=== PATIENT | male | born 1995 | race Caucasian/White ===

== ENCOUNTER 2018-07-11 16:16 | Outpatient (REF) | payer MEDICAID, SELFPAY | END 2018-07-11 16:36 | LOC: NCHCN 16:16 | PROVIDERS: PCP Internal Medicine; Visit Provider Physician Assistant Medical | DX: L03.113 Cellulitis of right upper limb (principal) | CPT/HCPCS: 87070; 87205 ==

== ENCOUNTER 2019-10-01 20:31 | Emergency (ER) | payer MEDICAID, SELFPAY ==
--- NOTE | 2019-10-01 20:39 | ED.GENADUL_ITS ---
Discharge Plan Disposition Patient Disposition: HOME Condition: Stable Discharge Details Chief Complaint: Orthopedic Clinical Impression: Hand fracture, right Primary Care Provider: Ernesto Eisenberg ED Provider: Shefali Wong Home Meds and New Rx's Prescriptions: New clindamycin HCl 150 mg capsule 450 mg PO TID 7 Days Qty: 63 RF: 0 oxycodone 5 mg tablet 5 mg PO Q6H PRN (Reason: pain) Qty: 7 RF: 0 Discharge Instructions Instructions: Hand Fracture (ED) Additional Instructions: Rest, ice, and elevate the affected area as much as possible. Alternate tylenol and motrin as needed and directed for pain. Take the oxycodone for pain not relieved with Tylenol or Motrin. Keep wound clean and dry. Take the antibiotics until finished. Call your primary care doctor tomorrow for referral to orthopedics within the next week for further evaluation. Return to the emergency department if you develop any worsening or new concernin g symptoms. Referrals: Erasmo Whitten MD [ [facility] STAFF PHYSICIAN] - Discharge Data Discharge Physician: Shefali Wogn Medical Decision Making 24-year-old male presents with right hand injury after caught his hand in between a car and trailer just prior to arrival. He admitted to numbness of fingers. He has a large hematoma noted to the right dorsal hand with small superficial 3 mm laceration in center. There is no obvious deformity. Neurovascular intact. He is able to wiggle fingers but limited due to pain. Tetanus up-to-date. X-rays note a right second metacarpal fracture. Swelling significantly improved with ice on arrival. He denies any significant relief with ibuprofen and oxycodone. Superficial wound cleaned with Hibiclens and dressed with bacitracin and Kerlix with pressure dressing. Volar splint applied. Neurovascular intact pre-and post procedure. Patient states he is from [place] and would rather follow-up with orthopedics in [place]. His primary care doctor is at [place]. Patient was placed on the orthopedic follow-up list if he decides to follow-up here. Advised on the importance of rice. He is allergic to Keflex. Will cover with prophylactic antibiotics. A dose of clindamycin given here as well as prescription. Advised to call his primary care doctor tomorrow for referral to orthopedics. Advised to return here with any concerns. Medical Records Medical records reviewed: Yes I reviewed the patient's medical records. Imaging Data Radiologic Study: Radiologist's impression: XR Right Hand Exam date and time: 10/01/2019 8:50 PM Age: 24 years old Clinical indication: Injury or trauma; Injury history: Caught hand between car and trailer; Initial encounter; Crushing; Hand and wrist; Right; Injury date: 10/01/19; Injury details: Pain swelling posterior hand/wrist after getting crushed between car and trailer TECHNIQUE: Imaging protocol: XR Right hand. Views: 3 or more views. COMPARISON: No relevant prior studies available. FINDINGS: Bones/joints: Acute fracture in the midshaft of the second metacarpal bone. Soft tissues: Soft tissue edema. IMPRESSION: Acute fracture in the midshaft of the second metacarpal bone. Soft tissue edema. XR Right Wrist Exam date and time: 10/01/2019 8:53 PM Age: 24 years old Clinical indication: Injury or trauma; Injury history: Pain in wrist and hand after getting crushed between car and trailer; Initial encounter; Crushing; Hand and wrist; Right; Injury date: 10/01/19; Injury details: Pain in wrist hand TECHNIQUE: Imaging protocol: XR Right wrist. Views: 3 or more views. COMPARISON: No relevant prior studies available. FINDINGS: Bones/joints: Acute fracture in the midshaft of the second metacarpal bone. Soft tissues: Soft tissue edema. IMPRESSION: Acute fracture in the midshaft of the second metacarpal bone. Soft tissue edema. HPI General Mode of arrival: ambulatory . Date/Time Provider Initiated Documentation: 10/01/19 20:34 . Limitations to Documentation: no limitations . Information obtained by: patient . History of Present Illness 24 year old M presents to the emergency department with the chief complaint of Right hand injury, Quality is described as stabbing and sharp, and is localized to the right and upper extremity (Hand). Patient started experiencing this minute(s) (30) and it has been constant. No relieving factors improve symptom(s), M ovement worsens symptoms . Patient notes no other symptoms.. Patient did receive the following treatments prior to arrival, none Related Data Home Medications Medication Instructions Recorded Confirmed clindamycin HCl 450 mg PO TID 7 Days #63 cap 10/01/19 oxycodone 5 mg PO Q6H PRN #7 tab 10/01/19 Previous Rx's Medication Instructions Recorded clindamycin HCl 450 mg PO TID 7 Days #63 cap 10/01/19 oxycodone 5 mg PO Q6H PRN #7 tab 10/01/19 Allergies Allergy/AdvReac Type Severity Reaction Status Date / Time fluticasone [From Flonase] Allergy Unverified 10/01/19 20:49 Review of Systems All systems reviewed & are unremarkable except as noted in HPI and below PFSH Medical History 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 Social History Smoking/Tobacco Use Status: Never Alcohol Intake: current Alcohol Intake frequency: a few times a month Drug use: Occasionally Substance use type: marijuana Do you feel safe at home: Yes Do you feel safe in your relationship?: Yes Exam Const General: cooperative, healthy appearing and no acute distress HENMT Head: normal to inspection Mouth: oral mucosae normal Eyes General: appearance normal, both eyes and all related structures Neck Neck: normal visual inspection Resp Effort & Inspection: normal respiratory effort and able to speak in complete sentences Cardio Rate: regular rate Skin General skin exam: no rashes or lesions noted Neuro General: alert, awake and oriented x3 Motor: muscle tone normal throughout and strength 5/5 throughout Sensory Exam: no sensory deficits noted Other: Motor/sensory grossly intact right hand. Limitation of range of motion of fingers due to pain. Extrem Hand/finger images: 1. 5 x 5 cm large hematoma noted on right dorsal hand. There is a 3 mm superficial laceration noted in center of hematoma. There is no deformity. Other: Tenderness to palpation along right dorsal hand and wrist. Right radial and ulnar pulses intact. Normal capillary refill. Psych Appearance: grossly normal Affect: normal affect
[2019-10-01 20:44] VITALS: BP 120/96; PULSE 78; RESP 20; TEMP 36.8; O2SAT 100
[2019-10-01] MEDS: Ibuprofen 600 MG TAB PO (20:49)
[2019-10-01] MEDS: oxyCODONE 5 MG TAB PO (20:49)
--- NOTE | 2019-10-01 20:50 | DI.RAD_ITS ---
EXAM: XR HAND RT COMPLETE INDICATION: crushed hand in b/w car/trailer; r/o fx. COMPARISON: No previous for comparison TECHNIQUE: 2D digital imaging was performed. FINDINGS: There is a transverse fracture through the midshaft of the right 2nd metacarpal. There is mild ulnar angulation of the distal fracture. No other fracture or dislocation is seen. There is soft tissue swelling of the hand. IMPRESSION: Right 2nd metacarpal fracture.
--- NOTE | 2019-10-01 21:04 | DI.VRAD_ITS ---
PROCEDURE INFORMATION: Exam: XR Right Hand Exam date and time: 10/01/2019 8:50 PM Age: 24 years old Clinical indication: Injury or trauma; Injury history: Caught hand between car and trailer; Initial encounter; Crushing; Hand and wrist; Right; Injury date: 10/01/19; Injury details: Pain swelling posterior hand/wrist after getting crushed between car and trailer TECHNIQUE: Imaging protocol: XR Right hand. Views: 3 or more views. COMPARISON: No relevant prior studies available. FINDINGS: Bones/joints: Acute fracture in the midshaft of the second metacarpal bone. Soft tissues: Soft tissue edema. IMPRESSION: Acute fracture in the midshaft of the second metacarpal bone. Soft tissue edema. Dictated and Authenticated by: Rojas Leonardo MD. Ordering:MARIA ALEJANDRA Meehan MD
--- NOTE | 2019-10-01 21:05 | DI.VRAD_ITS ---
PROCEDURE INFORMATION: Exam: XR Right Wrist Exam date and time: 10/01/2019 8:53 PM Age: 24 years old Clinical indication: Injury or trauma; Injury history: Pain in wrist and hand after getting crushed between car and trailer; Initial encounter; Crushing; Hand and wrist; Right; Injury date: 10/01/19; Injury details: Pain in wrist hand TECHNIQUE: Imaging protocol: XR Right wrist. Views: 3 or more views. COMPARISON: No relevant prior studies available. FINDINGS: Bones/joints: Acute fracture in the midshaft of the second metacarpal bone. Soft tissues: Soft tissue edema. IMPRESSION: Acute fracture in the midshaft of the second metacarpal bone. Soft tissue edema. Dictated and Authenticated by: Rojas Leonardo MD. Ordering:MARIA ALEJANDRA Meehan MD
[2019-10-01] MEDS: Clindamycin 150 MG CAP 450 MG PO (21:41)
[2019-10-01 23:00] VITALS: BP 120/96; PULSE 78; RESP 20; TEMP 36.8; O2SAT 100
== END 2019-10-01 22:30 | disposition home or self-care (01) ==
PROVIDERS: Emergency Provider Physician Assistant; PCP Internal Medicine
DX: S62.320A Displaced fracture of shaft of second metacarpal bone, right hand, initial encounter for closed fracture (principal); S61.411A Laceration without foreign body of right hand, initial encounter; W23.0XXA Caught, crushed, jammed, or pinched between moving objects, initial encounter
CPT/HCPCS: 26600; 73110; 73130; L3650

== ENCOUNTER 2019-10-09 11:38 | Outpatient (CLI) | payer MEDICAID, SELFPAY ==
--- NOTE | 2019-10-09 11:55 | DI.RAD_ITS ---
EXAM: XR HAND RT LIMITED INDICATION: fx right hand. COMPARISON: XR HAND RT COMPLETE from 10/01/2019 TECHNIQUE: 2D digital imaging was performed. FINDINGS: There has been no change in the alignment of the fracture of the mid 2nd metacarpal.
== END 2019-10-09 11:58 ==
PROVIDERS: PCP Internal Medicine; Visit Provider Physician Assistant
DX: S62.320D Displaced fracture of shaft of second metacarpal bone, right hand, subsequent encounter for fracture with routine healing (principal)
CPT/HCPCS: 73120

== ENCOUNTER 2019-10-23 09:19 | Outpatient (CLI) | payer MEDICAID, SELFPAY ==
--- NOTE | 2019-10-23 09:00 | DI.RAD_ITS ---
EXAM: XR HAND RT LIMITED CLINICAL HISTORY: f/u TECHNIQUE: COMPARISON: XR HAND RT LIMITED from 10/09/2019 FINDINGS: Two views were obtained and show previously noted fracture of the mid shaft of the 2nd metacarpal wit h no gross interval change in alignment of the fracture fragments comparison with films of September 29. IMPRESSION:
== END 2019-10-23 09:39 ==
PROVIDERS: PCP Internal Medicine; Visit Provider Orthopaedic Surgery
DX: S62.320D Displaced fracture of shaft of second metacarpal bone, right hand, subsequent encounter for fracture with routine healing (principal)
CPT/HCPCS: 73120

== ENCOUNTER 2019-11-13 11:24 | Outpatient (CLI) | payer MEDICAID, SELFPAY ==
--- NOTE | 2019-11-13 10:15 | DI.RAD_ITS ---
EXAM: XR HAND RT LIMITED CLINICAL HISTORY: F/U FRACTURE. TECHNIQUE: 2D digital imaging was performed. COMPARISON: XR HAND RT LIMITED from 10/23/2019 FINDINGS: BONES: The 2nd metacarpal fracture is stable in alignment and shows evidence of healing. No bony shane tructive lesion is seen. JOINTS: No dislocation present. SOFT TISSUE: Normal. IMPRESSION: Healing right 2nd metacarpal fracture. DATA REPOSITORY: RADIATION DOSE DELIVERED:
== END 2019-11-13 11:44 ==
PROVIDERS: PCP Internal Medicine; Visit Provider Orthopaedic Surgery
DX: S62.320D Displaced fracture of shaft of second metacarpal bone, right hand, subsequent encounter for fracture with routine healing (principal)
CPT/HCPCS: 73120

== ENCOUNTER 2020-03-13 14:55 | Outpatient (REF) | payer MEDICAID, SELFPAY | END 2020-03-13 15:15 | LOC: NCHCN 14:55 | PROVIDERS: PCP Internal Medicine; Visit Provider Internal Medicine | DX: F42.9 Obsessive-compulsive disorder, unspecified (principal); J38.5 Laryngeal spasm; F90.0 Attention-deficit hyperactivity disorder, predominantly inattentive type; G44.209 Tension-type headache, unspecified, not intractable; C91.01 Acute lymphoblastic leukemia, in remission ==

== ENCOUNTER 2021-03-13 15:58 | Outpatient (REF) | payer MEDICAID, SELFPAY ==
[2021-03-15 11:01] LABS: COVID-19 RT-PCR UVMMC Result Negative (Negative)
== END 2021-03-13 15:59 | disposition home or self-care (01) ==
LOC: NCHCN 15:58
PROVIDERS: PCP Internal Medicine; Visit Provider Physician Assistant
DX: J06.9 Acute upper respiratory infection, unspecified (principal); Z20.822 Contact with and (suspected) exposure to COVID-19
CPT/HCPCS: U0003

== ENCOUNTER 2021-06-19 19:51 | Outpatient (REF) | payer MEDICAID, SELFPAY ==
[2021-06-21 16:34] LABS: COVID-19 RT-PCR UVMMC Result Negative (Negative)
== END 2021-06-19 19:52 | disposition home or self-care (01) ==
LOC: NCHCN 19:51
PROVIDERS: PCP Internal Medicine; Visit Provider Internal Medicine
DX: Z20.822 Contact with and (suspected) exposure to COVID-19 (principal)
CPT/HCPCS: U0003

== ENCOUNTER 2021-10-05 16:26 | Outpatient (REF) | payer MEDICAID, SELFPAY ==
[2021-10-05 18:53] LABS: Abs Immature Grans 0.03 10^3/uL (0.0-0.06); Absolute Basophil Count 0.04 10^3/uL (0.0-0.2); Absolute Eosinophil Count 0.05 10^3/uL (0.0-0.7); Absolute Lymphocyte Count 1.72 10^3/uL (1.2-3.4); Absolute Neutrophil Count 5.86 10^3/uL (1.2-6.7); Basophils % 0.5; Eosinophils % 0.6; HCT 43.8 % (40.0-50.0); HGB 14.9 g/dL (13.5-17.5); Immature Grans % 0.3; MCV 85.2 fL (80-95); MPV 10.1 fL (8.0-11.0); Monocytes % 10.5; Neutrophils % 68.1; Nucleated RBC 0 %; Platelet Count 289 10^3/uL (130-400); RBC 5.14 10^6/uL (4.36-5.78); RDW 12.2 % (11.8-14.1); RDW-SD 38.3 fL
== END 2021-10-05 16:27 | disposition home or self-care (01) ==
LOC: NCHCN 16:26
PROVIDERS: PCP Internal Medicine; Visit Provider Internal Medicine
DX: C91.01 Acute lymphoblastic leukemia, in remission (principal)
CPT/HCPCS: 85025

== ENCOUNTER 2022-10-08 17:07 | Outpatient (REF) | payer MEDICAID, SELFPAY ==
[2022-10-08 18:48] LABS: MCH 28.4 pg (27.0-33.0); MCHC 34.1 % (32.0-36.0); MCV 83 fL (80-95); MPV 9.7 fL (8.0-11.0); Platelet Count 309 10^3/uL (130-400); RBC 5.28 10^6/uL (4.36-5.78); RDW 12.4 % (11.8-14.1); RDW-SD 37.6 fL; WBC 7.96 10^3/uL (4.4-10.8)
[2022-10-08 18:57] LABS: Anion Gap 7.5 mmol/L (3-11); BUN 12 mg/dL (7-18); CO2 30.5 mmol/L (21.0-32.0); CREATININE 0.8 mg/dL (0.70-1.30); Calcium 9.2 mg/dL (8.5-10.1); Calculated LDL 81 mg/dL (<100); Chloride 101 mmol/L (98-107); Cholesterol 162 mg/dL (<200); Estimated GFR 125.95 (mL/min/1.73m2); Glucose 100 mg/dL (74-106); HDL Cholesterol 74 mg/dL (40-60); Potassium 4.1 mmol/L (3.5-5.1); Sodium 139 mmol/L (136-145); Triglyceride 36 mg/dL (<150)
[2022-10-11 14:39] LABS: Chlamydia Result Negative (Negative); GC Result Negative (Negative)
== END 2022-10-08 17:08 | disposition home or self-care (01) ==
LOC: NCHCN 17:07
PROVIDERS: PCP Internal Medicine; Visit Provider Internal Medicine
DX: C91.01 Acute lymphoblastic leukemia, in remission (principal); Z13.220 Encounter for screening for lipoid disorders; Z11.3 Encounter for screening for infections with a predominantly sexual mode of transmission
CPT/HCPCS: 80048; 80061; 85027; 87491; 87591

== ENCOUNTER 2023-10-05 07:36 | Outpatient (REF) | payer BC, SELFPAY ==
[2023-10-07 15:02] LABS: Chlamydia Result Negative (Negative); GC Result Negative (Negative)
== END 2023-10-05 07:37 | disposition home or self-care (01) ==
LOC: NCHCN 07:36
PROVIDERS: PCP Internal Medicine; Visit Provider Internal Medicine
DX: Z20.2 Contact with and (suspected) exposure to infections with a predominantly sexual mode of transmission (principal)
CPT/HCPCS: 87491; 87591

== ENCOUNTER 2024-06-18 16:38 | Outpatient (REF) | payer BC, SELFPAY ==
--- OUTSIDE RECORDS SUMMARY | 2024-06-18 16:39 | XMS_ITS | Encounter Summary ---
Author Organization [facility] Address [address] [place] [id number] Care Team Providers Care Medical Laboratory Technologist Name Role Phone Ernesto Eisenberg MD Primary Care Provider [phone] Reason for Visit * Reason Onset Date Comments COVID-19 05/15/2020 Encounter Details Date Type Department Care Team (Late st Contact Info) Description 05/15/2020 Telephone [facility] [address] [place] [address] Yvonne Kelly MD [address] [facility], [address] [place] [address] COVID-19 Social History Tobacco Use Types Packs/Day Years Used Date Smoking Tobacco: Former Cigarettes 0 11/2012 - 2013 Smokeless Tobacco: Never Comments:Ecig used for less than a year Alcohol Use Standard Drinks/Week Comments Not Currently 0 (1 standard drink = 0.6 oz pur e alcohol) Interpersonal Safety Answer Date Record ed Physically Hurt Never 03/30/2020 Verbally Threaten Not on file 03/30/2020 Sex and Gender Information Value Date Recorded Sex Assigned at Not on file Gender Identity Male 10/19/2019 11:33 EST Sexual Orientation Not on file documented as of this encounter Miscellaneous Notes * Telephone Encounter - Sharmin Cagle - 05/15/2020 1201 EDT Called patient to schedule COVID-19 testing. Requested a call back @[phone]. This is our 1st attempt at contacting patient documented in this encounter Plan of Treatment Not on file documented as of this encounter Visit Diagnoses Not on filedocumented in this encounter Care Teams Medical Laboratory Technologist Relationship Specialty Start Date End Date Ernesto Eisenberg MD [address] [place] [address] PCP - General 12/09/11 documented as of this encounter
--- OUTSIDE RECORDS SUMMARY | 2024-06-18 16:39 | XMS_ITS | Encounter Summary ---
Author Organization [facility] Address [address] [place] [address] Care Team Providers Care Data Reporting Analyst Name Role Phone Ernesto Eisenberg MD Primary Care Provider [phone] Reason for Referral * Referral (Routine) - New Request Specialty Diagnoses / Procedures Referred By Maxine vernon Referred To Contact Diagnoses Vocal cord dysfunction Mild persistent asthma without complication Luci Chamorro MD [address] [place] [id number] Referral ID Status Reason Start Date Expiration Date Visits Requested Visits Authorized [id number] New Request Specialty Services Required 12/19/2020 1 1 Question Answer Reason for Request: Patient preference Scheduling Comments (optional ? describe specific scheduling needs if applicable): 6 months SITE Encounter Details Date Type Department Care Team (Late st Contact Info) Description 12/19/2020 Orders Only [facility] Pulmonology & Critical Care - [address] [id number] Ashley Pizarro MD [address] [facility], [address] [place] [address] Vocal cord dysfunction (Primary Dx); Mild persistent asthma without complication Social History Tobacco Use Types Packs/Day Years [...] on file documented as of this encounter Plan of Treatment Scheduled Referrals Name Type Priority Associated Diagnoses Orde r Schedule AMB CONS/FOLLOW UP PULMONARY Outpatient Referral Routine Vocal cord dysfunction Mild persistent asthma without complication Ordered: 12/19/2020 documented as of this encounter Visit Diagnoses Diagnosis Vocal cord dysfunction- Primary Other diseases of vocal cords Mild persistent asthma without complication Unspecified asthma documented in this encounter Care Teams Data Reporting Analyst Relationship Specialty Start Date End Date Ernesto Eisenberg MD [address] [place] [address] PCP - General 12/09/11 documented as of this encounter
--- OUTSIDE RECORDS SUMMARY | 2024-06-18 16:39 | XMS_ITS | Encounter Summary ---
Author Organization [facility] Address [address] [place] [address] Care Team Providers Care Corrosion Control Fitter Name Role Phone Ernesto Eisenberg MD Primary Care Provider [phone] Reason for Visit * Reason Comments Sinus Problems * Referral (Routine/Next Available) - Order Cancelled Specialty Diagnoses / Procedures Referred By Maxine vernon Referred To Contact Otolaryngology Diagnoses Vocal cord dysfunction Chronic maxillary sinusitis Heron Dean MD [address] [place] [phone] [place] [address] [place] [id number] Referral ID Status Reason Start Date Expiration Date Visits Requested Visits Authorized [id number] Order Cancelled Specialty Services Required 01/23/2020 1 1 Encounter Details Date Type Department Care Team (Late st Contact Info) Description 09/25/2020 15:30 EST Office Visit [facility] ENT- [address] [address] Yvonne Kelly MD [address] [place] [address] [address] [place] [address] Vocal fold dysfunction (Primary Dx); Laryngopharyngeal reflux (LPR); Non-seasonal allergic rhinitis due to pollen Social History Tobacco Use Types Packs/Day Years [...] on file documented as of this encounter Ordered Prescriptions Prescription Sig Dispensed Refills Start Date End Da te omeprazole (PRILOSEC) 20 mg capsule Take 1 Cap by mouth every morning. 30 Cap 11 09/25/2020 12/18/2020 triamcinolone (NASACORT AQ) 55 mcg nasal inhaler Instill 1-2 Sprays into both nostrils 2 times daily. 2 Inhaler 11 09/25/2020 12/18/2020 documented in this encounter Progress Notes * Yvonne Kelly MD - 09/25/2020 1530 EST Consultation Note Division of Otolaryngology, Head and Neck Surgery Date of Service: 09/25/20 Provider: MD Heron Choi has requested that I see Erich Carreon in consultation regarding sinus issues Chief Complaint: Chief Complaint Patient presents with ??? Sinus Problems History of Present Illness: Erich Carreon is a 25 y.o. year old male who comes in today for sinus issues. Has asthma, was negative for CF on genetic testing Was referred for many years of PND and nasal congestion Has shortness of breath and chest pain - these are his most bothersome symptoms No history of choking Does have periods where he struggles to get breaths in - mostly when wind is blowing in his face; hot and dry air is worse No trouble swallowing He reports sinus infections every month starting in the fall to spring - these episodes are characterized by runny nose that is discolored, coughing up green/yellow, nasal congestion that alternates,sense of smell is poor, gets migraines during these times. He reports that he does respond to antibiotics at these times. 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 He has a history of allergies - pollens in the spring; he was tested 1-2 years ago at [facility] Allergy Does not use any medication for his nose Used to take Claritin - this helped a little He is allergic to flonase - gets chest tightness and SOB Nasacort - does not remember if this helped but he did not have any allergies to this Will not use the neti pot because it reagan 3-4 years ago was evaluated at [facility] Has had septoplasty in the past approx 4 years ago which helped somewhat Has been seen to have paradoxical vocal fold motion on exam at [facility] Has not yet seen speech therapy Does not remember if he has had a CT scan - may have been done at [facility] aroundwh his nasal surgery was done mild Nasal obstruction mild Nasal drainage no Loss of smell no PND no Itchy Nose/eyes mild Sneezing mild Cough no Ear fullness no Facial pain/pressure Current nasal treatment includes none Allergy: yes Asthma: yes Dermatitis: no Past Medical History: Patient Active Problem List Diagnosis ??? Leukemia in remission ([facility]) ??? Meningitis ??? Chronic sinusitis ??? Asthma due to environmental allergies Past Medical History: Diagnosis Date ??? Blurry vision ??? Cancer ([facility]) ALL Past Surgical History: Procedure Laterality Date ??? APPENDECTOMY ??? NASAL SEPTUM SURGERY Current Outpatient Medications Medication ??? acetaminophen (TYLENOL) 500 mg tablet ??? albuterol (ACCUNEB) 2.5 mg /3 mL (0.083 %) nebulizer solution ??? albuterol sulfate (PROAIR HFA INHALATION) ??? cyclobenzaprine (FLEXERIL) 10 mg tablet ??? DOXYCYCLINE HYCLATE ORAL ??? ibuprofen (MOTRIN) 800 mg tablet ??? lisdexamfetamine (VYVANSE) 30 mg capsule ??? montelukast (SINGULAIR) 10 mg tablet No current facility-administered medications for this visit. Allergies: Allergies Allergen Reactions ??? Flonase [Fluticasone Propionate] Pt reports tightening of chest, SOB ??? Keflex [Cephalexin] Wheezing Rash, swelling Past Family and Social History: Family History Problem Relation Age of Onset ??? Sinusitis Mother Social History Socioeconomic History ??? Marital status: Single Spouse name: Not on file ??? Number of children: Not on file ??? Years of education: Not on file ??? Highest education level: Not on file Occupational History ??? Not on file Social Needs ??? Financial resource strain: Not on file ??? Food insecurity Worry: Not on file Inability: Not on file ??? Transportation needs Medical: Not on file Non-medical: Not on file Tobacco Use ??? Smoking status: Former Smoker Years: 0.75 Quit date: 2014 Years since quittin.0 ??? Smokeless tobacco: Never Used ??? Tobacco comment: Ecig used for less than a year Substance and Sexual Activity ??? Alcohol use: Not Currently ??? Drug use: Not Currently ??? Sexual activity: Not on file Lifestyle ??? Physical activity Days per week: Not on file Minutes per session: Not on file ??? Stress: Not on file Relationships ??? Social connections Talks on phone: Not on file Gets together: Not on file Attends buddhist service: Not on file Active member of club or organization: Not on file Attends meetings of clubs or organizations: Not on file Relationship status: Not on file ??? Intimate partner violence Fear of current or ex partner: Not on file Emotionally abused: Not on file Physically abused: Not on file Forced sexual activity: Not on file Other Topics Concern ??? Not on file Social History Narrative ??? Not on file Review of Systems: A 12 point review of systems was performed, and was negative except for muscle pain, chest pain, sensitivity to light, SOB, headaches. Physical Exam: Vital Signs: Reviewed (3) There were no vitals taken for this visit. Appearance: The patient appears alert, cooperative, and comfortable. Communication/Voice: Normal Head and Face: Inspection: Normal without apparent scars, lesions, or masses. Palpation: Not performed. Salivary Glands: Submandibular and Parotid glands are normal bilaterally Facial Strength: Intact and symmetrical bilaterally External Ear & Nose: No external ear or nose deformity noted Ears, Nose, Mouth and Throat: Otoscopy: Right external auditory canal: patent and non-inflamed Left external auditory canal: patent and non-inflamed Right tympanic membrane: intact without retraction, perforation or effusion Left tympanic membrane: intact without retraction, perforation or effusion Tuning Fork: Not assessed Nose: normal turbinates and mucosa: septum in midline Lips, Teeth & Gums: normal for age Oral Cavity & Oropharynx: normal Neck: General: Not examined Thyroid: Not examined Cervical Lymph Nodes: Not Examined Procedure: Endoscopy Pre-procedure Dx: PND, nasal congestion Post-procedure Dx: same Indication: evaluation of symptoms of rhinitis/sinusitis unable to visualize on anterior rhinoscopy Anesthesia: Cophenylcaine Endoscopy type: Flexible and rigid Procedure: Informed consent was obtained. The patient was seated upright, and topical anesthetic was applied. After waiting for the anesthetic/vasoconstrictor effect, the scope was passed into both nostrils and the nasal cavities, nasopharynx, oropharynx, hypopharynx and larynx were examined. The patient tolerated the procedure well, and left the office in stable condition. Complications: None Findings: Nose: septum midline, inferior turbinates normal in appearance, middle turbinates normal in appearance, middle meatus clear bilaterally and SE recess visualized and clear bilatearlly Nasopharynx: Normal examination of the choanae, eustachian tube orifices, and posterior nasopharyngeal wall Hypopharynx & Pharyngeal Carroll: cobblestoning of lymphoid tissue in the pharynx Larynx: Normal epiglottis, false vocal cords and true vocal cords. Mild limitation in abduction with forced inspiration. Postcricoid edema visualized Investigations: 09/25/20 SNOT-22: 38 Assessment: 1. Chronic rhinitis, cannot rule out sinusitis though no evidence on endoscopy - likely mixed from allergic rhinitis and mild LPR. Discussed that suboptimally controlled allergic rhinitis may predispose him to recurrent worsened flares with viral events. 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 We discussed the spectrum of treatments for allergic rhintis including steroid sprays, oral/nasal antihistamines, and steroid rinses. He wishes torestart steroid sprays. He is not willing to do saline rinses. We discussed revisiting the retail sales director for further options. LPR handout was provided and omeprazole rx provided (liekly to help with VCD as well) 2. VCD/paradoxical vocal cord motion - discussed this diagnosis. LPR can be an exacerbating factor.Speech therapy discussed and recommended. He will talk to his PCP regarding speech therapy options close to home Plan: - He will let us know where the CT was done so we can request a copy - Will attempt to obtain a CT Sinus during his next exacerbation for further evaluation - Nasacort BID rx - Oral antihistamine - Omeprazole rx - Recommend speech therapy for VCD - Follow up telemedicine in 6 months Yvonne Kelly MD 09/25/20 documented in this encounter Plan of Treatment Not on file documented as of this encounter Visit Diagnoses Diagnosis Vocal fold dysfunction- Primary Other diseases of vocal cords Laryngopharyngeal reflux (LPR) Other diseases of larynx Non-seasonal allergic rhinitis due to pollen documented in this encounter Historical Medications * This list may reflect changes made after this encounter. Medication Sig Dispensed Refills Start Date End Date DOXYCYCLINE HYCLATE ORAL Take by mouth. added in this encounter Care Teams Corrosion Control Fitter Relationship Specialty Start Date End Date Ernesto Eisenberg MD [address] [place] [address] PCP - General 12/09/11 documented as of this encounter
--- OUTSIDE RECORDS SUMMARY | 2024-06-18 16:39 | XMS_ITS | Clinical Summary ---
Author Organization [facility] Address [address] [place] [address] Care Team Providers Care Commission Auditor Name Role Phone Ernesto Eisenberg MD Primary Care Provider [phone] Allergies Active Allergy Reactions Criticality Noted Date Comments Fluticasone Propionate 04/25/2019 Pt reports tightening of chest, SOB Cephalexin Wheezing 12/17/2011 Rash, swelling Medications Medication Sig Dispensed Refills Start Date End Date Status acetaminophen (TYLENOL) 500 mg tablet Take 1,000 mg by mouth every 6 hours as needed. Per mom Active ibuprofen (MOTRIN) 800 mg tablet Take 800 mg by mouth every 6 hours as needed. Per mom Active albuterol sulfate (PROAIR HFA INHALATION) Inhale 2 Puffs as directed every 4 to 6 hours as needed. Active lisdexamfetamine (VYVANSE) 30 mg capsule Take 40 mg by mouth every morning. Active albuterol (ACCUNEB) 2.5 mg /3 mL (0.083 %) nebulizer solution Take 2.5 mg by nebulization every 4 hours as needed for Wheezing. Active cyclobenzaprine (FLEXERIL) 10 mg tablet Take 10 mg by mouth 3 times daily as needed for Muscle Spasms. Active DOXYCYCLINE HYCLATE ORAL Take by mouth. 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 Meningitis 04/25/2019 Chronic sinusitis 04/25/2019 Asthma due to environmental allergies 04/25/2019 Immunizations Name Administration Dates Next Due Covid-19 mRNA Vaccine (MODER NA COVID-19) PF 0.5 ml IM (12 yrs+) 12/09/2020,11/11/2020 DTaP Vaccine (INFANRIX) <7YO IM 12/13/19 02,1997,1997,05/15 Hib PRP-T Conjugate Vaccine 4 Dose IM ,1997,1997,05/12 Historical Hepatitis B Vacci ne, Unspecified 1997,1997,1997 MMR Vaccine SQ 02/01/2002,03/25/1998 Measles Vaccine SQ 03/25/1998 Pneumococcal Polysaccharide (PPSV23) Vaccine (PNEUMOVAX-23) =>2YO SQ/IM 04/25/2019,08/15/2001 Poliovirus Vaccine IPV IM OR SQ 12/12/2001,07/12,1997 Surgical History Surgery Date Site/Laterality Comments APPENDECTOMY NASAL SEPTUM SURGERY Medical History Medical History Date Comments Blurry vision Cancer ([facility]) ALL Family History Medical History Relation Comments Sinusitis Mother Relation Status Comments Mother Social History Tobacco Use Types Packs/Day Years [...] 11:33 EST Sexual Orientation Not on file Obstetrics History Last Filed Vital Signs Vital Sign Reading Time Taken Comments Blood Pressure 112/78 12/18/2020 1527 EDT Pulse 107 12/18/2020 1527 EDT Temperature 36 ??C (96.8 ??F) 12/18/2020 1527 EDT Respiratory Rate 18 12/18/2020 1527 EDT Oxygen Saturation 100% 12/18/2020 1527 EDT Inhaled Oxygen Concentration - - Weight 63.5 kg (140 lb) 12/18/2020 1527 EDT Height 182.3 cm (5' 11.77) 10/19/2019 1037 EST Body Mass Index 19.11 10/19/2019 1037 EST Plan of Treatment Health Maintenance Due Date Last Done Comments Hepatitis C Screen 1997 COVID-19 Vaccine (3 - 2023-2 4 season) 2023 12/09/2020, 11/11/2020 Hepatitis B Vaccine Completed 1997, 1997, 1997 Care Teams Commission Auditor Relationship Specialty Start Date End Date Ernesto Eisenberg MD [address] [place] [address] PCP - General 12/09/11
--- OUTSIDE RECORDS SUMMARY | 2024-06-18 16:39 | XMS_ITS | Encounter Summary ---
Author Organization [facility] Address [address] [place] [address] Care Team Providers Care Front Office Administrator Name Role Phone Ernesto Eisenberg MD Primary Care Provider [phone] Encounter Details Date Type Department Care Team (Late st Contact Info) Description 10/09/2022 Lab Requisition [facility] Pathology & [place] [address] Outr Resulting Lab, Provider Social History Tobacco Use Types Packs/Day Years [...] as of this encounter Plan of Treatment Not on file documented as of this encounter Procedures Procedure Name Priority Date/Time Associated Diagnosis Comments CHLAMYDIA/N. GONORRHOEAE AMPLIFIED NUCLEIC ACID Routine 10/08/2022 16:45 EST documented in this encounter Results * CHLAMYDIA/N. GONORRHOEAE AMPLIFIED RNA (10/08/2022 16:45 EST) Neisseria gonorrhoeae Result Negative Negative 10/11/2022 14:34 EST [facility] Chlamydia trachomatis Result Negative Negative 10/11/2022 14:34 EST [facility] Urine URINE / Unknown 10/08/2022 1 6:45 EST 10/10/2022 18:05 EST Provider Outr Resulting Lab MICROBIOLOGY - GENERAL ORDERABLES Performing Organization Address City/State/[facility] Co de Phone Number [facility] [address] [place] [address] documented in this encounter Visit Diagnoses Not on filedocumented in this encounter Care Teams Front Office Administrator Relationship Specialty Start Date End Date Ernesto Eisenberg MD [address] [place] [address] PCP - General 12/09/11 documented as of this encounter
--- OUTSIDE RECORDS SUMMARY | 2024-06-18 16:39 | XMS_ITS | Referral Summary ---
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 Meningitis 04/25/2019 Chronic sinusitis 04/25/2019 Asthma due to environmental allergies 04/25/2019 Immunizations Name Administration Dates Next Due Covid-19 mRNA Vaccine (MODER NA COVID-19) PF 0.5 ml IM (12 yrs+) 12/09/2020,11/11/2020 DTaP Vaccine (INFANRIX) <7YO IM 12/13/19,1997,1997,05/15 Hib PRP-T Conjugate Vaccine 4 Dose IM ,1997,1997,05/12 Historical Hepatitis B Vacci ne, Unspecified 1997,1997,1997 MMR Vaccine SQ 02/01/2002,03/25/1998 Measles Vaccine SQ 03/25/1998 Pneumococcal Polysaccharide (PPSV23) Vaccine (PNEUMOVAX-23) =>2YO SQ/IM 04/25/2019,08/15/2001 Poliovirus Vaccine IPV IM OR SQ 12/12/2001,07/12,1997 Social History Tobacco Use Types Packs/Day Years [...] 11:33 EST Sexual Orientation Not on file Last Filed Vital Signs Vital Sign Reading [...] 19.11 10/19/2019 1037 EST Plan of Treatment Not on file Care Teams Developmental Electronics Assembler Relationship Specialty Start Date End Date Ernesto Eisenberg MD [address] [place] [address] PCP - General 12/09/11
--- OUTSIDE RECORDS SUMMARY | 2024-06-18 16:39 | XMS_ITS | Encounter Summary ---
Author Organization [facility] Address [address] [place] [address] Care Team Providers Care Department Operations Manager Name Role Phone Ernesto Eisenberg MD Primary Care Provider [phone] Encounter Details Date Type Department Care Team (Late st Contact Info) Description 03/14/2021 Lab Requisition [facility] Pathology & [place] [address] Outr Resulting Lab, Provider Social History Tobacco [...] Procedure Name Priority Date/Time Associated Diagnosis Comments ZZCOVID-19 TEST [facility] PCR Today 03/13/2021 15:15 EDT COVID-19 TESTING Routine 03/13/2021 15:1 5 EDT documented in this encounter Results * COVID-19 TEST [facility] PCR (03/13/2021 15:15 EDT) Swab ENTIRE NASOPHARYNX / Unknown 03/13/2021 15:15 EDT 03/14/2021 21:21 EDT Provider Outr Resulting Lab MICROBIOLOGY - GENERAL ORDERABLES [facility] [address] [place] [address] * COVID-19 TESTING (03/13/2021 15:15 EDT) COVID-19 rt-PCR Result Negative Negative 03/15/2021 10:55 EDT [facility] Comment: This test has not been FDA cleared or approved. This test has been authorized by FDA under an EUA for use by authorized laboratories. This test has been authorized only for detection of nucleic acid from 2019-nCoV, not for any other viruses or pathogens. This test is only authorized for the duration of the declaration that circumstances exist justifying the authorization of emergency use of in vitro diagnostic tests for detection and/or diagnosis of 2019-nCoV under section 564(b)(1) of Act, 21 U.S.C ?? 360bbb-3(b) (1), unless the authorization is terminated or revoked sooner. Negative results do not preclude 2019-nCoV infection and should not be used as the sole basis for treatment or other patient management decisions. Negative results must be combined with clinical observations, patient history, and epidemiological information. Testing was performed using the esthela SARS-CoV-2 assay ([employer] on the Esthela 6800 System Performing Lab [employer]hela [address] [facility] Lab 03/15/2021 10:55 EDT [facility] Swab 03/13/2021 15:1 5 EDT 03/14/2021 21:21 EDT Provider Outr Resulting Lab MICROBIOLOGY - GENERAL ORDERABLES [facility] [address] [place] [address] documented in this encounter Visit Diagnoses Not on filedocumented in this encounter Care Teams Department Operations Manager Relationship Specialty Start Date End Date Ernesto Eisenberg MD [address] [place] [address] PCP - General 12/09/11 documented as of this encounter
--- OUTSIDE RECORDS SUMMARY | 2024-06-18 16:39 | XMS_ITS | Encounter Summary ---
Author Organization [facility] Address [address] [place] [address] Care Team Providers Care Scientific Aide Name Role Phone Ernesto Eisenberg MD Primary Care Provider [phone] Encounter Details Date Type Department Care Team (Late st Contact Info) Description 06/20/2021 Lab Requisition [facility] Pathology & [place] [address] Outr Resulting Lab, Provider Social History Tobacco [...] Comments ZZCOVID-19 TEST [facility] PCR Today 06/19/2021 11:30 EDT COVID-19 TESTING Routine 06/19/2021 11:3 0 EDT documented in this encounter Results * COVID-19 TEST [facility] PCR (06/19/2021 11:30 EDT) Swab ENTIRE NASOPHARYNX / Unknown 06/19/2021 11:30 EDT 06/20/2021 21:48 EDT Provider Outr Resulting Lab MICROBIOLOGY - GENERAL ORDERABLES [facility] [address] [place] [address] * COVID-19 TESTING (06/19/2021 11:30 EDT) COVID-19 rt-PCR Result Negative Negative 06/21/2021 16:28 EDT [facility] Comment: This test has not [...] clinical observations, patient history, and epidemiological information. This test was developed and its performance characteristics determined by [facility]. It has not been cleared or approved by the US Food and Drug Administration. FDA does not require this test to go through premarket FDA review. This test is used for clinical purposes. It should not be regarded as investigational or for research. This laboratory is certified under the Clinical Laboratory Improvement Amendments (CLIA) as qualified to perform high complexity clinical laboratory testing. This test is based on the [facility] COVID-19 Emergency Use Authorization (EUA) assay, with minor modification as defined by the FDA Performed on the Hard [employer] 7 Flex RT-PCR System. Performing Lab [facility] Lab 06/21/2021 16:28 EDT [facility] Swab 06/19/2021 11:3 0 EDT 06/20/2021 21:48 EDT Provider Outr Resulting Lab MICROBIOLOGY - GENERAL ORDERABLES [facility] [address] [place] [address] documented in this encounter Visit Diagnoses Not on filedocumented in this encounter Care Teams Scientific Aide Relationship Specialty Start Date End Date Ernesto Eisenberg MD [address] [place] [address] PCP - General 12/09/11 documented as of this encounter
--- OUTSIDE RECORDS SUMMARY | 2024-06-18 16:39 | XMS_ITS | Encounter Summary ---
Author Organization [facility] Address [address] [place] [address] Care Team Providers Care Superintendent Generating Plant Name Role Phone Ernesto Eisenberg MD Primary Care Provider [phone] Encounter Details Date Type Department Care Team (Late st Contact Info) Description 10/06/[address] [facility] Pathology & [place] [address] Outr Resulting Lab, Provider Social History Tobacco [...] Comments CHLAMYDIA/N. GONORRHOEAE AMPLIFIED NUCLEIC ACID Routine 10/05/2023 15:30 EST documented in this encounter Results * CHLAMYDIA/N. GONORRHOEAE AMPLIFIED RNA (10/05/2023 15:30 EST) Neisseria gonorrhoeae Result Negative Negative 10/07/2023 14:57 EST [facility] Chlamydia trachomatis Result Negative Negative 10/07/2023 14:57 EST [facility] Urine URINE / Unknown 10/05/2023 1 5:30 EST 10/06/2023 18:06 EST Provider Outr Resulting Lab MICROBIOLOGY - GENERAL ORDERABLES Performing Organization Address City/State/[facility] Co de Phone Number [facility] [address] [place] [address] documented in this encounter Visit Diagnoses Not on filedocumented in this encounter Care Teams Superintendent Generating Plant Relationship Specialty Start Date End Date Ernesto Eisenberg MD [address] [place] [address] PCP - General 12/09/11 documented as of this encounter
--- OUTSIDE RECORDS SUMMARY | 2024-06-18 16:39 | XMS_ITS | Encounter Summary ---
Author Organization [facility] Address [address] [place] [id number] Care Team Providers Care Backup Administrator Name Role Phone Ernesto Eisenberg MD Primary Care Provider [phone] Reason for Referral * PT/OT/ST (Routine/Next Available) - New Request Specialty Diagnoses / Procedures [facility] Referred To Contact Diagnoses Vocal cord dysfunction Heron Dean MD [address] [place] [phone] Referral ID Status Reason Start Date Expiration Date Visits Requested Visits Authorized [id number] New Request Specialty Services Required 12/18/2020 1 1 Question Answer Type of BABCOCK TESTER Eval: Speech-Language Eval & Treat, Plan of Care-Continue Treatment as Indicated, Voice Eval & Treat Reason for Request: Vocal cord dysfunction Reason for Visit * Reason Comments Follow-up Asthma Encounter Details Date Type Department Care Team (Late st Contact Info) Description 12/18/2020 15:15 EDT Office Visit [facility] Pulmonology & Critical Care - [address] [address] Ashley Pizarro MD [address] [place] [phone] Vocal cord dysfunction (Primary Dx) Social History Tobacco Use Types Packs/Day Years [...] on file documented as of this encounter Last Filed Vital Signs Vital Sign Reading Time Taken Comments Blood Pressure 112/78 12/18/2020 1527 EDT Pulse 107 12/18/2020 1527 EDT Temperature 36 ??C (96.8 ??F) 12/18/2020 1527 EDT Respiratory Rate 18 12/18/2020 1527 EDT Oxygen Saturation 100% 12/18/2020 1527 EDT Inhaled Oxygen Concentration - - Weight 63.5 kg (140 lb) 12/18/2020 1527 EDT Height - - Body Mass Index 19.11 10/19/2019 1037 EST documented in this encounter Patient Instructions * Patient Instructions* Ashley Pizarro MD - 12/18/2020 15:15 EDT Images from the original note were not included. Reach out to your PCP if you do not hear about a speech language appointment In the next 2 weeks. Take the peak flow monitor to work and use it there in addition to at home and keep a log. Dear Patients: Dr. Dean, together with the [employer] in [place], is the faculty mentor for first year [facility] medical students during their Public Health Projects class. This year we are surveying people with and without lung disease about mask wearing during the pandemic. No one has specifically focused on mask wearing among people with lung disease. Would you be willing to fill out the survey? Here is a direct link: [email or web address]. You can also find it on the [employer] website (https://[email or web address]-[email or web address]-[email or web address]-wkcu up/covid-19/action-initiative - See right section of webpage). Below is another link and QR code if that is more convenient. Thank you! documented in this encounter Progress Notes * Ashley Pizarro MD - 12/18/2020 1515 EDT PULMONARY CLINIC FOLLOW-UP VISIT ?? Date: 12/18/2020 Reason for Visit: Asthma PCP: Ernesto Eisenberg ? Pulmonary History Asthma Chronic Sinusitis Allergies Normal Immunoglobulins, IgE 35 Normal eosinophils (0.8%; 0.06) VCD - underwent BABCOCK TESTER therapy at [facility] Leukemia as infant s/p chemotherapy Elevated sweat test () - CFTR gene sequencing negative ? Subjective: Mr. Carreon is a 25 y.o. male with a past medical history of asthma and chronic sinusitis who presents today for follow-up. At our last visit he had complaints of breathing difficulties in hot weatherand he had been working a lot which worsened his breathing.He did not see an improvement on Dulera so he stopped it. He mentioned that a lot of his wheezing was coming from his throat. I opted to wait until he saw ENT to decide of BABCOCK TESTER evaluation. He saw Dr. Kelly in August 2020 where vocal cord dysfunction was appreciated and he was recommended for speech therapy, which he said he would discusswith his PCP for an option closer to home ([facility]). He was also recommended for nasocortand omaprazole (to treat LPR). ?? Mr. Carreon reports that the only thing he has noticed that has helped his breathing has been his nebulizer, which lasts 2-3 hours. He notes he recently was diagnosed with pneumonia and is recovering from that but has not had to use his nebulizer recently. 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 He does smoke marijuana every couple days but states this does not seem to worsen his breathing. ?? Past medical, surgical, and family history updated in the medical record. Medications: ?? Current Outpatient Medications: ??? acetaminophen (TYLENOL) 500 mg tablet, Take 1,000 mg by mouth every 6 hours as needed. Per mom , Disp: , Rfl: ??? albuterol (ACCUNEB) 2.5 mg /3 mL (0.083 %) nebulizer solution, Take 2.5 mg by nebulization every 4 hours as needed for Wheezing., Disp: , Rfl: ??? albuterol sulfate (PROAIR HFA INHALATION), Inhale 2 Puffs as directed every 4 to 6 hours as needed. , Disp: , Rfl: ??? cyclobenzaprine (FLEXERIL) 10 mg tablet, Take 10 mg by mouth 3 times daily as needed for MuscleSpasms., Disp: , Rfl: ??? ibuprofen (MOTRIN) 800 mg tablet, Take 800 mg by mouth every 6 hours as needed. Per mom , Disp:, Rfl: ??? lisdexamfetamine (VYVANSE) 30 mg capsule, Take 30 mg by mouth every morning., Disp: , Rfl: ??? montelukast (SINGULAIR) 10 mg tablet, Take 1 Tab by mouth every evening. (Patient taking differently: Take 10 mg by mouth as needed. ), Disp: 30 Tab, Rfl: 5 ?? ROS: A 10-point review of systems was obtained and otherwise negative. ?? Exam: Patient Vitals for the past 24 hrs: BP Temp Temp src Pulse Resp SpO2 Weight 12/18/20 1527 112/78 36 ??C (96.8 ??F) Tympanic (!) 107 18 100 % 63.5 kg (140 lb) Gen: NAD, sitting in chair, lean HENT: PERRL, NCAT Lungs: CTAB, no wheezing Cardiac: RRR, no murmus, rubs or gallops Abd: non distended Ext: no edema or rashes Neuro: non focal Psych: pleasant, cooperative ?? Imaging: Personally reviewed ?? Spirometry: Date FEV1/FVC LLN FEV1 (L) % LLN (L) FVC (L) % LLN (L) Comments 04/27/19 92 72 4.19 85 3.99 4.52 77 4.67 No BD change 10/29/19 93 73 4.21 85 4.00 4.49 76 4.77 ? Lung Volumes/DLCO/Airway Resistance Date TLC (L) % DLCO cor LLN sGaw % ? Assessment: Mr. Carreon is a 25 y.o. male with a past medical history of chronic sinusitis and asthma who presents today for followup. He has significant sinus symptoms that are impacting his asthma. He continuesto require frequent antibiotics for sinusitis. It seems as though the majority of his breathing issues are related to his VCD and sinus issues (although sinus issues are not currently bad). He does not notice a difference when on a maintenance inhaler versus not on one, despite trial of various types of inhalers (Symbicort, Trelegy, Dulera). He likely benefit the most from BABCOCK TESTER consultation. I will also assess whether his occupation may be worsening his asthma through work and home peak flow marilyn toring. ?? Plan: ?? Asthma - prn Duonebs and albuterol - peak flow monitoring at work and home - consider methacholine if BABCOCK TESTER does not resolve symptoms followed by potential CPET ?? Vocal Cord Dysfunction - BABCOCK TESTER referral sent to - omeprazole for LPR ?? Chronic Sinusitis - nasocort, continue to follow with ENT ?? Follow-up: 6 months ?? Ashley Pizarro M.D. Pulmonary and Critical Care Fellow PGY-6 Attestation statement: I performed or was present during the espinal or critical portions of the visit and participated in the management of the patient. I agree with the findings and plan of care documented in the resident's/fellow's note. Heron Dean MD ?? * Joie Balbuena MA - 12/18/2020 2745 EDT Pulmonary Review of Symptoms Constitutional: NONE Hematology: Easy Bruising Eyes: NONE Ear, Nose and Throat: Congestion Allergies: Seasonal Skin: NONE Neurological: NONE Genitourinary: NONE Endocrine / Heme / Allergies: NONE Psychiatric: Difficulty Sleeping Gastrointestinal: Constipation Cardiovascular: Chest Pain and Wake Up Short of Breath at Night - After exercise. Musculoskeletal: NONE Respiratory: Cough, Sputum Production and Shortness of Breath - Recent pneumonia. Other Comments / Notes: documented in this encounter Plan of Treatment Scheduled Referrals Name Type Priority Associated Diagnoses Orde r Schedule AMB CONS/FOLLOW UP SPEECH & LANGUAGE PATHOLOGY Outpatient Referral Routine Vocal cord dysfunction Ordered: 12/18/2020 documented as of this encounter Visit Diagnoses Diagnosis Vocal cord dysfunction- Primary Other diseases of vocal cords documented in this encounter Discontinued Medications Medication Sig Discontinue Reason Start Date End Da te montelukast (SINGULAIR) 10 mg tabletIndications:Modera te persistent asthma, unspecified whether complicated Take 1 Tab by mouth every evening. 07/18/2019 12/18/2020 omeprazole (PRILOSEC) 20 mg capsule Take 1 Cap by mouth every morning. 09/25/2020 12/18/2020 triamcinolone (NASACORT AQ) 55 mcg nasal inhaler Instill 1-2 Sprays into both nostrils 2 times daily. 09/25/2020 12/18/2020 documented as of this encounter Care Teams Backup Administrator Relationship Specialty Start Date End Date Ernesto Eisenberg MD [address] [place] [address] PCP - General 12/09/11 documented as of this encounter
--- OUTSIDE RECORDS SUMMARY | 2024-06-18 16:40 | XMS_ITS | Encounter Summary ---
Author Organization [facility] Address [address] [place] [address] Care Team Providers Care Fruit Cutter Name Role Phone Ernesto Eisenberg MD Primary Care Provider [phone] Encounter Details Date Type Department Care Team (Late st Contact Info) Description 10/19/2019 10:15 EST Procedure visit [facility] Pulmonology & Critical Care - [facility] [address] [place], [place] [id number] Advanced Manager In-House, [facility] Social History Tobacco Use Types Packs/Day Years Used Date Smoking Tobacco: Former Cigarettes 0 11/2012 - 2013 Smokeless Tobacco: Never Comments:Ecig used for less than a year Alcohol Use Standard Drinks/Week Comments Not Currently 0 (1 standard drink = 0.6 oz pur e alcohol) Sex and Gender Information Value Date Recorded Sex Assigned at Not on file Gender Identity Male 10/19/2019 11:33 EST Sexual Orientation Not on file documented as of this encounter Plan of Treatment Not on file documented as of this encounter Visit Diagnoses Not on filedocumented in this encounter Care Teams Fruit Cutter Relationship Specialty Start Date End Date Ernesto Eisenberg MD [address] [place] [address] PCP - General 12/09/11 documented as of this encounter
--- OUTSIDE RECORDS SUMMARY | 2024-06-18 16:40 | XMS_ITS | Encounter Summary ---
Author Organization [facility] Address [facility] [place] [address] Care Team Providers Care Repair Servicer Name Role Phone Ernesto Eisenberg MD Primary Care Provider [phone] Encounter Details Date Type Department Care Team (Latest Contact Info) Description 03/16/2018 - 03/16/2018 11:59 PM EDT Hospital Encounter Radiology Library [facility] [place] [phone] Uriel Cullen MD [facility] [place] [address] Discharge Disposition: Home Social History Tobacco Use Types Packs/Day Years Used Date Smoking Tobacco: Former e-Cigarettes Quit: 07/06/2017 Smokeless Tobacco: Never Alcohol Use Standard Drinks/Week Comments Yes 0 (1 standard drink = 0.6 oz pur e alcohol) minimal Sex and Gender Information Value Date Recorded Sex Assigned at Not on file Gender Identity Not on file Sexual Orientation Not on file documented as of this encounter Medications at Time of Discharge Medication Sig Dispensed Refills Start Date End Date PROAIR HFA 90 mcg/actuation HFA Aerosol Inhaler 5 12/12/2017 cholecalciferol, Vitamin D3, 1,000 unit Tablet Take 4,000 Units by mouth daily. acetaminophen (TYLENOL) 325 mg tablet Take 650 mg by mouth every 4 hours as needed. IBUPROFEN ORAL Take by mouth as needed. LORATADINE (CLARITIN ORAL) Take by mouth as needed. ASCORBIC ACID (VITAMIN C ORAL) 03/11/2010 sertraline (ZOLOFT) 50 mg Tablet 0 02/08/2017 06/14/2018 clonazePAM (KLONOPIN) 0.5 mg Tablet Take 0.5 mg by mouth as needed for Anxiety. 12/14/2018 LEVALBUTEROL TARTRATE (XOPENEX HFA INHL) Inhale into the lungs as needed. 06/14/2018 documented as of this encounter Plan of Treatment Not on file documented as of this encounter Procedures Procedure Name Priority Date/Time Associated Diagnosis Comments FILM LIBRARY STORAGE ONLY DX KNEE Routine 03/16/2018 12:00 AM EDT documented in this encounter Results * Film Library- Storage Only DX Knee (03/16/2018 12:00 AM EDT) Narrative [facility] - 06/06/2018 9:47 AM EDT This exam is for storage only and is auto-finalizing. Uriel Cullen MD IM FILM LIBRARY ORD ERABLES [place], [place] documented in this encounter Visit Diagnoses Not on filedocumented in this encounter Care Teams Repair Servicer Relationship Specialty Start Date End Date Ernesto Eisenberg MD [address] [place] [id number] PCP - General 07/21/10 documented as of this encounter
--- OUTSIDE RECORDS SUMMARY | 2024-06-18 16:40 | XMS_ITS | Encounter Summary ---
Author Organization [facility] Address [address] [place] [address] Care Team Providers Care Bank Operations Officer Name Role Phone Ernesto Eisenberg MD Primary Care Provider [phone] Reason for Visit * Reason Onset Date Comments Results 08/15/2019 Encounter Details Date Type Department Care Team (Late st Contact Info) Description 08/15/2019 Telephone [facility] Pulmonology & Critical Care - [address] [id number] Ashley Pizarro MD [address] [facility], [address] [place] [address] Results Social History Tobacco Use Types Packs/Day Years [...] encounter Miscellaneous Notes * Telephone Encounter - Ashley Pizarro MD - 08/15/2019 6664 EST Called patient to discuss intermediate sweat test results. I spoke to Dr. Farmer for guidance moving forward. Best move is for him to see the CF team for further evaluation given his history of longstanding respiratory and sinus symptoms. Discussed this with the patient and he understands and is willing to see the team. Ashley Pizarro MD Pulmonary and Critical Care Fellow Pager: [phone] * Telephone Encounter - Cherry Farmer MD - 08/15/2019 0918 EST Internal referral to CF clinic from Dr. Pizarro. Patient is 24 yo male with longstanding respiratory and sinus problem since childhood. Recent sweat test high indeterminate with 55, 57. Patient needsfull CF evaluation and genetic testing. Will schedule into CF clinic on August 31, 2019 at 2 pm. Cherry Farmer MD documented in this encounter Plan of Treatment Not on file documented as of this encounter Visit Diagnoses Not on filedocumented in this encounter Care Teams Bank Operations Officer Relationship Specialty Start Date End Date Ernesto Eisenberg MD [address] [place] [address] PCP - General 12/09/11 documented as of this encounter
--- OUTSIDE RECORDS SUMMARY | 2024-06-18 16:40 | XMS_ITS | Encounter Summary ---
Author Organization [facility] Address [address] [place] [address] Care Team Providers Care Manager Medical Writing Name Role Phone Ernesto Eisenberg MD Primary Care Provider [phone] Encounter Details Date Type Department Care Team (Late st Contact Info) Description 04/25/2019 17:22 EDT - 04/25/2019 23:59 EDT Hospital Encounter [address] [address] Ashley Pizarro MD [address] [facility], [address] [place] [phone] Discharge Disposition: Auto Discharge Social History Tobacco Use Types Packs/Day Years [...] on file documented as of this encounter Discharge Diagnoses Diagnosis J45.40 Moderate persistent asthma, uncomplicated-J45.40[ICD-10-CM] documented in this encounter Medications at Time of Discharge Medication Sig Dispensed Refills Start Date End Date acetaminophen (TYLENOL) 500 mg tablet Take 1,000 mg by mouth every 6 hours as needed. Per mom albuterol sulfate (PROAIR HFA INHALATION) Inhale 2 Puffs as directed every 4 to 6 hours as needed. ibuprofen (MOTRIN) 800 mg tablet Take 800 mg by mouth every 6 hours as needed. Per mom lisdexamfetamine (VYVANSE) 30 mg capsule Take 40 mg by mouth every morning. azithromycin (ZITHROMAX Z-MELANIE) 250 mg tablet Take 250 mg by mouth daily. Per mom 01/23/2020 budesonide-formoterol HFA (SYMBICORT) 160-4.5 mcg/actuation HFA aerosol inhaler inhalerIndications:Moder ate persistent asthma without complication Inhale 2 Puffs as directed 2 times daily. 1 Inhaler 11 04/25/2019 07/18/2019 gabapentin (NEURONTIN) 100 mg capsule Take 100 mg by mouth 3 times daily. 07/18/2019 documented as of this encounter Discharge Disposition Disposition Code Departure Means Destination Auto Discharge Home documented in this encounter Plan of Treatment Not on file documented as of this encounter Visit Diagnoses Not on filedocumented in this encounter Care Teams Manager Medical Writing Relationship Specialty Start Date End Date Ernesto Eisenberg MD [address] [place] [address] PCP - General 12/09/11 documented as of this encounter
--- OUTSIDE RECORDS SUMMARY | 2024-06-18 16:40 | XMS_ITS | Clinical Summary ---
Author Organization [facility] Address [facility] [place] [address] Care Team Providers Care Nursing Admin Name Role Phone Ernesto Eisenberg MD Primary Care Provider [phone] Allergies Active Allergy Reactions Criticality Noted Date Comments Asparaginase Cis Free Text Allergy POSS E-COLI RXN W/L-ASPARIGINASE. Fluticasone Propionate Anaphylaxis High 04/05/2019 Sumatriptan Succinate Other (See Comments) 03/2019 Made headaches MUCH worse Cephalexin 10/06/2011 Medications Medication Sig Dispensed Refills Start Date End Date Status ASCORBIC ACID (VITAMIN C ORAL) 03/11/2010 Active IBUPROFEN ORAL Take by mouth as needed. Active LORATADINE (CLARITIN ORAL) Take by mouth as needed. Active acetaminophen (TYLENOL) 325 mg tablet Take 650 mg by mouth every 4 hours as needed. Active PROAIR HFA 90 mcg/actuation HFA Aerosol Inhaler 5 12/12/2017 Active cholecalciferol, Vitamin D3, 1,000 unit Tablet Take 4,000 Units by mouth daily. Active albuterol (PROVENTIL) 2.5 mg/0.5 mL Solution for Nebulization Take 2.5 mg by nebulization every 4 hours as needed for Wheezing. Active lidocaine (XYLOCAINE) 5 % Ointment One application to affected area four times a day as needed for pain 120 g 2 08/30/2018 Active Additional Information Patient not taking.Reported on 12/14/2018 VYVANSE 30 mg Capsule TAKE 1 CAPSULE BY MOUTH DAILY 0 11/23/2018 Active methylPREDNISolone (MEDROL DOSPACK) 4 mg Tablets, Dose Pack 12/12/2018 Active azithromycin (ZITHROMAX) 250 mg Tablet 12/12/2018 Active ibuprofen (ADVIL;MOTRIN) 800 mg Tablet Take 800 mg by mouth daily. 01/15/2019 Active cyclobenzaprine (FLEXERIL) 10 mg Tablet Take 10 mg by mouth nightly. 2 02/23/2019 Active gabapentin (NEURONTIN) 100 mg CapsuleIndications: Headache, chronic daily Take 1 capsule by mouth 3 times daily. 90 capsule 12 04/05/2019 Active Active Problems Problem Noted Date Diagnosed Date Patellofemoral syndrome of right knee 06/21/2018 Acute pain of right knee 06/14/2018 Dorsalgia 10/18/2013 Laryngeal spasm 05/31/2013 Dyspnea on exertion 05/15/2013 Chest pain 04/27/2013 ALL (acute lymphoblastic leukemia of infant) Sinusitis Resolved Problems Problem Noted Date Diagnosed Date Resolved Date Fatigue 04/27/2013 08/30/2018 Immunizations Name Administration Dates Next Due DTaP 12/12/2001, 8,1997,05/15 HIB PRP-T Conjugate (ActHIB, Hiberix, OmniHib) 06/24/1998,1997,1997,05/12 Hepatitis B, Unspecified Formulation 1997, 1997,1997 Influenza PF, Split 05/22/2013 MMR Vaccine LIVE 02/01/2002,03/25/1998 Measles Vaccine (Attenuvax)LIVE 03/25/1998 Pneumococcal 23-Valent Polys accharide (Pneumovax 23) 08/15/2001 Polio Inactivated (IPOL) 12/12/2001,1997,0 1997 Family History Medical History Relation Comments Migraines Maternal Grandmother Cancer Other Relation Status Comments Maternal Grandmother Other Social History Tobacco Use Types Packs/Day Years Used Date Smoking Tobacco: Former e-Cigarettes Quit: 07/06/2017 Smokeless Tobacco: Never Alcohol Use Standard Drinks/Week Comments Yes 5 (1 standard drink = 0.6 oz pur e alcohol) 5 drinks per week Sex and Gender Information Value Date Recorded Sex Assigned at Not on file Gender Identity Not on file Sexual Orientation Not on file Last Filed Vital Signs Vital Sign Reading Time Taken Comments Blood Pressure 118/80 04/05/2019 8:23 AM EDT Pulse 100 04/05/2019 8:23 AM EDT Temperature 36.3 ??C (97.3 ??F) 04/01/2017 12:55 PM E DT Respiratory Rate 18 04/01/2017 10:59 AM EDT Oxygen Saturation 99% 08/30/2018 12:57 PM EST Inhaled Oxygen Concentration - - Weight 64 kg (141 lb) 04/05/2019 8:23 AM EDT Height 182.9 cm (6') 04/05/2019 8:23 AM EDT repo rted Body Mass Index 19.12 04/05/2019 8:23 AM EDT Plan of Treatment Health Maintenance Due Date Last Done Comments Pneumococcal Vaccine: At-Ris k 5-64yrs (2 of 3 - PCV) 08/15/2002 08/15/2001 Tetanus/Diphtheria/Pertussis Vaccines (5 - Tdap) 2008 12/12/2001, 1997, 1997, Additional history exists HIV screen 2015 Hepatitis C Screening 2015 Covid-19 Vaccine ( - 2022-2 4 season) 2024 Influenza (Flu) vaccine (1 o f 1 - Influenza standard series) 04/29/2024 05/22/2013 Hepatitis B vaccine (0-59 yrs) Completed 0 1997, 1997, 1997 Advance Directives * Full Code (Latest Code Status on File) Date Activated Date Inactivated Comments 04/01/2017 11:34 AM 04/01/2017 5:02 PM Question Answer Comments Does patient have capacity to make decision: Yes Care Teams Nursing Admin Relationship Specialty Start Date End Date Ernesto Eisenberg MD [address] [place] [address] [facility] - General 07/21/10
--- OUTSIDE RECORDS SUMMARY | 2024-06-18 16:40 | XMS_ITS | Encounter Summary ---
Author Organization [facility] [place] [address] Care Team Providers Care Plant Maintenance Mechanic Name Role Phone Ernesto Eisenberg MD Primary Care Provider + [phone] Reason for Referral * Consultation (Routine) - Specialty Diagnoses / Procedures Referred By Maxine vernon Referred To Contact Diagnoses Patellofemoral syndrome of right knee Nissa Borrero PA [facility] [place] [address] Referral ID Status Reason Start Date Expiration Date V isits Requested Visits Authorized [id number] Consult, Test & Treat 12/14/2018 06/12/2019 1 1 Reason for Visit * Reason Comments Follow-up right knee pain Encounter Details Date Type Department Care Team (Latest Contact Info) Description 12/14/2018 9:00 AM EDT Office Visit [facility] at [facility] [place] [address] Nissa Borrero PA [facility] [place] [address] Patellofemoral syndrome of right knee Social History Tobacco Use Types Packs/Day Years [...] Sign Reading Time Taken Comments Blood Pressure 125/73 12/14/2018 9:04 AM EDT Pulse 92 12/14/2018 9:04 AM EDT Temperature - - Respiratory Rate - - Oxygen Saturation - - Inhaled Oxygen Concentration - - Weight 67.6 kg (149 lb) 12/14/2018 9:04 AM EDT Height 182.9 cm (6') 12/14/2018 9:04 AM EDT Body Mass Index 20.21 12/14/2018 9:04 AM EDT documented in this encounter Progress Notes * Nissa Borrero PA - 12/14/2018 9:00 AM EDT PATIENT NAME: Erich Carreon AGE: 23 y.o. MR#: [id number] DATE OF VISIT: 12/14/2018 HISTORY OF PRESENT ILLNESS Mr. Carreon is a 23 y.o. year old male who comes into clinic today for follow up of right knee pain. See previous note for full history and details. He has a completely normal MRI. I have diagnosed him with some patellofemoral syndrome pain. However, he presents for followup with severe pain. His pain is still anterior with some crepitus and popping of the knee cap withflexion and extension. He denies any new injuries, swelling, mechanical symptoms, or instability. He has been working with physical therapy on strengthening. They have also added in taping which he found very helpfl. I referred him to our pain clinic for evaluation due to his severe pain out of proportion to exam, and they added topical lidocaine to his regimen, which he did not find helpful. Hisphysical therapist felt that he had reached a plateau with strengthening and so they discharged him. He did also do pool therapy which was not that helpful. He does note that he has been on a couple of steroid Dosepaks for sinus infections and his knee does feel better during these periods of time. ROS: Negative for fever, chills, SOB, chest pain, nausea, vomiting, and diarrhea. Patient's medications, allergies, past medical, surgical, social and family histories were reviewedand updated as appropriate. Physical Exam There were no vitals taken for this visit. Constitutional: oriented to person, place, and time and well-developed, well- nourished, and in no distress. Skin: Skin is warm and dry. Right Knee Exam: No effusion. No erythema or ecchymosis. ROM 100 deg flexion, 0 deg extension. Severe TTP to light touch globally throughout the knee. Pain is out of proportion to exam. TTP worst along the patellar tendon. Severe pain at end ranges of motion. Stable to varus/valgus stress. Normal sensation and motor function distally. Exam is limited by pain. DP/PT pulses 2+. RADIOLOGICAL STUDIES: No new studies today. ASSESSMENT/PLAN: Erich Carreon is a 23 y.o. male who presents to the clinic with right knee pain. He has patellofemoral syndrome, but I also have concern for complex regional pain syndrome. His pain has been consistently out of proportion to exam. He has had normal x-rays, MRI, and labs drawn. He did actually havesome improvement in range of motion and strength through physical therapy, but he does not feel it has made a drastic improvement in his quality of life. I do not think there is any further orthopedic intervention that will help him. I recommended he continue with strengthening to try and break through his current plateau. He should continue utilizing taping which has been helpful for him. I haveplaced an external referral to a pain clinic in hopes that he can be seen at [facility] through their pain clinic for evaluation of complex regional pain syndrome. I did also mention that he could reach out to the orthopedics department for second opinion there as well, but I would recommend he start with their pain clinic. documented in this encounter Plan of Treatment Scheduled Referrals Name Type Priority Associated Diagnoses Orde r Schedule Referral to Pain Clinic Outpatient Referral Routine Patellofemoral syndrome of right knee Ordered: 12/14/2018 documented as of this encounter Visit Diagnoses Diagnosis Patellofemoral syndrome of right knee documented in this encounter Care Teams Plant Maintenance Mechanic Relationship Specialty Start Date End Date Ernesto Eisenberg MD [address] [place] [address] PCP - General 07/21/10 documented as of this encounter
--- OUTSIDE RECORDS SUMMARY | 2024-06-18 16:40 | XMS_ITS | Encounter Summary ---
[place] [address] Care Team Providers Care Organ Assembler Name Role Phone Ernesto Eisenberg MD Primary Care Provider + [phone] Reason for Referral * Diagnostic Test (Routine) - Closed Specialty Diagnoses / Procedures Referred By Maxine vernon Referred To Contact Radiology Diagnoses Acute pain of right knee Procedures MRI Knee wo Contrast Right (Generic) Nissa Borrero, [place] [address] [place] [address] Referral ID Status Reason Start Date Expiration Date V isits Requested Visits Authorized [id number] Closed Specialty Service Requested 06/14/2018 09/12/2018 1 1 Reason for Visit * Reason Comments Right Knee Pain started years ago. 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 has tried PT. * Consultation (Routine) - Closed Specialty Diagnoses / Procedures Referred By Maxine vernon Referred To Contact Orthopaedics Diagnoses Persisten Right Knee Pain Carla Blankenship, SHEET CUTTER [address] [facility] [place] [address] [facility] [address] [place] [address] Referral ID Status Reason Start Date Expiration Date V isits Requested Visits Authorized [id number] Closed Consult, Test & Treat 05/29/2018 05/29/2019 1 1 Encounter Details Date Type Department Care Team (Late st Contact Info) Description 06/14/2018 9:20 AM EDT Office [place] [address] Clinic, Dr Cullen Team None Acute pain of right knee Social History Tobacco Use [...] Sign Reading Time Taken Comments Blood Pressure 129/83 06/14/2018 9:23 AM EDT Pulse 86 06/14/2018 9:23 AM EDT Temperature - - Respiratory Rate - - Oxygen Saturation - - Inhaled Oxygen Concentration - - Weight 66.8 kg (147 lb 4.8 oz) 06/14/2018 9:23 A M EDT measured Height 182.9 cm (6') 06/14/2018 9:23 AM EDT nixon ured Body Mass Index 19.98 06/14/2018 9:23 AM EDT documented in this encounter Progress Notes * Nissa Borrero PA - 06/14/2018 9:20 AM EDT PATIENT NAME: Erich Carreon AGE: 23 y.o. MR#: [id number] DATE OF VISIT: 06/14/2018 HISTORY OF PRESENT ILLNESS Mr. Carreon is a 23 y.o. year old male who comes into clinic today for right knee pain. He has been having pain for about 2 years now. He tells me it has worsened significantly over the past year and has become severe over the past few months. He denies any injuries or inciting events. His pain is primarily anterior and often underneath the kneecap. He tells me his knee is very sensitive to the touch globally. He does admit to some popping and crepitance. He denies anymechanical symptoms, instability, or swelling. 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 He has tried NSAIDs and Tylenol, as well as a prescription from his PCP,with no relief at all. He has done about 4 weeks of physical therapy. He tells me they were only doing great he and using a laser on him, as well as trying a few stretches. He was not working on any strengthening. He has also tried an yrix-rvf-fnzwqyi brace with no relief. He is not ambulating withany assistive devices. 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 He was treated here for this. ROS: Negative for fever, chills, SOB, chest pain, nausea, vomiting, and diarrhea. Patient's medications, allergies, past medical, surgical, social and family histories were reviewedand updated as appropriate. PAST MEDICAL HISTORY: Past Medical History: Diagnosis Date ??? Leukemia ??? Sinusitis PAST SURGICAL HISTORY: Past Surgical History: Procedure Laterality Date ??? APPENDECTOMY ??? TONSILLECTOMY AND ADENOIDECTOMY FAMILY HISTORY: Family History Problem Relation Age of Onset ??? Cancer Other SOCIAL HISTORY: Social History Socioeconomic History ??? Marital status: Single Spouse name: Not on file ??? Number of children: Not on file ??? Years of education: Not on file ??? Highest education level: Not on file Social Needs ??? Financial resource strain: Not on file ??? Food insecurity - worry: Not on file ??? Food insecurity - inability: Not on file ??? Transportation needs - medical: Not on file ??? Transportation needs - non-medical: Not on file Occupational History ??? Not on file Tobacco Use ??? Smoking status: Former Smoker Types: e-Cigarettes Last attempt to quit: 07/06/2017 Years since quittin.9 ??? Smokeless tobacco: Never Used Substance and Sexual Activity ??? Alcohol use: Yes Alcohol/week: 3.0 oz Types: 5 Cans of beer per week Comment: 5 drinks per week ??? Drug use: Yes Types: Marijuana Comment: weekly ??? Sexual activity: No Other Topics Concern ??? Poor oral hygiene Not Asked ??? Bike safety Not Asked ??? Vehicle safety Not Asked Social History Narrative ??? Not on file Current Outpatient Medications on File Prior to Visit Medication Sig Dispense Refill ??? DULERA 100-5 mcg/actuation HFA Aerosol Inhaler INHALE 2 PUFFS TWO TIMES A DAY 3 ??? albuterol (PROVENTIL) 2.5 mg/0.5 mL Solution for Nebulization Take 2.5 mg by nebulization every4 hours as needed for Wheezing. ??? PROAIR HFA 90 mcg/actuation HFA Aerosol Inhaler 5 ??? cholecalciferol, Vitamin D3, 1,000 unit Tablet Take 4,000 Units by mouth daily. ??? clonazePAM (KLONOPIN) 0.5 mg Tablet Take 0.5 mg by mouth as needed for Anxiety. ??? acetaminophen (TYLENOL) 325 mg tablet Take 650 mg by mouth every 4 hours as needed. ??? IBUPROFEN ORAL Take by mouth as needed. ??? LORATADINE (CLARITIN ORAL) Take by mouth as needed. ??? ASCORBIC ACID (VITAMIN C ORAL) ??? [DISCONTINUED] sertraline (ZOLOFT) 50 mg Tablet 0 ??? [DISCONTINUED] LEVALBUTEROL TARTRATE (XOPENEX HFA INHL) Inhale into the lungs as needed. No current facility-administered medications on file prior to visit. Physical Exam Blood pressure 129/83, pulse 86, height 182.9 cm (6'), weight 66.8 kg (147 lb 4.8 oz). Constitutional: oriented to person, place, and time and well-developed, well- nourished, and in no distress. Skin: Skin is warm and dry. Right Knee Exam: No effusion. No erythema or ecchymosis. ROM 90 deg flexion, - 15 deg extension. Severe TTP to light touch globally throughout the knee. Pain is out of proportion to exam. TTP worst along the patellar tendon. Severe pain at end ranges of motion. Stable to varus/valgus stress. Negative Lachmans with a firm endpoint. Able to do a straight leg raise without lag. Normal sensation and motor function distally. Exam is limited by pain. DP/PT pulses 2+. RADIOLOGICAL STUDIES: I reviewed X-rays taken of the right knee which show no DJD, no fractures, noother acute osseous abnormalities. ASSESSMENT/PLAN: Erich Carreon is a 23 y.o. male who presents to the clinic with right knee pain. 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 However, his exam is limited by his hypersensitivity and pain throughout the knee. He has done PT, but did not work on any strengthening while there, and did not make any ROM progress. Given his history of ALL, I would like to rule out any lab abnormalities with a CBC, and any lesions or evidence of AVN with an MRI of the right knee. Since he travels far, he will follow up on the same day as his MRI and we will review the imagingand labs at that time. documented in this encounter Plan of Treatment Not on file documented as of this encounter Procedures Procedure Name Priority Date/Time Associated Diagnosis Comments HEMOGRAM STAT 06/14/2018 10:24 AM EDT Acute pain of right knee DIFFERENTIAL, AUTOMATED STAT 06/14/2018 10:24 AM EDT Acute pain of right knee CBC (WITH DIFF) STAT 06/14/2018 10:24 AM EDT Acute pain of right knee documented in this encounter Results * MRI Knee wo Contrast Right (Generic) (06/21/2018 12:28 PM EDT) Anatomical Region Laterality Modality Knee Right Magnetic Resonan ce Impressions 06/21/2018 12:39 PM EDT Unremarkable MR appearance of the knee. Faintly seen amorphous intermediate signal in the posterior horn of the medial meniscus is questioned to extend to the inferior meniscal surface on only one slice (series 2 image 8), not meeting criteria for a meniscal tear. The lateral meniscus is normal. No bone marrow signal abnormality or soft tissue mass. 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 TECHNIQUE: MRI of the right knee was performed without intravenous contrast COMPARISON: Right knee MRI dated 11/23/2011. Attention is also directed to 03/16/2018 right knee radiographs. FINDINGS: Joint space and synovium: There is no knee joint effusion. There is no signal abnormality in Hoffa's fat. There is no bursal distention or cyst formation. Bones and articular cartilage: There is no fracture or bone marrow edema. Overall, there is no bone marrow signal abnormality. The articular cartilage is preserved. There is no osteochondral lesion. The bmuiww-rmygtdzx-hr-trochlear-groove (TT-TG) distance is measured at 0.7 cm, which is normal. There is no evidence of trochlear dysplasia. Menisci: There is faintly seen amorphous intermediate signal in the posterior horn of the medial meniscus, which is questioned to extend to the inferior meniscal surface on only one slice (series 2 image 8), not meeting criteria for a meniscal tear. The lateral meniscus is normal. There is no discoid meniscus. Tendons and ligaments: The medial patellofemoral ligament is normal. The anterior and posterior cruciate ligaments are normal. The medial collateral ligament and lateral collateral ligament complex are intact. The patellar tendon is unremarkable. There is no soft tissue mass. Procedure Note Jenni Martinez MD - 06/21/2018 EXAMINATION: MRI KNEE WO CONTRAST RIGHT (GENERIC) CLINICAL HISTORY: Right knee pain, with history of acute lymphoblasticleukemia as baby. TECHNIQUE: MRI of the right knee was performed without intravenous contrast COMPARISON: Right knee MRI dated 11/23/2011. Attention is also directed to 03/16/2018right knee radiographs. FINDINGS: Joint space and synovium: There is no knee joint effusion. There is nosignal abnormality in Hoffa's fat. There is no bursal distention or cystformation. Bones and articular cartilage: There is no fracture or bone marrowedema. Overall, there is no bone marrow signal abnormality. The articularcartilage is preserved. There is no osteochondral lesion. The elmvxd-vtvrgooo-vf-trochlear-groove (TT-TG) distance is measured at 0.7cm, which is normal. There is no evidence of trochlear dysplasia. Menisci: There is faintly seen amorphous intermediate signal in theposterior horn of the medial meniscus, which is questioned to extend to theinferior meniscal surface on only one slice (series 2 image 8), not meetingcriteria for a meniscal tear. The lateral meniscus is normal. There is no discoidmeniscus. Tendons and ligaments: The medial patellofemoral ligament is normal. The anterior and posterior cruciate ligaments are normal. The medialcollateral ligament and lateral collateral ligament complex are intact. The patellartendon is unremarkable. There is no soft tissue mass. IMPRESSION Unremarkable MR appearance of the knee. Faintly seen amorphousintermediate signal in the posterior horn of the medial meniscus is questioned toextend to the inferior meniscal surface on only one slice (series 2 image 8), notmeeting criteria for a meniscal tear. The lateral meniscus is normal. No bone marrow signal abnormality or soft tissue mass. Uriel Cullen MD IM MRI ORDERABLES * Differential, Automated (06/14/2018 10:24 AM EDT) Neutrophil % 64.2 % [facility] Neutrophil Absolute 4.68 1.70 - 6.10 x10(3)/[facility] Lymph % 21.7 % [facility] Lymphocytes Abs 1.6 0.9 - 3.2 x10(3)/[facility] Monocyte % 12.4 % [facility] Monocyte Abs 0.9 0.3 - 0.9 x10(3)/[facility] Eos % 1.0 % [facility] Eosinophils Abs 0.1 0.0 - 0.4 x10(3)/[facility] Basophil % 0.4 % [facility] Baso Absolute 0.0 0.0 - 0.1 x10(3)/[facility] Immature Gran % 0.30 % [facility] Comment: Immature granulocytes(IG's)percentage and absolute count will include metamyelocytes, myelocytes, and promyelocytes. Blood smears from CBCs yielding IG's will be scanned manually for concordance. If this scan disagrees with the automated IG or if promyelocytes are noted, a manual differential will be performed. Immature Gran Absolute 0.02 0.00 - 0.04 x10(3)/[facility] Blood specimen (specimen) 06/14/2018 10:24 AM EDT 06/14/2018 10:41 AM EDT Narrative Resulting Agency Comment Spec In Lab Nissa RIZVI HEMATOLOGY ORDERABLE S [facility] [place] [address] * Hemogram (06/14/2018 10:24 AM EDT) White Blood Cell 7.3 4.0 - 9.5 x10(3)/[facility] Red Blood Cell 5.30 4.58 - 5.54 x10(6)/[facility] Hemoglobin 15.2 13.7 - 16.5 gm/dL [facility] Hematocrit 44.7 40.5 - 48.5 % [facility] Mean Cell Volume 84.3 82.9 - 93.1 [facility] Mean Cell Hemoglobin 28.7 27.5 - 32.1 pg [facility] Mean Cell Hemoglobin Concentration 34.0 32.0 - 35.7 gm/dL [facility] Platelet 251 145 - 357 x10(3)/[facility] RDW Standard Deviation 37.2 36.0 - 45.0 [facility] RDW coefficient of variation 12.1 11.4 - 13.8 % [facility] Mean Platelet Volume 10.1 7.6 - 12.9 [facility] NRBC% auto 0.0 % [facility] NRBC Absolute 0.000 0.000 - 0.000 x10(3)/[facility] Blood specimen (specimen) 06/14/2018 10:24 AM EDT 06/14/2018 10:41 AM EDT Narrative Resulting Agency Comment Spec In Lab Nissa RIZVI HEMATOLOGY ORDERABLE S [facility] [place] [address] documented in this encounter Visit Diagnoses Diagnosis Acute pain of right knee Acute pain of right knee documented in this encounter Care Teams Organ Assembler Relationship Specialty Start Date End Date Ernesto Eisenberg MD [address] [place] [id number] PCP - General 07/21/10 documented as of this encounter
--- OUTSIDE RECORDS SUMMARY | 2024-06-18 16:40 | XMS_ITS | Encounter Summary ---
Author Organization [facility] Address [address] [place] [address] Care Team Providers Care Joinery Setter Out Name Role Phone Ernesto Eisenberg MD Primary Care Provider [phone] Encounter Details Date Type Department Care Team (Late st Contact Info) Description 09/07/2019 9:30 EST Procedure visit [facility] Pulmonology & Critical Care - [address] [address] Grocery Checker In-House, [facility] Pul Social History Tobacco Use Types Packs/Day Years [...] Procedure Name Priority Date/Time Associated Diagnosis Comments PULMONARY FUNCTION REPORT - SCANNED 10/02/2019 15:43 EST documented in this encounter Results * PULMONARY FUNCTION REPORT - SCANNED (10/02/2019 15:43 EST) 10/02/2019 15:4 3 EST Scan 2 Thermodynamicist PROCEDURE/MINOR [place] GICAL ORDERABLES documented in this encounter Visit Diagnoses Not on filedocumented in this encounter Care Teams Joinery Setter Out Relationship Specialty Start Date End Date Ernesto Eisenberg MD [address] [place] [address] PCP - General 12/09/11 documented as of this encounter
--- OUTSIDE RECORDS SUMMARY | 2024-06-18 16:40 | XMS_ITS | Encounter Summary ---
[place] [address] Care Team Providers Care Floorworker Distributor Name Role Phone Ernesto Eisenberg MD Primary Care Provider + [phone] Reason for Referral * Consultation (Routine) - Closed Specialty Diagnoses / Procedures Referred By Contac t Referred To Contact Pain Management Diagnoses Chronic pain of right knee Nissa Borrero PA [facility] [place] [address] [facility] [address] [place] [phone] Referral ID Status Reason Start Date Expiration Date V isits Requested Visits Authorized [id number] Closed Consult, Test & Treat 08/18/2018 08/18/2019 1 1 Encounter Details Date Type Department Care Team (Late st Contact Info) Description 08/18/2018 Orders [place] [phone] Nissa Borrero PA [facility] [place] [address] Chronic pain of right knee Social History Tobacco [...] Referral to Pain Clinic Outpatient Referral Routine Chronic pain of right knee Ordered: 08/18/2018 documented as of this encounter Visit Diagnoses Diagnosis Chronic pain of right knee documented in this encounter Care Teams Floorworker Distributor Relationship Specialty Start Date End Date Ernesto Eisenberg MD [address] [place] [address] PCP - General 07/21/10 documented as of this encounter
--- OUTSIDE RECORDS SUMMARY | 2024-06-18 16:40 | XMS_ITS | Encounter Summary ---
Author Organization [facility] Address [address] [place] [address] Care Team Providers Care Senior Net C Developer Name Role Phone Ernesto Eisenberg MD Primary Care Provider [phone] Reason for Visit * Reason Onset Date Comments Fever 10/05/2019 Encounter Details Date Type Department Care Team (Late st Contact Info) Description 10/05/2019 Telephone [facility] Pulmonology & Critical Care - [address] [id number] Sender, Tim Zavala PA-C [address] [facility], [address] [place] [address] Fever Social History Tobacco Use Types Packs/Day Years [...] encounter Miscellaneous Notes * Telephone Encounter - Lee Ann Agustin, RT - 10/05/2019 1011 EST Erich calling in today to cancel his appt today. He has a broken hand, which he is waiting to get into Ortho on Tuesday. He has had fevers for the last 2 days (102 degrees) and was in the ED last night due to convulsing. He has a hx of anxiety, and can have twitchy legs, but yesterday, his fiance had to lay on him to try to calm the convulsions. The ED gave him lorazepam for the convulsions. Erich will go to his PCP to manage his fevers and will call, with an update as to the management byhis PCP or if not improving. RT AMANDA documented in this encounter Plan of Treatment Not on file documented as of this encounter Visit Diagnoses Not on filedocumented in this encounter Care Teams Senior Net C Developer Relationship Specialty Start Date End Date Ernesto Eisenberg MD [address] [place] [address] PCP - General 12/09/11 documented as of this encounter
--- OUTSIDE RECORDS SUMMARY | 2024-06-18 16:40 | XMS_ITS | Encounter Summary ---
Author Organization [facility] Address [address] [place] [address] Care Team Providers Care Senior Sharepoint Developer Name Role Phone Ernesto Eisenberg MD Primary Care Provider [phone] Reason for Visit * Reason Onset Date Comments Results 12/05/2019 Encounter Details Date Type Department Care Team (Late st Contact Info) Description 12/05/2019 Telephone [facility] Pulmonology & Critical Care - [address] [phone] Carlos Valdivia MD [address] [place] [address], [address] [place] [address] Results Social History Tobacco Use [...] encounter Miscellaneous Notes * Telephone Encounter - Carlos Valdivia MD - 12/21/2019 1011 EDT Spoke to Erich to let him know that CF genetic testing was negative for any mutations. He is looking forward to his visit with Dr. Pizarro on 01/23/2020. * Telephone Encounter - Lee Ann Agustin RT - 12/07/2019 1401 EDT Spoke to Erich and let him know the results are not back yet. Sometimes it can take a while. He understood and will wait for our call, when the results are back. RT AMANDA * Telephone Encounter - Valeri Le - 12/05/2019 1245 EDT Patient is calling for results of genetic testing for CF. Please call back. documented in this encounter Plan of Treatment Not on file documented as of this encounter Visit Diagnoses Not on filedocumented in this encounter Care Teams Senior Sharepoint Developer Relationship Specialty Start Date End Date Ernesto Eisenberg MD [address] [place] [address] PCP - General 12/09/11 documented as of this encounter
--- OUTSIDE RECORDS SUMMARY | 2024-06-18 16:40 | XMS_ITS | Encounter Summary ---
Author Organization [facility] Address [address] [place] [address] Care Team Providers Care Exercise Specialist Name Role Phone Ernesto Eisenberg MD Primary Care Provider [phone] Encounter Details Date Type Department Care Team (Late st Contact Info) Description 04/25/2019 15:10 EDT - 04/25/2019 17:21 EDT Hospital Encounter [facility] Pulmonary Function Lab - [address] [id number] Cherry Farmer MD [address] [facility], [address] [place] [address] SOB (shortness of breath) Discharge Disposition: Auto Discharge Social History Tobacco [...] as of this encounter Discharge Diagnoses Diagnosis R06.02 Shortness of breath-R06.02[ICD-10-CM] documented in this encounter Medications at Time [...] Auto Discharge Home documented in this encounter Progress Notes * Beverley Jara RT - 04/25/2019 1529 EDT Testing was performed and recorded in [employer]. See complete report in scanned documents. documented in this encounter Plan of Treatment Not on file documented as of this encounter Procedures Procedure Name Priority Date/Time Associated Diagnosis Comments PULMONARY FUNCTION REPORT - SCANNED 04/27/2019 11:11 EDT documented in this encounter Results * PULMONARY FUNCTION REPORT - SCANNED (04/27/2019 11:11 EDT) 04/27/2019 11:1 1 EDT Scan 2 Mailing Machine Helper PROCEDURE/MINOR [place] GICAL ORDERABLES documented in this encounter Visit Diagnoses Diagnosis SOB (shortness of breath) Shortness of breath documented in this encounter Administered Medications Inactive Administered Medications - up to 3 most recent administrations Medication Order MAR Action Action Date Dose Rate Site albuterol inhaler 4 Puff 4 Puff, inhalation, Once (Without Time Specified), 1 dose, Starting on Tue04/25/19 at 1545, Until Tue04/25/19 at 1515, Routine Given 04/25/2019 15:15 EDT 4 Puffs documented in this encounter Orders Medications Ordered That Reji ht Not Have Been Administered Count Last Ordered Date First Ordered Date albuterol inhaler 4 Puff 1 04/25/2019 documented in this encounter Care Teams Exercise Specialist Relationship Specialty Start Date End Date Ernesto Eisenberg MD [address] [place] [address] PCP - General 12/09/11 documented as of this encounter
--- OUTSIDE RECORDS SUMMARY | 2024-06-18 16:40 | XMS_ITS | Encounter Summary ---
Author Organization [facility] Address [address] [place] [address] Care Team Providers Care Modeler Name Role Phone Ernesto Eisenberg MD Primary Care Provider [phone] Encounter Details Date Type Department Care Team (Late st Contact Info) Description 09/19/2019 Orders Only [facility] Pulmonology & Critical Care - [address] [address] Carlos Valdivia MD [address] [facility], [address] [place] [address] Abnormal sweat test (Primary Dx) Social History Tobacco Use Types [...] on file documented as of this encounter Progress Notes * Lee Ann Agustin, RT - 09/19/2019 0755 EST Gathered the [facility] acceptance form, for the CF Mutation Analysis, instructions from [facility], and Lab Send out form and faxed to our Lab today. The [facility] Lab order, was also created andsigned. Erich will be coming into clinic on 10/05/19 and we will send him to the lab then. He will need to take his paperwork with him, please see Leela. RT AMANDA documented in this encounter Plan of Treatment Not on file documented as of this encounter Results * MISCELLANEOUS TEST, NON CASTILLO (10/19/2019 11:52 EST) Test Name Mutation Analysis for Cystic Fibrosis 12/19/2019 16:11 EDT Comment:See scanned/suppleme ntary report. Blood VENOUS BLOOD / Unknown Venipuncture / Unknown 10/19/2019 11:52 EST 10/19/2019 13:02 EST Carlos Valdivia MD CHEMISTRY & BLOOD GAS ORDERABLES documented in this encounter Visit Diagnoses Diagnosis Abnormal sweat test- Primary documented in this encounter Care Teams Modeler Relationship Specialty Start Date End Date Ernesto Eisenberg MD [address] [place] [address] PCP - General 12/09/11 documented as of this encounter
--- OUTSIDE RECORDS SUMMARY | 2024-06-18 16:40 | XMS_ITS | Encounter Summary ---
Author Organization [facility] [place] [address] Care Team Providers Care Director Energy Name Role Phone Ernesto Eisenberg MD Primary Care Provider [phone] Encounter Details Date Type Department Care Team (Late st Contact Info) Description 08/03/2018 Telephone Orthopaedics at [facility] [place] [phone] Nissa Borrero PA [facility] [place] [address] Social History Tobacco Use Types Packs/Day Years [...] encounter Miscellaneous Notes * Telephone Encounter - Jelena Chaudhry - 08/03/2018 3:59 PM EST nAdrés called today requesting his PT referral, MRI note, last office note be faxed to his PT facility. Fax number is [phone]. This referral was generated and faxed over via [employer]. No further questions or concerns. documented in this encounter Plan of Treatment Not on file documented as of this encounter Visit Diagnoses Not on filedocumented in this encounter Care Teams Director Energy Relationship Specialty Start Date End Date Ernesto Eisenberg MD [address] [place] [address] PCP - General 07/21/10 documented as of this encounter
--- OUTSIDE RECORDS SUMMARY | 2024-06-18 16:40 | XMS_ITS | Encounter Summary ---
Author Organization [facility] Address [address] [place] [address] Care Team Providers Care Carpenters Name Role Phone Ernesto Eisenberg MD Primary Care Provider [phone] Encounter Details Date Type Department Care Team (Late st Contact Info) Description 03/08/2012 Abstract [facility] Pediatric Orthopedics - [address] [address] Shelli Peterson MD [address] [place] [phone] Social History Tobacco Use Types Packs/Day Years Used Date Smoking Tobacco: Never Assessed Sex and Gender Information Value Date Recorded Sex Assigned at Not on file Gender Identity Male 10/19/2019 11:33 EST Sexual Orientation Not on file documented as of this encounter Plan of Treatment Not on file documented as of this encounter Visit Diagnoses Not on filedocumented in this encounter Care Teams Carpenters Relationship Specialty Start Date End Date Ernesto Eisenberg MD [address] [place] [address] PCP - General 12/09/11 documented as of this encounter
--- OUTSIDE RECORDS SUMMARY | 2024-06-18 16:40 | XMS_ITS | Encounter Summary ---
Author Organization [facility] Address [address] [place] [address] Care Team Providers Care Fork Lift Mechanic Name Role Phone Ernesto Eisenberg MD Primary Care Provider [phone] Encounter Details Date Type Department Care Team (Late st Contact Info) Description 04/16/2019 Orders Only [facility] Pulmonology & Critical Care - [address] [address] Wilbert Glasgow MD [address] [facility], [address] [place] [phone] SOB (shortness of breath) (Primary Dx) Social History Tobacco Use Types Packs/Day Years Used Date Smoking Tobacco: Never Assessed Sex and Gender Information Value Date Recorded Sex Assigned at Not on file Gender Identity Male 10/19/2019 11:33 EST Sexual Orientation Not on file documented as of this encounter Plan of Treatment Not on file documented as of this encounter Visit Diagnoses Diagnosis SOB (shortness of breath)- Primary Shortness of breath documented in this encounter Orders PFT Count Last Ordered Date First Orde red Date SPIROMETRY WITH BRONCHODILATOR 1 04/16/2019 documented in this encounter Care Teams Fork Lift Mechanic Relationship Specialty Start Date End Date Ernesto Eisenberg MD [address] [place] [address] PCP - General 12/09/11 documented as of this encounter
--- OUTSIDE RECORDS SUMMARY | 2024-06-18 16:40 | XMS_ITS | Encounter Summary ---
Author Organization [facility] Address [address] [place] [address] Care Team Providers Care Brain Surgeon Name Role Phone Ernesto Eisenberg MD Primary Care Provider [phone] Reason for Referral * Medication Prior Authorization (3 - 10 Business Days) - Denied Specialty Diagnoses / Procedures Referred By Contac t Referred To Contact Diagnoses H/O leukemia Moderate persistent asthma with acute exacerbation S/P chemotherapy, time since greater than 12 weeks JOHNSON (dyspnea on exertion) Gabi Lacy MD PhD [address] [facility], [address] [place] [address] Referral ID Status Reason Start Date Expiration Date Visits Requested Visits Authorized [id number] Denied Medication Prior Authorization 9 1 0 Question Answer Medication to be Prior Authorized: Trelegy Ellipta 100-62.5-25mcg inhaler, take 1 puff daily, [facility] [place], [place] Comments The purpose of this consult request is to inform the scheduling staff that a medication needs to be prior-authorized before it is prescribed and/or administered. Per yesterday's clinic note (07/18/19), he has failed to be controlled on 3 months of just Symbicort, which is a 2 medication combo, so she is trying Trelegy, which is a triple combo medication. Please see Assessment part of note. Thank you! Reason for Visit * Reason Onset Date Comments Prior Auth, Medication 07/19/2019 Encounter Details Date Type Department Care Team (Late st Contact Info) Description 07/19/2019 Orders Only [facility] Pulmonology & Critical Care - [address] [address] Ashley Pizarro MD [address] [facility], [address] [place] [phone] H/O leukemia (Primary Dx); Moderate persistent asthma with acute exacerbation; S/P chemotherapy, time since greater than 12 weeks; JOHNSON (dyspnea on exertion) Social History Tobacco Use Types Packs/Day Years [...] this encounter Progress Notes * Lee Ann Agustin RT - 07/19/2019 1345 EST 3-10 day PA created for [employer]. RT AMANDA documented in this encounter Plan of Treatment Scheduled Referrals Name Type Priority Associated Diagnoses Order Schedule AMB MEDICATION PRIOR AUTHORIZATION Outpatient Referral Routine H/O leukemia Moderate persistent asthma with acute exacerbation S/P chemotherapy, time since greater than 12 weeks JOHNSON (dyspnea on exertion) Ordered: 07/19/2019 documented as of this encounter Visit Diagnoses Diagnosis H/O leukemia- Primary Personal history of unspecified leukemia Moderate persistent asthma with acute exacerbation S/P chemotherapy, time since greater than 12 weeks Convalescence following chemotherapy JOHNSON (dyspnea on exertion) Other dyspnea and respiratory abnormality documented in this encounter Care Teams Brain Surgeon Relationship Specialty Start Date End Date Ernesto Eisenberg MD [address] [place] [address] PCP - General 12/09/11 documented as of this encounter
--- OUTSIDE RECORDS SUMMARY | 2024-06-18 16:40 | XMS_ITS | Encounter Summary ---
Author Organization [facility] [place] [address] Care Team Providers Care Social Services Aide Name Role Phone Ernesto Eisenberg MD Primary Care Provider + [phone] Reason for Visit * Consultation (Routine) - Closed Specialty Diagnoses / Procedures Referred By Contac t Referred To Contact Neurology Diagnoses Tension headache headache Procedures Referring believes a good candidate for Botox Ernesto Eisenberg MD [address] [place] [address] [facility] [address] [place] [address] Referral ID Status Reason Start Date Expiration Date Visits Re quested Visits Authorized [id number] Closed 2019 03/11/2020 1 1 Encounter Details Date Type Department Care Team (Late st Contact Info) Description 04/05/2019 8:30 AM EDT [place] [address] Miguel Angel Xiao MD [facility] [place] [id number] Natalie Xiao MD [facility] [place] [id number] Headache, chronic daily Social History Tobacco Use Types Packs/Day Years [...] Pulse 100 04/05/2019 8:23 AM EDT Temperature - - Respiratory Rate - - Oxygen Saturation - - Inhaled Oxygen Concentration - - Weight 64 kg (141 lb) 04/05/2019 8:23 AM EDT Height 182.9 cm (6') 04/05/2019 8:23 AM EDT repo rted Body Mass Index 19.12 04/05/2019 8:23 AM EDT documented in this encounter Patient Instructions * Patient Instructions* Uriel Mejia MD - 04/05/2019 8:30 AM EDT It was a pleasure meeting you today. 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 This is very rare. We will try gabapentin which has worked for some patients with this type of headache. In the meantime, please cut back on the amount of tylenol and ibuprofen. I would recommend taking this no more than 2 days out of the week. Please come see us in 3 months. If needed, you can come in sooner for nerve blocks. documented in this encounter Progress Notes * Uriel Mejia MD - 04/05/2019 8:30 AM EDT Neurology Headache Clinic Initial Consultation Patient name: Erich Carreon Date of : 1995 PCP: Ernesto Eisenberg MD CC: Headache I have been asked to see Erich Carreon in consultation by Ernesto Eisenberg for his c/o Headaches in my capacity as Headache Medicine Specialist. HPI: Erich Carreon is a 24 y.o. RH man w/ hx of ALL at 18 months old, 2010 bacterial meningitis(headaches got worse after this, treated with antibiotics), finished treatment at 6yo with chemo, asthma, ADHD, depression presenting to headache clinic for evaluation of his headaches. He first developed headaches at 10 yo. For the past 2 years, headaches are on R side from back to front. He is not able to trigger this bytouch. He thinks this is more prominent when he is concentrating or if he is stressed. Pain is sharp. Pain is described as tight string sensation going to back of his head. He is getting these headaches 1-2x a day. On a relaxed day, he sometimes will be headache free but this is rare. Headaches will start after he is concentrating or thinking about work or if he gets stressed. Headaches will last until he goes to bed. Before headaches would come on, he feels that his functioning slows down. Pain will ramp up quicklyover minutes. Pain can get to 5/10. No headaches at night when he is sleeping. No nausea. No photophobia. No sound sensitivity. Patient tries to take tylenol, ibuprofen for the headaches. He thinks he takes 40 pills total per week total. He has been doing this for years. He does not think laying down in a dark quiet room makes things better. He has also taken aleve which does not help. He is no longer taking imitrex. He tried one dose of 50mg and it made his headache worse. He is taking cyclobenzaprine when his back is bothering him. It does not help his headaches but does help hissleep. 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 Triggers: Stress, concentration Prodrome: Unsure Caffeine: No coffee, soda(24 oz) Trauma: No Abuse:No Psych: Depression, anxiety Previous work-up: Report of CT sinus without contrast 08/2018 normal No prior MRI of brain Contraception:N/A No renal stones, he does have asthma, no constipation :N/A Current Headache Medications: Cyclobenzaprine 10mg QHS Imitrex 50mg PRN MIDAS Responses 04/05/2019 Days missed school/work 0 Days productivity at work/school reduced 90 Days did not do household work 30 Days productivity related to housework reduced 90 Days missed family, social or leisure activities 30 Days had headache 90 Pain scale 6 MIDAS Score 240 (MIDAS grade IV, severe disability) Medications Tried ([x] checked have been tried in the past) Anti-seizure: [] Acetazolamide (Diamox) [] Carbamazepine (Tegretol) [] Clobazam (Onfi) [] Gabapentin (Neurontin) [] Lamotragine (Lamictal) [] Levetiracetam (Keppra) [] Oxcarbazepine (Trileptal) [] Phenobarbital [] Phenytoin (Dilantin) [] Pregabalin (Lyrica) [] Primidone [] Sodium Valproate (Depakote) [] Topiramate (Topamax) [] Zonisamide (Zonegran) Anti-Depressants: SSRI: [] Citalopram (Celexa) [] Escitalopram (Lexapro) [] Fluvoxamine (Luvox) [] Fluoxetine (Prozac) [x] Sertraline (Zoloft) [] Paroxetine (Paxil) SNRI: [] Desvenlafaxine (Pristiq/Khedezla) [] Duloxetine (Cymbalta) [] Venlafaxine (Effexor) [] Milnacipran (Savella) [] Levomilnacipran (Fetzima) TCA: [] Amitriptyline (Elavil) [] Amoxapine [] Clomipramine (Anafranil) [] Desipramine (Norpramin) [] Doxepin (Sinequan) [] Imipramine (Tofranil) [] Maprotiline (Ludiomil) [] Nortriptiline (Pamelor) [] Protriptyline (Vivactil) [] Trimipramine (Surmontil) MAOI: [] Phenelzine (Nardil) [] Selegiline (Emsam) [] Tranylcypromine (Parnate) Atypicals: [] Bupropion (Wellbutrin) [] Mirtazapine (Remeron) [] Nefazodone (Serzone) [] Trazodone [] Vilazodone (Viibryd) [] Vortioxetine (Trintellix) Anti-Hypertensives: JOSSIE Inhibitors: [] Benazepril (Lotensin) [] Captopril [] Enalapril (Vasotec) [] Fosinopril [] Lisinopril (Prinivil) [] Moexipril [] Perindopril (Aceon) [] Quinapril (Accupril) [] Ramipril (Altace) [] Trandolapril (Mavik) Angiotensin II Receptor Blockers: [] Azilsartan (Edarbi) [] Candesartan (Atacand) [] Eprosartan [] Irbesartan (Avapro) [] Losartan (Cozaar) [] Olmesartan (Benicar) [] Telmisartan (Misardis) [] Valsartan (Diovan) Beta Blockers [] Acebutolol (Sectral) [] Atenolol (Tenormin) [] Bisoprolol (Zebeta) [] Metoprolol (Lopressor) [] Nadolol (Cogard) [] Nebivolol (Bystolic) [] Propranolol (Inderal) [] Timolol Calcium Channel Blockers: [] Amlodipine (Norvasc) [] Bepridil (Vascor) [] Diltiazem (Cardiazem) [] Felodipine (Plendil) [] Nicardipine (Cardene) [] Nifedipine (Procardia) [] Nisoldipine (Sular) [] Verapamil Alpha-1 Blockers [] Doxazosin [] Prazosin [] Tetrazosin Diuretics: [] Furosemide (Lasix) [] Hydrochlorothiazide (Microzide) [] Spironolactone (Aldactone) Ergotamines: [] Dihydroergotamine nasal spray (Migranal) [] Dihydroergotamine solution for injection (DHE-45) [] Ergotamine/caffeine tab (Cafergot) [] Ergotamine/caffeine suppository (Migergot) [] Methergine [] Methylsergide (Sansert) Triptans: [x] Sumatriptan (Imitrex) PO [] Sumatriptan (Imitrex) NS [] Sumatriptan (Imitrex) SQ injection [] Sumatriptan (Onzetra) Nasal powder [] Sumatriptan/Naproxen (treximet) [] Eletriptan (Relpax) [] Zomig nasal spray [] Zolmitriptan (Zomig) [] Rizatriptan (Maxalt) [] Almotriptan (Axert) [] Naratriptan (Amerge) [] Frovatriptan (Frova) Supplements: [] Butterbur [] Coenzyme Q10 [] Feverfew [] Magnesium [] Melatonin [] Vit. B2 (riboflavin) NSAIDS: [x] Aspirin [] Celecoxib (Celebrex) [] Diclofenac potassium [x] Ibuprofen (Advil) [] Indomethacin [] Ketoprofen [] Ketorolac (Toradol) [] Meloxicam (Mobic) [] Nabumetone [x] Naproxen sodium (Aleve) [x] Acetaminophen (tylenol) Combination Analgesics: [] Acetaminophen/aspirin/caffeine (Excedrin/Pamprin) [] Acetaminophen/caffeine/pyrilamine maleate (Midol) [] Acetaminophen/dichloralphenazone/isometheptene (Midrin) [] Butalbital/aspirin/caffeine/codeine (Fiorinal with codeine) [] Butalbital/Aspirin/Caffeine (Fiorinal) [] Butalbital/acetaminophen/caffeine (Fioricet) Anti-Histamines: [] Cyproheptadine (Periactin) [] Diphenhydramine (Benadryl) [] Hydroxyzine (vistaril/atarax) Anti-emetics: [] Aprepitant (Emend) [] Granisetron [] Metoclopramide (Reglan) [] Ondansetron (Zofran) [] Meclizine (Bonine) [] Prochlorperazine (compazine) [] Promethazine (Phenergan) [] Chlorpromazine (thorazine) Muscle relaxers: [] Baclofen (lioresal) [x] Cyclobenzaprine (flexeril) [] Metaxalone (skelaxin) [] Methocarbamol (robaxin) [] Tizanidine (zanaflex) Steroids: [] Dexamethasone (decadron) [] Prednisone Monoclonal Antibodies: [] Erenumab (Aimovig) [] Fgremanezumab (Ajovy) [] Galcanezumab (Emgality) Other Headache Management: [] Doxycycline [] Memantine (Namenda) [] Montelukast (Singulair) [] OnabotulinumtoxinA (Botox) Benzodiazepines: [] Alprazolam (Xanax) [] Chlordiazepoxide (Librium) [x] Clonazepam (Klonopin) [] Diazepam (Valium) [] Lorazepam (Ativan) [] Temazepam (Restoril) Opioids/Narcotics/Controlled Substances: [] Acetaminophen/Hydrocodone ([place]/Vicodin) [] Butorphanol (Ketamine/Stadol) [] Fentanyl [] Hydrocodone [] Hydromorphone (Dilaudid) [] Marijuana [] Morphine (MS Contin) [] Oxycodone [] Oxycodone/Acetaminophen (Percocet) [] Tramadol (Ultram) [] Zolpidem (Ambien) Procedures: [] Auriculotemporal blocks [] Lumbar puncture [] Occipital nerve blocks [] Sphenopalatine ganglion blocks [] Supraorbital blocks [] Trigger point injections Neuromodulation: [] Cefaly [] nVNS/Gammacore [] Nerivio Migra [] Spring TMS Non-pharmacologic Tx [] Acupuncture [] Acupressure [] Biofeedback [] Banking Attorney [] Cognitive Behavioral Therapy [] Massage therapy [] Physical therapy [] Craniosacral therapy [] Daith piercing Past Medical History: Past Medical History: Diagnosis Date ??? Fatigue 04/27/2013 ??? Leukemia ??? Sinusitis Past Surgical History: Procedure Laterality Date ??? APPENDECTOMY ??? PRO CAUTER TURBINATE MUCOSA, SUPERFICIAL 04/01/2017 ABLATION INFERIOR TURBINATE, SUPERFICIAL (WRVU 1.14) performed by Erasmo Yao III, MD at [facility] MAIN OR ??? PRO REPAIR OF NASAL SEPTUM N/A 04/01/2017 SEPTOPLASTY OR SMR, W/ OR W/O CARTILAGE SCORING, CONTOURING OR REPLACEMENT W/ GRAFT (WRVU 7.01) performed by Erasmo Yao III, MD at [facility] MAIN OR ??? TONSILLECTOMY AND ADENOIDECTOMY Medications: Current Outpatient Medications Medication Sig Dispense Refill ??? VYVANSE 30 mg Capsule TAKE 1 CAPSULE BY MOUTH DAILY 0 ??? methylPREDNISolone (MEDROL DOSPACK) 4 mg Tablets, Dose Pack ??? azithromycin (ZITHROMAX) 250 mg Tablet ??? lidocaine (XYLOCAINE) 5 % Ointment One application to affected area four times a day as needed for pain (Patient not taking: Reported on 12/14/2018) 120 g 2 ??? albuterol (PROVENTIL) 2.5 mg/0.5 mL Solution for Nebulization Take 2.5 mg by nebulization every4 hours as needed for Wheezing. ??? PROAIR HFA 90 mcg/actuation HFA Aerosol Inhaler 5 ??? cholecalciferol, Vitamin D3, 1,000 unit Tablet Take 4,000 Units by mouth daily. ??? acetaminophen (TYLENOL) 325 mg tablet Take 650 mg by mouth every 4 hours as needed. ??? IBUPROFEN ORAL Take by mouth as needed. ??? LORATADINE (CLARITIN ORAL) Take by mouth as needed. ??? ASCORBIC ACID (VITAMIN C ORAL) No current facility-administered medications for this visit. Allergy: Allergies Allergen Reactions ??? Asparaginase ??? Cis Free Text Allergy POSS E-COLI RXN W/L-ASPARIGINASE. ??? Keflex [Cephalexin] Family History Problem Relation Age of Onset ??? Cancer Other Social History: Social History Socioeconomic History ??? Marital status: Single Spouse name: Not on file ??? Number of children: Not on file ??? Years of education: Not on file ??? Highest education level: Not on file Occupational History ??? Not on file Social Needs ??? Financial resource strain: Not on file ??? Food insecurity: Worry: Not on file Inability: Not on file ??? Transportation needs: Medical: Not on file Non-medical: Not on file Tobacco Use ??? Smoking status: Former Smoker Types: e-Cigarettes Last attempt to quit: 07/06/2017 Years since quittin.7 ??? Smokeless tobacco: Never Used Substance and Sexual Activity ??? Alcohol use: Yes Alcohol/week: 3.0 oz Types: 5 Cans of beer per week Comment: 5 drinks per week ??? Drug use: Not Currently ??? Sexual activity: Never Lifestyle ??? Physical activity: Days per week: Not on file Minutes per session: Not on file ??? Stress: Not on file Relationships ??? Social connections: Talks on phone: Not on file Gets together: Not on file Attends shinto service: Not on file Active member of club or organization: Not on file Attends meetings of clubs or organizations: Not on file Relationship status: Not on file ??? Intimate partner violence: Fear of current or ex partner: Not on file Emotionally abused: Not on file Physically abused: Not on file Forced sexual activity: Not on file Other Topics Concern ??? Poor oral hygiene Not Asked ??? Bike safety Not Asked ??? Vehicle safety Not Asked Social History Narrative ??? Not on file Review of systems: Constitutional: No fevers or chills Eyes: No vision changes, no diplopia, no blurry vision ENT: No rhinorrhea or pharyngitis, no meningismus CV: No chest pain or palpitations Resp: No cough, no shortness of breath GI: No nausea, vomiting, diarrhea or constipation : No dysuria, no incontinence Heme: No bleeding or bruising Endo: No diabetes or thyroid disease Neuro: See HPI Psych: No depression, normal sleep [x] Review of systems otherwise negative Physical Exam: BP 118/80 (BP Location (NBP): Left arm, Patient Position: Sitting, BP Cuff Sizes: Adult (25-34 cm)) Pulse 100 Ht 182.9 cm (6') Comment: reported Wt 64 kg (141 lb) BMI 19.12 kg/m?? HEENT: oral mucosa moist, no thrush, no carotid bruits, no thyromegaly, no lymphadenopathy Heart: RRR S1S2 no murmur Lungs: CTAB symmetric expansion Abd: soft, nontender, nondistended Ext: no edema, adequate pulses Neuro exam: MSE: alert, oriented to person, place, time, situation, follows simple and complex commands, speechfluent with no dysarthria, able to repeat a sentence, names objects. CN: PERRL, no nystagmus, EOMI, visual jim intact to confrontation, facial sensation intact, no facial droop or asymmetry, tongue protrudes midline, uvula and palate elevate symmetrically, trap symmetric strength bilaterally Fundoscopic examination: Normal cup/disc ratio, sharp disc margins, no AV nicking Motor: RUE 5/5 throughout LUE 5/5 throughout RLE 5/5 throughout LLE 5/5 throughout Normal bulk and tone No pronator drift Reflexes 2+ bilat biceps, brachioradialis, triceps 2+ bilat patella, achilles downgoing toes bilaterally Sensation: intact light touch, vibration, proprioception, and temperature diffusely Coordination: intact finger nose finger and SKYLAR, no dysmetria, no tremor Gait: normal stride and arm swing, able to perform heel, toe walk and tandem gait. Negative romberg. Labs: No results found for this or any previous visit (from the past 24 hour(s)). Diagnostic Tests and Imaging: Assessment and plan: Erich Carreon is a 24 y.o. RH man hx of ALL s/p chemo presenting for evaluation of his headaches. He developed headaches around 2004 and in the past few years headaches are worse, triggered by stress or need for concentration. This headache is highly unusual. Cases have been described of string like pain sensation arising from back of head to front or vice versa, however these cases all last no more than 10 seconds. The patient is adamant that his symptoms are hours long at a time, which is highly unusual. 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 In studies, patients seemed to benefit from lamotrigine or gabapentin. 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 Uriel Mejia MD Headache Fellow [facility] [place] P:[phone] F:[id number] * Miguel Angel Xiao MD - 04/05/2019 8:30 AM EDT Attending Note 04-05-19 I saw and evaluated the patient with Dr. Mejia. I have reviewed the fellow's history during the visit and I agree with the details as written. The assessment and plan were formulated in discussion with me at the time of the visit and I agree with them as documented. Discussed at length with patient about diagnostic considerations. Explained diagnosis and treatment. Patient understands and accepts our plan. Briefly, pt with asthma & depression who had ALL at 18 mos treated with chemo in remission since age 6. SILVA onset age 10. The HAs are R sided and side locked and the location is a string-like band from eye to occiput less than the width of a finger. He also has some pain going from R to L, also string-like or band-like, but less prominent. He has 5/10 pain for usually 2h 1-2 times per day, in be tween pain free. These can be triggered by stress or concentration. They rarely occur during relaxation. The longest duration is one day, they never persist beyond sleep, no N, photophonophobia. He takes APAP & ibuprofen, 40 pills per week, and has been doing this for years. He has tried naproxen sodium. Sumatriptan 50 mg made him worse. He has also tried cyclobenzaprine which did not help. No aura. No cranial autonomic sx, not agitated during the attacks. No MRI has been done; CT wo X2 nl. 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 Everything else fits: string like description, back to front, unilateral, absence of other sx, moderate intensity. (Bertha et al. I (2016) 20: 21). We will check an MRI and start GBP. LTG would be the second choice. Miguel Angel Xiao MD documented in this encounter Plan of Treatment Not on file documented as of this encounter Visit Diagnoses Diagnosis Headache, chronic daily Headache documented in this encounter Care Teams Social Services Aide Relationship Specialty Start Date End Date Ernesto Eisenberg MD [address] [place] [id number] PCP - General 07/21/10 documented as of this encounter
--- OUTSIDE RECORDS SUMMARY | 2024-06-18 16:40 | XMS_ITS | Encounter Summary ---
[place] [address] Care Team Providers Care Title I Math Tutor Name Role Phone Ernesto Eisenberg MD Primary Care Provider + [phone] Reason for Referral * Consultation (Routine) - Closed Specialty Diagnoses / Procedures Referred By Contscot t Referred To Contact Neurology Diagnoses Myoclonus Ernesto Eisenberg MD [address] [place] [phone] [facility] [address] [place] [phone] Referral ID Status Reason Start Date Expiration Date V isits Requested Visits Authorized [id number] Closed Consult, Test & Treat 02/03/2022 02/03/2023 1 1 Encounter Details Date Type Department Care Team (Latest Contact Info) Description 02/03/2022 Transcribe Orders eDH Incoming Referrals [phone] Ernesto Eisenberg MD [address] [place] [address] [phone] Myoclonus (Primary Dx) Social History Tobacco Use Types [...] Associated Diagnoses Orde r Schedule Referral to Neurology Outpatient Referral Routine Myoclonus Ordered: 02/03/2022 documented as of this encounter Visit Diagnoses Diagnosis Myoclonus- Primary documented in this encounter Care Teams Title I Math Tutor Relationship Specialty Start Date End Date Ernesto Eisenberg MD [address] [place] [phone] PCP - General 07/21/10 documented as of this encounter
--- OUTSIDE RECORDS SUMMARY | 2024-06-18 16:40 | XMS_ITS | Encounter Summary ---
Author Organization [facility] Address [address] [place] [address] Care Team Providers Care Auger Operator Name Role Phone Ernesto Eisenberg MD Primary Care Provider [phone] Reason for Visit * Reason Comments Asthma Encounter Details Date Type Department Care Team (Late st Contact Info) Description 10/19/2019 10:45 EST Office Visit [facility] Pulmonology & Critical Care - [address] [id number] Carlos Valdivia MD [address] [place] [address], [address] [place] [address] Vocal cord dysfunction (Primary Dx); CF (cystic fibrosis) ([facility]); Asthma due to environmental allergies Social History Tobacco Use Types Packs/Day Years [...] Sign Reading Time Taken Comments Blood Pressure 104/72 10/19/2019 1037 EST Pulse 85 10/19/2019 1037 EST Temperature 36.6 ??C (97.9 ??F) 10/19/2019 1037 EST Respiratory Rate - - Oxygen Saturation 100% 10/19/2019 1037 EST Inhaled Oxygen Concentration - - Weight 62.1 kg (137 lb) 10/19/2019 1037 EST Height 182.3 cm (5' 11.77) 10/19/2019 1037 EST Body Mass Index 18.7 10/19/2019 1037 EST documented in this encounter Progress Notes * Carlos Valdivia MD - 10/19/2019 1045 EST Images from the original note were not included. [facility] MD Carlos Woodruff MD Abraham Sender, PA-C [address] [id number] Encounter Date: 10/19/2019 Ernesto Mcleod Faina [facility] [id number] Chief complaint: Erich is a 24 y.o. old here for follow up of shortness of breath. 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 He reports that since his last visit 09/07/2019 he broke his R hand. He also had the flu and reportshe had convulsions at that time. Convulsions were not consistent with seizures. Today he reports feeling better but still feels weak and has poor appetite but respiratory symptoms are resolved. Denies chest pain, hemoptysis, diarrhea, abdominal pain, pain with urination. Patient just got engaged 1 month ago. Denies sputum production. Environmental Exposure: No interval change since the last visit. reports that he quit smoking about 6 years ago. He quit after 0.75 years of use. He has never used smokeless tobacco. REVIEW OF SYSTEMS: A complete review of 14 systems was obtained and was negative except listed above. Past medical and surgical history reviewed and updated in the electronic medical record. Family and social history reviewed and updated in the electronic medical record. Outpatient Medications Marked as Taking for the 10/19/19 encounter (Office Visit) with Carlos Valdivia MD Medication Sig Dispense Refill ??? acetaminophen (TYLENOL) 500 mg tablet Take 500 mg by mouth every 6 hours as needed. Per mom ??? albuterol (ACCUNEB) 2.5 mg /3 mL (0.083 %) nebulizer solution Take 2.5 mg by nebulization every4 hours as needed for Wheezing. ??? albuterol sulfate (PROAIR HFA INHALATION) Inhale as directed every 4 to 6 hours as needed. ??? cyclobenzaprine (FLEXERIL) 10 mg tablet Take 10 mg by mouth 3 times daily as needed for Muscle Spasms. ??? ibuprofen (MOTRIN) 200 mg tablet Take 200 mg by mouth every 6 hours as needed. Per mom ??? lisdexamfetamine (VYVANSE) 30 mg capsule Take 30 mg by mouth every morning. ??? mometasone-formoterol (DULERA) 200-5 mcg/actuation inhaler Inhale 2 Puffs as directed 2 times daily. 3 Inhaler 3 Allergies Allergen Reactions ??? Flonase [Fluticasone Propionate] Pt reports tightening of chest, SOB ??? Keflex [Cephalexin] Wheezing Rash, swelling Objective Data: PHYSICAL EXAM:BP 104/72 Pulse 85 Temp 36.6 ??C (97.9 ??F) (Tympanic) Ht 182.3 cm (71.77) Wt 62.1 kg (137 lb) SpO2 100% BMI 18.70 kg/m?? Wt Readings from Last 5 Encounters: 10/19/19 62.1 kg (137 lb) 09/07/19 63 kg (139 lb) 07/18/19 64.4 kg (141 lb 15.6 oz) 04/25/19 63.8 kg (140 lb 10.5 oz) General: Alert, cooperative, no distress, appears stated age. Head: Normocephalic, without obvious abnormality, atraumatic. Eyes: Conjunctivae/corneas clear. PERRL Ears: Normal TMs and external ear canals both ears. Nose: Nares normal. Septum midline. Mucosa normal. No drainage or sinus tenderness. Throat: Lips, mucosa, and tongue normal. Teeth and gums normal. Posterior pharynx reveals no lesions Neck: Supple, symmetrical, trachea midline, no adenopathy, thyroid: no enlargment/tenderness/nodules. Cardiac: Regular rate and rhythm without murmurs gallops or rubs. Lungs: Inspiratory wheezing. No crackles. Abdomen: Soft, non-tender. Bowel sounds normal. No masses, No organomegaly. Extremities: Extremities normal, atraumatic, no cyanosis or edema. Digital clubbing present. Skin: Skin color, texture, turgor normal. No rashes or lesions. Lymph nodes: Cervical, supraclavicular nodes normal. Neurologic: Mood and affect appropriate otherwise non focal. Diagnostic Data: PFTs: FVC of 4.49 liters , 76% of predicted FEV1 of 4.21 liters, 85% of predicted Ratio of 110. Flow volume loop is restricted. IgE: Lab Results Component Value Date IGE 35 04/25/2019 Imaging: none new Assessment: Erich is 24 y.o. old with an abnormal sweat test and pulmonary symptoms coming to CF clinic for CF genetic testing. Although he had a presumed viral illness his breathing is back to baseline at today's visit. He was sent from CF clinic to the lab for a blood draw to complete genetic testing. Results will be followed up by CF team and patient will be notified. He is to follow up with his primary pulmonolgist as scheduled. 1) mild persistent asthma 2) vocal cord dysfunction 3) diaphragmatic weakness 4) chronic sinusitis 5) History of leukemia in remission Plan: Plan as above Studies at Next Visit: Pending results of gene testing Seasonal Influenza Vaccine: Already received. Follow up with primary byproducts supervisor. Please contact me with questions or concerns regarding Erich's care. Sincerely, Carlos Valdivia MD Please note: This documentation was created with the use of voice recognition software, and may contain rare head boys golf coach errors. documented in this encounter Plan of Treatment Not on file documented as of this encounter Procedures Procedure Name Priority Date/Time Associated Diagnosis Comments PULMONARY FUNCTION REPORT - SCANNED 10/29/2019 12:26 EST BACTERIAL CULTURE/SMEAR, RESPIRATORY Routine 10/19/2019 12:47 EST CF (cystic fibrosis) ([facility]) PULMONARY FUNCTION REPORT - SCANNED 10/19/2019 10:50 EST documented in this encounter Results * PULMONARY FUNCTION REPORT - SCANNED (10/29/2019 12:26 EST) 10/29/2019 12:2 6 EST Scan 2 Cnc Supervisor PROCEDURE/MINOR [place] GICAL ORDERABLES * BACTERIAL CULTURE/SMEAR, RESPIRATORY (10/19/2019 12:47 EST) Organism ID Heavy Usual lesa-pharyngeal sayra 10/25/2019 13:37 EST [facility] Smear Moderate Neutrophils Present 10/25/2019 13:37 EST [facility] Smear Few Squamous Epithelial Cells 10/25/2019 13:37 EST [facility] Smear Moderate Mixed gram positive and gram negative organisms 10/25/2019 13:37 EST [facility] SPUTUM SPECIMEN / Unknown 10/19/2019 12:47 EST 10/19/2019 14:01 EST Cherry Farmer MD MICROBIO LOGY - GENERAL ORDERABLES [facility] [address] [place] [address] * PULMONARY FUNCTION REPORT - SCANNED (10/19/2019 10:50 EST) 10/19/2019 10:5 0 EST Scan 2 Cnc Supervisor PROCEDURE/MINOR [place] GICAL ORDERABLES documented in this encounter Visit Diagnoses Diagnosis Vocal cord dysfunction- Primary Other diseases of vocal cords CF (cystic fibrosis) ([facility]) Cystic fibrosis without mention of meconium ileus Asthma due to environmental allergies documented in this encounter Care Teams Auger Operator Relationship Specialty Start Date End Date Ernesto Eisenberg MD [address] [place] [address] PCP - General 12/09/11 documented as of this encounter
--- OUTSIDE RECORDS SUMMARY | 2024-06-18 16:40 | XMS_ITS | Encounter Summary ---
Author Organization [facility] Address [address] [place] [address] Care Team Providers Care Size Roller Operator Name Role Phone Ernesto Eisenberg MD Primary Care Provider [phone] Encounter Details Date Type Department Care Team (Late st Contact Info) Description 04/16/2019 Results Only Imaging [facility] [phone] Unknown, Provider, Social History Tobacco Use Types Packs/Day Years Used Date Smoking Tobacco: Never Assessed Sex and Gender Information Value Date Recorded Sex Assigned at Not on file Gender Identity Male 10/19/2019 11:33 EST Sexual Orientation Not on file documented as of this encounter Plan of Treatment Pending Results Name Type Priority Associated Diagnoses Date /Time OUTSIDE IMAGES - CT CHEST Imaging 04/16/2019 14:28 EDT documented as of this encounter Visit Diagnoses Not on filedocumented in this encounter Care Teams Size Roller Operator Relationship Specialty Start Date End Date Ernesto Eisenberg MD [address] [place] [address] PCP - General 12/09/11 documented as of this encounter
--- OUTSIDE RECORDS SUMMARY | 2024-06-18 16:40 | XMS_ITS | Encounter Summary ---
[place] [address] Care Team Providers Care Pipe Threading Machine Operator Name Role Phone Ernesto Eisenberg MD Primary Care Provider [phone] Reason for Referral * Diagnostic Test (Routine) - Closed Specialty Diagnoses / Procedures Referred By Maxine vernon Referred To Contact Neurology Diagnoses Transient alteration of awareness Myoclonus Headache, unspecified headache type Kwaku Alvarado MD [address] [address] [facility] [address] [place] [phone] Referral ID Status Reason Start Date Expiration Date V isits Requested Visits Authorized [id number] Closed Test Only 08/26/2022 08/26/2023 1 1 Encounter Details Date Type Department Care Team (Late st Contact Info) Description 08/26/2022 Transcribe Orders eDH Incoming Referrals [phone] Kwaku Alvarado MD [address] [place] [phone] Transient alteration of awareness (Primary Dx); Myoclonus; Headache, unspecified headache type Social History Tobacco Use Types Packs/Day Years [...] Schedule Referral to Neurology Outpatient Referral Routine Transient alteration of awareness Myoclonus Headache, unspecified headache type Ordered: 08/26/2022 documented as of this encounter Visit Diagnoses Diagnosis Transient alteration of awareness- Primary Myoclonus Headache, unspecified headache type documented in this encounter Care Teams Pipe Threading Machine Operator Relationship Specialty Start Date End Date Ernesto Eisenberg MD [address] [place] [address] PCP - General 07/21/10 documented as of this encounter
--- OUTSIDE RECORDS SUMMARY | 2024-06-18 16:40 | XMS_ITS | Encounter Summary ---
Author Organization [facility] [address] [place] [id number] Care Team Providers Care Synthetic Filament Extruder Name Role Phone Ernesto Eisenberg MD Primary Care Provider [phone] Reason for Referral * Diagnostic Test (Routine) - Closed Specialty Diagnoses / Procedures Referred By Contac t Referred To Contact Radiology Diagnoses Acute pain of right knee Procedures MRI Knee wo Contrast Right (Generic) Nissa Borrero PA [facility] [place] [address] [place] [address] Referral ID Status Reason Start Date Expiration Date V isits Requested Visits Authorized [id number] Closed Specialty Service Requested 06/14/2018 09/12/2018 1 1 Reason for Visit * Diagnostic Test (Routine) - Closed Specialty Diagnoses / Procedures Referred By Contac t Referred To Contact Radiology Diagnoses Acute pain of right knee Procedures MRI Knee wo Contrast Right (Generic) Nissa Borrero PA [facility] [place] [address] [place] [address] Referral ID Status Reason Start Date Expiration Date V isits Requested Visits Authorized [id number] Closed Specialty Service Requested 06/14/2018 09/12/2018 1 1 Encounter Details Date Type Department Care Team (Latest Contact Info) Description 06/21/2018 11:14 AM EDT - 06/21/2018 11:59 PM EDT Hospital [place] [address] Uriel Cullen MD [facility] DR [place] [address] Acute pain of right knee Discharge Disposition: Home Social History Tobacco Use [...] Sig Dispensed Refills Start Date End Date albuterol (PROVENTIL) 2.5 mg/0.5 mL Solution for Nebulization Take 2.5 mg by nebulization every 4 hours as needed for Wheezing. PROAIR HFA 90 mcg/actuation HFA Aerosol Inhaler 5 12/12/2017 cholecalciferol, Vitamin D3, 1,000 unit Tablet Take 4,000 Units by mouth daily. acetaminophen (TYLENOL) 325 mg tablet Take 650 mg by mouth every 4 hours as needed. IBUPROFEN ORAL Take by mouth as needed. LORATADINE (CLARITIN ORAL) Take by mouth as needed. ASCORBIC ACID (VITAMIN C ORAL) 03/11/2010 DULERA 100-5 mcg/actuation HFA Aerosol Inhaler INHALE 2 PUFFS TWO TIMES A DAY 3 05/27/2018 12/14/2018 clonazePAM (KLONOPIN) 0.5 mg Tablet Take 0.5 mg by mouth as needed for Anxiety. 9 documented as of this encounter Plan of Treatment Not on file documented as of this encounter Procedures Procedure Name Priority Date/Time Associated Diagnosis Comments MRI KNEE RIGHT WO CONTRAST Routine 06/21/2018 12:28 PM EDT Acute pain of right knee documented [...] preserved. There is no osteochondral lesion. The evorjr-flroctys-nb-trochlear-groove (TT-TG) distance is measured at 0.7 cm, [...] preserved. There is no osteochondral lesion. The tqtesl-khhbnyod-ui-trochlear-groove (TT-TG) distance is measured at 0.7cm, which [...] mass. Uriel Cullen MD IM MRI ORDERABLES documented in this encounter Visit Diagnoses Diagnosis Acute pain of right knee documented in this encounter Care Teams Synthetic Filament Extruder Relationship Specialty Start Date End Date Ernesto Eisenberg MD [address] [place] [id number] PCP - General 07/21/10 documented as of this encounter
--- OUTSIDE RECORDS SUMMARY | 2024-06-18 16:40 | XMS_ITS | Encounter Summary ---
Author Organization [facility] [place] [address] Care Team Providers Care Cupola Operator Insulation Name Role Phone Ernesto Eisenberg MD Primary Care Provider + [phone] Reason for Referral * Physical Therapy (Routine) - Specialty Diagnoses / Procedures Referred By Maxine vernon Referred To Contact Physical Therapy Diagnoses Patellofemoral syndrome of right knee Nissa Borrero PA [facility] [place] [address] Referral ID Status Reason Start Date Expiration Date V isits Requested Visits Authorized [id number] Evaluate and Treat 08/03/2018 01/30/2019 20 20 Encounter Details Date Type Department Care Team (Late st Contact Info) Description 08/03/2018 Orders Only Orthopaedics at [facility] [place] [address] Nissa Borrero PA [facility] [place] [address] Patellofemoral syndrome of right knee Social History [...] Associated Diagnoses Orde r Schedule Referral to Physical Therapy Outpatient Referral Routine Patellofemoral syndrome of right knee Ordered: 08/03/2018 documented as of this encounter Visit Diagnoses Diagnosis Patellofemoral syndrome of right knee documented in this encounter Care Teams Cupola Operator Insulation Relationship Specialty Start Date End Date Ernesto Eisenberg MD [address] [place] [address] PCP - General 07/21/10 documented as of this encounter
--- OUTSIDE RECORDS SUMMARY | 2024-06-18 16:40 | XMS_ITS | Encounter Summary ---
Author Organization [facility] Address [address] [place] [address] Care Team Providers Care Hop Trainer Name Role Phone Unavailable Primary Care Provider Unavailabl e Encounter Details Date Type Department Care Team (Late st Contact Info) Description 01/13/2004 Results Only [facility] [address] [place] [address] Denys Peguero MD [address] [place] [address] Social History Tobacco Use Types Packs/Day Years Used Date Smoking Tobacco: Never Assessed Sex and Gender Information Value Date Recorded Sex Assigned at Not on file Gender Identity Male 10/19/2019 11:33 EST Sexual Orientation Not on file documented as of this encounter Plan of Treatment Not on file documented as of this encounter Procedures Procedure Name Priority Date/Time Associated Diagnosis Comments SURGICAL PATHOLOGY Routine 01/13/2004 0:00 EDT documented in this encounter Results * SURGICAL PATHOLOGY (01/13/2004 0:00 EDT) Pathology Report: SURGICAL PATHOLOGY REPORT Reports generated via electronic interface contain original data; however they are lacking the format of the original report. Caution should be taken when reading/interpreti ng unformatted reports. Name: ? ERICH GANNON ? Accession #: ? [id number] ? : ? 1995 (Age: 8) ??M ? Collect Date: ? 01/13/2004 ? Location: ? [facility] ? Receive Date: ? 01/13/2004 ? Provider: DENYS PEGUERO MD Copy to: DENYS NASH MD ? Final Pathologic Diagnosis: A. ?Right tonsil, excision: 1. ?Reactive lymphoid hyperplasia. ??No tumor. ??See Comment. B. ?Left tonsil, excision: ? 1. Reactive lymphoid hyperplasia. ??No tumor. ??See Comment. C. ?Adenoids, excision: ? 1. Reactive lymphoid hyperplasia. ??No tumor. ??See comment. Comment: ? Dr. Andrés Jolly has reviewed this case and he concurs with the diagnoses. (Dr. Zay Dey) Document reviewed and electronically signed by: Mimi Dey MD Report ??Date: 01/24/2004 11:42 By the signature above, the attending physician certifies that he/she has personally conducted a gross and/or microscopic examination of the described specimens and rendered or confirmed the above diagnosis. Specimen(s) Received: A. ?Right tonsil B. ?Left tonsil C. ?Adenoids Clinical History: ? T&A, significant PMH leukemia Gross Description: ? Received in formalin labelled Lauri and right tonsil is a meza-pink ovoid unoriented 3.0 x 2.2 x 1.7 cm soft tissue surfaced by a meza glistening mucosa. ??Upon sectioning, the cut surfaces are meza-pink with a crypt-like architecture. ??No definitive nodule is identified. ??A medical collections representative section is submitted as (A). Received in formalin labelled Lauri and left tonsil is a meza-pink ovoid unoriented 3.2 x 2.2 x 1.4 cm soft tissue surfaced by a meza and smooth to wrinkled mucosa. ??Upon sectioning, the cut surfaces are meza-pink with a crypt-like architecture. ??No discrete nodule is identified. ??A medical collections representative section is submitted as (B). ?? Received in formalin labelled Lauri and adenoids are multiple meza-pink irregular portions of soft tissue which measure 2.5 x 2.0 x 1.0 cm in aggregate. The cut surfaces are meza-pink and homogeneous. ??Approximately 60% of the specimen is submitted as (C). ??(Leandro Liang[facility] End of Report [facility] BREAUX 01/13/2004 01/13/2004 15: 20 EDT Denys Peguero MD PATHOLOGY ORDERABLES [facility]REST[facility] BREAUX [address] [place] [address] documented in this encounter Visit Diagnoses Not on filedocumented in this encounter
--- OUTSIDE RECORDS SUMMARY | 2024-06-18 16:40 | XMS_ITS | Encounter Summary ---
Author Organization [facility] Address [address] [place] [address] Care Team Providers Care Avionics Safety Inspector Name Role Phone Ernesto Eisenberg MD Primary Care Provider [phone] Encounter Details Date Type Department Care Team (Late st Contact Info) Description 08/15/2019 Orders Only [facility] Pulmonology & Critical Care - [address] [phone] Cherry Farmer MD [address] [facility], [address] [place] [address] CF (cystic fibrosis) ([facility]) (Primary Dx) Social History Tobacco Use Types [...] as of this encounter Visit Diagnoses Diagnosis CF (cystic fibrosis) ([facility])- Primary Cystic fibrosis without mention of meconium ileus documented in this encounter Care Teams Avionics Safety Inspector Relationship Specialty Start Date End Date Ernesto Eisenberg MD [address] [place], [place] [phone] PCP - General 12/09/11 documented as of this encounter
--- OUTSIDE RECORDS SUMMARY | 2024-06-18 16:40 | XMS_ITS | Encounter Summary ---
Author Organization [facility] Address [address] [place] [address] Care Team Providers Care Lab Pack Chemist Name Role Phone Ernesto Eisenberg MD Primary Care Provider [phone] Reason for Visit * Reason Comments Procedure Encounter Details Date Type Department Care Team (Latest Contact Info) Description 08/14/2019 11:00 EST Procedure visit [facility] Pediatric Pulmonary - Main [place] [address] [place] [address] Sweat Test, [facility] Pedi Pulm Moderate persistent asthma without complication (Primary Dx) Social History Tobacco Use Types [...] as of this encounter Progress Notes * Elena Baez - 08/14/2019 1100 EST Sweat Test Results 08/14/2019,13:12 Erich Mcfarlane [address] 1995 [id number] Sweat Test Results Specimen Bottle #1 Right arm Time started: 11:10 Time finished: 11:30 [Cl] (mEq/L): 57 Specimen Bottle #2 Left arm Time started: 11:15 Time finished: 11:35 [Cl] (mEq/L): 55 Action/Plan: Will route results to adult pulm. Referring MD will relay results to patient and come up with follow up plan. ELENA BAEZ MA documented in this encounter Plan of Treatment Scheduled Orders Name Type Priority Associated Diagnoses Orde r Schedule AMBULATORY SWEAT TEST Procedures Routine Moderate persistent asthma without complication Ordered: 08/14/2019 documented as of this encounter Procedures Procedure Name Priority Date/Time Associated Diagnosis Comments SWEAT TEST Routine 08/14/2019 11:41 EST Moderate persistent asthma without complication documented in this encounter Results * (ABNORMAL) SWEAT TEST (08/14/2019 11:41 EST) Sweat Chloride 57(H) <30 mEq/L 08/14/2019 13:36 EST [facility] Sweat Chloride 2 55(H) <30 mEq/L 08/14/2019 13:36 EST [facility] Sweat Collection Site 1 Arm, Right 08/14/2019 13:36 EST [facility] Sweat Collection Site 2 Arm, Left 08/14/2019 13:36 [facility] Fluid ENTIRE UPPER LIMB / Unknown 08/14/2019 11:41 EST 08/14/2019 13:27 EST Narrative [facility] - 08/14/2019 13:36 EST REFERENCE RANGES (All Ages): <30 mmol/L = Unlikely for Cystic Fibrosis (CF) 30 - 59 mmol/L = Intermediate for CF > 59 mmol/L = Indicative of CF NOTES: ----- Sweat chloride values less than 30 mmol/L have been documented in genetically proven CF patients. ??Clinical correlation is necessary. Result must be interpreted with regard to the patient's age and clinical presentation. Gabi Lacy MD PhD CHEMISTRY & BLOOD GAS ORDERABLES [facility] [address] [place] [address] documented in this encounter Visit Diagnoses Diagnosis Moderate persistent asthma without complication- Primary Unspecified asthma documented in this encounter Care Teams Lab Pack Chemist Relationship Specialty Start Date End Date Ernesto Eisenberg MD [address] [place] [address] PCP - General 12/09/11 documented as of this encounter
--- OUTSIDE RECORDS SUMMARY | 2024-06-18 16:40 | XMS_ITS | Encounter Summary ---
Author Organization [facility] Address [address] [place] [address] Care Team Providers Care Public Services Librarian Name Role Phone Ernesto Eisenberg MD Primary Care Provider [phone] Reason for Referral * Consult (Routine) - Authorization Not Required Specialty Diagnoses / Procedures Referred By Maxine vernon Referred To Contact Otolaryngology Diagnoses Chronic maxillary sinusitis Gabi Lacy MD PhD [address] [place] [phone] [place] [id number] [place] [address] Referral ID Status Reason Start Date Expiration Date Visits Requested Visits Authorized [id number] Authorization Not Required Specialty Services Required 07/18/20 19 1 1 Question Answer Reason for Request: Second opinion regarding chronic sinusitis. Recurrently on antibiotics for 'sinusitis'. Previous care at [facility] - notes in care everywhere. Sinusitis contributing to difficult to control asthma symptoms Reason for Visit * Reason Comments Asthma Encounter Details Date Type Department Care Team ([facility] st Contact Info) Description 07/18/2019 16:30 EST Office Visit [facility] Pulmonology & Critical Care - [address] [address] Ashley Pizarro MD [address] [place], [place] [phone] Moderate persistent asthma, unspecified whether complicated (Primary Dx); Chronic maxillary sinusitis Social History Tobacco Use Types Packs/Day Years [...] Sign Reading Time Taken Comments Blood Pressure 116/78 07/18/2019 1634 EST Pulse 86 07/18/2019 1634 EST Temperature 36.5 ??C (97.7 ??F) 07/18/2019 1634 EST Respiratory Rate 12 07/18/2019 1634 EST Oxygen Saturation 99% 07/18/2019 1634 EST Inhaled Oxygen Concentration - - Weight 64.4 kg (141 lb 15.6 oz) 07/18/2019 1634 EST Height 181 cm (5' 11.26) 07/18/2019 1634 EST Body Mass Index 19.66 07/18/2019 1634 EST documented in this encounter Ordered Prescriptions Prescription Sig Dispensed Refills Start Date End Da te vtiiucpeppq-gnhafyseh-ipc anter (TRELEGY ELLIPTA) 100-62.5-25 mcgIndications:Moderate persistent asthma, unspecified whether complicated Inhale 1 Puff as directed daily. 1 Each 5 07/18/2019 08/13/2019 montelukast (SINGULAIR) 10 mg tabletIndications:Moderat e persistent asthma, unspecified whether complicated Take 1 Tab by mouth every evening. 30 Tab 5 07/18/2019 12/18/2020 documented in this encounter Progress Notes * Ashley Pizarro MD - 07/18/2019 1630 EST PULMONARY CLINIC FOLLOW-UP VISIT Date: 07/18/2019 Reason for Visit: Asthma PCP: Ernesto Eisenberg Pulmonary History Asthma Chronic Sinusitis Allergies Normal Immunoglobulins Normal eosinophils (0.8%; 0.06) VCD - underwent ACETYLENE CYLINDER PACKING MIXER therapy at [facility] as s/p chemotherapy Subjective: Mr. Carreon is a 24 y.o. male with a past medical history of asthma and chronic sinusitis who presents today for follow-up. Patient was last seen on 04/25/19 and at that time he was having shortness of breath symptoms. He has recurrent infection, for which I obtained immunoglobulins, which were normal. I started him on Symbicort and albuterol prn. I also gave him the Pneumovax at our last visit. Mr. Carreon reports that despite using the Symbicort 2 puffs bid for 1 month he did not notice a difference in his symptoms. He still states that he is having difficulty breathing, particularly with exertion. He is currently on azithromycin for his chronic sinusitis. He reports using his spacer withhis inhalers. He also endorses green sputum production relatively frequently. Past medical, surgical, and family history updated in the medical record. Medications: Current Outpatient Medications: ??? acetaminophen (TYLENOL) 500 mg tablet, Take 500 mg by mouth every 6 hours as needed. Per mom , Disp: , Rfl: ??? albuterol sulfate (PROAIR HFA INHALATION), Inhale as directed every 4 to 6 hours as needed., Disp: , Rfl: ??? azithromycin (ZITHROMAX Z-MELANIE) 250 mg tablet, Take 250 mg by mouth daily. Per mom , Disp: , Rfl: ??? budesonide-formoterol HFA (SYMBICORT) 160-4.5 mcg/actuation HFA aerosol inhaler inhaler, Inhale2 Puffs as directed 2 times daily., Disp: 1 Inhaler, Rfl: 11 ??? gabapentin (NEURONTIN) 100 mg capsule, Take 100 mg by mouth 3 times daily., Disp: , Rfl: ??? ibuprofen (MOTRIN) 200 mg tablet, Take 200 mg by mouth every 6 hours as needed. Per mom , Disp:, Rfl: ??? lisdexamfetamine (VYVANSE) 30 mg capsule, Take 30 mg by mouth every morning., Disp: , Rfl: ROS: A 10-point review of systems was obtained and otherwise negative. Exam: Pulse 86 Temp 36.5 ??C (97.7 ??F) Resp 12 Ht 181 cm (71.26) Wt 64.4 kg (141 lb 15.6 oz) SpO2 99% BMI 19.66 kg/m?? Gen: Appearing stated age, NAD, sitting in chair. HENT: Pupils round, equal and reactive. Nasal turbinates pink and non-inflamed. No post-nasal drip. Lymph: No submandibular or supraclavicular lymphadenopathy CV: Regular, S1, S2, no murmurs Lungs: Symmetric chest expansion. Clear to auscultation bilaterally. Forced tracheal wheezing. No wheezing in lungs. Abd: Soft, non-distended, normoactive bowel sounds, non-tender. Ext: No edema, clubbing or cyanosis. Skin: Warm and dry; no rashes or lesions. MSK: No joint deformity or warmth. Neuro: AAOx3, non-focal Psych: appropriate, cooperative and pleasant Imaging: Personally reviewed Spirometry: Date FEV1/FVC LLN FEV1 (L) % LLN (L) FVC (L) % LLN (L) Comments 04/27/19 92 72 4.19 85 3.99 4.52 77 4.67 No BD change Lung Volumes/DLCO/Airway Resistance Date TLC (L) % DLCO cor LLN sGaw % Assessment: Mr. Carreon is a 24 y.o. male with a past medical history of chronic sinusitis and asthma who presents today for followup. He has significant sinus symptoms that are impacting his asthma. He continuesto require frequent antibiotics for sinusitis. He has not been to see his ENT at [facility] for 1.5 years but states he was not told to follow up. His significant sinus disease with asthma symptoms and sputum production does raise the concern for possible CF. There is no family history and my clinical suspicion is low, but I will rule this out. As he is uncontrolled on ICS/LABA therapy, I will tryhim on ICS/LABA/LAMA therapy and start Singulair.I also think a second opinion regarding his sinus disease may be helpful to see if there are any other options for him moving forward. Plan: Moderate persistent asthma - will try Trelegy - prn albuterol, continue albuterol neb - trial Singulair - sweat test - negro at next appt - ENT referral for second opinion Follow-up: 6 months Ashley Pizarro M.D. Pulmonary and Critical Care Fellow PGY-5 MICU/PULMONARY ATTENDING ADDENDUM: Attestation statement: I saw and examined Mr. Carreon. I agree with the findings and plan of care documented in the resident's/fellow's note. Gabi Lacy MD PhD MICU/PULMONARY Attending Date of Service: 07/18/19 * Hal Fox RT - 07/18/2019 1630 EST S: already had flu shot this year. documented in this encounter Plan of Treatment Scheduled Referrals Name Type Priority Associated Diagnoses Orde r Schedule AMB CONS/FOLLOW UP ENT Outpatient Referral Routine Chronic maxillary sinusitis Ordered: 07/18/2019 documented as of this encounter Visit Diagnoses Diagnosis Moderate persistent asthma, unspecified whether complicated- Primary Chronic maxillary sinusitis documented in this encounter Discontinued Medications Medication Sig Discontinue Reason Start Date End Da te budesonide-formoterol HFA (SYMBICORT) 160-4.5 mcg/actuation HFA aerosol inhaler inhalerIndications:Moder ate persistent asthma without complication Inhale 2 Puffs as directed 2 times daily. Therapy completed 04/25/2019 07/18/2019 gabapentin (NEURONTIN) 100 mg capsule Take 100 mg by mouth 3 times daily. Therapy completed 07/18/2019 documented as of this encounter Historical Medications * This list may reflect changes made after this encounter. Medication Sig Dispensed Refills Start Date End Date albuterol (ACCUNEB) 2.5 mg /3 mL (0.083 %) nebulizer solution Take 2.5 mg by nebulization every 4 hours as needed for Wheezing. added in this encounter Care Teams Public Services Librarian Relationship Specialty Start Date End Date Ernesto Eisenberg MD [address] [place] [address] PCP - General 12/09/11 documented as of this encounter
--- OUTSIDE RECORDS SUMMARY | 2024-06-18 16:40 | XMS_ITS | Encounter Summary ---
Author Organization [facility] Address [address] [place] [address] Care Team Providers Care Preschool Assistant Principal Name Role Phone Ernesto Eisenberg MD Primary Care Provider [phone] Encounter Details Date Type Department Care Team (Late st Contact Info) Description 12/19/2011 Results Only Imaging [facility] [phone] Ernesto Eisenberg MD [address] [place] [id number] Social History Tobacco Use Types Packs/Day Years Used Date Smoking Tobacco: Never Assessed Sex and Gender Information Value Date Recorded Sex Assigned at Not on file Gender Identity Male 10/19/2019 11:33 EST Sexual Orientation Not on file documented as of this encounter Plan of Treatment Pending Results Name Type Priority Associated Diagnoses Date /Time OUTSIDE CD - PLAIN FILM MSK Imaging 12/19/2011 5:46 EDT OUTSIDE CD - MRI MSK Imaging 11/28 5:49 EDT documented as of this encounter Visit Diagnoses Not on filedocumented in this encounter Care Teams Preschool Assistant Principal Relationship Specialty Start Date End Date Ernesto Eisenberg MD [address], [place] [address] PCP - General 12/09/11 documented as of this encounter
--- OUTSIDE RECORDS SUMMARY | 2024-06-18 16:40 | XMS_ITS | Encounter Summary ---
Author Organization [facility] Address [address] [place] [address] Care Team Providers Care Cafe Helper Name Role Phone Unavailable Primary Care Provider Unavailabl e Encounter Details Date Type Department Care Team (Late st Contact Info) Description 01/24/2004 Results Only [facility] [address] [place] [address] Denys Peguero MD [address] [place] [id number] Social History Tobacco Use Types Packs/Day Years Used Date Smoking Tobacco: Never Assessed Sex and Gender Information Value Date Recorded Sex Assigned at Not on file Gender Identity Male 10/19/2019 11:33 EST Sexual Orientation Not on file documented as of this encounter Plan of Treatment Not on file documented as of this encounter Procedures Procedure Name Priority Date/Time Associated Diagnosis Comments BONE MARROW/HEMPATH CONSULT Routine 01/24/2004 0:00 EDT documented in this encounter Results * BONE MARROW (01/24/2004 0:00 EDT) Pathology Report: HEMATOPATHOLOGY CONSULTATIVE REPORT Reports generated via electronic interface contain original data; however they are lacking the format of the original report. Caution should be taken when reading/interpreti ng unformatted reports. Name: ? ERICH GANNON ? Accession #: ? [id number] : ? 1995 (Age: 8) ??M ?Collect Date: ? 01/24/2004 Location: ? [facility] ? Receive Date: ? 01/24/2004 Provider: ? DENYS PEGUERO MD Copy to: ?DENYS NASH MD ? Document reviewed and electronically signed by: ? Pelon Nichole for Andrés Jolly MD ? Report Date: ??02/28/2004 09:41 By the signature above, the attending physician certifies that he/she has personally conducted a gross and or microscopic examination of the described specimens and rendered or confirmed the above diagnosis. TISSUE SUBMITTED: ? Accession created for laboratory administrative purposes only. ? End of Report ORESTES BREAUX 01/24/2004 01/24/2004 15: 13 EDT Denys Peguero MD PATHOLOGY ORDERABLES ORESTES BREAUX [address] [place] [address] documented in this encounter Visit Diagnoses Not on filedocumented in this encounter
--- OUTSIDE RECORDS SUMMARY | 2024-06-18 16:40 | XMS_ITS | Encounter Summary ---
Author Organization [facility] Address [address] [place] [address] Care Team Providers Care Precision Agriculture Technician Name Role Phone Ernesto Eisenberg MD Primary Care Provider [phone] Reason for Visit * Reason Onset Date Comments Prior Auth, Medication 08/06/2019 Encounter Details Date Type Department Care Team (Late st Contact Info) Description 08/06/2019 Telephone [facility] Pulmonology & Critical Care - [address] [address] Ashley Pizarro MD [address] [place] [address], [address] [place] [address] Prior Auth, Medication Social History Tobacco Use Types Packs/Day Years [...] Dispensed Refills Start Date End Da te mometasone-formoterol (DULERA) 200-5 mcg/actuation inhaler Inhale 2 Puffs as directed 2 times daily. 3 Inhaler 3 08/13/2019 01/23/2020 documented in this encounter Miscellaneous Notes * Addendum Note - Karen White RT - 08/13/2019 1138 ESTAddended by: KAREN WHITE on: 08/13/2019 11:38 Modules accepted: Orders * Telephone Encounter - Karen White RT - 08/13/2019 1138 EST Requested Prescriptions Signed Prescriptions Disp Refills ??? mometasone-formoterol (DULERA) 200-5 mcg/actuation inhaler 3 Inhaler 3 Sig: Inhale 2 Puffs as directed 2 times daily. Authorizing Provider: ASHLEY PIZARRO Ordering User: KAREN WHITE [id number] - [place], [place] - [address] [facility] [address] [facility] [address] * Telephone Encounter - Karen White RT - 08/07/2019 1355 EST ?? ----- Message ----- From: Jennifer Real Sent: 07/24/2019 15:25 EST To: Pulmonary Nurse-Rt Pool Subject: Trelegy Ellipta ?? This is denied: patient must have tried and failed 2 different combinations of a preferred inhaled corticosteroid LABA and LAMA used in combination * Telephone Encounter - Elvis Muñoz - 08/06/2019 1033 EST Per pt, requesting a prior auth for inhaler as it was denied by insurance. documented in this encounter Plan of Treatment Not on file documented as of this encounter Visit Diagnoses Not on filedocumented in this encounter Discontinued Medications Medication Sig Discontinue Reason Start Date End Da te fluticasone-umeclidin- vilanter (TRELEGY ELLIPTA) 100-62.5-25 mcgIndications:Moderat e persistent asthma, unspecified whether complicated Inhale 1 Puff as directed daily. Insurance does not cover 07/18/2019 08/13/2019 documented as of this encounter Care Teams Precision Agriculture Technician Relationship Specialty Start Date End Date Ernesto Eisenberg MD [address] [place] [address] PCP - General 12/09/11 documented as of this encounter
--- OUTSIDE RECORDS SUMMARY | 2024-06-18 16:40 | XMS_ITS | Encounter Summary ---
Author Organization [facility] Address [address] [place] [address] Care Team Providers Care Field Mechanic/Site Lead Name Role Phone Ernesto Eisenberg MD Primary Care Provider [phone] Reason for Visit * Reason Onset Date Comments Follow-up 04/17/2019 Encounter Details Date Type Department Care Team (Late st Contact Info) Description 04/17/2019 Telephone [facility] Pulmonology & Critical Care - [address] [address] Hal Fox RT Follow-up Social History Tobacco Use Types Packs/Day Years Used Date Smoking Tobacco: Never Assessed Sex and Gender Information Value Date Recorded Sex Assigned at Not on file Gender Identity Male 10/19/2019 11:33 EST Sexual Orientation Not on file documented as of this encounter Miscellaneous Notes * Telephone Encounter - Hal Fox RT - 04/27/2019 1533 EDT error documented in this encounter Plan of Treatment Not on file documented as of this encounter Visit Diagnoses Not on filedocumented in this encounter Care Teams Field Mechanic/Site Lead Relationship Specialty Start Date End Date Ernesto Eisenberg MD [address] [place] [address] PCP - General 12/09/11 documented as of this encounter
--- OUTSIDE RECORDS SUMMARY | 2024-06-18 16:40 | XMS_ITS | Encounter Summary ---
Author Organization [facility] Address [address] [place] [address] Care Team Providers Care Director Of Strategic Sourcing Name Role Phone Ernesto Eisenberg MD Primary Care Provider [phone] Encounter Details Date Type Department Care Team (Late st Contact Info) Description 10/19/2019 11:45 EST Phlebotomy Only [facility] 2 Phlebotomy [address] [place] [address] Commissary Production Supervisor, Acc Phlebotomy Abnormal sweat test (Primary Dx) Social History [...] Procedure Name Priority Date/Time Associated Diagnosis Comments MISCELLANEOUS TEST, NON CASTILLO Routine 10/19/2019 11:52 EST Abnormal sweat test documented in this encounter Results * MISCELLANEOUS TEST, NON [...] Primary documented in this encounter Care Teams Director Of Strategic Sourcing Relationship Specialty Start Date End Date Ernesto Eisenberg MD [address] [place] [address] PCP - General 12/09/11 documented as of this encounter
--- OUTSIDE RECORDS SUMMARY | 2024-06-18 16:40 | XMS_ITS | Encounter Summary ---
Author Organization [facility] Address [address] [place] [address] Care Team Providers Care Affirmative Action Specialist Name Role Phone Ernesto Eisenberg MD Primary Care Provider [phone] Reason for Visit * Reason Onset Date Comments Results 08/14/2019 Encounter Details Date Type Department Care Team (Late st Contact Info) Description 08/14/2019 Telephone [facility] Pediatric Pulmonary - [address] [id number] Sweat [facility], [facility] Results Social History Tobacco Use Types Packs/Day [...] encounter Miscellaneous Notes * Telephone Encounter - Manda Baez - 08/14/2019 1337 EST Lab calling to inform of intermediate sweat test results 55/57. Will route to adult pulm and ask they let patient know of results as well as their plan. documented in this encounter Plan of Treatment Not on file documented as of this encounter Visit Diagnoses Not on filedocumented in this encounter Care Teams Affirmative Action Specialist Relationship Specialty Start Date End Date Ernesto Eisenberg MD [address] [place] [address] PCP - General 12/09/11 documented as of this encounter
--- OUTSIDE RECORDS SUMMARY | 2024-06-18 16:40 | XMS_ITS | Encounter Summary ---
Author Organization [facility] [address] Care Team Providers Care Cytogenetics Laboratory Manager Name Role Phone Ernesto Eisenberg MD Primary Care Provider + [phone] Reason for Visit * Reason Comments Pain, Chronic Pain In Limb * Consultation (Routine) - Closed Specialty Diagnoses / Procedures Referred By Contac t Referred To Contact Pain Management Diagnoses Chronic pain of right knee Nissa Borrero PA [facility] [place] [address] [facility] [address] [place] [phone] Referral ID Status Reason Start Date Expiration Date V isits Requested Visits Authorized [id number] Closed Consult, Test & Treat 08/18/2018 08/18/2019 1 1 Encounter Details Date Type Department Care Team (Latest Contact Info) Description 08/30/2018 1:00 PM EST Office [place] [phone] Terrie Larios APRN [facility] [place] [address] Patellofemoral syndrome of right knee Social History [...] Sign Reading Time Taken Comments Blood Pressure 106/88 08/30/2018 12:57 PM EST Pulse 85 08/30/2018 12:57 PM EST Temperature - - Respiratory Rate - - Oxygen Saturation 99% 08/30/2018 12:57 PM EST Inhaled Oxygen Concentration - - Weight 67.7 kg (149 lb 3.2 oz) 08/30/2018 12:57 PM EST Height 182.9 cm (6') 08/30/2018 12:57 PM EST Body Mass Index 20.24 08/30/2018 12:57 PM EST documented in this encounter Patient Instructions * Patient Instructions* Terrie Larios APRN - 08/30/2018 1:00 PM EST 1) Lidocaine 5% topical cream - apply to right knee up to 4 times a day as needed. 2) Encouraged daily taping, remove at night 3) Continue physical therapy treatments as ordered by orthopedic dentist documented in this encounter Progress Notes * Terrie Larios APRN - 08/30/2018 1:00 PM EST PAIN CLINIC CONSULTATION Date of Consultation: August 30, 2018 I am seeing Mr. Carreon at the request of Nissa Borrero for my opinion and recommendations regarding chronic pain of right knee. Chief Complaint: Chief Complaint Patient presents with ??? Pain, Chronic ??? Pain In Limb HPI: Subjective Erich P Lauri is a 23 y.o. male who presents today for consult for pain management evaluation for chronic right knee pain. 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 Onset: gradual onset Since onset pain is worsened in spring after he started a job where he was going up and down steep stairs a lot. Location: right knee Duration:1 years Characteristics: sharp shooting pain of the right knee States in the past he feels like pain shoot to his back, this has not happened in the past 6 months Timing: all day discomfort Severity: 7/10 now Average pain in past week: 7/10 Best pain in the past week: 5/10 Worst pain in the past week: 9/10 Aggravating factors: prolonged standing, walking, prolonged sitting Relieving factors: nothing at all. Associated symptoms: feels like knee gets stuck in place. EATMENTS/INTERVENTIONS CURRENT BENEFIT TRIALED DATE BENEFIT NOT TRIALED Physical Therapy Yes, February-Mar 2018 and now restarted for the past 4 weeks No Had tapping a few times for a few hours and feels like this caused burning pain Home Exercises quadracept muscle tightening No, he states that he did this 3 times a day for 3 weeks Chiropractic No Massage No TENs No Unsure Acupuncture No No CBT / Meditation No No Yoga/Roberth Chi/ Movement Therapy No No MEDICATIONS: CURRENT HELPFUL? TRIALED HELPFUL? NOT TRIALED OTC None acetaminophen No NSAID None naproxen (Naprosyn) Ibuprofen No No Diclofenac Celebrex OPIOIDS None MUSCLE RELAXANT None ANTIDEPRESSANT None TOPICAL None [place]- did not help HERBAL/HOLISTIC OTHER Tried medical cannabis PROCEDURES/SURGERY TYPE DATE BENEFIT NOT TRIALED None EVALUATIONS: TYPE DATE Orthopaedics May, 2018 BELK[facility]ton DIAGNOSTIC STUDIES: MRI R Knee ACTIVITY LEVEL: Independent in ADLs Exercise: walking 5 minutes at a time due to pain in his right knee Activities that are limited by Pain: Playing basketball Has not been able to do biking due to pain Treatment Goals: - return to playing basketball - be able to walk for more than 5 minutes without severe pain Mental Health: Anxiety clonazepam SOCIAL HISTORY: Lives with: other 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 Social History Socioeconomic History ??? Marital status: [...] Last attempt to quit: 07/06/2017 Years since quittin.1 ??? Smokeless tobacco: Never Used Substance and [...] Social History Narrative ??? Not on file Aberrant behaviors/Risk Assessment: Quit smoking in 2017 Quit using cannabis Has 1 beer approximately 5 days a week. Other drugs: Denies use of any recreational or illegal drugs. Denies taking medications that were not prescribed to him. OPIOID RISK ASSESSMENT OPIOID RISK TOOL Female Male 1. Family history of Substance Abuse Alcohol [] 1 [] 3 Illegal Drugs [] 2 [] 3 Prescription Drugs [] 4 [x] 4 2. Personal History of Substance Abuse Alcohol [] 3 [] 3 Illegal Drugs [] 4 [] 4 Prescription Drugs [] 5 [] 5 3. Age (steven box if 16-45) [] 1 [x] 1 4. History of Preadolescent Sexual Abuse [] 3 [] 0 5. Psychological Disease Attention Deficit Disorder, Obsessive Compulsive D/o, Bipolar, Schizophrenia [] 2 [] 2 Depression [] 1 [x] 1 TOTAL: 6 Comments about ORT in relation to this patient: Opioid Risk Category: moderate risk 4-7 Total Score Risk Category: 0-3 = Low Risk 4-7 = Moderate Risk > 8 = High Risk FAMILY HISTORY: Family History Problem Relation Age of Onset ??? Cancer Other PAST MEDICAL HISTORY: Past Medical History: Diagnosis Date ??? Leukemia ??? Sinusitis PAST SURGICAL HISTORY: Past Surgical History: Procedure Laterality Date ??? APPENDECTOMY ??? PRO CAUTER TURBINATE MUCOSA, SUPERFICIAL 04/01/2017 ABLATION INFERIOR TURBINATE, SUPERFICIAL (WRVU 1.14) performed by Erasmo Yao III, MD at [facility] OR ??? PRO REPAIR OF NASAL SEPTUM N/A 04/01/2017 SEPTOPLASTY OR SMR, W/ OR W/O CARTILAGE SCORING, CONTOURING OR REPLACEMENT W/ GRAFT (WRVU 7.01) performed by Erasmo Yao III, MD at [facility] OR ??? TONSILLECTOMY AND ADENOIDECTOMY ALLERGIES: Asparaginase; Cis free text allergy; and Keflex [cephalexin] MEDICATIONS: Medications 08/30/18 1305 Medication Sig Taking? DULERA 100-5 mcg/actuation HFA Aerosol Inhaler INHALE 2 PUFFS TWO TIMES A DAY Yes albuterol (PROVENTIL) 2.5 mg/0.5 mL Solution for Nebulization Take 2.5 mg by nebulization every 4 hours as needed for Wheezing. Yes PROAIR HFA 90 mcg/actuation HFA Aerosol Inhaler Yes cholecalciferol, Vitamin D3, 1,000 unit Tablet Take 4,000 Units by mouth daily. Yes clonazePAM (KLONOPIN) 0.5 mg Tablet Take 0.5 mg by mouth as needed for Anxiety. Yes acetaminophen (TYLENOL) 325 mg tablet Take 650 mg by mouth every 4 hours as needed. Yes IBUPROFEN ORAL Take by mouth as needed. Yes LORATADINE (CLARITIN ORAL) Take by mouth as needed. Yes ASCORBIC ACID (VITAMIN C ORAL) Yes ROS: Review of Systems Constitutional: Negative for chills and fever. HENT: Negative. Eyes: Negative for pain. Respiratory: Negative for chest tightness. Cardiovascular: Negative for chest pain. Gastrointestinal: Negative. Endocrine: Negative. Musculoskeletal: As per HPI Allergic/Immunologic: Negative. Neurological: Negative. Hematological: Negative. Psychiatric/Behavioral: The patient is nervous/anxious. PHYSICAL EXAM: BP 106/88 Pulse 85 Ht 182.9 cm (6') Wt 67.7 kg (149 lb 3.2 oz) SpO2 99% BMI 20.24 kg/m?? Physical Exam Constitutional: He is oriented to person, place, and time. He appears well- developed and well-nourished. HENT: Head: Normocephalic. Eyes: Conjunctivae are normal. Right eye exhibits no discharge. Left eye exhibits no discharge. Pulmonary/Chest: Effort normal. No respiratory distress. Neurological: He is alert and oriented to person, place, and time. He has normal reflexes. Right Knee Exam Tenderness Right knee tenderness location: Tenderness to light palpation anterior right knee diffuse. Range of Motion Extension: -10 Flexion: 90 Other Erythema: absent Scars: absent Right knee sensation: allodynia anterior knee diffuse. Swelling: none RADIOLOGIC DATA: 06/21/18 Right knee MRI EXAMINATION: MRI KNEE WO CONTRAST RIGHT (GENERIC) ?? 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 ?? TECHNIQUE: MRI of the right knee was performed without intravenous contrast ?? COMPARISON: Right knee MRI dated 11/23/2011. Attention is also directed to 03/16/2018 right knee radiographs. ?? FINDINGS: Joint space and synovium: There is no knee joint effusion. There is no signal abnormality in Hoffa's fat. There is no bursal distention or cyst formation. ?? Bones and articular cartilage: There is no fracture or bone marrow edema. Overall, there is no bone marrow signal abnormality. The articular cartilage is preserved. There is no osteochondral lesion. The tcnnak-lwogbnyh-hv-trochlear-groove (TT-TG) distance is measured at 0.7 cm, which is normal. There is no evidence of trochlear dysplasia. ?? Menisci: There is faintly seen amorphous intermediate signal in the posterior horn of the medial meniscus, which is questioned to extend to the inferior meniscal surface on only one slice (series 2 image 8), not meeting criteria for a meniscal tear. The lateral meniscus is normal. There is no discoid meniscus. ?? Tendons and ligaments: The medial patellofemoral ligament is normal. The anterior and posterior cruciate ligaments are normal. The medial collateral ligament and lateral collateral ligament complex are intact. The patellar tendon is unremarkable. ?? There is no soft tissue mass. ?? IMPRESSION Unremarkable MR appearance of the knee. Faintly seen amorphous intermediate signal in the posterior horn of the medial meniscus is questioned to extend to the inferior meniscal surface on only one slice (series 2 image 8), not meeting criteria for a meniscal tear. The lateral meniscus is normal. No bone marrow signal abnormality or soft tissue mass. ASSESSMENT: Assessment Encounter Diagnosis Name Primary? Patellofemoral syndrome of right knee 23 yo male with chronic pain in right knee due to patellofemoral syndrome. He has not made much progress with taping or physical therapy due to high levels of pain. Taping, strengthening and stretching are the paramount treatments for this condition. Will start lidocaine 5% topical for patient to apply before taping for improved tolerance, can use up to 4 times a day as needed. PLAN: 1) Lidocaine 5% topical cream - apply to right knee up to 4 times a day as needed. Patient instructed to apply this at least 30 minutes prior to taping in an attempt to improve tolerance of taping. 2) Encouraged daily taping, remove at night. There is moderate evidence that tailored (customized to the patient to control lateral tilt, glide and spin) provides reduction in pain more so than untailored patellar taping which provides immediate pain reduction of small effect. Patrick Chapman, Domonique Boyer, Dago S, Fran Giles, Patellar taping for patellofemoral pain: a systematicreview and meta-analysis to evaluate clinical outcomes and biomechanical mechanisms. Br J Sports Med. 2014;48(6):417. Ep2012Aug 02. 3) Continue physical therapy treatments as ordered by orthopedic dentist - May also benefit from addition of hip and core strengthening. Leilani Browning, Jyothi Hogan, PhD, PT,M.Acc, A.T.C., Yvonne Morrison,PhD., B.ScP.T., Lea Chavez, Josephine Holman, PhD., & Edwin Lyon, PhD,A.T.C., C.A.T.(C.). (2018). Treatment success of hip and core or knee strengthening for patellofemoral pain: Development of clinical prediction rules. Journal of Athletic Training, 53(6), 545-552. Future Considerations Can consider topical compounded pain cream if not having benefit with Lidocaine 5% cream. Erich Carreon had the opportunity to ask questions and indicated that all questions were answered to his satisfaction. Thank you for the opportunity to participate in Erich Carreon's care. Thank you for this referral, BELKYS Law[facility] [place] [address]. Terrie Larios, MSN, COLLECTIVE BARGAINING SPECIALIST- C, TIRE BUILDER OPERATOR Nurse Practitioner [facility] [address] [phone] / [facility] documented in this encounter Plan of Treatment Not on file documented as of this encounter Visit Diagnoses Diagnosis Patellofemoral syndrome of right knee documented in this encounter Care Teams Cytogenetics Laboratory Manager Relationship Specialty Start Date End Date Ernesto Eisenberg MD [address] [address] PCP - General 07/21/10 documented as of this encounter
--- OUTSIDE RECORDS SUMMARY | 2024-06-18 16:40 | XMS_ITS | Encounter Summary ---
Author Organization [facility] Address [address] [place] [address] Care Team Providers Care Process Control Supervisor Name Role Phone Ernesto Eisenberg MD Primary Care Provider [phone] Encounter Details Date Type Department Care Team (Late st Contact Info) Description 02/21/2019 Results Only Imaging [facility] [phone] Unknown, Provider, Social History Tobacco Use Types Packs/Day Years Used Date Smoking Tobacco: Never Assessed Sex and Gender Information Value Date Recorded Sex Assigned at Not on file Gender Identity Male 10/19/2019 11:33 EST Sexual Orientation Not on file documented as of this encounter Plan of Treatment Pending Results Name Type Priority Associated Diagnoses Date /Time OUTSIDE IMAGES - OTHER CHEST Imaging 02/21/2019 13:40 EDT documented as of this encounter Visit Diagnoses Not on filedocumented in this encounter Care Teams Process Control Supervisor Relationship Specialty Start Date End Date Ernesto Eisenberg MD [address] [place] [address] PCP - General 12/09/11 documented as of this encounter
--- OUTSIDE RECORDS SUMMARY | 2024-06-18 16:40 | XMS_ITS | Encounter Summary ---
Author Organization [facility] Address [address] [place] [address] Care Team Providers Care House Calls Nurse Name Role Phone Ernesto Eisenberg MD Primary Care Provider [phone] Reason for Visit * Reason Comments Telemedicine Video Visit Asthma Encounter Details Date Type Department Care Team (Late st Contact Info) Description 01/23/2020 16:30 EDT Telemedicine [facility] Pulmonology & Critical Care - [address] [id number] Ashley Pizarro MD [address] [place] [address], [address] [place] [address] Vocal cord dysfunction (Primary Dx); Chronic maxillary sinusitis Social History [...] as of this encounter Progress Notes * Ashley Pizarro MD - 01/23/2020 1630 EDT PULMONARY CLINIC FOLLOW-UP VISIT Date: 01/23/20 Reason for Visit: Asthma PCP: Ernesto Eisenberg TELEHEALTH VISIT Due to precautions related to the COVID-19 pandemic, in-person visits have been deferred. This visit was conducted with the use of interactive audio and video telecommunications that permit real timecommunication between patient and provider. The concept of ???Telemedicine?? has been described to the patient. Patient has been informed of the anticipated benefits and possible risks. Patient understands the information provided regarding telemedicine, has had the opportunity to ask questions about this information, and all questions havebeen answered to patient???s satisfaction. Patient consents for the use of telemedicine in his/her medical care and authorizes the transmission of any relevant medical information to providers and their staff involved in patient???s medical or mental health care. Consent was obtained verbally on Originating site: [facility] Distant site: Patient's home Participating at distant site: Erich Carreon PCP: Ernesto Eisenberg Participating staff: Heron Dean MD Pulmonary History Asthma Chronic Sinusitis Allergies Normal Immunoglobulins Normal eosinophils (0.8%; 0.06) VCD - underwent SEMICONDUCTOR DEVELOPMENT TECHNICIAN therapy at [facility] as s/p chemotherapy Elevated sweat test (57/55) - CFTR gene sequencing negative Subjective: Mr. Carroen is a 24 y.o. male with a past medical history of asthma and chronic sinusitis who presents today for follow-up. Patient was last seen on 10/19/19 in the CF clinic after being referred there for indeterminate sweat chloride testing. He underwent CFTR gene sequencing which ultimately was negative for any mutations. At his last visit with me I referred him for a second opinion with ENT regarding his ongoing sinus issues that does not seem to have occured. Mr. Carreon reports he has been having difficulties with breathing in the hot weather and he has been working a lot which has worsened things as well. He was on Dulera and saw no benefit so stopped it. He has been wheezing but states it is coming from his throat and is mostly occurring during inspiration. His sinus issues and allergies have not been bothering him as of late. He is not producing mucus. Past medical, surgical, and family history updated [...] Per mom , Disp: , Rfl: ??? cyclobenzaprine (FLEXERIL) 10 mg tablet, Take 10 mg by mouth 3 times daily as needed for MuscleSpasms., Disp: , Rfl: ??? ibuprofen (MOTRIN) 200 mg tablet, Take 200 mg by mouth every 6 hours as needed. Per mom , Disp:, Rfl: ??? lisdexamfetamine (VYVANSE) 30 mg capsule, Take 30 mg by mouth every morning., Disp: , Rfl: ??? mometasone-formoterol (DULERA) 200-5 mcg/actuation inhaler, Inhale 2 Puffs as directed 2 times daily., Disp: 3 Inhaler, Rfl: 3 ??? montelukast (SINGULAIR) 10 mg tablet, Take 1 Tab by mouth every evening. (Patient not taking: Reported on 09/07/2019), Disp: 30 Tab, Rfl: 5 ROS: A 10-point review of systems was obtained and otherwise negative. Imaging: Personally reviewed Spirometry: Date FEV1/FVC LLN FEV1 (L) % LLN (L) FVC (L) % LLN (L) Comments 04/27/19 92 72 4.19 85 3.99 4.52 77 4.67 No BD change 10/29/19 93 73 4.21 85 4.00 4.49 76 4.77 Lung Volumes/DLCO/Airway Resistance Date TLC (L) % DLCO cor LLN sGaw % Assessment: Mr. Carreon is a 24 y.o. male with a past medical history of chronic sinusitis and asthma who presents today for followup. He has significant sinus symptoms that are impacting his asthma. He continuesto require frequent antibiotics for sinusitis. He has not been to see his ENT at [facility] for 1.5 years but states he was not told to follow up. It seems as though the majority of his breathing issues are related to his VCD and sinus issues (although sinus issues are not currently bad). We discussed again how SEMICONDUCTOR DEVELOPMENT TECHNICIAN and a ENT referral could be beneficial and he has agreed to seek their input. He does not notice a difference when on a maintenance inhaler versus not on one, despite trial of varioustypes of inhalers (Symbicort, Trelegy, Dulera). Plan: Mild intermittent asthma - prn albuterol, continue albuterol neb prn - cont Singulair - will obtain methacholine and lung volumes when able to re-evaluate asthma diagnosis pending COVIDand ENT Vocal Cord Dysfunction - SEMICONDUCTOR DEVELOPMENT TECHNICIAN referral in future pending ent results Chronic Sinusitis - ENT referral Follow-up: 6 months Ashley Pizarro M.D. Pulmonary and Critical Care Fellow PGY-5 I spent a total of 30 minutes with Erich Mcfarlane Lauri today and 20 minutes of that time was spent in counseling and coordination of care as described in the progress note. Attestation statement: I discussed the patient with the resident/fellow at the time of the visit. Iagree with the findings and the plan of care documented in the resident's/fellow's note. Heron Dean MD * Jaden Silva MA - 01/23/2020 1630 EDT Pulmonary Review of Symptoms Constitutional: Malaise/Fatigue and Weakness (overall weakness after work) Hematology: NONE Eyes: Blurred Vision Ear, Nose and Throat: Ringing in Ears, Ear Pain and Headaches Allergies: Environmental and Seasonal Skin: NONE Neurological: Seizures (can communicate minimally with mumbled speech during seizure, last one was 2 days ago) Genitourinary: NONE Endocrine / Heme / Allergies: NONE Psychiatric: Depression, Difficulty Sleeping and Memory Loss Gastrointestinal: Constipation Cardiovascular: Chest Pain, Shortness of Breath when Lying Down and Wake Up Short of Breath at Night Musculoskeletal: Back Pain and Joint Pain Respiratory: Cough, Shortness of Breath, Wheezing and Medication Allergy Other Comments / Notes: Any exercise/movement sets off asthma documented in this encounter Plan of Treatment Not on file documented as of this encounter Visit Diagnoses Diagnosis Vocal cord dysfunction- Primary Other diseases of vocal cords Chronic maxillary sinusitis documented in this encounter Discontinued Medications Medication Sig Discontinue Reason Start Date End Da te mometasone-formoterol (DULERA) 200-5 mcg/actuation inhaler Inhale 2 Puffs as directed 2 times daily. 08/13/2019 01/23/2020 azithromycin (ZITHROMAX Z-MELANIE) 250 mg tablet Take 250 mg by mouth daily. Per mom 01/23/2020 documented as of this encounter Care Teams House Calls Nurse Relationship Specialty Start Date End Date Ernesto Eisenberg MD [address] [place] [address] PCP - General 12/09/11 documented as of this encounter
--- OUTSIDE RECORDS SUMMARY | 2024-06-18 16:40 | XMS_ITS | Encounter Summary ---
Author Organization [facility] [place] [address] Care Team Providers Care Direct Care Supervisor Name Role Phone Ernesto Eisenberg MD Primary Care Provider [phone] Reason for Referral * Physical Therapy (Routine) - Specialty Diagnoses / Procedures Referred By Maxine vernon Referred To Contact Diagnoses Patellofemoral syndrome of right knee Nissa Borrero PA [facility] [place] [address] Referral ID Status Reason Start Date Expiration Date V isits Requested Visits Authorized [id number] Evaluate and Treat 06/21/2018 12/18/2018 12 12 Reason for Visit * Reason Comments Follow-up Right knee pain Encounter Details Date Type Department Care Team (Latest Contact Info) Description 06/21/2018 2:00 PM EDT Office [place] [address] Clinic, Dr Cullen Team None Patellofemoral syndrome of right knee Social History [...] Sign Reading Time Taken Comments Blood Pressure 105/61 06/21/2018 1:37 PM EDT Pulse 82 06/21/2018 1:37 PM EDT Temperature - - Respiratory Rate - - Oxygen Saturation - - Inhaled Oxygen Concentration - - Weight 66.7 kg (147 lb) 06/21/2018 1:37 PM EDT Height 182.9 cm (6') 06/21/2018 1:37 PM EDT Body Mass Index 19.94 06/21/2018 1:37 PM EDT documented in this encounter Progress Notes * Nissa Borrero PA - 06/21/2018 2:00 PM EDT PATIENT NAME: Erich Carreon AGE: 23 y.o. MR#: [id number] DATE OF VISIT: 06/21/2018 HISTORY OF PRESENT ILLNESS Mr. Carreon is a 23 y.o. year old male who comes into clinic today for follow up of right knee pain. See previous note for full history and details. He presents today to review his MRI. Since her previous visit 1 week ago, his symptoms are unchanged. He primarily has anterior knee pain with some popping and crepitance under the kneecap. He denies any new injuries, swelling, mechanical symptoms, or instability. He did not previously have good response to physical therapy, but was only working on laser treatments and reiki. ROS: Negative for fever, chills, SOB, chest pain, nausea, vomiting, and diarrhea. Patient's medications, allergies, past medical, surgical, social and family histories were reviewedand updated as appropriate. Physical Exam Blood pressure 105/61, pulse 82, height 182.9 cm (6'), weight 66.7 kg (147 lb). Constitutional: oriented to person, place, and time and well-developed, well- nourished, and in no distress. Skin: Skin is warm and dry. Right Knee Exam: No effusion. No erythema or ecchymosis. ROM 90 deg flexion, - 10 deg extension. Severe TTP to light touch globally throughout the knee. Pain is out of proportion to exam. TTP worst along the patellar tendon. Severe pain at end ranges of motion. Stable to varus/valgus stress. Normal sensation and motor function distally. Exam is limited by pain. DP/PT pulses 2+. RADIOLOGICAL STUDIES: I reviewed the MRI taken of the right knee today, which shows no meniscal pathology, ACL and PCL are intact, no chondral defects or damage, no loose bodies, no lesions, no evidence of AVN. ASSESSMENT/PLAN: Erich Carreon is a 23 y.o. male who presents to the clinic with right knee pain. We reviewed his MRI together today. This was normal and very reassuring; his labs were also normal and we reviewed those as well. His symptoms are most consistent with patellofemoral syndrome. We discussed the nature,etiology, and progression of this today. He does also have some component of hypersensitivity to the knee and we discussed this as well. The best treatment option for him at this time would be further physical therapy, focusing on strengthening, primarily of the abductors and glutes. We discussed that this can take time and improvement can be slow. I also discussed possible taping and use of a Cho-Pat strap. I did discuss desensitization of the knee and recommended he work on this, as well as with his physical therapist. The best next step for him if this is not helpful over the next 3 months, would be visit to a pain clinic. He can follow-up as needed. documented in this encounter Plan of Treatment Scheduled Referrals Name Type Priority Associated Diagnoses Orde r Schedule Referral to Physical Therapy Outpatient Referral Routine Patellofemoral syndrome of right knee Ordered: 06/21/2018 documented as of this encounter Visit Diagnoses Diagnosis Patellofemoral syndrome of right knee documented in this encounter Care Teams Direct Care Supervisor Relationship Specialty Start Date End Date Ernesto Eisenberg MD [address] [address] PCP - General 07/21/10 documented as of this encounter
--- OUTSIDE RECORDS SUMMARY | 2024-06-18 16:40 | XMS_ITS | Encounter Summary ---
Author Organization [facility] Address [address] [place] [address] Care Team Providers Care Cotton Breeder Name Role Phone Ernesto Eisenberg MD Primary Care Provider [phone] Reason for Visit * Reason Comments New Patient Visit * Consult (Routine) - Closed Specialty Diagnoses / Procedures Referred By Contac t Referred To Contact Pulmonary Disease Diagnoses SOB (shortness of breath) Abnormal PFTs Phillip Albright MD [address] [place] [phone] [place] [address] [place] [id number] Referral ID Status Reason Start Date Expiration Date Visits Re quested Visits Authorized [id number] Closed 1 1 Encounter Details Date Type Department Care Team (Late st Contact Info) Description 04/25/2019 16:00 EDT Office Visit [facility] Pulmonology & Critical Care - [address] [id number] Cherry Farmer MD [address] [place] [phone] Ashley Pizarro MD [address] [place] [phone] Moderate persistent asthma without complication (Primary Dx) [...] Sign Reading Time Taken Comments Blood Pressure 108/78 04/25/2019 1604 EDT Pulse 85 04/25/2019 1604 EDT Temperature 37.2 ??C (98.9 ??F) 04/25/2019 1604 EDT Respiratory Rate 16 04/25/2019 1604 EDT Oxygen Saturation 99% 04/25/2019 1604 EDT Inhaled Oxygen Concentration - - Weight 63.8 kg (140 lb 10.5 oz) 04/25/2019 1604 EDT Height 181.5 cm (5' 11.46) 04/25/2019 1604 EDT Body Mass Index 19.37 04/25/2019 1604 EDT documented in this encounter Ordered Prescriptions Prescription Sig Dispensed Refills Start Date End Da te budesonide-formoterol HFA (SYMBICORT) 160-4.5 mcg/actuation HFA aerosol inhaler inhalerIndications:Moder ate persistent asthma without complication Inhale 2 Puffs as directed 2 times daily. 1 Inhaler 11 04/25/2019 07/18/2019 documented in this encounter Progress Notes * Ashley Pizarro MD - 04/25/2019 1600 EDT PULMONARY CLINIC NEW PATIENT VISIT Date: 04/25/2019 Reason for Consult: SOB/Abnormal PFT's Requesting Provider: Phillip Albright MD PCP: Ernesto Eisenberg Subjective: Thank you for allowing me to participate in the care of Mr. Carreon. As you know, Mr. Carreon is a 24y.o. male who is otherwise healthy who presents today for evaluation of shortness of breath. He wasdiagnosed with asthma approximately 5 years ago at [facility] by means of an exercise challenge. At that time he was prescribed Flovent as well as albuterol. He did not feel as though the Flovent helped his symptoms at all and so stopped taking it. Currently he has a pro-air inhaler as well as albuterol nebs. He uses his albuterol nebulizer 1-2 times per week and feels as though it does help with his symptoms. He also has a significant sinus history and follows with a ENT at [facility]. He has had one sinus surgery however states he consistently has sinusitis symptoms. He states he was put on antibiotics 7 times in the last year for sinus infections. He has also had pneumonia 2-3 times in his life and bronchitis 2-3 times. He states that one visit the ENT physician did a laryngoscopy and told him that he had vocal cord dysfunction and he was sent to [facility]. He states [facility] did not help his symptoms. Asthma Symptoms Rescue inhaler use (#times/week) 1-2 (albuterol neb) Daytime symptoms Daily, cough, chest tightness, wheezing Night time symptoms No Exacerbations in last year 3-5 Hospitalizations for asthma 1 Intubations for asthma No Allergens Pollen - skin test at [facility] Stress, anxiety, exercise, hot temperatures and humidity Medications Albuterol neb, proair He has a CT chest from 11/2017 that showed nodular infiltrates bilaterally that looks like they could represent mucus plugging of an atypical mycobacterial infection with some airways thickening. He also has a CXR from 12/26/18 that again shows some nodular infiltrates. He is a non-smoker and does not currently smoke marijuana however has in the past (last use in May 2018). He has one cat one dog and one rabbit in his home. He does endorse some mold exposure andconstant secondhand smoke exposure. There is carpet throughout his house however he states that hisallergy test for dust was negative and that his animals do not bother him from a symptomatic standpoint. 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 PSHx: has a past surgical history that includes Appendectomy and Nasal septum surgery. Meds: Current Outpatient Medications: ??? acetaminophen (TYLENOL) 500 mg tablet, Take 500 mg by mouth every 6 hours as needed. Per mom , Disp: , Rfl: ??? azithromycin (ZITHROMAX Z-MELANIE) 250 mg tablet, Take 250 mg by mouth daily. Per mom , Disp: , Rfl: ??? ibuprofen (MOTRIN) 200 mg tablet, Take 200 mg by mouth every 6 hours as needed. Per mom , Disp:, Rfl: Allergies: Allergies Allergen Reactions ??? Keflex [Cephalexin] Wheezing Rash, swelling Family Hx: family history includes Sinusitis in his mother. Social Hx: reports that he quit smoking about 5 years ago. He quit after 0.75 years of use. He has never used smokeless tobacco. He reports that he drank alcohol. He reports that he has current or past drug history. ROS: Positive for: seasonal allergies, chest pain, depression, difficulty sleeping, muscle aches, wheezing A 14-point review of systems was obtained and otherwise negative. Exam: BP 108/78 Pulse 85 Temp 37.2 ??C (98.9 ??F) (Tympanic) Resp 16 Ht 181.5 cm (71.46) Wt 63.8 kg (140 lb 10.5 oz) SpO2 99% BMI 19.37 kg/m?? Gen: Appearing stated age, NAD, sitting in chair. HENT: Pupils round, equal and reactive. Nasal turbinates pink and non-inflamed. Deviated to the right. No post-nasal drip. Mallampati score 1. Lymph: No submandibular or supraclavicular lymphadenopathy CV: Regular, S1, S2, no murmurs Lungs: Symmetric chest expansion. Inspiratory wheeze heard, louder in neck than chest. Abd: Soft, non-distended, normoactive bowel sounds, non-tender. Ext: No edema, clubbing or cyanosis. Skin: Warm and dry; no rashes or lesions. MSK: No joint deformity or warmth. Neuro: AAOx3, non-focal Psych: appropriate, cooperative and pleasant Imaging: Personally reviewed Spirometry: Date FEV1/FVC LLN FEV1 (L) % LLN (L) FVC (L) % LLN (L) Comments 02/20/19 91 3.72 77 4.07 70 No BD change 04/25/19 92 72 4.19 85 3.99 4.52 77 4.67 No BD change Lung Volumes/DLCO/Airway Resistance Date TLC (L) % DLCO cor % sGaw % 04/25/2019 Assessment: Mr. Carreon is a 24 y.o. male with a past medical history of chronic sinusitis and asthma who presents today with for evaluation of shortness of breath. He has a history of diagnosed asthma and is currently not on any maintenance inhalers. He has clear symptoms that are related to triggers of his asthma and would likely benefit from some form of maintenance therapy. He has had far too many sinus and chest infections given his age thus far that is somewhat concerning for an immunocompromise state. This could be related to his previous leukemia as well as chemotherapy treatment however will ruleout an immunoglobulinopathy. 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 Plan: Moderate persistent asthma - start Symbicort 2 puffs bid - continue albuterol as needed - give Pneumovax today - will get immunoglobulin levels - CBC with diff Follow up: 3 months Ashley Pizarro M.D. Pulmonary and Critical Care Fellow PGY-5 Attestation: I saw and examined the patient with the resident/fellow. I agree with the findings andplan of care documented in the resident's/fellow's note. Cherry Farmer MD 04/26/2019 11:52 documented in this encounter Plan of Treatment Not on file documented as of this encounter Results * COMPLETE BLOOD COUNT AND DIFFERENTIAL (04/25/2019 17:35 EDT) WBC 7.78 4.0 - 10.4 K/cmm 04/25/2019 18:02 EDT [facility] RBC 5.29 4.36 - 5.78 M/cmm 04/25/2019 18:02 [facility] Hemoglobin 15.3 13.8 - 17.3 gm/dl 04/25/2019 18:02 [facility] HCT 44.0 39.5 - 50.2 % 04/25/2019 18:02 [facility] MCV 83 81 - 95 fl 04/25/2019 18:02 [facility] MCH 28.9 27.6 - 33.0 pg 04/25/2019 18:02 [facility] MCHC 34.8 32.8 - 36.4 gm/dl 04/25/2019 18:02 [facility] RDW-CV 12.1 <14.2 % 04/25/2019 18:02 [facility] RDW-SD 36.8 <46.0 fl 04/25/2019 18:02 [facility] PLT 237 141 - 377 K/cmm 04/25/2019 18:02 [facility] MPV 10.7 9.5 - 12.7 fl 04/25/2019 18:02 [facility] % Neutrophils 65.3 % 04/25/2019 18:02 [facility] % Lymphocytes 23.3 % 04/25/2019 18:02 [facility] % Monocytes 9.9 % 04/25/2019 18:02 [facility] % Eosinophils 0.8 % 04/25/2019 18:02 [facility] % Basophils 0.4 % 04/25/2019 18:02 [facility] % Immature Grans 0.3 % 04/25/2019 18:02 [facility] ABS Neutrophils 5.09 2.20 - 8.85 K/cmm 04/25/2019 18:02 [facility] ABS Lymphs 1.81 1.09 - 3.30 K/cmm 04/25/2019 18:02 [facility] ABS Monocytes 0.77 0.1 - 0.8 K/cmm 04/25/2019 18:02 [facility] ABS Eosinophils 0.06 0.03 - 0.61 K/cmm 04/25/2019 18:02 [facility] ABS Basophils 0.03 0.01 - 0.11 K/cmm 04/25/2019 18:02 [facility] ABS Immature Grans 0.02 0 - 0.06 K/cmm 04/25/2019 18:02 EDT [facility] Type of Diff: Automated 04/25/2019 18:02 EDT [facility] Blood specimen (specimen) BLOOD SPECIMEN / Unknown 04/25/2019 17:35 EDT 04/25/2019 17:52 EDT Cherry Farmer MD PACKAGES & DNA PROBE ORDERABLES Performing Organization Address [facility] Co de Phone Number [facility] [address] [place] [address] * IGG SUBCLASSES (04/25/2019 17:35 EDT) Total IgG 812 767 - 1,590 mg/dL 04/27/2019 7:58 EDT [facility] IgG 1 393 341 - 894 mg/dL 04/27/2019 7:58 EDT [facility] IgG 2 197 171 - 632 mg/dL 04/27/2019 7:58 EDT [facility] IgG 3 62.1 18.4 - 106.0 mg/dL 04/27/2019 7:58 EDT [facility] IgG 4 26.0 2.4 - 121.0 mg/dL 04/27/2019 7:58 EDT [facility] Comment:Performed by: [facility]: [facility] [address], [place] [address] Blood specimen (specimen) BLOOD SPECIMEN / Unknown 04/25/2019 17:35 EDT 04/25/2019 17:52 EDT Cherry Farmer MD CHEMISTR Y & BLOOD GAS ORDERABLES Performing Organization Address [facility]/ZIP Co de Phone Number [facility] [address] [place] [address] * IGG (04/25/2019 17:35 EDT) IgG 751 610 - 1,616 mg/dL 04/26/2019 10:20 EDT [facility] Blood specimen (specimen) BLOOD SPECIMEN / Unknown 04/25/2019 17:35 EDT 04/25/2019 17:52 EDT Cherry Farmer MD CHEMISTR Y & BLOOD GAS ORDERABLES Performing Organization Address [facility] Co de Phone Number [facility] [address] [place] [address] * IGA (04/25/2019 17:35 EDT) IgA 157 85 - 499 mg/dL 04/26/2019 10:20 EDT [facility] Blood specimen (specimen) BLOOD SPECIMEN / Unknown 04/25/2019 17:35 EDT 04/25/2019 17:52 EDT Cherry Farmer MD CHEMISTR Y & BLOOD GAS ORDERABLES Performing Organization Address [facility] de Phone Number [facility] [address] [place] [address] * IGE (04/25/2019 17:35 EDT) IgE 35 <158 IU/ml 04/27/2019 8:08 EDT [facility] Blood specimen (specimen) BLOOD SPECIMEN / Unknown 04/25/2019 17:35 EDT 04/25/2019 17:52 EDT Cherry Farmer MD CHEMISTR Y & BLOOD GAS ORDERABLES Performing Organization Address [facility] de Phone Number [facility] [address] [place] [address] documented in this encounter Visit Diagnoses Diagnosis Moderate persistent asthma without complication- Primary Unspecified asthma documented in this encounter Historical Medications * This list may reflect changes made after this encounter. Medication Sig Dispensed Refills Start Date End Date lisdexamfetamine (VYVANSE) 30 mg capsule Take 40 mg by mouth every morning. albuterol sulfate (PROAIR HFA INHALATION) Inhale 2 Puffs as directed every 4 to 6 hours as needed. gabapentin (NEURONTIN) 100 mg capsule Take 100 mg by mouth 3 times daily. 07/18/2019 added in this encounter Orders Medications Ordered That Reji ht Not Have Been Administered Count Last Ordered Date First Ordered Date pneumococcal vaccine (PPV23) (PNEUMOVAX) injection 0.5 mL 1 04/25/2019 Immunization/Injection Count Last Ordered Date First Ordered Date PNEUMOCOCCAL POLYSACCHARIDE (PPSV23) VACCINE (PNEUMOVAX-23) 23-VALENT =>2YO SQ/IM 1 04/25/2019 documented in this encounter Care Teams Cotton Breeder Relationship Specialty Start Date End Date Ernesto Eisenberg MD [address] [place] [address] PCP - General 12/09/11 documented as of this encounter
--- OUTSIDE RECORDS SUMMARY | 2024-06-18 16:40 | XMS_ITS | Encounter Summary ---
Author Organization 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) (Primary Dx) Social History Tobacco Use Types Packs/Day Years Used Date Smoking Tobacco: Never Assessed Sex and Gender Information Value Date Recorded Sex Assigned at Not on file Gender Identity Male 10/19/2019 11:33 EST Sexual Orientation Not on file documented as of this encounter Progress Notes * Shelli Peterson MD - 02/26/2012 1837 EDT This office note has been dictated. documented in this encounter Procedure Notes * PERCHER, ISABELL 2 - 12/24/2011 1500 EDTAssociated Order(s): ORDERS - SCANNED documented in this encounter Plan of Treatment Not on file documented as of this encounter Procedures Procedure Name Priority Date/Time Associated Diagnosis Comments ORDERS - SCANNED 12/24/2011 15:0 0 EDT PELVIS 1 OR 2 VIEWS Routine 12/17/2011 10:12 EDT ALL (acute lymphoblastic leukemia of ) (CMS-HCC) ([facility]) documented in this encounter Results * ORDERS - SCANNED (12/24/2011 15:00 EDT) 12/24/2011 15:0 0 EDT Narrative Transcriptions PERCHER, SCAN 2 - 12/24/2011 15:00 EDT Scan 2 Roll Changer ADMISSION ORDERABLE S * PELVIS 1 OR 2 VIEWS (12/17/2011 10:12 EDT) Anatomical Region Laterality Modality Other 12/17/2011 10:1 2 EDT 12/17/2011 10:53 EDT Narrative 12/17/2011 10:53 EDT PELVIS 1 OR 2 VIEWS ??Dec 17, 2011 10:12:00 AM Signs and Symptoms/Comments: ??204.00-ACUTE LYMPHOID LEUKEMIA, WITHOUT MENTION OF HAVING ACHIEVED [id number] right knee pain with history ALL Findings: Two views of the pelvis are obtained without comparison in this skeletally immature individual. No fractures are seen. The femoral heads maintain their normal round shape and articulate normally within their respective acetabula. No osteolytic or blastic lesions are seen. The soft tissues are unremarkable. I have personally reviewed the images and the above interpretation and agree with the findings. Procedure Note Bonifacio Zabala MD - 12/17/2011 PELVIS 1 OR 2 VIEWS Dec 17, 2011 10:12:00 AM Signs and Symptoms/Comments: 204.00-ACUTE LYMPHOID LEUKEMIA, WITHOUT MENTION OF HAVING ACHIEVED [id number] right knee pain with history ALL Findings: Two views of the pelvis are obtained without comparison in this skeletally immature individual. No fractures are seen. The femoral heads maintain their normal round shape and articulate normally within their respective acetabula. No osteolytic or blastic lesions are seen. The soft tissues are unremarkable. I have personally reviewed the images and the above interpretation and agree with the findings. Shelli Peterson MD IMG DIAGNOSTIC IMAGING ORDERABLES documented in this encounter Visit Diagnoses Diagnosis ALL (acute lymphoblastic leukemia of ) ([facility])- Primary Acute lymphoid leukemia, without mention of having achieved remission documented in this encounter Historical Medications * This list may reflect changes made after this encounter. Medication Sig Dispensed Refills Start Date End Date ibuprofen (MOTRIN) 800 mg tablet Take 800 mg by mouth every 6 hours as needed. Per mom acetaminophen (TYLENOL) 500 mg tablet Take 1,000 mg by mouth every 6 hours as needed. Per mom azithromycin (ZITHROMAX Z-MELANIE) 250 mg tablet Take 250 mg by mouth daily. Per mom 01/23/2020 added in this encounter Care Teams Plastics Factory Worker Relationship Specialty Start Date End Date Ernesto Eisenberg MD [address] [place] [address] PCP - General 12/09/11 documented as of this encounter
--- OUTSIDE RECORDS SUMMARY | 2024-06-18 16:40 | XMS_ITS | Encounter Summary ---
Author [place] [address] Care Team Providers Care Otorhinolaryngologist Name Role Phone Ernesto Eisenberg MD Primary Care Provider [phone] Encounter Details Date Type Department Care Team (Latest Contact Info) Description 09/01/2022 Travel Social History Tobacco Use Types Packs/Day Years [...] on filedocumented in this encounter Care Teams Otorhinolaryngologist Relationship Specialty Start Date End Date Ernesto Eisenberg MD [address] [place] [address] PCP - General 07/21/10 documented as of this encounter
--- OUTSIDE RECORDS SUMMARY | 2024-06-18 16:40 | XMS_ITS | Encounter Summary ---
Author Organization [facility] Address [address] [place] [address] Care Team Providers Care Kelp Or Seagrass Gatherer Name Role Phone Ernesto Eisenberg MD Primary Care Provider [phone] Encounter Details Date Type Department Care Team (Late st Contact Info) Description 04/25/2019 Phlebotomy Only [address] [address] Printing Agent, Outpatient Moderate persistent asthma without complication (Primary Dx) [...] Procedure Name Priority Date/Time Associated Diagnosis Comments IGA Routine 04/25/2019 17:35 EDT Moderate persistent asthma without complication IGG SUBCLASSES Routine 04/25/2019 17:35 EDT Moderate persistent asthma without complication COMPLETE BLOOD COUNT AND DIFFERENTIAL Routine 04/25/2019 17:35 EDT Moderate persistent asthma without complication IGE Routine 04/25/2019 17:35 EDT Moderate persistent asthma without complication IGG Routine 04/25/2019 17:35 EDT Moderate persistent asthma without complication documented in this encounter Results * IGE (04/25/2019 17:35 EDT) IgE 35 <158 IU/ml 04/27/2019 8:08 EDT [facility] Blood specimen (specimen) BLOOD SPECIMEN / Unknown 04/25/2019 17:35 EDT 04/25/2019 17:52 EDT Cherry Farmer MD CHEMISTR Y & BLOOD GAS ORDERABLES Performing Organization Address City/[facility] Co de Phone Number [facility] [address] [place] [address] * IGA (04/25/2019 17:35 EDT) IgA 157 85 - 499 mg/dL 04/26/2019 10:20 EDT [facility] Blood specimen (specimen) BLOOD SPECIMEN / Unknown 04/25/2019 17:35 EDT 04/25/2019 17:52 EDT Cherry Farmer MD CHEMISTR Y & BLOOD GAS ORDERABLES Performing Organization Address City/[facility] Co de Phone Number [facility] [address] [place] [address] * IGG (04/25/2019 17:35 EDT) IgG 751 610 - 1,616 mg/dL 04/26/2019 10:20 EDT [facility] Blood specimen (specimen) BLOOD SPECIMEN / Unknown 04/25/2019 17:35 EDT 04/25/2019 17:52 EDT Cherry Farmer MD CHEMISTR Y & BLOOD GAS ORDERABLES Performing Organization Address City/[facility] Co de Phone Number [facility] [address] [place] [address] * IGG SUBCLASSES (04/25/2019 17:35 EDT) Total IgG 812 767 - 1,590 mg/dL 04/27/2019 7:58 T [facility] IgG 1 393 341 - 894 mg/dL 04/27/2019 7:58 [facility] IgG 2 197 171 - 632 mg/dL 04/27/2019 7:58 [facility] IgG 3 62.1 18.4 - 106.0 mg/dL 04/27/2019 7:58 [facility] IgG 4 26.0 2.4 - 121.0 mg/dL 04/27/2019 7:58 T [facility] Comment:Performed by: [facility]: [facility] [address], [place] [address] Blood specimen (specimen) BLOOD SPECIMEN / Unknown 04/25/2019 17:35 EDT 04/25/2019 17:52 EDT Cherry Farmer MD CHEMISTR Y & BLOOD GAS ORDERABLES Performing Organization Address City/State/[facility] Co de Phone Number [facility] [address] [place] [phone] * COMPLETE BLOOD COUNT AND DIFFERENTIAL (04/25/2019 17:35 EDT) WBC 7.78 4.0 - 10.4 K/cmm 04/25/2019 18:02 [facility] RBC 5.29 4.36 - 5.78 M/cmm 04/25/2019 18:02 [facility] Hemoglobin 15.3 13.8 - 17.3 gm/dl 04/25/2019 18:02 [facility] HCT 44.0 39.5 - 50.2 % 04/25/2019 18:02 [facility] MCV 83 81 - 95 fl 04/25/2019 18:02 [facility] MCH 28.9 27.6 - 33.0 pg 04/25/2019 18:02 [facility] MCHC 34.8 32.8 - 36.4 gm/dl 04/25/2019 18:02 [facility] RDW-CV 12.1 <14.2 % 04/25/2019 18:02 [facility] RDW-SD 36.8 <46.0 fl 04/25/2019 18:02 [facility] PLT 237 141 - 377 K/cmm 04/25/2019 18:02 [facility] MPV 10.7 9.5 - 12.7 fl 04/25/2019 18:02 [facility] % Neutrophils 65.3 % 04/25/2019 18:02 [facility] % Lymphocytes 23.3 % 04/25/2019 18:02 [facility] % Monocytes 9.9 % 04/25/2019 18:02 [facility] % Eosinophils 0.8 % 04/25/2019 18:02 [facility] % Basophils 0.4 % 04/25/2019 18:02 [facility] % Immature Grans 0.3 % 04/25/2019 18:02 [facility] ABS Neutrophils 5.09 2.20 - 8.85 K/cmm 04/25/2019 18:02 [facility] ABS Lymphs 1.81 1.09 - 3.30 K/cmm 04/25/2019 18:02 [facility] ABS Monocytes 0.77 0.1 - 0.8 K/cmm 04/25/2019 18:02 [facility] ABS Eosinophils 0.06 0.03 - 0.61 K/cmm 04/25/2019 18:02 [facility] ABS Basophils 0.03 0.01 - 0.11 K/cmm 04/25/2019 18:02 [facility] ABS Immature Grans 0.02 0 - 0.06 K/cmm 04/25/2019 18:02 [facility] Type of Diff: Automated 04/25/2019 18:02 [facility] Blood specimen (specimen) BLOOD SPECIMEN / Unknown 04/25/2019 17:35 EDT 04/25/2019 17:52 EDT Cherry Farmer MD PACKAGES & DNA PROBE ORDERABLES [facility] [address] [place] [address] documented in this encounter Visit Diagnoses Diagnosis Moderate persistent asthma without complication- Primary Unspecified asthma documented in this encounter Care Teams Kelp Or Seagrass Gatherer Relationship Specialty Start Date End Date Ernesto Eisenberg MD [address] [place] [address] PCP - General 12/09/11 documented as of this encounter
--- OUTSIDE RECORDS SUMMARY | 2024-06-18 16:40 | XMS_ITS | Encounter Summary ---
Author Organization [facility] Address [address] [place] [address] Care Team Providers Care Federal Agent Name Role Phone Ernesto Eisenberg MD Primary Care Provider [phone] Encounter Details Date Type Department Care Team (Late st Contact Info) Description 05/14/2020 Orders Only [facility] [address] [place] [address] Jessica Hough, RN [address] [place] [address] Pre-op testing (Primary Dx) Social History Tobacco Use Types [...] as of this encounter Miscellaneous Notes * Addendum Note - Jessica Hough RN - 05/14/2020 1503 EDTAddended by: JESSICA HOUGH on: 05/16/2020 08:53 Modules accepted: Orders documented in this encounter Plan of Treatment Not on file documented as of this encounter Visit Diagnoses Diagnosis Pre-op testing- Primary Preoperative examination, unspecified documented in this encounter Care Teams Federal Agent Relationship Specialty Start Date End Date Ernesto Eisenberg MD [address] [place] [address] PCP - General 12/09/11 documented as of this encounter
--- OUTSIDE RECORDS SUMMARY | 2024-06-18 16:40 | XMS_ITS | Encounter Summary ---
[place] [address] Care Team Providers Care Loader Technician Name Role Phone Ernesto Eisenberg MD Primary Care Provider [phone] Reason for Visit * Reason Comments Procedure * Diagnostic Test (Routine) - Closed Specialty Diagnoses / Procedures Referred By Maxine vernon Referred To Contact Neurology Diagnoses Transient alteration of awareness Myoclonus Headache, unspecified headache type Kwaku Alvarado MD [address] [place] [id number] [facility] [address] [place] [id number] Referral ID Status Reason Start Date Expiration Date V isits Requested Visits Authorized [id number] Closed Test Only 08/26/2022 08/26/2023 1 1 Encounter Details Date Type Department Care Team (Latest Contact Info) Description 09/01/2022 12:50 PM EST - 09/01/2022 11:59 PM EST Hospital En[place] [address] Seizure Discharge Disposition: Home Social History Tobacco Use [...] Dispensed Refills Start Date End Date ibuprofen (ADVIL;MOTRIN) 800 mg Tablet Take 800 mg by mouth daily. 01/15/2019 cyclobenzaprine (FLEXERIL) 10 mg Tablet Take 10 mg by mouth nightly. 2 02/23/2019 gabapentin (NEURONTIN) 100 mg CapsuleIndications:Hea dache, chronic daily Take 1 capsule by mouth 3 times daily. 90 capsule 12 04/05/2019 VYVANSE 30 mg Capsule TAKE 1 CAPSULE BY MOUTH DAILY 0 11/23/2018 methylPREDNISolone (MEDROL DOSPACK) 4 mg Tablets, Dose Pack 12/12/2018 azithromycin (ZITHROMAX) 250 mg Tablet 12/12/2018 lidocaine (XYLOCAINE) 5 % Ointment One application to affected area four times a day as needed for pain 120 g 2 08/30/2018 albuterol (PROVENTIL) 2.5 mg/0.5 mL Solution for [...] needed. ASCORBIC ACID (VITAMIN C ORAL) 03/11/2010 documented as of this encounter Procedure Notes * Erasmo Crain MD - 09/01/2022 2:30 PM ESTAssociated Order(s): EEG ROUTINE Pre-Procedure Diagnose(s): Seizure [facility] Department of Neurology Outpatient Routine EEG Report Name of the Patient: Erich Carreon Date of : 1995 Date of Service: 09/01/2022 Referring physician: Uriel Mejia MD Resident/Fellow: Douglas Locke MD Attending: Dr Crain Routine EEG start time: 13:33:36 Routine EEG end time: 14:07:05 Total time recorded: 32:20 Indication for EEG: Other (SILVA) BRIEF HISTORY: Erich P Lauri is a 27 y.o. male RH w/ hx of ALL at 18 months old, 2010 bacterial meningitis(headaches got worse after this, treated with antibiotics), finished treatment at 6yo with chemo, asthma, ADHD, depression presenting to headache clinic for evaluation of his headaches MEDICATIONS: ??? ibuprofen (ADVIL;MOTRIN) 800 mg Tablet ??? cyclobenzaprine (FLEXERIL) 10 mg Tablet ??? gabapentin (NEURONTIN) 100 mg Capsule ??? VYVANSE 30 mg Capsule ??? methylPREDNISolone (MEDROL DOSPACK) 4 mg Tablets, Dose Pack ??? azithromycin (ZITHROMAX) 250 mg Tablet ??? lidocaine (XYLOCAINE) 5 % Ointment ??? albuterol (PROVENTIL) 2.5 mg/0.5 mL Solution for Nebulization ??? PROAIR HFA 90 mcg/actuation HFA Aerosol Inhaler ??? cholecalciferol, Vitamin D3, 1,000 unit Tablet ??? acetaminophen (TYLENOL) 325 mg tablet ??? IBUPROFEN ORAL ??? LORATADINE (CLARITIN ORAL) ??? ASCORBIC ACID (VITAMIN C ORAL) PRIOR EEG(s): None on file METHODS: A 21 channel digitized electroencephalogram was performed in the [facility] Clinical Neurophysiology Laboratory. The 10/20 international system of electrode placement was used and bipolar and referential electrode montages were recorded. In addition to EEG the patient was monitored for EKGand lateral/vertical eye movements. Video was recorded during the session. HRBP'S REPORT: Performed by: Marlyn Leach EEGT Patient was sleep deprived. Sleep was attained. Photic stimulation was performed. Hyperventilation was not performed. Effort was not adequate. Movement and other artifact was not significant. Comments: ELECTROENCEPHALOGRAPHER'S REPORT Background: The background was continuous and spontaneously reactive composed of normal voltage, 10 to 60 ??V, nicely organized anterior to posterior gradient with frontally predominant beta and posterior alpha frequencies. There was a 10-11 Hz posterior dominant rhythm that attenuated with eye opening. Focal Asymmetries: There were no focal asymmetries. Sleep: Sleep was characterized by decreased myogenic artifact and increased slowing. Symmetric vertex waves and POSTS marked the presence of drowsy/stage N1 sleep state. There were symmetric N2 sleep transients present including sleep spindles and K complexes. Interictal Activity: During the EEG, there was presence of arrhythmic jerking, almost myoclonic intermittennt movement of head towards the right, this was at times without any changes on the EEG and sometimes with muscleartifact. This was not associated with epileptiform activity on EEG. The head movements went away with sleep. Patient Events or Seizures: No patient events or electrographic seizures were recorded. Provocative Maneuvers: Photic stimulation was performed however no driving response was observed. EKG: Single-lead EKG was regular. Technical Limitations: None INTERPRETATION: This 32-minute routine EEG was normal during the awake and asleep state(s). CLINICAL CORRELATION: This EEG is within normal limits for state and age. Head jerking/myoclonic movements as described above did not have a ictal EEG correlate. Douglas Locke MD 09/02/2022 I personally reviewed and interpreted the EEG in its entirety along with Dr. Douglas Locke, Epilepsy Fellow, and I agree with the above interpretation as documented. Erasmo Crain MD Attending Epileptologist documented in this encounter Plan of Treatment Not on file documented as of this encounter Procedures Procedure Name Priority Date/Time Associated Diagnosis Comments EEG Routine 09/01/2022 2:30 PM EST Seizure documented in this encounter Results * EEG ROUTINE (09/01/2022 2:30 PM EST) Narrative Erasmo Crain MD - 09/01/2022 2:30 PM EST Erasmo Crain MD ? 09/03/2022 10:[address] [facility] Department of Neurology Outpatient Routine EEG Report Name of the Patient: ??Erich P Lauri Date of : ?1995 Date of Service: ?09/01/2022 Referring physician: ?Uriel Mejia MD [place] Resident/Fellow: ??Douglas Locke MD ?? [place] Attending: Dr Crain Routine EEG start time: 13:33:36 Routine EEG end time: 14:07:05 Total time recorded: 32:20 Indication for EEG: Other (SILVA) BRIEF HISTORY: Erich Mcfarlane Lauri is a 27 y.o. male RH ??w/ hx of ALL at 18 months old, 2010 bacterial meningitis(headaches got worse after this, treated with antibiotics), finished treatment at 6yo with chemo, asthma, ADHD, depression presenting to headache clinic for evaluation of his headaches MEDICATIONS: ?ibuprofen (ADVIL;MOTRIN) 800 mg Tablet ?cyclobenzaprine (FLEXERIL) 10 mg Tablet ?gabapentin (NEURONTIN) 100 mg Capsule ?VYVANSE 30 mg Capsule ?methylPREDNISolone (MEDROL DOSPACK) 4 mg Tablets, Dose Pack ?azithromycin (ZITHROMAX) 250 mg Tablet ?lidocaine (XYLOCAINE) 5 % Ointment ?albuterol (PROVENTIL) 2.5 mg/0.5 mL Solution for Nebulization ?PROAIR HFA 90 mcg/actuation HFA Aerosol Inhaler ?cholecalciferol, Vitamin D3, 1,000 unit Tablet ?acetaminophen (TYLENOL) 325 mg tablet ?IBUPROFEN ORAL ?LORATADINE (CLARITIN ORAL) ?ASCORBIC ACID (VITAMIN C ORAL) PRIOR EEG(s): None on file METHODS: A 21 channel digitized electroencephalogram was performed in the [facility] Neurophysiology Laboratory. The 10/20 international system of electrode placement was used and bipolar and referential electrode montages were recorded. ??In addition to EEG the patient was monitored for EKG and lateral/vertical eye movements. Video was recorded during the session. HRBP'S REPORT: Performed by: Marlyn Leach EEGT Patient was sleep deprived. Sleep was attained. Photic stimulation was performed. Hyperventilation was not performed. Effort was not adequate. Movement and other artifact was not significant. Comments: ELECTROENCEPHALOGRAPHER'S REPORT Background: The background was continuous and spontaneously reactive composed of normal voltage, 10 to 60 ??V, nicely organized anterior to posterior gradient with frontally predominant beta and posterior alpha frequencies. ??There was a 10-11 Hz posterior dominant rhythm that attenuated with eye opening. Focal Asymmetries: There were no focal asymmetries. Sleep: Sleep was characterized by decreased myogenic artifact and increased slowing. ??Symmetric vertex waves and POSTS marked the presence of drowsy/stage N1 sleep state. ??There were symmetric N2 sleep transients present including sleep spindles and K complexes. ?? Interictal Activity: During the EEG, there was presence of arrhythmic jerking, almost myoclonic intermittennt movement of head towards the right, this was at times without any changes on the EEG and sometimes with muscle artifact. This was not associated with epileptiform activity on EEG. The head movements went away with sleep. Patient Events or Seizures: No patient events or electrographic seizures were recorded. Provocative Maneuvers: Photic stimulation was performed however no driving response was observed. EKG: Single-lead EKG was regular. Technical Limitations: None INTERPRETATION: This 32-minute routine EEG was normal during the awake and asleep state(s). CLINICAL CORRELATION: This EEG is within normal limits for state and age. ??Head jerking/myoclonic movements as described above did not have a ictal EEG correlate. Douglas Locke MD 09/02/2022 I personally reviewed and interpreted the EEG in its entirety along with Dr. Douglas Locke, Epilepsy Fellow, and I agree with the above interpretation as documented. Erasmo Crain MD Attending Epileptologist Authorizing Provider Result Amanda Alvarado MD NEUROLOGY ORD ERABLES documented in this encounter Visit Diagnoses Diagnosis Seizure Other convulsions documented in this encounter Care Teams Loader Technician Relationship Specialty Start Date End Date Ernesto Eisenberg MD [address] [place] [id number] PCP - General 07/21/10 documented as of this encounter
--- OUTSIDE RECORDS SUMMARY | 2024-06-18 16:40 | XMS_ITS | Encounter Summary ---
Author Organization [facility] Address [address] [place] [address] Care Team Providers Care Industrial Tech Instructor Name Role Phone Ernesto Eisenberg MD Primary Care Provider [phone] Encounter Details Date Type Department Care Team (Late st Contact Info) Description 08/15/2019 Orders Only [facility] Pulmonology & [place] [address] Arlette Mesa RN Moderate persistent asthma with acute exacerbation (Primary Dx); Chronic maxillary sinusitis; SOB (shortness of breath) Social History Tobacco Use Types Packs/Day Years [...] as of this encounter Progress Notes * Arlette Mesa, WILLIAN - 08/15/2019 1148 EST Ordering PFT and scheduling for CF consult, per Dr. Farmer. documented in this encounter Plan of Treatment Scheduled Orders Name Type Priority Associated Diagnoses Orde r Schedule PULMONARY FUNCTION TESTING PFT Routine Moderate persistent asthma with acute exacerbation Chronic maxillary sinusitis SOB (shortness of breath) Ordered: 08/15/2019 documented as of this encounter Visit Diagnoses Diagnosis Moderate persistent asthma with acute exacerbation- Primary Chronic maxillary sinusitis SOB (shortness of breath) Shortness of breath documented in this encounter Care Teams Industrial Tech Instructor Relationship Specialty Start Date End Date Ernesto Eisenberg MD [address] [place] [address] PCP - General 12/09/11 documented as of this encounter
--- OUTSIDE RECORDS SUMMARY | 2024-06-18 16:40 | XMS_ITS | Encounter Summary ---
Author Organization [facility] Address [address] [place] [id number] Care Team Providers Care Main Line Station Engineer Name Role Phone Ernesto Eisenberg MD Primary Care Provider [phone] Reason for Visit * Reason Comments Cystic Fibrosis Encounter Details Date Type Department Care Team (Late st Contact Info) Description 09/07/2019 10:00 EST Office Visit [facility] Pulmonology & Critical Care - [address] [address] Carlos Valdivia MD [address] [place] [address], [address] [place] [address] Asthma due to environmental allergies (Primary Dx); CF (cystic fibrosis) ([facility]); Chronic pansinusitis; Vocal cord dysfunction Social History Tobacco Use Types Packs/Day Years [...] Sign Reading Time Taken Comments Blood Pressure 124/70 09/07/2019 0945 EST Pulse 84 09/07/2019 0945 EST Temperature 35.8 ??C (96.5 ??F) 09/07/2019 0945 EST Respiratory Rate 18 09/07/2019 0945 EST Oxygen Saturation 99% 09/07/2019 0945 EST Inhaled Oxygen Concentration - - Weight 63 kg (139 lb) 09/07/2019 0945 EST Height 182.3 cm (5' 11.77) 09/07/2019 0945 EST Body Mass Index 18.97 09/07/2019 0945 EST documented in this encounter Patient Instructions * Patient Instructions* Carlos Valdivia MD - 09/07/2019 10:00 EST We will have you come back to CF clinic in 1 month for blood work for your genetic testing. documented in this encounter Progress Notes * Carlos Valdivia MD - 09/07/2019 1000 EST Images from the original note were not included. [facility] MD Carlos Woodruff MD Abraham Sender [place] [id number] Encounter Date: 09/07/2019 Ernesto Shani [facility] [address] Chief complaint: Erich is a 24 y.o. old presenting to CF clinic with an abnormal sweat test. 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 He had complications with his chemo and states that he lost ability to walk and speak at age 6. He has had intensive PT as well speech therapy for many years. He remains disabled with multiple problems with back pain and shortness of breath. Asthma was diagnosed with exercise testing at [facility] about 10 years ago. His sinus symptoms have been peristant for the last 8 yearts. He has had sinus surgery for a deviated septum. Whenhe is not sick he does not need albuterol. On hot humid days he may need his albuterol up to 3 times per day. He does not have noctournal symptoms. He does not produce sputum when he is not sick. He reports that he is short of breath with climbing 1 flight of stairs and may need up to 3 minutesto catch his breath. He thinks he could only walk half a block on flat ground. He has normal immunoglobulins, eos and IgE level. Environmental Exposure: No interval change since the last visit. He reports using e cigarettes for less than 1 year. He smoked marijuana for less than 1 year. REVIEW OF SYSTEMS: A complete review of 14 systems was obtained and was negative except listed above. Past medical and surgical history reviewed and updated in the electronic medical record. Family and social history reviewed and updated in the electronic medical record. Outpatient Medications Marked as Taking for the 09/07/19 encounter (Office Visit) with Carlos Valdivia MD [...] Wheezing Rash, swelling Objective Data: PHYSICAL EXAM:BP 124/70 Pulse 84 Temp 35.8 ??C (96.5 ??F) (Tympanic) Resp 18 Ht 182.3 cm (71.77) Wt 63 kg (139 lb) SpO2 99% BMI 18.97 kg/m?? Wt Readings from Last 5 Encounters: 09/07/19 63 kg (139 lb) 07/18/19 64.4 [...] and gums normal. Posterior pharynx reveals no lesions. Neck: Supple, symmetrical, trachea midline, no adenopathy, thyroid: no enlargment/tenderness/nodules. Cardiac: Regular rate and rhythm without murmurs gallops or rubs. Lungs: When breathing around FRC there is no wheezing. With deep breathing there is inspiratory andexpiratory wheezing heard loudest when auscultated over the anterior neck. No crackles. No increased work of breathing. Abdomen: Soft, non-tender. Bowel sounds normal. No masses, No organomegaly. Extremities: Extremities normal, atraumatic, no cyanosis or edema. Digital clubbing absent. Skin: Skin color, texture, turgor normal. No rashes or lesions. Lymph nodes: Cervical, supraclavicular nodes normal. Neurologic: Mood and affect appropriate otherwise non focal. Diagnostic Data: PFTs: FVC of 4.4 , 74% of predicted FEV1 of 4.32, 87% of predicted Ratio of 98.03 Flow volume loop is restricted. Interpretation: restrictive spirometric pattern IgE: Lab Results Component Value Date IGE 35 04/25/2019 Imaging: Viewed and interpreted by me. Normal 12/23/13. No bronchiectasis. No effusions. No LAD. Assessment: Erich is 24 y.o. 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 Unclear if symptoms arerelated to CF with indeterminate sweat testing. He has no bronchiectasis on CT and does not have regular sputum production to suggest bronchiectasis. He seems to have some restriction on PFT. Curiousif this is related to multiple neuropathies and VCD due to chemo. 1) mild persistent asthma 2) vocal cord dysfunction 3) diaphragmatic weakness 4) chronic sinusitis 5) History of leukemia in remission Plan: Continue current inhalers CFTR gene sequencing Increase physical activity and endurance Check NIF at next visit. Studies at Next Visit: NIF Follow up in 1 month. Patient was encouraged to contact us sooner if problems arise. Please contact me with questions or concerns regarding Erich's care. Sincerely, Carlos Valdivia MD Please note: This documentation was created with the use of voice recognition software, and may contain rare receiving associate errors. documented in this encounter Plan of Treatment Not on file documented as of this encounter Procedures Procedure Name Priority Date/Time Associated Diagnosis Comments PULMONARY FUNCTION REPORT - SCANNED 09/07/2019 10:05 EST documented in this encounter Results * PULMONARY FUNCTION REPORT - SCANNED (09/07/2019 10:05 EST) 09/07/2019 10:0 5 EST Scan 2 Guide Dog Mobility Instructor PROCEDURE/MINOR [place] GICAL ORDERABLES documented in this encounter Visit Diagnoses Diagnosis Asthma due to environmental allergies- Primary CF (cystic fibrosis) ([facility]) Cystic 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 Medication Sig Dispensed Refills Start Date End Date cyclobenzaprine (FLEXERIL) 10 mg tablet Take 10 mg by mouth 3 times daily as needed for Muscle Spasms. added in this encounter Care Teams Main Line Station Engineer Relationship Specialty Start Date End Date Ernesto Eisenberg MD [address] [place] [address] PCP - General 12/09/11 documented as of this encounter
--- OUTSIDE RECORDS SUMMARY | 2024-06-18 16:41 | XMS_ITS | Encounter Summary ---
Author Organization [facility] [place] [address] Care Team Providers Care Porcelain Mixer Name Role Phone Ernesto Eisenberg MD Primary Care Provider [phone] Encounter Details Date Type Department Care Team (Late st Contact Info) Description 08/14/2012 Notes Only [place] [address] Kareen Guevara MD [facility] PEDIATRIC HEMATOLOGY[place] [address] Social History Tobacco Use Types Packs/Day Years Used Date Smoking Tobacco: Never Assessed Sex and Gender Information Value Date Recorded Sex Assigned at Not on file Gender Identity Not on file Sexual Orientation Not on file documented as of this encounter Progress Notes * Kareen Guevara MD - 08/14/2012 2:18 PM EST Discussion with both Drs. Yanez and Faina, and with Erich's mother today about repeat neuropsych testing for Erich. Erich is not doing well in school. Mom reports that she has shown the 2009 report to the school on several occasions. This year the school suggested repeat testing. Erich had had meningitis in the interval which might affect his cognitive function. Dr. Eisenberg did not think that he had seen a copy of this report. I was able to obtain the report from Dr. Yanez and obtained permission from Erich's mother to fax the report to Dr. Eisenberg. said that he would interact with the school. I have asked Dr. Yanez to start the scheduling process since it can take some length of time. documented in this encounter Plan of Treatment Not on file documented as of this encounter Visit Diagnoses Not on filedocumented in this encounter Care Teams Porcelain Mixer Relationship Specialty Start Date End Date Ernesto Eisenberg MD [address] [place] [id number] PCP - General 07/21/10 documented as of this encounter
--- OUTSIDE RECORDS SUMMARY | 2024-06-18 16:41 | XMS_ITS | Encounter Summary ---
[place] [address] Care Team Providers Care Atomic Process Engineer Name Role Phone Ernesto Eisenberg MD Primary Care Provider [phone] Encounter Details Date Type Department Care Team (Late st Contact Info) Description 04/04/2017 Telephone [place] [phone] Tammie Prajapati RN Social History Tobacco Use Types Packs/Day Years Used Date Smoking Tobacco: Every Day e-Cigarettes Smokeless Tobacco: Never Comments:3-4 times daily Alcohol Use Standard Drinks/Week Comments Yes 0 (1 standard drink = 0.6 oz pur e alcohol) minimal Sex and Gender Information Value Date Recorded Sex Assigned at Not on file Gender Identity Not on file Sexual Orientation Not on file documented as of this encounter Miscellaneous Notes * Telephone Encounter - Tammie Prajapati RN - 04/04/2017 10:14 AM EDT Pt had septoplasty on 04/01. He stated that he was told that he would have no pain by now and he's still having pain and bleeding. He reports pain is usually about 3/10 with the use of Tylenol/ibuprofen. He states pain is in his nose and sinuses. I let him know that pain at this point is still WNL. He's been avoiding strenuous activities. He's been using nasal saline sprays. When asked about how much he's bleeding, he said that he's changing the drip pad under his nose every 1-2 hours. He's not been using Afrin as directed, however. He will get some today and start using it. No n/v or vision changes. Will forward message on to Dr. Yao for further recommendations. documented in this encounter Plan of Treatment Not on file documented as of this encounter Visit Diagnoses Not on filedocumented in this encounter Care Teams Atomic Process Engineer Relationship Specialty Start Date End Date Ernesto Eisenberg MD [address] [place] [id number] PCP - General 07/21/10 documented as of this encounter
--- OUTSIDE RECORDS SUMMARY | 2024-06-18 16:41 | XMS_ITS | Encounter Summary ---
Author Organization [facility] [place] [address] Care Team Providers Care Cotton Grader Name Role Phone Ernesto Eisenberg MD Primary Care Provider [phone] Reason for Visit * Reason Comments Other spine pain Encounter Details Date Type Department Care Team (Late st Contact Info) Description 10/18/2013 9:45 AM EST Office Visit [place] [address] Kenyatta Toth MD [facility] [place] [address] Chest pain; Dorsalgia Discharge Disposition: Home Social History Tobacco Use Types Packs/Day Years Used Date Smoking Tobacco: Never Smokeless Tobacco: Never Comments:no ETS exposure Alcohol Use Standard Drinks/Week Comments No 0 (1 standard drink = 0.6 oz pur e alcohol) Sex and Gender Information Value Date Recorded Sex Assigned at Not on file Gender Identity Not on file Sexual Orientation Not on file documented as of this encounter Last Filed Vital Signs Vital Sign Reading Time Taken Comments Blood Pressure 118/63 10/18/2013 10:05 AM EST Pulse 94 10/18/2013 10:05 AM EST Temperature - - Respiratory Rate 26 10/18/2013 10:05 AM EST Oxygen Saturation - - Inhaled Oxygen Concentration - - Weight 62.1 kg (137 lb) 10/18/2013 10:05 AM EST Height 180.5 cm (5' 11.06) 10/18/2013 10:05 AM EST Head Circumference 58.7 cm 10/18/2013 10:05 AM ES T Body Mass Index 19.07 10/18/2013 10:05 AM EST Body Mass Index Percentile 22.01% 10/18/2013 10: 05 AM EST Growth Chart: [facility] (Boys, 2-2 0 Years) documented in this encounter Patient Instructions * Patient Instructions* Kenyatta Toth MD - 10/18/2013 10:28 AM EST Spine MRI to be scheduled. Call day after spine MRI to review results. Continue neurontin for pain, could increase to 1200mg twice a day. Discuss with PCP whether or not referral to rheumatology is indicated. Follow up in 2 months time. documented in this encounter Progress Notes * Kenyatta Toth MD - 10/18/2013 10:34 AM EST Erich Carreon was seen semiurgently for followup of back pain on 10/18/2013. INTERVAL HISTORY: Since I first met Erich five months ago, indicates he is 18 and 7/12th years of age. At that visit, I was seeing him for concerns about chest wall weakness. He had an entirely normal neuromuscular exam. CPK was normal at 157. He was seen by pulmonary who noted some exercise-induced asthma and he has been treated with bronchodilators. Nothing about the pulmonary function suggested marci failure. Approximately six weeks ago, he noted pain in his back starting at the neck and going all the way down to the sacral region. He has been seen in the emergency room and had multiple diagnostic tests done. A monospot came back as positive. The pain has continued unabated. He tells me that touching the back or position changes sometimes exacerbate it. In addition to the steady 24/7 pain, he now has shooting pains that go up and down the spine beginning over the last couple of weeks. PCP Consulted with pedi neurology by phone and recommendations were made. Diagnostic testing has included LP, bone scan, and CT scan, and plain x-rays. He also Underwent CMP, hormone levels, repeat CPK, and CBC with diff. All of These are normal. He denies bowel or bladder difficulty. He has not been in school for six weeks. He is currently taking Vicodin p.r.n. pain. I am told there are no objective signs of erythema or swelling along the spine. CURRENT MEDICATIONS: Neurontin 900mg bid. Amoxicillin and Vicodin. He also takes inhalers p.r.n. HE IS ALLERGIC TO KEFLEX. Additional PMH: Of note, he has a history of pre-B-cell ALL diagnosed at 18 months of age. He underwent chemotherapy and has been in complete remission since 1998. Updated review of systems indicates the back discomfort as well as one small spot on the anterior chest wall that also hurts to the touch. The chest wall weakness has apparently resolved. Physical exam shows a slim, well-appearing youngster. Cardiac exam is benign. Chest is clear. Neck is supple. Thyroid is not enlarged. There is no organomegaly. He has full range of motion at the spine. He arches his back and complains of pain with the lightest touch over the vertebral bodies from the cervical region to the sacral region. He also complaint initially with light touch over the left anterior chest wall at approximately T5. There are no objective signs of swelling or erythema. There is no skin breakdown. When doing the sensory exam including light touch, temperature and vibration from his shoulders to his hips including along the spine, he would laugh out loud with most of the stimulation. He would, however, tell me that it hurt. I did not detect any sensory deficit to these modalities. Deep tendon reflexes were 2+ and symmetric. Abdominal reflexes are normal. Babinski is downgoing bilaterally. ASSESSMENT: 1. Symmetric nonfocal elemental neurologic exam. 2. Tenderness of the back from cervical vertebrae to sacral, of unclear etiology. 3. Previous cerebrospinal fluid exam and radiologic studies have not identified an Etiology. 4. Hx of ALL, now with mono/adenopathy and back pain, rule our disease recurrence, tho CBC with diff was unremarkable. RECOMMENDATIONS: 1. We will order spine MRI. If mother chooses to have this done locally, she will call PCP's office for referral. 2. We talked about going up a bit on the Neurontin, but mother reports the 1200 mg b.i.d. made him too sleepy. 3. Mother asked about fibromyalgia and I thought his symptoms were not a good fit for this diagnosis; evaluation by refrigerator crater could be considered. 4. Consider follow up by Heme Onc given hx of ALL. 5. Follow up with myself in two months' time or sooner if indicated. 10/22/13 ADDENDUM Spinal MRI normal. Mention of low grade cervical adenopathy. Mo informed of results. documented in this encounter Plan of Treatment Not on file documented as of this encounter Visit Diagnoses Diagnosis Chest pain Chest pain, unspecified Dorsalgia Pain in thoracic spine documented in this encounter Care Teams Cotton Grader Relationship Specialty Start Date End Date Ernesto Eisenberg MD [address] [place] [id number] PCP - General 07/21/10 documented as of this encounter
--- OUTSIDE RECORDS SUMMARY | 2024-06-18 16:41 | XMS_ITS | Encounter Summary ---
[place] [address] Care Team Providers Care Teletype Or Varitype Keyboard Operator Name Role Phone Ernesto Eisenberg MD Primary Care Provider [phone] Encounter Details Date Type Department Care Team (Late st Contact Info) Description 11/09/2013 External Results [place] [id number] Social History Tobacco Use Types Packs/Day Years [...] on filedocumented in this encounter Care Teams Teletype Or Varitype Keyboard Operator Relationship Specialty Start Date End Date Ernesto Eisenberg MD [address] [place] [address] PCP - General 07/21/10 documented as of this encounter
--- OUTSIDE RECORDS SUMMARY | 2024-06-18 16:41 | XMS_ITS | Encounter Summary ---
Author Organization [facility] [place] [address] Care Team Providers Care Hub Cutter Name Role Phone Ernesto Eisenberg MD Primary Care Provider [phone] Encounter Details Date Type Department Care Team (Late st Contact Info) Description 05/17/2013 Orders Only [place] [address] Inga Javier MD [facility] [place] [address] Dyspnea on exertion; Chest pain Social History Tobacco Use Types Packs/Day Years [...] documented as of this encounter Results * Pulmonary Function Testing (05/22/2013 12:12 PM EDT) Narrative Theo Sim MD - 05/22/2013 12:12 PM EDT Theo Sim MD ? 05/22/2013 12:12 PM Cardiopulmonary Exercise Test Report LauriErich yeager. ? Date: 05/22/13 A#: [id number] ? Height (cm): ??180.8 Age: 18 ?Weight (kg): 60.5 Pulmonary function testing showed normal spirometry and normal inspiratory mouth pressure. ??Twelve-lead ECG at rest showed normal sinus rhythm with resting heart rate of 77 beats per minute. ? An exercise challenge test was performed on the treadmill for 10 minutes at 5.0 ? 5.9 mph with 5.0% grade. ??Target HR at 85% of predicted peak HR = 173 beats/min. ??Heart rate was 183 - 199 beats/minute during exercise. ??BP at rest was 92/52, and was 136/62 at peak exercise. ??Twelve-lead ECG during exercise showed no evidence of arrhythmia or ischemia. Baseline FEV1 was 3.64 liters (83% predicted). ??The greatest decrement in FEV1 was 29% (2.57 liters) measured at 10 minutes post-exercise. ??Exercise flow-volume loops were normal during exercise. Peak VO2 was 62.8 ml/kg/min, or 126% of predicted value. ??Peak ventilation was 125.0 liters, or 74% of measured maximal voluntary ventilation (170 liters/min). ??The breathing reserve at peak exercise was 26% (normal > 15%). ?? Oxygen saturation was 97% at rest, and 95% at peak exercise. ?? Peak ratings of breathlessness and leg discomfort were 9.5 and 7.5, respectively, using the 0-10 scale. ??Patient reported that breathlessness was the limiting symptom, and that his respiratory symptoms were recreated during the test. Impression: ??Positive exercise challenge test on the treadmill indicating exercise-induced bronchoconstriction (29% decrement in FEV1).* ?? No evidence of cardiac dysfunction or oxygen desaturation. ?? Level of fitness is increased for age (peak VO2 = 126% predicted). ?? Theo Smi M.D. *Based on ATS Clincal Practice Guideline, the criterion used to diagnose exercise-induced bronchoconstriction is > 10%decrement in FEV1 compared with baseline value. (Am J Respir Crit Care Med 2013; 187:1016). Procedure Note Theo Sim MD - 05/22/2013 12:12 PM EDT Cardiopulmonary Exercise Test Report Lauri, Erich Mcfarlane. Date: 05/22/13 A#: [id number] Height (cm): 180.8 Age: 18 Weight (kg): 60.5 Pulmonary function testing showed normal spirometry and normal inspiratorymouth pressure. Twelve-lead ECG at rest showed normal sinus rhythm withresting heart rate of 77 beats per minute. An exercise challenge test was performed on the treadmill for 10 minutesat 5.0 - 5.9 mph with 5.0% grade. Target HR at 85% of predicted peak HR =173 beats/min. Heart rate was 183 - 199 beats/minute during exercise. BPat rest was 92/52, and was 136/62 at peak exercise. Twelve-lead ECGduring exercise showed no evidence of arrhythmia or ischemia. Baseline FEV1 was 3.64 liters (83% predicted). The greatest decrement inFEV1 was 29% (2.57 liters) measured at 10 minutes post-exercise. Exerciseflow-volume loops were normal during exercise. Peak VO2 was 62.8 ml/kg/min, or 126% of predicted value. Peak ventilationwas 125.0 liters, or 74% of measured maximal voluntary ventilation (170liters/min). The breathing reserve at peak exercise was 26% (normal >15%). Oxygen saturation was 97% at rest, and 95% at peak exercise. Peak ratings of breathlessness and leg discomfort were 9.5 and 7.5,respectively, using the 0-10 scale. Patient reported that breathlessnesswas the limiting symptom, and that his respiratory symptoms were recreatedduring the test. Impression: Positive exercise challenge test on the treadmill indicatingexercise-induced bronchoconstriction (29% decrement in FEV1).* Noevidence of cardiac dysfunction or oxygen desaturation. Level of fitnessis increased for age (peak VO2 = 126% predicted). Theo Sim M.D. *Based on ATS Clincal Practice Guideline, the criterion used to diagnoseexercise-induced bronchoconstriction is > 10%decrement in FEV1 comparedwith baseline value. (Am J Respir Crit Care Med 2013; 187:1016). Inga Javier MD PFT ORDERABLES documented in this encounter Visit Diagnoses Diagnosis Dyspnea on exertion Other dyspnea and respiratory abnormality Chest pain Chest pain, unspecified Dyspnea on exertion Other dyspnea and respiratory abnormality Chest pain Chest pain, unspecified documented in this encounter Care Teams Hub Cutter Relationship Specialty Start Date End Date Ernesto Eisenberg MD [address] [place] [address] PCP - General 07/21/10 documented as of this encounter
--- OUTSIDE RECORDS SUMMARY | 2024-06-18 16:41 | XMS_ITS | Encounter Summary ---
[facility] Organization [facility] [place] [address] Care Team Providers Care Slab Lifting Supervisor Name Role Phone Ernesto Eisenberg MD Primary Care Provider + [phone] Reason for Visit * Reason Comments Breathing Problem Encounter Details Date Type Department Care Team (Late st Contact Info) Description 05/29/2013 1:00 PM EDT Office [place] [address] Trupti Cifuentes, [facility] [place] [address] Memo Yao MD [facility] [place] [address] Dyspnea on exertion (Primary Dx); Laryngeal spasm Discharge Disposition: Home Social History Tobacco Use [...] as of this encounter Progress Notes * Trupti Cifuentes, [facility] - 05/29/2013 1:08 PM EDT [facility] Rehabilitation Medicine Department Speech-Language Pathology Voice Evaluation Patient Name: Erich Carreon Date of : 1995 Referring MD: Memo Yao MD Date Seen by MD: 05/22/2013 Diagnosis: Laryngeal spasm Date of Onset: 04/2012 Date of Evaluation: 05/29/13 Evaluation Time: 60 minutes, no timed codes Presenting Problem: Erich Carreon is a 18 y.o. year old male referred today for a voice evaluation given concerns of vocal cord dysfunction. Erich and his mother reported that his breathing trouble started last fall. He developed shortness of breath and complained of pain at the top of his chest and would make a wheezing noise. He was initially worked up for cardiac issues. He found he could recover his breath after stopping activity, taking a long break and using his inhaler. He found that the inhaler did help his breathing improve. Erich enjoys playing and watching basketball (he is a huge Celtics fan). He reported that he has had to stop high school sports due to his breathing problem. He had played sports until [employer]. Currently, if he is playing basketball outside by himself, he can play for 60 minutes. If playing [employer] game with friends, he might be able to play 30 minutes. He indicate that piror to the onsetof breathing difficulty, he would get tired as a result of playing but would never have shortness of breath and dizziness. Functional Limitations: Erich believes he is at 50-60% capacity of what he could actually do physically as a direct result of his breathing problem. He is challenged in his breathing when walking up the stairs at school. He experiences breathing difficulty when seated in a chair. He also reported that he has difficulty holding his breath. Past Medical History Diagnosis Date ??? Leukemia ??? Sinusitis Bacterial meningitis, 2010. Erich was out of school for 6 weeks and returned to school slowly. He continues to have headaches and dizziness which are attributed to the meningitis. 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 He reported that he has muscle weakness, fatigue, fine motor weakness and generalized weakness as a result. He also has chronic knee and joint pain. Sinus issues - blocked on the right. H/o abx, steroid nasal spray, nasal rinse. H/o neuropsychological testing last fall which suggested illness related delays. Family is frustrated with the lack of support for said delays at school to the point that Erich carries his IEP aroundwith him to remind his teachers of his documented issues and support for extended test times etc. He is a [employer] in [place], [place]. The family has an IEP meeting in the nextfew weeks. Family history: arthritis, high blood pressure, cancer (kidney, lymphoma, lung, skin) Allergies Yes Allergies Allergen Reactions ??? Asparaginase ??? Cis Free Text Allergy POSS E-COLI RXN W/L-ASPARIGINASE. ??? Keflex (Cephalexin) Asthma Yes Exercise induced asthma treated with xopenex. He takes it before he goes to school and before basketball. Endocrine Problems/ obesity No n/a Post nasal drip Yes Now better GERD Yes Not treated. Happens rarely - avoids soda, spicy food Dysphagia No n/a Other respiratory issues / trach No n/a Smoking / alcohol use No n/a Environmental exposure No n/a Trauma to face neck No n/a Psychological history No Erich was described as Mellow and sarcastic by his mother. Surgical history Yes Central line, appendix, adenoids and tonsils. Additional Medical History Yes As above. Also, negative sleep study. NOTE: Erich has grown approximately 6 inches in the last [address] Yao's exam on 05/22/13: Larynx: Vallecula clear. On oral-inspiration, bilateral TVF are inparamedian position with reproducible low-pitched inspiratory stridor. Vocal cords fully abduct with quick forceful nasal- inhalation (sniff) with full and symmetric movement. Full closure during speech, no asymmetric VF movement. No lesions. Epiglottis tugs inferiorly slightly when TVF in paramedian position, though no yaritza laryngomalacia (likely secondary to paramedian position and Bernouli effect). Per Dr. Javier;s note of 05/22/13: Impression: Positive exercise challenge test on the treadmill indicating exercise-induced bronchoconstriction (29% decrement in FEV1). No evidence of cardiac dysfunction or oxygen desaturation. Level of fitness is increased for age (peak VO2 = 126% predicted). Medications: Current outpatient prescriptions:acetaminophen (TYLENOL) 325 mg tablet, Active, Take 650 mg by mouth every 4 hours as needed., Disp: , Rfl: ; fluticasone (FLONASE) 50 mcg/actuation nasal spray, Active, 1 spray by Each Nare route daily for 30 days., Disp: 16 g, Rfl: 6; LEVALBUTEROL TARTRATE (XOPENEXHFA INHL), Active, Inhale into the lungs as needed., Disp: , Rfl: ; IBUPROFEN ORAL, Active, Take bymouth as needed., Disp: , Rfl: LORATADINE (CLARITIN ORAL), Active, Take by mouth as needed., Disp: , Rfl: ; ASCORBIC ACID (VITAMINC ORAL), Active, , Disp: , Rfl: Evaluation: Today's evaluation was conducted with Erich's mother present. Hearing/Vision: Hearing and vision were adequate for testing. Pt wears glasses for reading. Oral-Peripheral: Facial, labial, mandibular,lingual, and velar ROM, strength, agility, and sensation appear WNL. Erich walks with a subtle stooped posture. He denied head and neck tension and demonstrated good ROM of his head and neck. He reported some sensation of tightness just below his right clavicle when palpated and reported feeling a stretch whentrained in the corner stretch. Respiration: At rest patient is able to maintain relaxed, rhythmic breath pattern. Breath support is typically clavicular in all activities. Deep breathing showed significant clavicular elevation and absent movement of the belly during inhalation. Inhalation was inaudible at conversational levels. Erich responded promptly and with minimal cuing to engage his belly when breathing in sitting, standing and walking. Voice: Subjective Assessment: The patient's voice was characterized by normal vocal quality. Objective Assessment: Respiratory / Phonatory Coordination was assessed using measurements of Maximum Phonation Time (MPT) and S:Z ratio. MPT over 2 trials was 24 seconds. This is WNL for age and gender. S/Z Ratio over 1 Trial each was 9 seconds:15 seconds. This is WNL/ indicative of intact respiratory/ phonatory coordination. Behavioral Observations: Erich was agreeable to testing today. He demonstrated excellent body awareness for learning lower thoracic breath support and also was able to compare lower thoracic breath support to his newly learned belly breathing. He tolerated a 5 minute fast paced walk around the building and up and down stairs with 100% improvement of his breathing symptoms for those activities. No overt laryngeal tension was identified on laryngeal massage. Erich demonstrated independent ability to perform breathing - in thru his nose and out thru his mouth - a technique which helps break the cycle of vocal cord dysfunction. 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 Prognosis for improvement is judged to be excellent with home practice and perhaps 1-2 skilled follow up sessions if symptoms do not resolve after training today. Recommendations / Plan of Care: Skilled speech therapy was recommended for 1-2 additional visits over the next 3 months. Continue to use inhaler as directed by Dr. Javier. Continue sinus recommendations as directed by Dr. Yao. Continue to follow up with PCP regarding ongoing joint pain and knee pain as this is a concern of Erich's and baseline pain could cause his to change his posture in subtle ways which would then impact his breath support. Erich has had a significant growth spurt in the last 2 years and I am not clear on how his growth may also be impacting his discomfort. Continue with school based support for neuropsychological needs documented in prior testing. Education was provided to the patient and parent re: findings and plan of care. The patient and parent were in agreement with these recommendations and have my direct contact information for questions/ concerns. Parent to get in touch with me to report on success with general breathing after training today. Short Term Goals: 1) Erich will demonstrate ability to breathe using his diaphragm vs. His upper chest 95% of the time in sitting, standing, walking, running and physical exercise. 2) Erich will understand and independently use simple breathing techniques to facilitate vocal cordabduction when/ if breathing difficulty occurs. Commissioning Specialist Goals: Erich will eliminate symptoms of vocal cord dysfunction in sitting, standing, walking and running/ playing sports. If there are any questions about this report, please do not hesitate to contact me. Thank you very much for this referral. Trupti Cifuentes M.S., [facility] Speech-Language Pathologist Pc: Parents of Erich Lauri [address] [place] [address] documented in this encounter Plan of Treatment Not on file documented as of this encounter Visit Diagnoses Diagnosis Dyspnea on exertion- Primary Other dyspnea and respiratory abnormality Laryngeal spasm documented in this encounter Care Teams Slab Lifting Supervisor Relationship Specialty Start Date End Date Ernesto Eisenberg MD [address] [place] [address] PCP - General 07/21/10 documented as of this encounter
--- OUTSIDE RECORDS SUMMARY | 2024-06-18 16:41 | XMS_ITS | Encounter Summary ---
[place] [address] Care Team Providers Care Broadcast Supervisor Name Role Phone Ernesto Eisenberg MD Primary Care Provider + [phone] Reason for Referral * Speech Therapy (Routine) - Closed Specialty Diagnoses / Procedures Referred By Maxine vernon Referred To Contact Speech Pathology / Speech Therapy Diagnoses Paradoxical vocal fold movement Skye Yao MD [facility] [place] [address] [facility] [place] [address] Referral ID Status Reason Start Date Expiration Date V isits Requested Visits Authorized [id number] Closed Evaluate and Treat 05/22/2013 11/18/2013 1 1 Reason for Visit * Reason Comments Follow-up He is almost done wi th the Augmentin 875mg BID x 3 weeks and he stopped the with Afrin, Saline Rinse and Flonase, which he does feel helped his symptoms.. Encounter Details Date Type Department Care Team (Late st Contact Info) Description 05/22/2013 8:15 AM EDT Follow-[place] [phone] Skye Yao MD [facility] [place] [address] Chronic sinusitis (Primary Dx); Paradoxical vocal fold movement Discharge Disposition: Home Social History Tobacco Use [...] Sign Reading Time Taken Comments Blood Pressure 125/70 05/22/2013 8:41 AM EDT Pulse 93 05/22/2013 8:41 AM EDT Temperature - - Respiratory Rate - - Oxygen Saturation - - Inhaled Oxygen Concentration - - Weight 60.3 kg (133 lb) 05/22/2013 8:41 AM EDT Height 177.8 cm (5' 10) 05/22/2013 8:41 AM EDT Body Mass Index 19.08 05/22/2013 8:41 AM EDT Body Mass Index Percentile 25.93% 05/22/2013 8:4 1 AM EDT Growth Chart: CDC (Boys, 2-2 0 Years) documented in this encounter Progress Notes * Skye Yao MD - 05/22/2013 8:53 AM EDT Pediatric Otolaryngology Follow-Up Note Date of Visit: 05/22/2013 Patient: Erich Mcfarlane Lauri ([id number]; 1995) Reason for Visit: Erich is a 18 y.o. male with history of long-term low-grade recurrent sinusitis with worsening over the past year, primarily involving right side (symptomatically) and on January 2013 imaging. History of ALL s/p chemotherapy. History of bacterial meningitis secondary to poor immunization status associated with immunosuppression. Interval History: Clinical improvement after medical treatment with more aggressive nasal hygiene; however, nasal hygiene with stinging after 5 days, discontinued. To see Dr. Javier and Pulmonary today for exercise-induced dyspnea and wheezing that turned out you inspiratory stridor (not reported to me - family thought it was pulmonary in nature, not presentat rest, only with exertion and deep inspiration). After seeing Dr. Javier, family and Dr. Guill concerned about inspiratory fluttering stridor/stertor. First noted within the past 6-8 months, stable since development, no progression. Worse with exertion, develops SOB that limits your activity/exertion. Physical Examination: Vitals: Blood pressure 125/70, pulse 93, height 177.8 cm (5' 10), weight 60.328 kg (133 lb). General: Age-appropriate interactive behavior. Breathing comfortably without stridor, stertor; however, when takes deep inspiration, a fluttering, low- pitched stridor is noted. No retractions. No acute distress. No hoarseness or dysphonia. Face: Full and symmetric facial movement. No dysmorphic facial features. Eyes: Periocular structures and conjunctiva healthy without lesions. Pupils are equal, round, and reactive to light. Extraocular movement is full and intact. No dysconjugate gaze. No evidence of nystagmus. Ears: Auricles symmetric without lesions. External auditory canals clear. Right tympanic membrane translucent; aerated right middle ear. Left tympanic membrane translucent; aerated left middle ear. Nose: Patent anteriorly with adequate airflow, healthy pink mucosa. Septum is midline without significant deviation. Inferior turbinates healthy without edema Mouth: Lips and gingiva pink, moist, without lesions. Age-appropriate dentition healthy. Tongue andfloor of mouth soft without lesions or masses. Hard palate without lesions. Pharynx: Soft palate without lesions. Uvula is intact without evidence of submucus cleft palate. Oropharynx symmetric. Tonsils have been removed. Neck: Soft, supple, without significant lymphadenopathy. Thyroid gland without masses or asymmetry.Trachea midline without deviation. Procedure - Flexible Fiberoptic Laryngoscopy: Topical anesthetic applied to the nasal cavity. Patient tolerated the procedure well without complication. Findings: Nasal Cavity: Patent, decongested nicely Nasopharynx: Clear, small amount of residual adenoid tissu Oropharynx: Clear. No tonsillar or lingual tonsillar tissue. No masses. Larynx: Vallecula clear. On oral-inspiration, bilateral TVF are in paramedian position with reproducible low-pitched inspiratory stridor. Vocal cords fully abduct with quick forceful nasal-inhalation(sniff) with full and symmetric movement. Full closure during speech, no asymmetric VF movement. Nolesions. Epiglottis tugs inferiorly slightly when TVF in paramedian position, though no yaritza laryngomalacia (likely secondary to paramedian position and Bernouli effect). Hypopharynx: Unremarkable Findings Apr 2013 Flexible Fiberoptic Nasal Endoscopy and Nasopharyngoscopy: Nasal Cavity: Mild-moderate septal spur anteriorly with inferior deviation into lower middle meatus, not obstructive; lowtrade mucoid drainage posteriorly (swabbed) Nasopharynx: Small amount of residual adenoid tissue, mild secretions. Imaging Studies - Sinus CT January 2013 (Non-Contrast): Partial opacification with mucosal thickening of right maxillary sinus; opacified right anterior ethmoid sinus. Well-aerated posterior ethmoid sinus and sphenoid sinus. Right frontal sinus with mucosal thickening, partial opacification, appear more polypoid in shape; nasofrontal recess with small air cells leading to frontal sinus. Left maxillary, frontal, anterior and posterior ethmoid, and sphenoid sinuses well-aerated without mucosal changes. Hyperpneumatized sphenoid sinus (to pterygoid plates bilaterally) with ICA at posterior kerns bilaterally, optic chiasm immediately adjacent. Skull base slightly elevated on the right side, mild asymmetry. Imaging too thick (and lacks nasal tip, ears) for STEALTH-use. Culture - Nasal Swab 05/01/13: Normal upper respiratory sayra. Impression: Paradoxical vocal fold movement. Clinical improvement (subjectively with reduced headache, cough, rhinorrhea) with maximal medical therapy (Augmentin 875mg BID x 3 weeks with Afrin, Saline Rinse, Flonase), though some discomfort with nasal hygiene (discontinued after 5 days). History of long-term low-grade recurrent sinusitis with worsening over the past year, primarily involving right side (symptomatically) and on January 2013 imaging. History of ALL s/p chemotherapy. History of bacterial meningitis secondary to poor immunization status associated with immunosuppression. Plan: Discussed with Erich and mother speech therapy with speech therapist familiar with paradoxical vocal fold movement exercises and strategies. Discussed with Trupti Cifuentes [employer]. Regarding sinonasal disease - complete Augmentin Resume nasal hygiene with mist saline and Flonase - if still stings, switch to Nasonex or other steroid spray. Family may call if symptoms return after completing antibiotics - if clinically returns, will proceed with right maxillary antrostomy, anterior ethmoidectomy (non-STEALTH) to avoid repeat imaging andminimize nasofrontal recess manipulation as first line treatment. If nasofrontal recess needs management, will require repeat CT scan for STEALTH-guidance. Scheduled follow-up in 2-3 months - unless family calls with return of symptoms off of antibiotics. Note, STEALTH cannot be utilized with outside films January 2013 after review (too thick cuts, nasal tip and ears cut off). Consider revision/completion adenoidectomy, as well. Family happy with plan. Skye Yao MD, FAAP Pediatric Otolaryngology [facility] ([facility] [place], [place] [address] Office documented in this encounter Miscellaneous Notes * Addendum Note - Skye Yao MD - 05/22/2013 1:09 PM EDTAddended by: SKYE YAO on: 05/22/2013 01:09 PM Modules accepted: Orders documented in this encounter Plan of Treatment Scheduled Referrals Name Type Priority Associated Diagnoses Orde r Schedule Referral to Speech Therapy Outpatient Referral Routine Paradoxical vocal fold movement Ordered: 05/22/2013 documented as of this encounter Visit Diagnoses Diagnosis Chronic sinusitis- Primary Unspecified sinusitis (chronic) Paradoxical vocal fold movement Other diseases of vocal cords documented in this encounter Care Teams Broadcast Supervisor Relationship Specialty Start Date End Date Ernesto Eisenberg MD [address] [place] [id number] PCP - General 07/21/10 documented as of this encounter
--- OUTSIDE RECORDS SUMMARY | 2024-06-18 16:41 | XMS_ITS | Encounter Summary ---
[place] [address] Care Team Providers Care Maxillofacial Pathology Name Role Phone Ernesto Eisenberg MD Primary Care Provider [phone] Encounter Details Date Type Department Care Team (Late st Contact Info) Description 10/04/2013 Telephone [place] [phone] Erasmo Crain MD [facility] [place] [address] Social History Tobacco Use Types Packs/Day Years [...] encounter Miscellaneous Notes * Telephone Encounter - Erasmo Crain MD - 10/04/2013 4:14 PM EST PNE Staff Called by Dr. Eisenberg regarding Erich. 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 Sickly, high maintenance since then. Recently complaining of spine pain, along entire spine, achy, low grade temp, turned out to have mono (+monospot), spleen tip +, but biggest complaint remains spine pain, to touch anywhere along spine. Two years ago had a bout of meningitis, in which protein and cell count were consistent with aseptic, but gram negative rods were seen in CSF. Family has a high level of fear. [place]: isolated case reports of aseptic meningitis, GBS. Bigger reviews note that there may be a lack of typical mono symptoms. He is trying to decide whether or not to tap him (LP); because of cancer history he had a bone scanthat was negative. Suggested doing LP, but perhaps after starting him on gabapentin, 300 mg twice a day to start. If this made a big difference in his pain syndrome, perhaps there would not be a real need for an LP. Onthe other hand, should he worsen or the pain persists, or if even now the PCP feels strongly that he is worried about his appearance, an LP might be useful as a exclusionary study. Dr. Eisenberg will keep in touch, asked if I should see Erich, and I suggested that he let me know if he wants me to seehim, that I would be happy to, but that if the gabapentin seems to help (and the LP is negative) perhaps he would not need to be seen. Time of call: 12 minutes. documented in this encounter Plan of Treatment Not on file documented as of this encounter Visit Diagnoses Not on filedocumented in this encounter Care Teams Maxillofacial Pathology Relationship Specialty Start Date End Date Ernesto Eisenberg MD [address] [place] [id number] PCP - General 07/21/10 documented as of this encounter
--- OUTSIDE RECORDS SUMMARY | 2024-06-18 16:41 | XMS_ITS | Encounter Summary ---
Author Organization [facility] Address [facility] [place] [address] Care Team Providers Care Senior Pastor Name Role Phone Ernesto Eisenberg MD Primary Care Provider + [phone] Reason for Visit * Reason Comments Follow-up continued sinus conc erns * Consultation (Routine) - Closed Specialty Diagnoses / Procedures Referred By Maxine vernon Referred To Contact Otolaryngology Diagnoses Hemoptysis Carla Blankenship, NUCLEAR MEDICINE PET CT TECHNOLOGIST [address] [place] [address] Erasmo Yao III, MD [facility] [place] [address] Referral ID Status Reason Start Date Expiration Date Visits Re quested Visits Authorized [id number] Closed 01/06/2018 01/06/2019 1 1 Encounter Details Date Type Department Care Team (Late st Contact Info) Description 01/11/2018 3:00 PM EDT Office [place] [address] Erasmo Yao III, MD [facility] [place] [address] Cough with hemoptysis Social History Tobacco Use Types Packs/Day Years [...] Sign Reading Time Taken Comments Blood Pressure - - Pulse - - Temperature - - Respiratory Rate - - Oxygen Saturation - - Inhaled Oxygen Concentration - - Weight 63.5 kg (140 lb) 01/11/2018 2:58 PM EDT Height 182.9 cm (6') 01/11/2018 2:58 PM EDT Body Mass Index 18.99 01/11/2018 2:58 PM EDT documented in this encounter Progress Notes * Erasmo Yao III, MD - 01/11/2018 3:00 PM EDT Erich Mcfarlane Lauri returns for recheck. He has had some breathing difficulties, and continues to occasionally cough up a small bloody crust. His regular physician ordered a CT of the chest which was reported to him as normal, and has suggested a CT of the sinuses in an attempt to identify the source ofthe crusts.. Review of Systems: A complete review of constitutional, eyes, cardiovascular, respiratory, GI, , musculo-skeletal, skin, endocrine, psychiatric, hematologic, lymphatic and immunologic systems is completed and is as noted in the HPI. All other systems are otherwise negative. Examination shows the following: GENERAL: Well developed, well appearing, no acute distress. Vitals reviewed. HEAD/FACE/EYES: Normocephalic with no gross deformity. Extraocular movements intact. EARS: Normal exam of the external ear, ear canal, and middle ear bilaterally. NOSE: Normal external nasal exam. Septum midline. Turbinates are normal. SALIVARY: Parotid and submandibular glands are normal to inspection and palpation. ORAL CAVITY: Normal exam of oral tongue Normal mucosa without lesion Floor of mouth is soft. Dentition good repair OROPHARYNX: Normal tonsils. Normal soft palate and uvula. Posterior pharyngeal wall normal. LARYNX: Vocal cords normal. Vocal mobility normal. No mucosal lesions noted. NECK: No asymmetry on inspection No adenopathy. Normal thyroid. RESPIRATORY: Normal voice. No stridor. Normal respirations. CV: Normal carotid pulses. NEURO/PSYCH: Normal affect. Alert and oriented x 3. Responds appropriately to questions. CN II-XII grossly intact. PROCEDURES:Flexible Fiberoptic Laryngoscopy: Topical anesthetic and decongestant were applied to the nasal cavity. The flexible scope was passedto the level of the cords without difficulty. The patient tolerated the procedure well without any complications. Nasal Cavity: Normal . Excellent airways bilaterally. Nasopharynx: Normal. Tornwaldt's bursa noted. Oropharynx: Normal Larynx: Normal Hypopharynx: Normal IMPRESSION: Tornwaldt's bursa could be source of crusts and is of no clinical concern. No evidence purulent sinusitis noted on endoscopy today. documented in this encounter Plan of Treatment Not on file documented as of this encounter Visit Diagnoses Diagnosis Cough with hemoptysis Other hemoptysis documented in this encounter Care Teams Senior Pastor Relationship Specialty Start Date End Date Ernesto Eisenberg MD [address] [address] PCP - General 07/21/10 documented as of this encounter
--- OUTSIDE RECORDS SUMMARY | 2024-06-18 16:41 | XMS_ITS | Encounter Summary ---
Author Organization [facility] [place] [address] Care Team Providers Care Science Specialist Name Role Phone Ernesto Eisenberg MD Primary Care Provider [phone] Encounter Details Date Type Department Care Team (Latest Contact Info) Description 11/23/2011 - 11/23/2011 11:59 PM EDT Hospital Encounter Radiology Library at [facility] [place] [address] Uriel Cullen MD [facility] [place] [address] Discharge Disposition: Home Social History Tobacco Use Types Packs/Day Years Used Date Smoking Tobacco: Never Assessed Sex and Gender Information Value Date Recorded Sex Assigned at Not on file Gender Identity Not on file Sexual Orientation Not on file documented as of this encounter Medications at Time of Discharge Medication Sig Dispensed Refills Start Date End Date ASCORBIC ACID (VITAMIN C ORAL) 03/11/2010 Sodium Fluoride 1 mg (fluoride) (2.2 mg) Tab 03/11/2010 04/27/2013 MULTIVITAMIN ORAL 03/11/2010 05/15/2013 documented as of this encounter Plan of Treatment Not on file documented as of this encounter Procedures Procedure Name Priority Date/Time Associated Diagnosis Comments FILM LIBRARY STORAGE ONLY MR KNEE Routine 11/23/2011 12:00 AM EDT documented in this encounter Results * Film Library- Storage Only MR Knee (11/23/2011 12:00 AM EDT) Narrative RAD - 06/06/2018 9:48 AM EDT This exam is for storage only and is auto-finalizing. Uriel Cullen MD IMG FILM LIBRARY ORD ERABLES [place], [place] documented in this encounter Visit Diagnoses Not on filedocumented in this encounter Care Teams Science Specialist Relationship Specialty Start Date End Date Ernesto Eisenberg MD [address] [place] [id number] PCP - General 07/21/10 documented as of this encounter
--- OUTSIDE RECORDS SUMMARY | 2024-06-18 16:41 | XMS_ITS | Encounter Summary ---
[facility] [place] [address] Care Team Providers Care Flagman Name Role Phone Ernesto Eisenberg MD Primary Care Provider [phone] Encounter Details Date Type Department Care Team (Late st Contact Info) Description 05/15/2013 Orders Only [place] [address] Inga Javier MD [facility] [place] [address] Dyspnea on exertion (Primary Dx) Social History Tobacco Use Types [...] this encounter Results * Pulmonary Function Testing (05/20/2013 10:51 AM EDT) Narrative Socorro Benjamin MD - 05/20/2013 10:51 AM EDT Socorro Benjamin MD ? 05/20/2013 10:51 AM Both the FEV1 and FVC are reduced. The FEV1/FVC ratio is normal. The total lung capacity is normal. The elevated RV/TLC may suggest air trapping. Diffusion capacity is normal. The oxygen saturation on room air at rest is normal. SOCORRO BENJAMIN MD Procedure Note Socorro Benjamin MD - 05/20/2013 10:49 AM EDT Both the FEV1 and FVC are reduced. The FEV1/FVC ratio is normal. The total lung capacity is normal. The elevated RV/TLC may suggest airtrapping. Diffusion capacity is normal. The oxygen saturation on room air at rest is normal. SOCORRO BENJAMIN MD Inga Javier MD PFT ORDERABLES documented in this encounter Visit Diagnoses Diagnosis Dyspnea on exertion- Primary Other dyspnea and respiratory abnormality Dyspnea on exertion Other dyspnea and respiratory abnormality Chest pain Chest pain, unspecified documented in this encounter Care Teams Flagman Relationship Specialty Start Date End Date Ernesto Eisenberg MD [address] [place] [id number] PCP - General 07/21/10 documented as of this encounter
--- OUTSIDE RECORDS SUMMARY | 2024-06-18 16:41 | XMS_ITS | Encounter Summary ---
Author Organization [facility] Address [facility] [place] [address] Care Team Providers Care Bench Precision Assembler Name Role Phone Denys Eisenberg MD Primary Care Provider [phone] Reason for Visit * Reason Comments Sinusitis Mom reports that Kirill grewal has always had a few sinus infections a year for the past few years. This year seems to be worse, with no improvement with antibiotic treatment. He states that it seems to be worse on the right side, with more facial pressure on the right side. He is also coughing up yellow stuff. Mother states that it is very common for her and her to have sinus issues as well. History of Chemotherapy when he was 6 yo for leukemia. Encounter Details Date Type Department Care Team (Late st Contact Info) Description 05/01/2013 1:15 PM EDT Office [place] [address] Skye Yao MD [facility] [place] [address] Chronic sinusitis (Primary Dx); Recurrent sinus infections Discharge Disposition: Home Social History Tobacco Use Types Packs/Day Years Used Date Smoking Tobacco: Never Alcohol Use Standard Drinks/Week Comments No 0 (1 standard drink = 0.6 oz pur e alcohol) Sex and Gender Information Value Date Recorded Sex Assigned at Not on file Gender Identity Not on file Sexual Orientation Not on file documented as of this encounter Last Filed Vital Signs Vital Sign Reading Time Taken Comments Blood Pressure 112/61 05/01/2013 1:53 PM EDT Pulse 87 05/01/2013 1:53 PM EDT Temperature - - Respiratory Rate - - Oxygen Saturation - - Inhaled Oxygen Concentration - - Weight 59.9 kg (132 lb) 05/01/2013 1:53 PM EDT Height 180.3 cm (5' 11) 05/01/2013 1:53 PM EDT Body Mass Index 18.41 05/01/2013 1:53 PM EDT Body Mass Index Percentile 17.04% 05/01/2013 1:5 3 PM EDT Growth Chart: [facility] (Boys, 2-2 0 Years) documented in this encounter Progress Notes * Skye Yao MD - 05/01/2013 1:57 PM EDT Pediatric Otolaryngology Outpatient Consultation Note Date of Visit: 05/01/2013 Location of Visit: Otolaryngology Clinic, [facility] Patient: Erich Mcfarlane Lauri ([id number]; 1995) Primary Care Provider: DENYS EISENBERG MD Referring Provider: Mata Jackman Reason for Visit: Erich is a 18 y.o. male seen at the request of Mata Jackman in consultation for right facial pain concerning for chronic/recurrent sinusitis on the right side. History of Present Illness: Erich presents with mother to discuss right sided facial pain and recurrent sinusitis. Prior to the last year, episodes were temporary and responded to oral antibiotics (2 per year). Over the past year, relatively unresponsive. Currenlty with symptoms, last round of oral antibiotics 6-8 weeks ago - azithromycin. No real improvement with oral antibiotics now. No nasal hygiene with saline, no relief with topical nasal steroid spray. Tried Manju Pot once or twice last year. No left-sided concerns or issues. Recent non-contrast CT scan performed in January 2013 - at the time, Erich was symptomatic with cough,headache. Family history of sinus infection, usually 2-3 times per year that clear - this has been different for Erich. Past Medical History: Past Medical History Diagnosis Date ??? Leukemia ??? Sinusitis Past Surgical History: Past Surgical History Procedure Date ??? Tonsillectomy and adenoidectomy ??? Appendectomy Medications: Current Outpatient Prescriptions on File Prior to Visit Medication Status Sig Dispense Refill ??? LEVALBUTEROL TARTRATE (XOPENEX HFA INHL) Active Inhale into the lungs as needed. ??? IBUPROFEN ORAL Active Take by mouth as needed. ??? LORATADINE (CLARITIN ORAL) Active Take by mouth as needed. ??? MULTIVITAMIN ORAL Active ??? ASCORBIC ACID (VITAMIN C ORAL) Active Allergies: Asparaginase; Cis free text allergy; and Keflex Social History: Lives [place] [address], [place], with mother and sister. Eleventh grader. No daycare. No secondhand smoke exposure. Immunizations UTD. Family History: Family History Problem Relation Age of Onset ??? Cancer Other Review of Systems: Pertinent positive findings discussed above. No other findings on review of constitutional, visual, cardiovascular, respiratory, gastrointestinal, genitourinary, musculoskeletal, dermatologic, neurological, psychiatric, endocrine, hematologic or immunologic systems. Physical Examination: Vitals: Blood pressure 112/61, pulse 87, height 180.3 cm (5' 11), weight 59.875 kg (132 lb). General: Age-appropriate interactive behavior. Breathing comfortably without stridor, stertor. No retractions. No acute distress. Face: Full and symmetric facial movement. No [...] without masses or asymmetry.Trachea midline without deviation. Lungs: Clear to auscultation bilaterally without wheezes. Heart: Regular rate and rhythm without murmur. Abdomen: Soft, non-tender, non-distended. Extremities: Warm, well-perfused, mobile, and sensate. Lymphatic: Negative for additional peripheral lymphadenopathy or lymphedema. Neurologic: Cranial nerves II-XII intact and symmetric. Procedure - Flexible Fiberoptic Nasal Endoscopy and Nasopharyngoscopy: Topical anesthetic applied to the nasal cavity. Patient tolerated the procedure well without complication. Findings: Nasal Cavity: Mild-moderate septal spur anteriorly with inferior deviation into lower middle meatus, not obstructive; low trade mucoid drainage posteriorly (swabbed) Nasopharynx: Small amount [...] Swab 05/01/13: Normal upper respiratory sayra. Impression: History of long-term low-grade recurrent sinusitis with worsening over the past year, primarily involving right side (symptomatically) and on January 2013 imaging. History of ALL s/p chemotherapy. History of bacterial meningitis secondary to poor immunization status associated with immunosuppression. Recommendations: Nasal swab taken today for culture - no resistant bacteria in light of persistent/recurrent sinusitis Augmentin 875mg BID x 3 weeks with Afrin, Saline Rinse, Flonase. Return in 3-4 weeks for recheck. Consider focused right maxillary antrostomy, anterior ethmoidectomy possible nasofrontal recess. STEALTH cannot be utilized with outside films after review (too thick cuts, nasal tip and ears cut off). Consider revision/completion adenoidectomy, as well. Family happy with plan. Skye Yao MD, FAAP Pediatric Otolaryngology [facility] [place], [place] [address] Office documented in this encounter Plan of Treatment Not on file documented as of this encounter Procedures Procedure Name Priority Date/Time Associated Diagnosis Comments UPPER RESPIRATORY CULTURE Routine 05/01/2013 4:43 PM EDT Chronic sinusitis documented in this encounter Results * Upper Respiratory Culture Nasal (05/01/2013 4:43 PM EDT) Upper Respiratory Culture ? Patient Name: LAURI, ERICH P ?Ordered By: SKYE YAO ? MR#: [id number] ?LOC: ??4F ? /Sex: ??1995 (18 years), ? Male ? PROCEDURE: Upper Respiratory Culture ?SOURCE: Nasal ? COLLECTED: 05/01/2013 16:43 ?FREE TEXT SOURCE: Right nasal swab. ? STARTED: 05/01/2013 16:43 ? FINAL REPORT ? Final Report ? Verified:2012 08:30 ? Many mixed bacterial morphotypes suggestive of normal upper respiratory ? sayra ? PRELIMINARY REPORT ? Preliminary Report ? Verified:2012 11:40 ? Rare mixed bacterial morphotypes suggestive of normal upper respiratory ? sayra ? MICAHNER MILLENNIUM Specimen from nose (specimen) 05/01/2013 4:43 PM EDT 05/01/2013 4:43 PM EDT Comment:RIGHT NASAL SWAB. Narrative Resulting Agency Comment Spec In Lab Skye Yao MD MICROBIOLOGY - GENER AL ORDERABLES [facility] documented in this encounter Visit Diagnoses Diagnosis Chronic sinusitis- Primary Unspecified sinusitis (chronic) Recurrent sinus infections Unspecified sinusitis (chronic) documented in this encounter Care Teams Bench Precision Assembler Relationship Specialty Start Date End Date Denys Eisenberg MD [address] [address] PCP - General 07/21/10 documented as of this encounter
--- OUTSIDE RECORDS SUMMARY | 2024-06-18 16:41 | XMS_ITS | Encounter Summary ---
Author Organization [facility] [place] [address] Care Team Providers Care Tongue And Groove Machine Feeder Name Role Phone Denys Eisenberg MD Primary Care Provider + [phone] Reason for Visit * Reason Comments Breathing Problem Encounter Details Date Type Department Care Team (Late st Contact Info) Description 05/15/2013 2:00 PM EDT Office Visit [place] [address] Inga Javier MD [facility] [place] [address] Dyspnea on exertion; Chest pain; Fatigue; Sinusitis Discharge Disposition: Home Social History Tobacco Use [...] Sign Reading Time Taken Comments Blood Pressure 116/68 05/15/2013 2:02 PM EDT Pulse 84 05/15/2013 2:02 PM EDT Temperature - - Respiratory Rate 14 05/15/2013 2:02 PM EDT Oxygen Saturation 97% 05/15/2013 2:02 PM EDT Inhaled Oxygen Concentration - - Weight 61 kg (134 lb 6 oz) 05/15/2013 2:02 PM ED T Height 180 cm (5' 10.87) 05/15/2013 2:02 PM EDT Body Mass Index 18.81 05/15/2013 2:02 PM EDT Body Mass Index Percentile 22.17% 05/15/2013 2:0 2 PM EDT Growth Chart: [facility] (Boys, 2-2 0 Years) documented in this encounter Patient Instructions * Patient Instructions* Inga Javier MD - 05/15/2013 4:41 PM EDT Not clear what the cause of chest pain and shortness of breath is at this point Do not feel it is chest wall muscle weakness from chemotherapy or radiation Exercise study ordered to better define what is happening when you exercise Will follow up at the same time documented in this encounter Progress Notes * Inga Javier MD - 05/15/2013 9:15 PM EDT 05/15/2013 INGA JAVIER MD Erich P Lauri 18 y.o. [id number] DENYS EISENBERG MD [phone] Denys Eisenberg CC: Chest pain and shortness of breath HPI: Erich is a 18 y.o.male for whom consultation is sought by Dr. Eisenberg regarding one year history ofmid-sternal chest pain and dyspnea, primarily with exercise. History is obtained from Erich and his mother Records of prior care are available and reviewed as part of the encounter. Mother notes that about a year ago Erich had the sudden onset of mid-sternal sharp chest pain associated with shortness of breath while exercising. He has had frequent episodes of the same pain and dyspnea mostly with exercise but also when sitting quietly. The two always go together--he never has pain without dyspnea or dyspena without pain. He does not feel the dyspnea is due to the pain. He does not have cough or wheeze but he has had an inspiratory noise consistently when he takes a deep breath--also for the last year. He notes pain on deep iinspiration that is also substernal. He has nothad the pain to wake him at night. He has tried using xopenex inhaler with some relief of the pain.Us of the inhaler before exercise does not obviate the pain. 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 He completed chemotherapy and has been followed by pediatric Heme/Onc with no relapse. He was recently released to follow up with them prn. He has had fatigue for a number of years, since the chemotherapy. The fatigue keeps him from exercising at the intensity he would like and it is unrelated to thechest pain. It has not gotten worse since the development of the chest pain. He had a cardac ECHO in June 2012 that was normal--this was done after the onset of the chest pain to rule out any cardiac complication of his chemotherapy. He was evaluated by his PCP with spirometry and lung volumes early in this year and had a PFT that showed a mild restrictive pattern with no bronchodilator response. Repeat study in January showed no restriction. Maximum inspiratory and expiratory pressures were measured and were reported as being below normal. Maximum voluntary ventilation (MVV) was also done and was normal, although somewhere in his records is an interpretation that it was below normal and represented a point of concern about neurologic complication of his chemotherapy or mantle radiation. He has been seen by pediatric neurology who did not feel he had a neurologic cause for his dyspnea and did not recommend further studies.He is able to play basketball--his love-- for a brief time with friends if he paces himself. He makes a point of spending more time shooting and less time running to conserve his energy. He has a history of likley allergic rhinitis symptoms and recently has been treated for a persistent sinusitis with concern that he will need FESS for management. He currently is on a 21 day course of Augmenting plus nasal hygiene, but has not been able to do the sinus washes or steroid nose spray for a couple of days because of local burning. He is to see ENT again next week for follow up. ROS: Constitutional: fatigue since completion of chemotherapy >10 years ago Allergy/Immunology: allergic rhinitis sx but no formal diagnosis Skin: neg Musculoskeletal: question of chest wall muscle weakness to explain dyspnea Eye: neg ENT: sinusitis and allergies Respiratory: see above Cardiovascular: neg Gastrointestinal: neg Neuro/Psych: cognitive problems felt due to his intrathecal chemotx and a more recent episode of meningitis Patient Active Problem List Diagnosis Code ??? Chest pain 786.50 ??? Fatigue 780.79 ??? ALL (acute lymphoblastic leukemia of infant) 204.00 ??? Sinusitis 473.9 ??? Dyspnea on exertion 786.09 Current Outpatient Prescriptions on File Prior to Visit Medication Status Sig Dispense Refill ??? acetaminophen (TYLENOL) 325 mg tablet Active Take 650 mg by mouth every 4 hours as needed. ??? amoxicillin-clavulanate (AUGMENTIN) 875-125 mg per tablet Active Take 1 tablet by mouth 2 timesdaily for 21 days. 42 tablet 1 ??? LEVALBUTEROL TARTRATE (XOPENEX HFA INHL) Active Inhale into the lungs as needed. ??? IBUPROFEN ORAL Active Take by mouth as needed. ??? ASCORBIC ACID (VITAMIN C ORAL) Active ??? fluticasone (FLONASE) 50 mcg/actuation nasal spray Active 1 spray by Each Nare route daily for 30 days. 16 g 6 ??? LORATADINE (CLARITIN ORAL) Active Take by mouth as needed. ??? MULTIVITAMIN ORAL Discontinued Allergies Allergen Reactions ??? Asparaginase ??? Cis Free Text Allergy POSS E-COLI RXN W/L-ASPARIGINASE. ??? Keflex (Cephalexin) Prior Medical History: : term delivery in [place], [place]; wt 7 lb 9 oz, no complications Immunizations: current; was behind for a while when on chemotherapy, but caught up. Needs flu shot for this year Hospitalizations: Multiple for chemotherapy; 2010--meningitis Surgery: Port placement; T&A, appendectomy Family History: No asthma or other respiratory disease Grandmother and uncle have sleep apnea Social and Environmental History: Lives with mother and sister [place] [facility]. No smokers Dog and cats in home Carpet on floor Exam: Filed Vitals: 05/15/13 1402 BP: 116/68 Pulse: 84 Resp: 14 Height: 180 cm (5' 10.87) Weight: 60.952 kg (134 lb 6 oz) SpO2: 97% General: Well developed, well-nourished male in no distress. Interactive and answers questions appropriately Head: Normocephalic, Eyes: Conjunctivae clear; no discharge Ears: TM's clear bilat; no erythema or bulging; landmarks visible Nose: Nasal airway patent; mucosa erythematous on the right, pink on the left; discharge minimal Oropharynx: Mucous membranes moist;; tonsils minimal; postnasal drainage absent; cobblestone appearance of the posterior pharyngeal wall Neck: Supple; no adenopathy; no mass Chest: No increase in AP diameter or increase in work of breathing. No retractions or use of accessory muscles; coarse sterterous inspiratory noise from trachea/upper airway source on forced inspiration Lungs: Breath sounds clear; transmitted upper airway inspiratory stertor; good air exchange. Rales absent; wheezes absent; rubs absent Heart/Vascular: RRR without murmur; pulses equal and full Extremities: Digital clubbing absent; No joint swelling or tenderness Skin: No rash or excoriation Neurol: Grossly normal PFT: FVC 3.94 L (77% predicted); FEV 1 3.71 L (86%), FEV 1/FVC 0.94; FEF 25/75 6.43 L/S (143%) Interpretation: Question of mild restriction; after albuterol 2.5 mg nebulizer treatment there was no change in airflow Lung volumes by nitrogen washout show TLC normal at 84% predicted; however, slow vital capacity slightly decreased, as is inspiratory capacity. Picture inconsistent for restriction and not consistentwith obstruction. Shape of flow/volume loop is normal. CO diffusion is normal. Assessment: 1. Chest pain and dyspnea without obvious source 2. Exercise intolerance that may be independent of chest pain/dyspnea 3. Fatigue following chemotherapy and radiation 10 years ago 4. History of chemotherapy with no pulmonary toxic drugs; mantle radiotherapy but picture is not consistent with a neuromuscular weakness to explain exercise limitation. Pain associated with shortness of breath is not likely of neuromuscular origin. Plan: 1. Formal exercise stress test with PFT monitoring scheduled for same day as ENT appointment next week. 2. Return for reevaluation when exercise study is done 3. No indication for any additional intervention at this point. * Thanh Pressley - 05/15/2013 1:34 PM EDT [facility] Consult Note Patient Info: Name: Erich Mcfarlane Lauri : 1995 PCP: DENYS EISENBERG MD PCP PCP Referring Provider: Denys Eisenberg Service: [facility] Responsible Attending: Inga Javier MD CC: chest pain and dyspnea on exertion and at rest HPI: Erich is a 18 y.o.male for whom consultation is sought by Dr. Denys Eisenberg regarding dyspnea on exertion. Records of prior care are available and reviewed as part of the encounter. In brief, Erich is a 18-year-old male with a PMHx notable for pre-B-cell ALL at 18-months of age treated with the following chemotherapy regimen: asparaginase (had to go to [facility]), cyclophosphamide(total dose 1 g/m2), IT cytarabine, daunomycin (total anthracycline dose 90 mg/m2), dexamethasone, IT hydrocortisone, mercaptopurine, IV and IT methotrexate, thioguanine, and vincristine. He has beenin complete clinical remission since 09/1998 and completed chemotherapy without radiation on 03/28/2001. His last note from heme/onc clinic was from Dr. Guevara on 03/11/2010. Other than reported eczema, seasonal allergies, RAD, chronic sinusitis, bacterial meningitis in 2010, and easy fatigability recorded as diagnoses, he has clinically done well since remission. His chronic sinusitis flared this past winter and he received amoxicillin and Azithromycin this past winterseason. On 01/17/2013 he was started on Augmentin for a flare in his symptoms and a recent, subsequent CT scan on 03/27/2013 confirming the diagnosis in the right frontal, ethmoid, and maxillary sinuses and prompting referral to Dr. Yao from ENT to consider sinus surgery. He has complained of dyspnea with vigorous activity since childhood, but he developed a substernal discomfort with fatigability and dyspnea and less intense levels of exercise starting about a year ago. The pain was described as pleuritic even with minimal exertion, but there has never been cyanosis. He had an echocardiogram at [facility] in after the onset of the chest pain in 06/2012 to rule-out chemotherapy-mediated cardiac etiologies for the chest pain and that study was read as normal. He had subsequent PFTs in 08/2012 reported as moderate restrictive changes (FEV1/FVC = 0.99, FVC = 79% predicted, FEV1 = 91% predicted, and TLC via plethysmography = 76% predicted with RV/TLV = 144% predicted at 0 .33) and follow-up PFTs while he was still having the chest pain on 02/15/2013 were read as normal aside from decreased MIP and MEP suggestive of possible neuromuscular disease (results reported below). His CXRs have been reported as normal. He was seen in the ED on 01/24/2013 with these symptoms and, with concerns of this atypical chest pain, they ordered a D-dimer, CRP, CMP, and CBC w/ diff that were all reportedly normal (although absolute numbers were not recorded or sent to us). He was seen by Dr. Toth on 04/27/2013 with the concerns of a neuromusclar etiology but she did not feel this was likely and ordered a CK which was well within the normal limits. History is obtained from the patient and his mother. Erich is a 18-year-old male with a history of pre-B-cell ALL in clinical remission since 1998, presumed seasonal allergies, chronic sinusitis, and baseline dyspnea on exertion that acutely worsened approximately year ago now associated with sternal chest pain. While he has always had difficulties keeping up with other children and needed to take breaks when he was playing basketball, he did not have any difficulties with climbing stairs until the chest pain began. The first episode of chest pain occurred around the time of a sinus infection, but it was not associated with a choking/aspiration event, stressors, new food, or any other identifiable triggers. He describes the chest pain as being sharp in nature, it has an abrupt onset, is located centrally over the superior portion of the sternum and being the size of his fist, and it lasts for 20-30 minutes whether or not he takes his Xopenex inhaler. It is always associated with dyspnea and he does not feel like the pain is so severe that it is causing him to be dyspneic. He notes that vigorous exercise (playing basketball for 30- 60 minutes), heat (such as being in a hot car), and eating quickly can trigger the chest pain, although he notes that the chest pain and dyspnea can occur while at rest without any trigger. Sometimes the pain is more severe than others and this typically occurs with exercise. Whereas the pain is 5/10 on the pain scale typically, it will be 8/10 if he is exercising vigorously. When he gets this pain and dyspnea, he will stop his activities, take two puffs of his Xopenexinhaler, the pain will decrease to 1/10 after 5 minutes, and then the pain will completely resolve in 20-30 minutes without any further intervention. Both he and his mother are unsure if the Xopenex makes any difference and he has tried taking it before exercising without any added benefit, but he still has been taking it anywhere from every other day to as often as multiple times per day depending on how much exercise he gets on a given day. He denies any dysphagia, difficulty swallowing, or dyspepsia with these episodes or otherwise. He does report and occasional daily cough that occurs when he feels like he has sputum to expectorate from his post-nasal drainage. He does not have a cough at night and he denies nighttime awakenings from cough, dyspnea, or otherwise. He does not that he has some audible wheezing during gym class at school or playing a lot of basketball, and his mother believes the sound she hears is more of an inspiratory noise than an expiratory noise. While he has had chronic sinusitis, pneumonia 2-3 times in his life, and a few ear infections during his childhood, he has since denied any frequent infections more than his peers experience. His immunizations were delayed as a child which is why his mother thinks he had more infections when he was younger. He is not up-to-date with his immunizations, although he has not received the seasonal in fluenza vaccine this year. He denies any diarrhea, constipation, hematochezia, melena, dysuria, or hematuria. He has frontal headaches that he believes is secondary to his right- sided sinusitis. He reported awaking tired in the mornings even after an adequate time to sleep, but this has been ongoing and relatively unchanged since childhood. He reports that his blood counts have been normal and that he got some blood workyesterday, but is still awaiting the results. He notes that he has a presumptive diagnosis of seasonal allergies in the spring and fall that consist of rhinorrhea and a cough without congestion or sinus pressure, and these symptoms have been responsive to Claritin. His last dose of Claritin was a couple weeks ago. He saw Dr. Yao from ENT a few weeks ago who recommended an extended 21-day course of Augmentin (now two weeks into therapy), nasal washes, Flonase, and Afrin which Erich was originally able to tolerate with good effect but he has since stopped the intranasal medicines/washes since they caused an intranasal burning sensation. He has an appointment to see Dr. Yao again next week for further discussion of whether or not Erich requires sinus surgery. ROS: Constitutional: chronic fatigue; headaches (?2/2 sinusitis) Allergy/Immunology: ?seasonal allergies; frequent infections during childhood Skin: history of eczema Musculoskeletal: frequent muscle aches/pains treated with NSAIDs; ?chest wall weakness to explain chest pain/dyspnea Eye: neg ENT: chronic sinusitis Respiratory: chest pain; dyspnea on exertion Cardiovascular: neg s/p normal echocardiogram Gastrointestinal: denies dysphagia, odynophagia, or dyspepsia Neuro/Psych: cognitive impairment s/p IT chemo and later bacterial meningitis Heme: pre-B-cell ALL as an with remission since 1998 Problem List: Patient Active Problem List Diagnosis Code ??? Chest pain 786.50 ??? Fatigue 780.79 ??? ALL (acute lymphoblastic leukemia of ) 204.00 ??? Sinusitis 473.9 ??? Dyspnea on exertion 786.09 Medications: Current Outpatient Prescriptions on File Prior to Visit Medication Status Sig Dispense Refill ??? acetaminophen (TYLENOL) 325 mg tablet Active Take 650 mg by mouth every 4 hours as needed. ??? amoxicillin-clavulanate (AUGMENTIN) 875-125 mg per tablet Active Take 1 tablet by mouth 2 timesdaily for 21 days. 42 tablet 1 ??? LEVALBUTEROL TARTRATE (XOPENEX HFA INHL) Active Inhale into the lungs as needed. ??? IBUPROFEN ORAL Active Take by mouth as needed. ??? ASCORBIC ACID (VITAMIN C ORAL) Active ??? fluticasone (FLONASE) 50 mcg/actuation nasal spray Active 1 spray by Each Nare route daily for 30 days. 16 g 6 ??? LORATADINE (CLARITIN ORAL) Active Take by mouth as needed. ??? MULTIVITAMIN ORAL Discontinued Allergies: Allergies Allergen Reactions ??? Asparaginase ??? Cis Free Text Allergy POSS E-COLI RXN W/L-ASPARIGINASE. ??? Keflex (Cephalexin) Prior Medical History: : Full-term infant with nuchal cord but no other complications. Normal development until ALL diagnosis at 18 months. Immunizations: originally behind schedule 2/2 chemo regimen; now UTD, has not received seasonal influenza vaccine this season Hospitalizations: [id number]: chemotherapy regimen : overnight stay s/p T&A 2008: appendicitis 2011: 5-day hospitalization for bacterial meningitis with secondary worsened cognitive deficits Surgery: 1998: central line placement x2 : T&A 2008: appendectomy Family History: GM and Uncle: sleep apnea MGM: lymphoma The patent denies any family history of asthma, CF, TB, SIDS, other respiratory problems, or childhood illnesses. Social and Environmental History: The patient lives with his mother and younger sister in a 21-year-old double- wide trailer in [place], [place]. They have two cats and a dog, neither of which appear to exacerbate Erich's nasal or chest symptoms. There is carpet in the home. He is in 11th grade and has had some cognitive difficulties thought to be secondary to his past chemotherapy and bacterial meningitis. Exam: Filed Vitals: 05/15/13 1402 BP: 116/68 Pulse: 84 Resp: 14 Height: 180 cm (5' 10.87) Weight: 60.952 kg (134 lb 6 oz) SpO2: 97% General: well developed, well-nourished, interactive teenage male wearing [employer]ics gear from head totoe; NAD Head: NCAT Eyes: conjunctivae clear; no discharge Ears: TMs clear bilat; no erythema or bulging; landmarks visible Nose: nasal airway patent; right nasal mucosa erythematous and boggy; left nasal mucosa normal without discharge Oropharynx: MMM; good dentition; tonsils absent; postnasal drainage mild/moderate; no appreciable cobblestoning; no other oropharyngeal lesions or exudates Neck: supple; no cervical or supraclavicular lymphadenopathy; no masses Chest: no increase in AP diameter or increase in work of breathing; no retractions or use of accessory muscles Lungs: adequate air exchange; transmitted upper airway sounds vs inspiratory stridor more prominentat apices bilaterally than bases; mild expiratory wheeze heard bilaterally at apices with clear bases; no rhonchi, rales, or rubs Heart/Vascular: RRR without murmur; radial pulses 2+ and symmetric; capillary refill < 2 seconds Abdomen: normoactive BS; soft; NT; ND; no HSM or masses Extremities: digital clubbing absent; no joint swelling or tenderness Skin: no rashes or excoriations Neuro: grossly normal without any focal neurological deficit Imaging: CXR (01/17/2013): Read as normal. We do not have the images in our system. CXR (01/24/2013): Read as normal without interval changes. We do not have the images in our system. Complete TTE (07/11/2012): Indication - shortness of breath. Normal echo with no valvular insufficiency, RV/LV chamber size, wall thickness, and systolic function. Spirometry: 05/15/2013: Pre-Bronchodilator: FVC 3.94 L (77% predicted) FEV 1 3.71 L (86% predicted) FEV 1/FVC 0.94 FEF 25/75 6.43 L/S (143% predicted) FEFmax 10.89 (123% predicted) FEF50/FIF50 153 (155% predicted) FIFmax 4.49 MVV 133.95 (103% predicted) TLC 5.70 L (84% predicted) SVC 3.80 (75% predicted) FRC 3.69 (102% predicted) RV 1.90 (114% predicted) RV/TLC 33 (135% predicted) ERV 1.79 (92% predicted) IC 2.01 (64% predicted) Dsb 32.11 (107% predicted) DsbHb 32.11 (107% predicted) VAsb 5.13 (76% predicted) Post-Bronchodilator: FVC 3.82 L (75% predicted; - 3% change) FEV 1 3.48 L (81% predicted; -6% change) FEV 1/FVC 0.91 FEF 25/75 7.21 L/S (161% predicted; +12% change) FEFmax 9.87 (111% predicted; -9% change) FEF50/FIF50 186 (188% predicted; +21% change) FIFmax 4.49 (+23% change) Interpretation: Possible mild restrictive defect (decreased FVC although TLC is normal) with elevated RV/TLC ratio that is physiologic vs air trapping. DLCO is normal with a normal MVV. There is no improvement with bronchodilator administration. Previous PFTs -- 02/15/2013: TLC 5.62 L (84% predicted) FVC 4.02 L (85% predicted) FEV 1 3.87 L (95% predicted) FEV 1/FVC 0.96 FEF 25/75 6.18 L/S (137% predicted) RV 1.80 L (130% predicted) MVV 150 L/min (180% predicted) MEP 66 cm H2O (29% predicted) MIP -69 cm H2O (34% predicted) DLCO 36 mL/min/mmHg (155% predicted) R(aw) 0.98 cm H2O/L/s (54% predicted) Interpretation: No obstruction or restriction. Severely decreased MEP with mildly decreased MIP suggestive of possible underlying neuromuscular weakness. Elevated DLCO consistent with possible early asthma. Assessment: Erich is a 18-year-old male with a PMHx notable for pre-B-cell ALL s/p chemotherapy and remission for over 10 years, chronic sinusitis, and suspected seasonal allergies who presents after the abrupt worsening in his exercise intolerance associated with a new-onset substernal chest pain that has persisted almost daily for the past year with a relatively normal work-up to date and without any subjective responsiveness to beta2-agonist bronchodilators. 1. Chest Pain and Dyspnea - The etiology of Erich's chest pain and worsening exercise intolerance is not immediately clear given the work-up to date although he does have depressed MIP and MEP on PFTs without any obvious obstructive or restrictive defect and there was no improvement with bronchodilators. Items on the differential include acute worsening of inadequately-controlled exercise-induced asthma, chest wall pain se condary to delayed chemotherapy effects, esophageal spasm, GERD, angina (variant versus coronary artery abnormalities), arrhythmia, anemia, PE, neuromuscular, or psychogenic. - Worsening of exercise-induced asthma is possible and we would not necessarily see any changes on office spirometry unless Erich were exercising. He would be expected to have some response to his bronchodilator while playing sports, though, unless it is more severe or he is using an improper technique. - Chest wall pain seems unlikely since his chemotherapy regimen does not include agents that typically cause pulmonary or chest wall complications. It is recorded by his PCP that he has had mantle radiation, but Dr. Guevara's heme/onc note specifically states that he received chemotherapy only without radiation. Radiation may cause delayed chest wall pain if he did indeed receive it, though. - Esophageal spasm is definitely possible given the location of the pain but he denies any dysphagia, regurgitation, or difficulties with certain foods (rather, he complains when he eats any food toofast) which would typically trigger an episode. Manometry could help differentiate this etiology ifnecessary. - GERD is possible as it would explain why he has symptoms both at rest and with exercise, but he denies any dyspepsia or experienced regurgitations. He denies any associations with specific foods. ApH probe or an empiric acid-suppressor trial with a H2-jeyson or PPI would help differentiate thisetiology if necessary. - Originally, this pain sounded anginal in nature with its onset with exercise and association withdyspnea. Yet, he can experience this combination of pain and dyspnea at rest which is atypical for angina. 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 Since his symptoms are reproducible with exercise, we would expect to see EKG changes during the episodes of pain and dyspnea if there is angina of any etiology present. Even if Prinzmetal's were not the etiology, he could have angina possibly secondary to cardiotoxic da unomycin chemotherapy that could occur at times when he is resting if he is anxious and tachycardic. - An arrhythmia is plausible and we should see changes on an exercise EKG, although having variabletriggers like heat or exercise while also occurring at rest seems unusual to me. - Anemia is plausible and feeds into the anginal picture, but his blood counts have reportedly beennormal. This would also explain his chronic fatigability, though. - While a PE explains the acute onset, his symptoms should not have persisted this long. Using the Well's score, he would be in the low-risk category meaning that the D-dimer obtained back in December that was normal essentially excludes PE from the differential. - Neuromuscular causes may explain the dyspnea but not necessarily the chest pain. Further, Dr. Toth's full evaluation did not reveal any neurologic abnormalities to suggest other areas that would normally be affected with a neuromuscular disease. - Cancer survivors have a higher incidence of psychiatric diseases including anxiety compared to the general cancer-free population. While Erich could not identify any recent stressors around this time, these episodes could represent panic attacks, although it is unclear why he would experience these while climbing the stairs or playing the sport that he loves (basketball; which he often plays byhimself without any pressure and still has these symptoms). 2. 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 Exercise Intolerance and Chronic Fatigue s/p Chemotherapy 4. Presumed Seasonal Allergic Rhinitis - Formal allergen testing has not been completed and the family has not taken any precautionary measures to reduce exposure to common allergens. 5. Requires Seasonal Influenza Vaccine Plan: 1. Spirometry with DLCO and lung volumes ordered today and reported above. 2. Ordered exercise stress test with PFT monitoring next week on the same day as his ENT appointment with subsequent follow-up in our clinic later that day. 3. Recommend skin testing to common allergens (dust mites, dog, cat, pollens, and molds) at next visit. 4. Recommend administration of the seasonal influenza vaccine at the next visit. 5. Consider a PPI trial or esophageal manometry if GERD or esophageal spasm, respectively, if the exercise testing does not elucidate a cardiorespiratory etiology during an episode where the patient is experiencing the chest pain and dyspnea. 6. Proper inhaler technique was reviewed with the patient to ensure maximal albuterol delivery to the lungs during episodes. I plan to see Erich for follow-up in one week on 05/22/2013 after his exercise PFTs and ENT appointment with Dr. Yao. Thank you for having me participate in the care of Erich for his chest pain and dyspnea on exertion. [facility] Pediatric Pulmonology Thanh Pressley MS IV #[id number] 05/15/2013 documented in this encounter Plan of Treatment Scheduled Orders Name Type Priority Associated Diagnoses Orde r Schedule Pulmonary Function Testing Procedures Routine Dyspnea on exertion Chest pain Expected: 05/15/2013 (Approximate), Expires: 05/15/2014 documented as of this encounter Results * [...] respiratory abnormality Chest pain Chest pain, unspecified Fatigue Other malaise and fatigue Sinusitis Unspecified sinusitis (chronic) Dyspnea on exertion Other dyspnea and respiratory abnormality Chest pain Chest pain, unspecified documented in this encounter Care Teams Tongue And Groove Machine Feeder Relationship Specialty Start Date End Date Denys Eisenberg MD [address] [place] [id number] PCP - General 07/21/10 documented as of this encounter
--- OUTSIDE RECORDS SUMMARY | 2024-06-18 16:41 | XMS_ITS | Encounter Summary ---
Author Organization [facility] [place] [address] Care Team Providers Care Document Image Technician Name Role Phone Ernesto Eisenberg MD Primary Care Provider + [phone] Reason for Visit * Reason Comments Follow-up Encounter Details Date Type Department Care Team (Late st Contact Info) Description 05/22/2013 11:00 AM EDT Follow-Up [place] [address] Inga Javier MD [facility] 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 His symptoms are unchanged in the last week He has chest pain but not dyspnea when climbing stairs He has dyspnea and chest pain with exercise that limits his abilities; no cough or wheeze He has used his Xopenex inhaler after becoming symptomatic, but not before Although there was previously noted to be no family history of asthma, mother now says she had bronchospasm as an adolsecent--primarily with exercise. She is asymptomatic now Exercise provocation detailed below--shows decline in FEV1 at the end of full exercise challenge that reproduced symptoms and was limited by chest discomfort. Improved some over 15 mintues but returned close to baseline after albuterol 2.5 mg nebulizer treatment. Consistent with exercise-induced bronchospasm Mouth pressures also performed and were normal. He also has the low pitched, inspiratory stertor on exam. Referred back to Dr. Memo Yao for pharyngolargoscopy and was found to have paradoxical vocal fold motion as source of sound. He referred [facility] for voice training. 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 Do this for 2 weeks and report back with outcome re: control of chest pain and dyspnea. May use up to 4 puffs per dose, if needed. If he gets good relief of all sx, it would be reasonable to use daily inhaled steroids as preventive, despite normal PFT and sx only with exercise. If he does not get good relief, will need further investigation regarding best approach. Mother to call in 2 weeks with progress report. This was a 20 minute visit devoted entirely to results review and development of a treatment plan Cardiopulmonary Exercise Test Report Pulmonary function testing showed normal spirometry and normal inspiratory mouth pressure. Twelve-lead ECG at rest showed normal sinus rhythm with resting heart rate of 77 beats per minute. An exercise challenge test was performed on the treadmill for 10 minutes at 5.0 - 5.9 mph with 5.0% grade. Target HR at 85% of predicted peak HR = 173 beats/min. Heart rate was 183 - 199 beats/minute during exercise. BP at rest was 92/52, and was 136/62 at peak exercise. Twelve-lead ECG during exercise showed no evidence of arrhythmia or ischemia. Baseline FEV1 was 3.64 liters (83% predicted). The greatest decrement in FEV1 was 29% (2.57 liters) measured at 10 minutes post-exercise. Exercise flow-volume loops were normal during exercise. Peak VO2 was 62.8 ml/kg/min, or 126% of predicted value. Peak ventilation was 125.0 liters, or 74% of measured maximal voluntary ventilation (170 liters/min). The breathing reserve at peak exercise was 26% (normal > 15%). Oxygen saturation was 97% at rest, and 95% at peak exercise. Peak ratings of breathlessness and leg discomfort were 9.5 and 7.5, respectively, using the 0-10 scale. Patient reported that breathlessness was the limiting symptom, and that his respiratory symptoms were recreated during the test. Impression: Positive exercise challenge test on the treadmill indicating exercise-induced bronchoconstriction (29% decrement in FEV1). No evidence of cardiac dysfunction or oxygen desaturation. Level of fitness is increased for age (peak VO2 = 126% predicted). documented in this encounter Plan of Treatment Not on file documented as of this encounter Visit Diagnoses Diagnosis Chest pain Chest pain, unspecified Dyspnea on exertion Other dyspnea and respiratory abnormality Healthcare maintenance Routine general medical examination at a health care facility documented in this encounter Care Teams Document Image Technician Relationship Specialty Start Date End Date Ernesto Eisenberg MD [address] [address] PCP - General 07/21/10 documented as of this encounter
--- OUTSIDE RECORDS SUMMARY | 2024-06-18 16:41 | XMS_ITS | Encounter Summary ---
Author Organization [facility] [place] [address] Care Team Providers Care Crystal Machining Coordinator Name Role Phone Ernesto Eisenberg MD Primary Care Provider [phone] Reason for Visit * Reason Comments Follow-up Encounter Details Date Type Department Care Team (Late st Contact Info) Description 04/06/2017 9:00 AM EDT Office [place] [address] Erasmo Yao III, MD [facility] [place] [address] Deviated nasal septum Social History Tobacco Use Types Packs/Day Years [...] - - Weight 63.5 kg (140 lb) 04/06/2017 8:44 AM EDT Height 182.9 cm (6') 04/06/2017 8:44 AM EDT Body Mass Index 18.99 04/06/2017 8:44 AM EDT documented in this encounter Progress Notes * Erasmo Yao III, MD - 04/06/2017 9:00 AM EDT Erich Mcfarlane Lauri returns for splint removal. He has been doing well. Review of Systems: A complete review of [...] ear canal, and middle ear bilaterally. NOSE: Splints removed without difficulty. Normal healing. Normal external nasal exam. Septum midline. Turbinates [...] appropriately to questions. CN II-XII grossly intact. PROCEDURES:Splint removal. IMPRESSION: Normally healing septoplasty. Routine precautions were explained. F/U six weeks, with flexible laryngoscopy to re-evaluate for paradoxical vocal motion. documented in this encounter Plan of Treatment Not on file documented as of this encounter Visit Diagnoses Diagnosis Deviated nasal septum documented in this encounter Care Teams Crystal Machining Coordinator Relationship Specialty Start Date End Date Ernesto Eisenberg MD [address] [place] [id number] PCP - General 07/21/10 documented as of this encounter
--- OUTSIDE RECORDS SUMMARY | 2024-06-18 16:41 | XMS_ITS | Encounter Summary ---
Author Organization [facility] [place] [address] Care Team Providers Care Employment Appeals Examiner Name Role Phone Ernesto Eisenberg MD Primary Care Provider + [phone] Reason for Visit * Reason Comments Advice Only sinus issues for sev eral years,this past winter the worst,ED twice, Sinusitis * Consultation (Routine) - Closed Specialty Diagnoses / Procedures Referred By Maxine vernon Referred To Contact Otolaryngology Diagnoses sinus congestion, nasal discharge, productive cough, and ST- patient seen before by Elena Heart, [employer] [address] [place] [address] Memo Yao MD [facility] [place] [address] Referral ID Status Reason Start Date Expiration Date Visits Re quested Visits Authorized [id number] Closed 12/23/2016 12/23/2017 1 1 Encounter Details Date Type Department Care Team (Late st Contact Info) Description 01/21/2017 10:00 AM EDT Office [place] [id number] Erasmo Yao III, MD [facility] [place] [address] Chronic pansinusitis Social History Tobacco Use Types Packs/Day Years [...] Sign Reading Time Taken Comments Blood Pressure 118/72 01/21/2017 9:51 AM EDT Pulse 84 01/21/2017 9:51 AM EDT Temperature - - Respiratory Rate 16 01/21/2017 9:51 AM EDT Oxygen Saturation 100% 01/21/2017 9:51 AM EDT Inhaled Oxygen Concentration - - Weight 63.7 kg (140 lb 8 oz) 01/21/2017 9:51 AM EDT Height 182.9 cm (6') 01/21/2017 9:51 AM EDT Body Mass Index 19.06 01/21/2017 9:51 AM EDT documented in this encounter Patient Instructions * Patient Instructions* Kris Nj PA - 01/21/2017 10:00 AM EDT Neilmed sinus rinses 3-4 times per day (2 sprays each nare, use left hand for right nare, right hand for left nare, pointed toward corner of eye.) Medrol pack until finished. Avelox for two weeks. Follow up in one month with Dr. Yao. documented in this encounter Progress Notes * Kris Nj PA - 01/21/2017 10:00 AM EDT [facility] Otolaryngology - Head and Neck Surgery Kris Nj PA-C 01/21/17 11:09 AM [place] [address] Office Patient Name: Erich Carreon Date of : 1995 PCP: Ernesto Eisenberg MD Chief Complaint: Chronic sinusitis History of Present Illness: Erich Carreon is a 21 y.o. year old male with a history of ALL, and Laryngospasm who was seen today at the request of Elena Dean in consultation for chronic sinusitis. Has had sinus issues for years, treated at one point here in 2012. Typically has sinus congestion in the spring, fall, and worst in winter. Usually has congestion, coughing, sneezing, coughing up colored junk, sore throats, sometimes fevers. Typically will take course of antibiotics 3-4 times year which helps his symptoms. From July to mid-November this year had 4-5 courses of antibiotics, but they did not improve his symptoms. Was coughing up or blowing out some small blood clots for a few weeks during this period. Notes some sinus pressure behind his cheeks, right > left. Not using any nasal hygiene for his symptoms. Had used netti-pot in the past, but found it gave burning sensation in his nose. Denies fevers, chills, or other constitutional symptoms. Denies visual disturbances. Separately, mentions that he is still suffering from vocal cord dysfunction. States that he had gone to [facility] for several treatment sessions, but that it did not seem to help him. States that he occasionally still have shortness of breath with exertion. 10 point Review of Systems was normal except for pertinent positives and negatives included in the History of Present Illness. Past Medical and Surgical History Patient Active Problem List Diagnosis Code ??? Chest pain R07.9 ??? Fatigue R53.83 ??? ALL (acute lymphoblastic leukemia of infant) C91.00 ??? Sinusitis J32.9 ??? Dyspnea on exertion R06.09 ??? Laryngeal spasm J38.5 ??? Dorsalgia M54.9 Current Outpatient Prescriptions on File Prior to Visit Medication Sig Dispense Refill ??? acetaminophen (TYLENOL) 325 mg tablet Take 650 mg by mouth every 4 hours as needed. ??? LEVALBUTEROL TARTRATE (XOPENEX HFA INHL) Inhale into the lungs as needed. ??? IBUPROFEN ORAL Take by mouth as needed. ??? LORATADINE (CLARITIN ORAL) Take by mouth as needed. ??? ASCORBIC ACID (VITAMIN C ORAL) No current facility-administered medications on file prior to visit. Allergies: Asparaginase; Cis free text allergy; and Keflex [cephalexin] Surgical History: Past Surgical History: Procedure Laterality Date ??? APPENDECTOMY ??? TONSILLECTOMY AND ADENOIDECTOMY Family and Social History Family History: Family History Problem Relation Age of Onset ??? Cancer Other Social History: Lives [place] [facility] [address] Social History Social History ??? Marital status: Single Spouse name: N/A ??? Number of children: N/A ??? Years of education: N/A Occupational History ??? Not on file. Social History Main Topics ??? Smoking status: Never Smoker ??? Smokeless tobacco: Never Used Comment: no ETS exposure ??? Alcohol use No ??? Drug use: No ??? Sexual activity: No Other Topics Concern ??? Not on file Social History Narrative Physical Exam Physical Examination: Vitals: Blood pressure 118/72, pulse 84, resp. rate 16, height 182.9 cm (6'), weight 63.7 kg (140 lb 8 oz), SpO2 100 %. General: Well dressed and well nourished. Breathing comfortably without stridor. No acute distress. Face: Full and symmetric facial movement. No dysmorphic facial features. Eyes: Periocular structures and conjunctiva healthy without lesions. Pupils are equal, round, and reactive to light. Extraocular movement is full and intact. No evidence of nystagmus. Ears: Auricles symmetric without lesions. Right ear: external auditory canal normal exam; tympanic membrane chen and translucent. Left ear: external auditory canal normal exam; tympanic membrane chen and translucent. Nose: On anterior exam, some crusting noted anteriorly, patent with adequate airflow, healthy pink mucosa. Septum is midline without significant deviation. Inferior turbinates normal exam. Mouth: Lips and gingiva pink, moist, without lesions. Dentition healthy. Tongue and floor of mouth soft without lesions or masses. Hard palate without lesions. Pharynx: Soft palate without lesions. Uvula is midline. Oropharynx symmetric. Neck: Soft, supple, without significant lymphadenopathy. Thyroid gland without masses or asymmetry.Trachea midline without deviation. Lungs: Clear to auscultation bilaterally without wheezes. Heart: Regular rate and rhythm without murmur. Neuro: Cranial nerves II-XII intact and symmetric. Responds appropriately to questions. Psych: Normal mood and affect. Labs and Imaging OSH CT Sinuses 01/04/17 From findings: Comparison with study of 02/22/13 Moderate mucosal thickening in right maxillary antrum, similar to previous study. Right osteomeatalcomplex is patent. Moderate mucosal thickening throughout much of left antrum. The left osteomeatalcomplex is now occluded. Moderate mucosal thickening in anterior left ethmoids. Mild mucosal thickening left frontal sinus. Previous retention cyst or polyp in right frontal sinus no longer seen. No fluid noted in the paranasal sinuses. Right septal spur noted with impaction upon right inferior turbinate, similar to prior study. Turbinates otherwise appear unremarkable. No masses noted in nasal cavity to suggest polyps. Procedures PROCEDURE NOTE: Flexible Fiberoptic Nasal Endoscopy: Indications: Evaluation for mucosal lesion of the upper airway Topical anesthetic and decongestant applied to the nasal cavity. The scope was passed through the nasal cavity, through the nasopharynx, and into the oropharynx. Patient tolerated the procedure well without any complications. Right nasal Cavity: Normal appearing mucosa, septal spur noted. No polyps or lesions noted. No purulent drainage noted. Left nasal cavity: Normal appearing mucosa. Some mucus stranding noted. No polyps or purulent drainage note. ASSESSMENT & RECOMMENDATIONS Erich Carreon is a 21 y.o. year old male with a history of ALL, and Laryngospasm who was seen today in consultation for chronic sinusitis for which he has long history of, and that he typically suffers from more in the spring, fall, and especially winter. Has been treated with antibiotics in the past with good effect, but this year his sinusitis has been refractory to antibiotic treatment. Has not been utilizing any nasal hygiene regimen. Nasal endoscopy today exhibits no sign of polyp diseaseor purulent drainage, though some mucous stranding on the left was noted. Discussed with patient the need to try medical therapy for his symptoms, in particular using a different class of antibiotics, a steroid taper, and a different type of nasal rinse that would be better tolerated. Discussed patient returning in a month to monitor his treatment course, and that in theinterim, if his symptoms worsened he should call to be seen sooner. Patient's history and symptoms of laryngospasm, which were not part of today's reason for visit, may be discussed at patient's follow-up appointment next month. Recommendations: 1. 2 week course of Avelox antibiotics. 2. Medrol pack. 3. Neilmed saline/bicarb nasal saline rinses 3 times per day. 4. Follow up in one month. Kris Nj PA-C [place], [place] [address] Office 01/21/17 11:09 AM documented in this encounter Plan of Treatment Not on file documented as of this encounter Visit Diagnoses Diagnosis Chronic pansinusitis Other chronic sinusitis documented in this encounter Care Teams Employment Appeals Examiner Relationship Specialty Start Date End Date Ernesto Eisenberg MD [address] [address] PCP - General 07/21/10 documented as of this encounter
--- OUTSIDE RECORDS SUMMARY | 2024-06-18 16:41 | XMS_ITS | Encounter Summary ---
Author Organization [facility] [place] [address] Care Team Providers Care Banking Representative Name Role Phone Ernesto Eisenberg MD Primary Care Provider [phone] Encounter Details Date Type Department Care Team (Late st Contact Info) Description 02/22/2013 Orders [place] [address] Memo Yao MD [facility] [place] [address] Social History Tobacco Use Types Packs/Day Years [...] Associated Diagnosis Comments FILM LIBRARY STORAGE ONLY CT HEAD Routine 02/22/2013 11:18 AM EDT documented in this encounter Results * Film Library- Storage only CT Head (02/22/2013 11:18 AM EDT) 02/22/2013 11:1 8 AM EDT Narrative [facility] - 04/23/2014 11:45 PM EDT This is a non-reportable exam. Procedure Note Wilver Ospina - 04/23/2014 This is a non-reportable exam. Memo Yao MD IMG FILM LIBRARY ORD ERABLES RAD [address] [facility] [place] [address] documented in this encounter Visit Diagnoses Not on filedocumented in this encounter Care Teams Banking Representative Relationship Specialty Start Date End Date Ernesto Eisenberg MD [address] [place] [address] PCP - General 07/21/10 documented as of this encounter
--- OUTSIDE RECORDS SUMMARY | 2024-06-18 16:41 | XMS_ITS | Encounter Summary ---
[place] [address] Care Team Providers Care Gold Leaf Layer Name Role Phone Ernesto Eisenberg MD Primary Care Provider [phone] Encounter Details Date Type Department Care Team (Late st Contact Info) Description 10/18/2013 6:40 PM EST - 10/18/2013 11:59 PM EST Hospital [place] [address] Dorsalgia Social History Tobacco Use Types Packs/Day Years [...] Refills Start Date End Date acetaminophen (TYLENOL) 325 mg tablet Take 650 mg by mouth every 4 hours as needed. IBUPROFEN ORAL Take by mouth as needed. LORATADINE (CLARITIN ORAL) Take by mouth as needed. ASCORBIC ACID (VITAMIN C ORAL) 03/11/2010 LEVALBUTEROL TARTRATE (XOPENEX HFA INHL) Inhale into the lungs as needed. 06/14/2018 documented as of this encounter Miscellaneous Notes * Miscellaneous - Provider, Minna - 11/01/2013 12:36 PM EST documented in this encounter Plan of Treatment Not on file documented as of this encounter Procedures Procedure Name Priority Date/Time Associated Diagnosis Comments MRI TOTAL SPINE WO CONTRAST Routine 10/18/2013 8:12 PM EST documented in this encounter Results * MRI total spine WO contrast (10/18/2013 8:12 PM EST) Anatomical Region Laterality Modality C-spine, T-spine, L-spine Magnet ic Resonance 10/18/2013 8:12 PM EST Narrative 10/19/2013 4:28 PM EST Examination MR TOTAL SPINE WITHOUT CONT Clinical History back pain, entire spine Additional review of medical record reveals the patient has a history of ALL, in remission since age 9, and complains of pain in the spine with light touch. Patient also currently has mononucleosis. ?? Comparison None Technique MR images of the entire spine were acquired without the use of intravenous contrast. Findings Cervical spine: ??Study is somewhat limited due to patient motion. ??The alignment of the cervical spine is normal. ??Vertebral body and disc space heights are maintained. Marrow and cord signal are normal, and there are no aggressive marrow lesions. No canal or neural foraminal narrowing. ??There are multiple, left greater than right mildly enlarged level 3 and supraclavicular lymph nodes. There is increased signal in the right articular pillar of C2 noted, of doubtful significance given the normal remainder of the marrow. Is most likely an atypical hemangioma. ?? Thoracic spine: ??The alignment of the thoracic spine is normal. ??Vertebral body and disc space heights are normal. ??Marrow and cord signal are normal, and there are no aggressive marrow lesions. Please note that the entirety of the T11 and T12 vertebral bodies are not completely included on this study. ?? Lumbar spine: ??The alignment of the lumbar spine is normal. ??Vertebral body and disc space heights are maintained. ??Cord and marrow signal are normal. ??The nerve roots of the cauda equina are normal in appearance without clumping. ?? There is likely a small hemangioma within the right lateral L3 vertebral body. ?? There is no canal or neural foraminal narrowing. ??Visualized retroperitoneal structures are normal. Impression ? 1. Normal MRI of the spine. ??No aggressive marrow lesion, disc herniation or findings to explain the patient's symptoms. ? 2. Yzxm-fiuitfq-fxpf-right mildly enlarged cervical lymph nodes may be related to patient's mononucleosis. Film and interpretation reviewed by the attending Procedure Note Jacinto Swartz MD - 10/19/2013 Examination MR TOTAL SPINE WITHOUT CONT Clinical History back pain, entire spine Additional review of medical record reveals the patient has a history ofALL, in remission since age 9, and complains of pain in the spine with lighttouch. Patient also currently has mononucleosis. Comparison None Technique MR images of the entire spine were acquired without the use of intravenous contrast. Findings Cervical spine: Study is somewhat limited due to patient motion. The alignment of the cervical spine is normal. Vertebral body and disc space heights are maintained. Marrow and cord signal are normal, and there areno aggressive marrow lesions. No canal or neural foraminal narrowing. Thereare multiple, left greater than right mildly enlarged level 3 andsupraclavicular lymph nodes. There is increased signal in the right articular pillar of C2 noted, of doubtful significance given the normal remainder of the marrow.Is most likely an atypical hemangioma. Thoracic spine: The alignment of the thoracic spine is normal. Vertebralbody and disc space heights are normal. Marrow and cord signal are normal, and there are no aggressive marrow lesions. Please note that the entirety ofthe T11 and T12 vertebral bodies are not completely included on this study. Lumbar spine: The alignment of the lumbar spine is normal. Vertebralbody and disc space heights are maintained. Cord and marrow signal are normal.The nerve roots of the cauda equina are normal in appearance without clumping. There is likely a small hemangioma within the right lateral L3 vertebralbody. There is no canal or neural foraminal narrowing. Visualizedretroperitoneal structures are normal. Impression 1. Normal MRI of the spine. No aggressive marrow lesion, discherniation or findings to explain the patient's symptoms. 2. Vxsc-kfptmkb-iznd-right mildly enlarged cervical lymph nodes maybe related to patient's mononucleosis. Film and interpretation reviewed by the attending Kenyatta Toth MD IMG MRI ORDERABLES documented in this encounter Visit Diagnoses Diagnosis Dorsalgia Pain in thoracic spine documented in this encounter Care Teams Gold Leaf Layer Relationship Specialty Start Date End Date Ernesto Eisenberg MD [address] [place] [id number] PCP - General 07/21/10 documented as of this encounter
--- OUTSIDE RECORDS SUMMARY | 2024-06-18 16:41 | XMS_ITS | Encounter Summary ---
[place] [address] Care Team Providers Care Side Stitcher Name Role Phone Ernesto Eisenberg MD Primary Care Provider [phone] Reason for Visit * Reason Onset Date Comments Results 10/19/2013 Spine MRI Encounter Details Date Type Department Care Team (Late st Contact Info) Description 10/19/2013 Telephone [place] [phone] Radha Bishop, RN Results (Spine MRI) Social History Tobacco Use Types Packs/Day Years [...] encounter Miscellaneous Notes * Telephone Encounter - Radha Bishop, RN - 10/19/2013 3:51 PM EST Message copied by RADHA BISHOP on TueOct 19, 2013 3:51 PM ------ Message from: MIGUEL GAGNON Created: TueOct 19, 2013 9:51 AM Contact: Mother Looking for MRI results from yesterday. Patient of Dr. Toth +++ Mom called again at 3:25pm. The 10/18/13 Total Spine MRI report is not complete. Erich was seen semiurgently by Dr. Toth for spinal pain on 10/18/2013. +++ 3:50pm: I phoned the MRI reading room. The radiologist states that the preliminary review of the spine is normal. Erich did move a little bit which caused some blurriness. Of note, his neck lymph nodes are a little enlarged, but not pathologically so. The radiologist will call if the final report changes. I phoned Mom with this information. documented in this encounter Plan of Treatment Not on file documented as of this encounter Visit Diagnoses Not on filedocumented in this encounter Care Teams Side Stitcher Relationship Specialty Start Date End Date Ernesto Eisenberg MD [address] [place] [id number] PCP - General 07/21/10 documented as of this encounter
--- OUTSIDE RECORDS SUMMARY | 2024-06-18 16:41 | XMS_ITS | Encounter Summary ---
Author Organization [facility] [place] [address] Care Team Providers Care Taxi Cab Driver Name Role Phone Ernesto Eisenberg MD Primary Care Provider [phone] Reason for Visit * Reason Comments Follow-up Encounter Details Date Type Department Care Team (Late st Contact Info) Description 02/23/2017 10:00 AM EDT Office [place] [address] Erasmo Yao III, MD [facility] [address] Deviated nasal septum; Chronic pansinusitis Social History Tobacco Use Types [...] - - Weight 63.5 kg (140 lb) 02/23/2017 9:53 AM EDT Height 182.9 cm (6') 02/23/2017 9:53 AM EDT Body Mass Index 18.99 02/23/2017 9:53 AM EDT documented in this encounter Progress Notes * Erasmo Yao III, MD - 02/23/2017 10:00 AM EDT Erich Mcfarlane Lauri returns for recheck of his nose. He is feeling much better, and continues the nasal steroids. Review of Systems: A complete review of [...] bilaterally. NOSE: Normal external nasal exam. Septum markedly right. No evidence sinus purulence. Turbinates are normal. SALIVARY: Parotid and submandibular [...] appropriately to questions. CN II-XII grossly intact. PROCEDURES: Nasal Endoscopy Procedure: Nasal and Sinus Endoscopy Indication: Evaluation of nasal cavity and sinuses. Technique: The nasal mucosa was anesthetized with pontocaine/afrin solution, and the nasal cavitieswere evaluated. The endoscope was passed into the nasal cavities without difficulty. Findings:Marked right nasal deviation with >75% obstruction. No evidence sinus purulence. IMPRESSION: Sinusitis appearss to have resolved. He may wish to consider septoplasty i the future to improve his breathing, and this was discussed. He will continue the nasal steroid spray, and will return only as needed. documented in this encounter Plan of Treatment Not on file documented as of this encounter Visit Diagnoses Diagnosis Deviated nasal septum Chronic pansinusitis Other chronic sinusitis documented in this encounter Care Teams Taxi Cab Driver Relationship Specialty Start Date End Date Ernesto Eisenberg MD [address] [place] [id number] PCP - General 07/21/10 documented as of this encounter
--- OUTSIDE RECORDS SUMMARY | 2024-06-18 16:41 | XMS_ITS | Encounter Summary ---
Author Organization [facility] [place] [address] Care Team Providers Care Hotel Housekeeper Name Role Phone Ernesto Eisenberg MD Primary Care Provider [phone] Reason for Visit * Reason Comments Other New Patient Encounter Details Date Type Department Care Team (Latest Contact Info) Description 04/27/2013 8:45 AM EDT Office Visit [place] [address] Kenyatta Toth MD [facility] [place] [address] Chest pain (Primary Dx); Fatigue; ALL (acute lymphoblastic leukemia of infant) Discharge Disposition: Home Social History Tobacco Use Types Packs/Day Years Used Date Smoking Tobacco: Never Sex and Gender Information Value Date Recorded Sex Assigned at Not on file Gender Identity Not on file Sexual Orientation Not on file documented as of this encounter Last Filed Vital Signs Vital Sign Reading Time Taken Comments Blood Pressure 121/62 04/27/2013 8:56 AM EDT Pulse 82 04/27/2013 8:56 AM EDT Temperature - - Respiratory Rate - - Oxygen Saturation - - Inhaled Oxygen Concentration - - Weight 59.3 kg (130 lb 12.8 oz) 04/27/2013 8:56 AM EDT Height 180.1 cm (5' 10.91) 04/27/2013 8:56 AM E DT Head Circumference 56.4 cm 04/27/2013 8:56 AM EDT Body Mass Index 18.29 04/27/2013 8:56 AM EDT Body Mass Index Percentile 15.61% 04/27/2013 8:5 6 AM EDT Growth Chart: [facility] (Boys, 2-2 0 Years) documented in this encounter Patient Instructions * Patient Instructions* Kenyatta Toth MD - 04/27/2013 9:43 AM EDT Blood today for CPK testing Call next week for test result Consider referral to pediatric pulmonary (Dr. Javier) If pulmonary evaluation is negative, consider follow up with me to discuss muscle biopsy or DNA testing for metabolic myopathy. documented in this encounter Progress Notes * Kenyatta Toth MD - 04/27/2013 9:48 AM EDT Erich Lauri was seen at the request of Dr. Fitzpatrick for evaluation of possible chest wall weakness on 04/27/2013. Erich is a 16-1/12-year-old right-handed 11th grader who is accompanied by his mother and older sister. 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 He did not undergo any radiation. He has been in complete remission since 09/1998. Both he and mother report substernal discomfort with fatigability and limitation of activities as far back as kindergarten or first grade. The problem has worsened significantly over the past year. Whenever he had gym class last year he would end up in the nurses' office complaining of chest pain. He does not have gym this year. He reports almost constant substernal discomfort, which is worse with inspiration and is maximally worse with even minimal exertion such as running around a basketball court. Mother reports that when he does stop physical activity because of chest discomfort he is huffing and puffing. There is no cyanosis. I see he had an echocardiogram in 2011, which was normal. Chest x-ray has been normal. He has been treated for potential sinusitis without resolution of his complaints. Mother reports that pulmonary function tests were done recently and showed chest wall weakness. Unfortunately, I do not have these pulmonary function tests available. He has never had known aspiration. Other medical complaints include right knee arthritis and a learning disability. He has had serial neuropsych testing, the last was done in 10/2012 and was essentially unchanged from prior evaluations. Erich feels that he is weak, but when questioned further he does have good strength at the onset of any physical activity, but is limited by the chest pain. There has never been any cramping or pigmenturia. There has been no difficulty swallowing. There are no sphincter disturbances. He has been treating with Advil and Tylenol, which provides minimal benefit to the chest pain. PAST MEDICAL HISTORY: Past medical history indicates he was full-term infant with a nuchal cord, but no complications. Growth and development proceeded normally until the ALL diagnosis at 18 months. He has been hospitalized overnight a number of times for the ALL as well as for a T&A, for appendicitis, and for bacterial meningitis in 2010. There were no specific neurologic sequelae of the latter. HE IS ALLERGIC TO KEFLEX. Current medications are an inhaler p.r.n. Immunizations are up-to-date. Family history indicates two sisters are well. Mother's mother has lymphoma. No one in the family is known to have neuromuscular disease. Social history indicates Erich lives with his mother and younger sister. Review of systems includes what is mentioned above as well as chronic problems with sinusitis and occasional headaches. PHYSICAL EXAMINATION: Physical exam shows a well-appearing thin adolescent. Cardiac exam is benign. There is no murmur or irregularity. Chest is clear, although when asked to take a full inspiration, he splints as though in pain. I heard no wheezing. Abdomen is soft. There is no pectus deformity. Neck is supple. Thyroid is not enlarged. Spine is straight. There are no neurocutaneous lesions. He has full range of motion of the spine. He is normocephalic without dysmorphic features. Gait is normal heel-to-toe. Romberg is negative. He can stand on his toes as well as his heels. Jump is normal. Tandem is normal. He has a very fast and effective run. He has difficulty arising from the floor and ends up pushing on the right knee apparently because of knee discomfort rather than weakness. Mental status and language are age appropriate without errors. Pupils are equal and round, eye movements are full and conjugate and jim are full to confrontation. Optic fundi are benign with sharp discs and normal vessels. Face is symmetric with eye closure and smile. There is no myotonia and no fatigability of upgaze. Palate is symmetric. There is no pronator drift. There is no appendicular ataxia. Strength is 5/5 at neck flexion, neck extension, deltoids, biceps, triceps, wrist extension, intrinsics of the hand, budget coordinator, hip adductor, hip abductor, hip flexion, knee extension, foot dorsiflexion, foot inversion, and foot eversion. Heel cord can be dorsiflexed 10 degrees past neutral bilaterally. Sensory is intact to light touch, temperature, joint position, and vibration. Deep tendon reflexes are 1+ in the upper extremities, 2 to 3+ at the knees, and 2+ at the ankles. ASSESSMENT: 1. Symmetric nonfocal elemental neurologic exam. 2. Normal neuromuscular exam in detail. 3. Worsening chest wall discomfort with report of abnormal pulmonary functions, doubt this represents primary neuromuscular disease, though cannot be definitively ruled out at this time. 4. Worsening chest wall discomfort with inspiration, rule out functional or structural pulmonary disease. RECOMMENDATIONS: 1. Blood today for CPK test. 2. Suggest referral to pediatric pulmonary at [facility] [place] along with review of locally done pulmonary function tests. 3. If no etiology is identified, I would be happy to see him again and discuss whether or not to pursue the diagnosis of metabolic myopathy such as Zach's or acid maltase deficiency. This would require DNA and/or muscle biopsy testing and would be an unlikely cause of his chest discomfort. documented in this encounter Plan of Treatment Not on file documented as of this encounter Procedures Procedure Name Priority Date/Time Associated Diagnosis Comments CK Routine 04/27/2013 10:09 AM EDT Fatigue documented in this encounter Results * CK (04/27/2013 10:09 AM EDT) Creatine Kinase 157 0 - 400 unit/L [facility] Blood specimen (specimen) 04/27/2013 10:09 AM EDT 04/27/2013 10:14 AM EDT Narrative Resulting Agency Comment Spec In Lab Kenyatta Toth MD [facility]ABLES [facility] documented in this encounter Visit Diagnoses Diagnosis Chest pain- Primary Chest pain, unspecified Fatigue Other malaise and fatigue ALL (acute lymphoblastic leukemia of ) Acute lymphoid leukemia, without mention of having achieved remission documented in this encounter Care Teams Hotel Housekeeper Relationship Specialty Start Date End Date Ernesto Eisenberg MD [address] [place] [id number] PCP - General 07/21/10 documented as of this encounter
--- OUTSIDE RECORDS SUMMARY | 2024-06-18 16:41 | XMS_ITS | Encounter Summary ---
Author Organization [facility] [place] [address] Care Team Providers Care Occupational Therapist Assistants Name Role Phone Ernesto Eisenberg MD Primary Care Provider [phone] Encounter Details Date Type Department Care Team (Late st Contact Info) Description 03/04/2017 Telephone [place] [phone] Erasmo Yao III, MD [facility] [place] [address] Social History Tobacco Use Types Packs/Day Years [...] encounter Miscellaneous Notes * Telephone Encounter - Barbra Burch - 03/04/2017 5:09 PM EDT arranged surgery with Erich via telephone. * Telephone Encounter - Barbra Burch - 03/04/2017 5:09 PM EDT ----- Message from Erasmo Yao III, MD sent at 03/04/2017 3:56 PM EDT ----- Regarding: RE: surgery orders, please Done!! ----- Message ----- From: Barbra Burch Sent: 03/04/2017 1:10 PM To: Clemente Gomez, Erasmo Yao III, MD Subject: surgery orders, please Dr. Yao. Will you please create the orders for Mr. Carreon to have surgery with you? Thank you. César * Telephone Encounter - Barbra Burch - 03/04/2017 5:08 PM EDT Spoke to Dy documented in this encounter Plan of Treatment Not on file documented as of this encounter Visit Diagnoses Not on filedocumented in this encounter Care Teams Occupational Therapist Assistants Relationship Specialty Start Date End Date Ernesto Eisenbreg MD [address] [place] [id number] PCP - General 07/21/10 documented as of this encounter
--- OUTSIDE RECORDS SUMMARY | 2024-06-18 16:41 | XMS_ITS | Encounter Summary ---
Author Organization [facility] [place] [address] Care Team Providers Care Digital Sales Director Name Role Phone Ernesto Eisenberg MD Primary Care Provider [phone] Reason for Visit * Reason Comments ADD neuropsychological e valuatio n Encounter Details Date Type Department Care Team (Late st Contact Info) Description 09/28/2012 9:00 AM EST Office Visit Psychiatry [place] [address] Enrique Yanez, PhD [facility] - [place] & [place] [address] ALL (acute lymphoblastic leukemia) (Primary Dx) Social History Tobacco Use Types Packs/Day Years Used Date Smoking Tobacco: Never Assessed Sex and Gender Information Value Date Recorded Sex Assigned at Not on file Gender Identity Not on file Sexual Orientation Not on file documented as of this encounter Progress Notes * Enrique Yanez, PhD - 11/23/2012 3:44 PM EDT Name: Erich Lauri ID#: [id number] Date of : 1995 Age: 17-6 School: [employer] Current Grade: 10 Date of Evaluation: 09/28/2012 Handedness: right Referred by: Ernesto Eisenberg MD NEUROPSYCHOLOGICAL EVALUATION REPORT REASON FOR REFERRAL AND BACKGROUND Erich is a 17 year old boy with a history of acute lymphoblastic leukemia (ALL) and treatment, including craniospinal irradiation, as well as recent bacterial meningitis. A fourth neuropsychological evaluation was requested by his physician in order to determine his current pattern of cognitive andintellectual functioning. As his history is well-known to you and has been documented in several previous reports from this lab, it will be only briefly reviewed here. Erich's mother reports that he has had bacterial meningitis since his previous evaluation and she suspects that his cognitive functioning may have declined. She notes that Erich experiences headaches, dizzy spells, falling asleep in class, difficulty concentrating, difficulty understanding, and poor organization. She feels that he has demonstrated these concerns since receiving chemotherapy, but they may have worsened since his meningitis. She feels he may require additional accommodations in his Individualized Educational Program such as modified tests, information written to his reading level, and additional help understanding the material. One of Erich's teachers reports that he struggles with reading and writing and that he becomes frustrated easily, which sometimes leads him to give up on his work. She notes that she is concerned about his ability to focus and that he does not appear concerned about the quality of his work. Anotherteacher reports that Erich is occasionally off-task, but that he is polite, respectful, and hardworking. With regard to medical history, Erich was born full-term with his umbilical cord wrapped around hisneck. He was diagnosed with ALL as a toddler and began completed 33 weeks of chemotherapy in 2000. He has been in complete remission since that time. Erich then had bacterial meningitis in the year prior to this evaluation. His health at the time of this evaluation was described as fair and he was not taking any medication aside from Tylenol as needed for headaches. According to medical records, E[place] [facility] [place] three previous neuropsychological evaluations in 2003, 2006, and 2009. In 2003, the results indicated low average intellectual functioning with better nonverbal skills compared to verbal skills and concerns were noted with regard to motor speed and executive functions. Results from 2006 indicated cognitive improvements with average intellectual functioning and high average perceptual reasoning, while 2009 results indicated low average intellectual functioning with equally developed verbal and nonverbal abilities. Sustained attention was noted to be somewhat low. ? TESTS AND PROCEDURES ADMINISTERED General: Clinical Interview Review of Records General Intellectual: Dean Intelligence Scale for Children - 4th Ed. Integrated (WISC-IV) Attention and Executive Functions: Behavioral Rating Inventory of Executive Function (BRIEF) Letty-Mackenzie Executive Function Scales (D-KEFS) [place] Card Sorting Test (WCST) Garcia/w Continuous Performance Test (CPT) Oral Language: Verbal Fluency (D-KEFS) [place] Naming Test (BNT) Memory: Children's [place] Verbal Learning Test (CVLT-C) Ryan Complex Figure Test Tests of Memory and Learning-II (TOMAL-II) Fine Motor Functions Screening: Finger Tapping Grooved Pegboard Complex Perceptual-Motor: Beer Developmental Test of Visual-Motor Integration, 5th Edition (VMI-6) Ryan Complex Figure Test, copy Behavioral Ratings: Achenbach Behavior Checklists (CBCL, TRF) BEHAVIORAL OBSERVATIONS Erich arrived to the testing session accompanied by his mother. He was casually and appropriately dressed and groomed. He appeared his chronological age and his height and weight appeared to be within normal limits. His gross and fine motor skills appeared adequate as he ambulated and held a pencilwithout difficulty. Erich's speech was fluent, articulate, and of appropriate content. His comprehen alana appeared adequate for all task instructions. Erich did not demonstrate hyperactivity during the assessment as he remained seated without notable difficulty, but appeared to have difficulty sustaining his attention for long periods of time. For example, he appeared to lose focus and his attention drifted after the first several minutes of the computerized test of attention. When engaged, he appeared to focus on each task presented and to try his best on each measure. Thus, the following results are considered to be an accurate estimate of his current level of intellectual and cognitive functioning. TEST RESULTS Note: Except for intellectual test scores, data from tests appear at the end of the report. General Intellectual: Results of this evaluation indicate that Erich's current level of intellectual functioning cannot be captured by a single score due the significant discrepancy between index scores; rather, individual indices should be considered. According to this measure, Erich demonstrates low average Verbal Comprehension and average Perceptual Reasoning, which represents an improvement in Perceptual Reasoning compared to his low average performance in 2010. When asked to replicate designs using blocks (Block Design), Erich performed in the average range as he worked in an organized fashion and was able to complete all but the most difficult design. He also performed in the average range when asked to determine which pictures go together (Picture Concepts) as well as on an abstract reasoning task that required him to identify patterns (Matrix Reasoning) as he carefully considered his choices before responding. Erich performed in the average range when asked to describe how things are alike (Similarities) as he provided several concise and abstract similarities. He also performed in the average range when asked a variety of questions regarding everyday social conventions (Comprehension) as he was able to demonstrate at least partial understanding of several of these concepts. He had greater difficulty when asked to provide word definitions (Vocabulary), as he replied that did he not know many of the words presented. TABLE 1 WISC-IV: IQ Scores, Factor Scores (SS) and Percentile Rankings (%ile) SS %ile 2010 SS Verbal Comprehension Index (VCI) 83 13 85 Perceptual Reasoning Index (DAVID) 106 66 86 Working Memory Index (WMI) 102 55 83 Processing Speed Index (PSI) 80 9 75 Note: SS have means of 100, s.d. of 15 TABLE 2 WISC-IV: Core Subtest Scores and Percentile Rankings (%ile) raw ss % ile 2010 raw 2010 ss VCI Similarities 23 8 25 22 9 Vocabulary 31 5 5 31 7 Comprehension 26 8 25 20 6 DAVID Block Design 49 10 50 18 4 Picture Concepts 20 10 50 21 12 Matrix Reasoning 29 13 84 20 7 WMI Digit Span 20 11 63 14 7 Letter-Number Sequencing 20 10 50 15 7 DAVID Coding 47 5 5 40 5 Symbol Search 29 8 25 20 6 Note: Subtest scaled scores (ss) have means of 10, s.d. of 3. Table 3 WISC-IV: Supplemental and Integrated Subtest Scores and Percentile Rankings (%ile) raw ss %ile 2010 raw 2010 ss Digit Span DS forward 11 11 63 8 8 DS backward 9 11 63 6 7 Note: Subtest scaled scores (ss) have means of 10, s.d. of 3. ? Executive and Attention: Executive function rating The BRIEF is a standardized rating of everyday behaviors that reflect executive functions and difficulty. It is comprised of two major factors: the Behavioral Regulation Index (EDNA) represents a student's ability to shift cognitive set and modulate emotions and behavior via appropriate inhibitory control. It is a pre- cursor to appropriate metacognitive problem solving. The Metacognitive Index (IL) represents a student's ability to cognitively self-manage tasks and monitor one's own performance.It represents the ability to initiate, plan, organize and sustain future-oriented problem solving in working memory. Specific areas assessed include the ability to inhibit impulsive responses, adjustto changes in routines or task demands, modulate emotions, initiate problem-solving or activities, sustain working memory, plan and organize tasks or activities, organize materials, and self-monitor behavior. Specific areas assessed include the ability to inhibit impulsive responses, adjust to changes in routines or task demands, modulate emotions, initiate problem-solving or activities, sustain working memory, plan and organize tasks or activities, organize materials, and self-monitor behavior. The respondents on this scale demonstrated little agreement with regard to Erich's functioning in these domains. Erich's mother rated his functioning within normal limits across all domains with theexception of sustaining working memory and planning/organization while one of his teachers rated all domains within normal limits and another rated all domains in the clinically significant range. Short-term and working memory Short-term or span memory is the ability to retain and repeat information as it is presented; working memory implies the ability to manipulate or transform information, or to hold information while working on other information. The difference between repeating digits forward and backwards is a goodexample of the difference between the two. Erich achieved a maximum forward span of 7 and backward span of 5. His total scores were each in the average range. He also performed in the average range on another measure of working memory that required him to accurately sequence a string of numbers andletters (Letter Number Sequencing). Speed of Response On the WISC-IV, Erich performed in the average range on the visual scanning task (Symbol Search). He did not make any errors but worked somewhat slowly and performed in the borderline range on the wallpaper cleaner task (Coding). He performed in the low average range and did not make any errors on another visual scanning task (DKEFS Shirley Making Test Condition 1). He worked somewhat slowly and performed in the borderline range when asked to make a trail following numbers in order (Condition 2), buthis speed increased to the average range when asked to make a trail following letters in order (Condition 3) and to the high average range when asked to make a trail following a dotted line (Condition 5). It appears he needed a moment to adjust to these trail making tasks as his performance improved with each item presented. Sustained attention and Impulsivity The computerized CPT is a test of sustained attention. On the first task, the subject must respond to a specific letter, randomly presented on the computer screen. The second task provides a warning cue not available in the first task. Erich achieved a hit range of 99% on the first task, which is average for his age; however, his hit rate fell to 84% on the second task, which is impaired for his age. These findings suggest that he had difficulty sustaining his attention as his performance decreased over time. His commission errors were in the average range on each task, indicating intact inhibitory control. Problem Solving The WCST is a test of nonverbal problem solving that requires the individual to select strategies for sorting cards by categories, and then adjust their strategy when the rules are changed. As the examinee responds, the examiner provides feedback regarding whether each move was right or wrong. Erich did an excellent job of using the feedback from the examiner in order to correctly identify each category. He was also quick to recognize when the rule changed and to adjust his strategy. He performed in the superior range overall. Cognitive flexibility and shifting On the WCST there was no indication of difficulty changing sets.; in fact, his performance was superior on two indices. When asked to make trail alternating between numbers and letters (DKEFS Shirley Making Test Condition 4), Erich did not make any errors and performed in the average range. Erich performed in the low average range when asked to generate words alternating between two categories (DKEFS Verbal Fluency) as he began at a steady pace but had difficulty continuing to generate words following the initial several seconds. Oral Language: When asked to generate words given initial letters and given semantic categories (DKEFS Verbal Fluency), Erich performed in the average range as he maintained a steady pace across trials. Confrontational naming was in the borderline range (BNT) and phonemic cues helped Erich to generate the word on7 out of 12 items he could not generate independently. Memory and Learning: Verbal memory The list learning task (CVLT-C) is a learning and memory task in which the subject listens to a 15-item list, and repeats as many items as possible for 5 trials. After a distracter list is presented,delayed recall trials (with and without cueing) are presented, followed by a recognition trial. Erich repeated 5 items following the first presentation of the list, which is broadly average for his age. He was able to repeat 10 items following the third presentation and continued to repeat 10 itemsfor the remaining learning trials. He did not employ a clear learning strategy and his overall learning was in the borderline range. He was able to recall the same 10 words after a delay; however, indicating intact recall. Longer delay recall trials were not administered due to examiner error. Nonverbal memory Erich was asked to reproduce a complex figure (RCFT) from memory at immediate and delayed time intervals. His drawings at each interval were distorted and items were placed incorrectly, similar to his copy of the figure. This difficulty appears to be the result of his drawing the figure rather than difficulty recalling the figure. When asked to identify which segments were part of the original figure, his recognition was in the average range. Object memory was in the high average range when asked to look at abstract designs and then identify them from memory (TOMAL-2 Abstract Visual Memory). Fine Motor Function Screening: Erich was administered the Grooved Pegboard in order to assess fine motor speed and coordination. This task required him to place small pegs into a pegboard by aligning peg grooves with grooves in the pegboard, using each hand individually. He did not drop any pegs with either hand and performed inthe low average range with his dominant (right) hand and in the impaired range with his nondominant hand. On another measure of fine motor speed that did not require coordination (Tapping), he performed inthe average range bilaterally. Complex Perceptual - Motor Skills: When Erich was asked to copy a complex figure as accurately as possible (RCFT), he used a segmentedand somewhat disorganized approach to this task. His resulting drawing included many of the correctdetails, but the image was distorted and the items were sometimes not correctly placed in relation to one another. He performed in the impaired range on this task. When asked to draw a variety of shapes and figures (VMI), Erich was able to draw simple figures accurately, but had difficulty as itemsincreased in complexity and did not use overlapping and underlapping on three-dimensional figures. He performed in the borderline range on that task. His visual perception when asked to identify matching figures was average. Behavioral Ratings: The Child Behavior Checklist (CBCL) is a parental questionnaire that gathers information about a child's activities, social relations, and school performance. The Teacher Rating Form (TRF) is the teacher version of the questionnaire. Ratings scales from Erich's mother and two of his teachers rated his emotional and behavioral functioning within normal limits for his age across all domains. SUMMARY AND RECOMMENDATIONS Erich is a 17 year old boy with a history of acute lymphoblastic leukemia and bacterial meningitis who was referred for a neuropsychological evaluation to determine his current pattern of cognitive and intellectual functioning. Results of the current evaluation indicate that Erich demonstrates low average Verbal Comprehension and average Perceptual Reasoning abilities; it appears that his Perceptual Reasoning has improved compared to his low average 2010 performance. The pattern of neuropsychological findings appears to be broadly consistent with the results of his 2010 evaluation, although some language functions have failed to progress. Erich's attention has improved relative to his previous evaluation; however, his ability to sustain attention over time remains an area of concern. Finemotor coordination and visual-motor integration remain poor and confrontational naming and vocabulary knowledge have not progressed at the expected rate since that time. With regard to executive functioning, Erich's short term and working memory are in the average range. Speed of response was variable and ranged from borderline to high average and speed appeared to increase as Erich adjusted to task demands. Inhibition remained intact, while Erich had difficulty sustaining his attention over time, consistent with previous assessments. Cognitive flexibility rangedfrom average to low average and problem-solving represented a personal strength and was superior for his age. Verbal fluency remained average while confrontational naming fell from the average range at his previous assessment to the borderline range. His raw score has improved relative to the previous assessment; however, he has not made gains at the rate expected over the past three years. Verbal learning appeared to be impacted by limited capacity, though Erich was able to retain and recall the information that he encoded, consistent with prior testing. Nonverbal memory was average to high average, which represents some improvement relative to prior testing. Fine motor coordination and visual-motor integration remained poor while simple motor speed and visual perception remain in the average range, consistent with his previous evaluation. Ratings of Erich's current executive functioning were quite discrepant between raters while all raters agree that Erich demonstrates emotional andbehavioral functioning within normal limits for his age. Overall, the results of this evaluation are broadly consistent with Erich's 2010 evaluation resultsand do not appear to reflect broad-based declines resulting from the bacterial meningitis. His improved attention may account for some of the better scores, although it appears that accommodations toaddress Erich's limited sustained attention continue to be warranted. These may include providing breaks during lengthy tests or assignments and breaking these into smaller components. As Erich has matured and approaches adulthood, it is appropriate to encourage him to be involved in monitoring hisown attention, planning breaks, and breaking complex tasks into component parts. It may also be helpful to provide Erich with a quite distraction-free environment for testing and working on assignments at school as well as completing schoolwork at home. A speech and language evaluation is recommended, specifically addressing his vocabulary and word-finding/naming abilities. His acquisition of the word list was also an area of concern. It appeared that information was available for recall, but his pattern of acquisition was worse this time than last. Specific intervention in these areas seems warranted. In addition, occupational therapy to address his poor fine motor coordination and visual-motor integration continues to be warranted. As Erich's cognitive functioning appears stable, no additional neuropsychological testing appears warranted; however, if cognitive changes are observed in the future, he is welcome to return for further testing and this assessment can serve at a baseline at that time. Thank you for referring Erich for a neuropsychological evaluation. Please contact us if you have any questions. Ashlee Nuñez, Ph.D., Post-Doctoral Neuropsychology Fellow Luis Enrique Yanez, Ph.D., Floor Inspector Neuropsychological Services Heavy Threader Clinical Neuropsychologist [place] Licensed Psychologist, #[id number] [place] Psychologist Doctorate, #[id number] This report was prepared by Ashlee Nuñez, Ph.D., Postdoctoral Fellow in Pediatric Neuropsychology under the supervision of Shiv Yanez, Ph.D. cc: MD Sobeida Li Lauri [facility] file Dr. Yanez's file ? DATA TABLES DESCRIPTOR Z - Score M = 0, SD = 1 Percentile Rank Very Superior 2.0 and above 98 and above Superior 1.3 to 1.99 91 to 97 High Average 1.09 to 1.29 86 to 90 Average -1.0 to 1.0 15 to 85 Low Average -1.3 to -1.1 10 to 14 Borderline -2.01 to -1.4 2 to 9 Extremely Low -2.1 and below 1.9 and below Mildly Impaired - 2.69 to -2.1 0.38 to 1.9 Moderately Impaired -3.09 to -2.7 0.13 to 0.37 Severely Impaired -3.1 and below 0.12 and below NOTES: Standard scores (SS) have means of 100, and standard deviations of ?? 15; Scaled scores (ss) have a mean of 10, and standard deviations of ?? 3. T-Scores have means of 50, and standard deviations of ?? 10; Z-scores have means of 0, and standard deviations of ?? 1. raw score %ile 2009 raw 2010 BNT 48 Z = -1.71 4 46 Z=-.21 Parent report Teacher 1 report Teacher 2 report BRIEF T-Score %ile T-Score %ile T-Score %ile Inhibit 45 49 48 60 67 93 Shift 51 65 45 50 71 95 Emotional Control 41 32 45 50 66 90 Behavioral Regulation Index 44 43 46 54 69 91 Initiate 46 47 55 78 72 95 Working Memory 77 >99 60 84 77 97 Plan/Organize 70 95 43 52 69 96 Organization of Materials 60 83 57 80 77 95 Monitor 57 77 51 68 76 93 Metacognition Index 65 90 52 69 77 >99 General Executive Composite Note: BRIEF %sky >94 are significant, >90 of concern 59 81 50 65 77 96 D-KEFS raw score ss %ile 2010 raw 2010 ss TRAIL MAKING Visual Scanning 29 7 16 23 10 Number Sequencing 52 5 5 27 12 Letter Sequencing 35 9 37 30 11 Number-Letter Switching 65 10 50 60 12 Motor Speed 21 12 75 33 10 VERBAL FLUENCY Letter Fluency 30 9 37 23 8 Category Fluency 34 9 37 36 11 Category Switching 10 7 16 11 9 Category Switching Accuracy 9 8 25 10 10 CPT raw score Z-score %ile 2010 raw 2010 Z K hit rate .99 .17 53 .87 -5.50 Commission .00 .78 81 12.00 .02 Average reaction time (RT) 466.87 -.86 19 460.64 -.25 Variability of RT 88.03 -.78 20 111.76 -1.46 AK hit rate .84 -2.60 1 .94 -.50 Commission 9.00 -.02 50 15.00 .12 Average reaction time (RT) 309.91 .10 53 275.94 1.14 Variability of RT 143.02 -1.40 8 124.09 -1.41 WCST raw score SS %ile Categories 6 - >16 Error percent 10 130 98 Perseverative error percent 6 127 96 Loss of set 0 - >16 CVLT-C raw score Z-score %ile 2010 raw 2010 Z Total Acquisition 42 T = 36 8 47 T = 44 Trial 1 5 -1 16 6 -.50 Trial 2 7 - - 8 - Trial 3 10 - - 11 - Trial 4 10 - - 11 - Trial 5 10 -1.5 7 11 -.50 Primacy 19 -2.5 1 23 -1.00 Middle 55 2.5 99 51 1.50 Recency 26 -0.5 32 26 -.50 Semantic Clustering 1.5 0 50 2.00 1.50 Serial Clustering 1.1 -1.0 16 .00 -1.50 Distractor List 3 -2 2 7 .50 Short Delay Free Recall 10 -0.5 32 9 -1.00 Short Delay Cued Recall 10 -0.5 32 11 -.50 Long Delay Free Recall - - - 9 -1.00 Long Delay Cued Recall - - - 10 -.50 Recognition - - - 14.00 .00 Discriminability - - - 95.56 .00 Note: CVLT-C Z-scores of +/-1.5 or less are considered clinically significant TOMAL raw score ss %ile 2009 raw 2009 Z Abstract Visual Memory 34 12 75 17 9 RYAN raw score T-score %ile 2009 raw 2010 T Copy 28.5 <1 <1 24.5 - Immediate 15 34 5 14.5 35 Delayed 15.5 34 5 14.5 34 Recognition 22 57 76 21 52 raw score Z-score %ile 2009 raw 2010 Z GROOVED PEGBOARD Dominant hand 78 -1.15 14 80 -2.91 Non-Dominant hand 94 -2.12 2 78 -1.32 FINGER TAPPING Dominant hand 45.40 -.27 45 42.00 -.95 Non-Dominant hand 42.20 .22 55 40.00 .21 VMI-5 raw score ss %ile 2010 raw 2010 ss VMI 22 77 6 22 83 Visual 27 93 32 25 92 Parent CBCL Teacher 1 TRF Teacher 2 TRF [place]CH[place]ACH T-score %ile T-score %ile T-score %ile Scales Anxious/Depressed 50 50 50 50 54 65 Withdrawn/Depressed 53 62 52 58 52 58 Somatic Complaints 54 65 62 89 50 50 Social Problems 54 65 50 50 55 69 Thought Problems 51 54 50 50 50 50 Attention Problems 57 76 51 54 54 65 Rule-Breaking Behavior 54 65 50 50 53 62 Aggressive Behavior 50 50 50 50 58 79 Factors Internalizing Problems 44 28 52 58 52 58 Externalizing Problems 48 42 42 21 56 73 Total Problems 50 50 50 50 53 62 DSM-Oriented Scales Affective Problems 59 81 52 58 58 79 Anxiety Problems 50 50 50 50 56 73 Somatic Problems 50 50 64 92 50 50 ADHD Problems 55 69 52 58 55 69 Oppositional-Deviant 51 54 50 50 54 65 Conduct Problems 56 73 50 50 56 73 CBCL/TRF: for Scales & DSM Scales, %sky >98 are significant, %sky >95 of concern; for Factors, %sky >90 are significant, %sky >80 of concern documented in this encounter Miscellaneous Notes * Addendum Note - Enrique Yanez, PhD - 11/23/2012 3:46 PM EDTAddended by: ENRIQUE YANEZ on: 11/23/2012 03:46 PM Modules accepted: Level of Service documented in this encounter Plan of Treatment Not on file documented as of this encounter Visit Diagnoses Diagnosis 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
--- OUTSIDE RECORDS SUMMARY | 2024-06-18 16:41 | XMS_ITS | Encounter Summary ---
[place] [address] Care Team Providers Care Furnace Builder Name Role Phone Ernesto Eisenberg MD Primary Care Provider [phone] Encounter Details Date Type Department Care Team (Latest Contact Info) Description 05/22/2013 9:00 AM EDT - 05/22/2013 11:59 PM EDT Hospital Encounter [place] [address] Dyspnea on exertion; Chest pain Social History [...] needed. ASCORBIC ACID (VITAMIN C ORAL) 03/11/2010 fluticasone (FLONASE) 50 mcg/actuation nasal spray 1 spray by Each Nare route daily for 30 days. 16 g 6 05/01/2013 05/31/2013 LEVALBUTEROL TARTRATE (XOPENEX HFA INHL) Inhale into the lungs as needed. 06/14/2018 documented as of this encounter Procedure Notes * Theo Sim MD - 05/22/2013 12:12 PM EDTAssociated Order(s): PULMONARY FUNCTION TEST Cardiopulmonary Exercise Test Report LauriErich Date: 05/22/13 A#: [id number] Height (cm): 180.8 Age: 18 Weight (kg): 60.5 Pulmonary function testing showed normal spirometry and normal inspiratory mouth pressure. Twelve-lead ECG at rest showed normal sinus rhythm with resting heart rate of 77 beats per minute. An exercise challenge test was performed on the treadmill for 10 minutes at 5.0 - 5.9 mph with 5.0%grade. Target HR at 85% of predicted peak HR = 173 beats/min. Heart rate was 183 - 199 beats/minuteduring exercise. BP at rest was 92/52, and was 136/62 at peak exercise. Twelve-lead ECG during exercise showed no evidence of arrhythmia or ischemia. Baseline FEV1 was 3.64 liters (83% predicted). The greatest decrement in FEV1 was 29% (2.57 liters)measured at 10 minutes post-exercise. Exercise flow-volume loops [...] indicating exercise-induced bronchoconstriction (29% decrement in FEV1).* No evidence of cardiac dysfunction or oxygen desaturation. Level of fitness is increased for age (peak VO2 = 126% predicted). Theo Sim M.D. *Based on ATS Clincal Practice Guideline, the criterion used to diagnose exercise-induced bronchoconstriction is > 10%decrement in FEV1 compared with baseline value. (Am J Respir Crit Care Med 2013; 187:1016). documented in this encounter Miscellaneous Notes * Miscellaneous - Provider, Minna - 07/24/2013 8:55 AM EST documented in this encounter Plan of Treatment Scheduled Orders Name Type Priority Associated Diagnoses Orde r Schedule Pulmonary Function Testing Procedures Routine Dyspnea on exertion Chest pain 1 Occurrences starting 05/22/2013 documented as of this encounter Procedures Procedure Name Priority Date/Time Associated Diagnosis Comments COMMON PULMONARY FUNCTION TEST Routine 05/22/2013 12:12 PM EDT Dyspnea on exertion Chest pain documented in this encounter Results * Pulmonary Function Testing (05/22/2013 12:12 PM EDT) Narrative Theo Sim MD - 05/22/2013 12:12 PM EDT Theo Sim MD ? 05/22/2013 12:12 PM Cardiopulmonary Exercise Test Report Lauri, Erich Jose ? Date: 05/22/13 A#: [id number] ? Height (cm): ??180.8 Age: 18 ?Weight [...] (peak VO2 = 126% predicted). ?? Theo Sim M.D. *Based on ATS Clincal Practice Guideline, the criterion used to diagnose exercise-induced bronchoconstriction is > 10%decrement in FEV1 compared with baseline value. (Am J Respir Crit Care Med 2013; 187:1016). Procedure Note Theo Sim MD - 05/22/2013 12:12 PM EDT Cardiopulmonary Exercise Test Report LauriErich. Date: 05/22/13 A#: [id number] Height (cm): 180.8 Age: 18 Weight (kg): [...] unspecified documented in this encounter Care Teams Furnace Builder Relationship Specialty Start Date End Date Ernesto Eisenberg MD [address] [place] [id number] PCP - General 07/21/10 documented as of this encounter
--- OUTSIDE RECORDS SUMMARY | 2024-06-18 16:41 | XMS_ITS | Encounter Summary ---
[place] [address] Care Team Providers Care Employment Law Attorney Name Role Phone Ernesto Eisenberg MD Primary Care Provider [phone] Encounter Details Date Type Department Care Team (Late st Contact Info) Description 10/06/2011 Telephone [place] [address] Мария Mei MD [address] [place] [address] Social History Tobacco Use Types Packs/Day Years Used Date Smoking Tobacco: Never Assessed Sex and Gender Information Value Date Recorded Sex Assigned at Not on file Gender Identity Not on file Sexual Orientation Not on file documented as of this encounter Miscellaneous Notes * Telephone Encounter - Мария Mei MD - 10/06/2011 4:54 PM EST Erich's CBC results from [facility] on 09/21/11 included the folllowing: WBC 12.2 Hb 16.1 Hct 46.4 Plt 221,000 80% neuts 12% lymphs 2% monos 3% eos 0% basos documented in this encounter Plan of Treatment Not on file documented as of this encounter Visit Diagnoses Not on filedocumented in this encounter Care Teams Employment Law Attorney Relationship Specialty Start Date End Date Ernesto Eisenberg MD [address] [id number] PCP - General 07/21/10 documented as of this encounter
--- OUTSIDE RECORDS SUMMARY | 2024-06-18 16:41 | XMS_ITS | Encounter Summary ---
[place] [address] Care Team Providers Care Home Aid Name Role Phone Ernesto Eisenberg MD Primary Care Provider [phone] Encounter Details Date Type Department Care Team (Late st Contact Info) Description 05/08/2013 External Results [place] [id number] Provider, Scanning Social History Tobacco Use Types Packs/Day Years [...] Name Priority Date/Time Associated Diagnosis Comments PULMONARY SCAN Routine 02/15/2013 documented in this encounter Results * Scan Doc: Pulmonary Study (02/15/2013) Scanning Provider MEDIA MGR SCAN EXT O RDR/RSLT documented in this encounter Visit Diagnoses Not on filedocumented in this encounter Care Teams Home Aid Relationship Specialty Start Date End Date Ernesto Eisenberg MD [address] [place] [address] PCP - General 07/21/10 documented as of this encounter
--- OUTSIDE RECORDS SUMMARY | 2024-06-18 16:41 | XMS_ITS | Encounter Summary ---
Author Organization [facility] [place] [address] Care Team Providers Care Commercial Lines Underwriter Name Role Phone Ernesto Eisenberg MD Primary Care Provider + [phone] Encounter Details Date Type Department Care Team (Late st Contact Info) Description 09/30/2017 Telephone [place] [id number] Erasmo Yao III, MD [facility] [place] [address] Social History Tobacco Use Types Packs/Day Years Used Date Smoking Tobacco: Former e-Cigarettes Quit: 07/06/2017 Smokeless Tobacco: Never Comments:3-4 times daily Alcohol Use Standard Drinks/Week Comments Yes 0 (1 standard drink = 0.6 oz pur e alcohol) minimal Sex and Gender Information Value Date Recorded Sex Assigned at Not on file Gender Identity Not on file Sexual Orientation Not on file documented as of this encounter Miscellaneous Notes * Telephone Encounter - Erasmo Yao III, MD - 09/30/2017 4:57 PM EST Answered questions regarding cough and crusts. Advised increased humidification and saline use. Will return if not improved. documented in this encounter Plan of Treatment Not on file documented as of this encounter Visit Diagnoses Not on filedocumented in this encounter Care Teams Commercial Lines Underwriter Relationship Specialty Start Date End Date Ernesto Eisenberg MD [address] [place] [id number] PCP - General 07/21/10 documented as of this encounter
--- OUTSIDE RECORDS SUMMARY | 2024-06-18 16:41 | XMS_ITS | Encounter Summary ---
Author Organization [facility] Address [facility] [place] [address] Care Team Providers Care Justice Court Judge Name Role Phone Ernesto Eisenberg MD Primary Care Provider [phone] Encounter Details Date Type Department Care Team (Latest Contact Info) Description 05/15/2013 3:30 PM EDT - 05/15/2013 11:59 PM EDT Hospital En[place] [address] SCHEDULE 1, PFT Inga Javier MD [facility] [address] [facility] [address] Dyspnea on exertion; Chest pain Discharge Disposition: Home Social History Tobacco Use [...] 30 days. 16 g 6 05/01/2013 05/31/2013 amoxicillin-clavulanate (AUGMENTIN) 875-125 mg per tablet Take 1 tablet by mouth 2 times daily for 21 days. 42 tablet 1 05/01/2013 05/22/2013 LEVALBUTEROL TARTRATE (XOPENEX HFA INHL) Inhale into the lungs as needed. 06/14/2018 documented as of this encounter Procedure Notes * Socorro Benjamin MD - 05/20/2013 10:49 AM EDTAssociated Order(s): PULMONARY FUNCTION TEST; PULMONARY FUNCTION TEST Both the FEV1 and FVC are reduced. The FEV1/FVC ratio is normal. The total lung capacity is normal. The elevated RV/TLC may suggest air trapping. Diffusion capacity is normal. The oxygen saturation on room air at rest is normal. SOCORRO BENJAIMN MD documented in this encounter Plan of Treatment Not on file documented as of this encounter Procedures Procedure Name Priority Date/Time Associated Diagnosis Comments COMMON PULMONARY FUNCTION TEST Routine 05/20/2013 10:51 AM EDT Dyspnea on exertion Chest pain COMMON PULMONARY FUNCTION TEST Routine 05/20/2013 10:51 AM EDT Dyspnea on exertion documented in this encounter Results * Pulmonary [...] BENJAMIN MD Inga Javier MD PFT ORDERABLES * Pulmonary Function Testing (05/20/2013 10:51 AM [...] unspecified documented in this encounter Care Teams Justice Court Judge Relationship Specialty Start Date End Date Ernesto Eisenberg MD [address] [place] [id number] PCP - General 07/21/10 documented as of this encounter
--- OUTSIDE RECORDS SUMMARY | 2024-06-18 16:41 | XMS_ITS | Encounter Summary ---
Author Organization [facility] Address [facility] [place] [address] Care Team Providers Care Negative Developer Name Role Phone Ernesto Eisenberg MD Primary Care Provider + [phone] Reason for Visit * Reason Comments Other recurrent sinus infe ction Other coughing up yaritza re d blood size of dime Encounter Details Date Type Department Care Team (Late st Contact Info) Description 09/05/2017 11:30 AM EST Office [place] [address] Erasmo Yao III, MD [facility] [address] Acute URI; Cough with hemoptysis Social History Tobacco Use [...] - Inhaled Oxygen Concentration - - Weight 64.6 kg (142 lb 8 oz) 09/05/2017 11:18 AM EST Height 182.9 cm (6') 09/05/2017 11:18 AM EST Body Mass Index 19.33 09/05/2017 11:18 AM EST documented in this encounter Progress Notes * Erasmo Yao III, MD - 09/05/2017 11:30 AM EST Erich Mcfarlane Lauri returns for complaints of coughing up bloody crusts. About a week ago he contracted a severe URI, and noted occasional bloody crusts. This has since resolved, but he is concerned that he has a sinus infection. He denies facial pressure or pain today. Review of Systems: A complete review of [...] NOSE: Normal external nasal exam. Septum midline. No evidence sinusitis. Turbinates are normal. SALIVARY: Parotid and submandibular glands are normal to inspection and palpation. ORAL CAVITY: Normal exam of oral tongue .Healing viral ulcer left anterior tonsil pillar noted. Floor of mouth is soft. Dentition good [...] to questions. CN II-XII grossly intact. PROCEDURES: IMPRESSION: Resolving viral URI, with ulcer as probable blood source. No evidence sinusitis. Erich was reassured that there is no cause for alarm. documented in this encounter Plan of Treatment Not on file documented as of this encounter Visit Diagnoses Diagnosis Acute URI Acute upper respiratory infections of unspecified site Cough with hemoptysis Other hemoptysis documented in this encounter Care Teams Negative Developer Relationship Specialty Start Date End Date Ernesto Eisenberg MD [address] [place] [id number] PCP - General 07/21/10 documented as of this encounter
--- OUTSIDE RECORDS SUMMARY | 2024-06-18 16:41 | XMS_ITS | Encounter Summary ---
[place] [address] Care Team Providers Care User Support Specialist Name Role Phone Ernesto Eisenberg MD Primary Care Provider [phone] Reason for Visit * Auth/Cert Specialty Diagnoses / Procedures Referred By Contac t Referred To Contact Diagnoses turbinate hypertrophy Procedures PRO EXCISION TURBINATE EXCISION, INFERIOR TURBINATE, PARTIAL OR COMPLETE (WRVU 3.47) Referral ID Status Reason Start Date Expiration Date Visits Re quested Visits Authorized [id number] 1 1 Encounter Details Date Type Department Care Team (Late st Contact Info) Description 04/01/2017 11:54 AM EDT - 04/01/2017 1:15 PM EDT Surgery [place] [address] Erasmo Yao III, MD [facility] [place] [address] SEPTOPLASTY OR SMR, W/ OR W/O CARTILAGE SCORING, CONTOURING OR REPLACEMENT W/ GRAFT (WRVU 7.01) Social History Tobacco Use Types Packs/Day Years [...] Sign Reading Time Taken Comments Blood Pressure 104/81 04/01/2017 1:15 PM EDT Pulse 74 04/01/2017 10:59 AM EDT Temperature 36.3 ??C (97.3 ??F) 04/01/2017 12:55 PM E DT Respiratory Rate 18 04/01/2017 10:59 AM EDT Oxygen Saturation 99% 04/01/2017 1:15 PM EDT Inhaled Oxygen Concentration - - Weight 63.7 kg (140 lb 8 oz) 04/01/2017 10:59 AM EDT Height 180.3 cm (5' 11) 04/01/2017 10:59 AM EDT Body Mass Index 19.6 04/01/2017 10:59 AM EDT documented in this encounter Discharge Instructions * Discharge Instructions* Andrés Garrett RN - 04/01/2017 12:54 PM EDT POST ANESTHESIA INSTRUCTIONS Go home, rest, use caution on stairs. Change positions slowly. Do not smoke if you are alone. Diet light to regular as tolerated today. If nausea occurs start with clear liquids and progress slowly. No driving, operating machinery, alcoholic beverages and no important decisions for 24 hours. Monitor IV site for signs and symptoms of infection: increasing redness, swelling, foul drainage, if occurs contact M.D. Patients who have had endotrachial tubes (this tube, used by anesthesia department, is passed down your throat after you are asleep, to ensure safe air passage during your operation). A sore throat is normal due to the tube. Cold liquids or soothing lozenges will help ease the discomfort. The generalized muscle aches are due to the medication given to you just before the tube is inserted. As the medication wears off, you may develop muscle soreness, which usually goes away in 12-24 hours. * Patient Instructions* Erasmo Yao III, MD - 04/01/2017 11:47 AM EDT Endoscopic Sinus Surgery/Septoplasty - Postoperative Discharge Instructions You are being discharged to home after having undergone septoplasty. This procedure is designed to better manage your nasal symptoms. What we as a team (physicians, nurses and the patient) do in the immediate postoperative period will impact your long-term results and outcome. Instructions: 1. Avoid strenuous activity for the first 48 hours, and slowly increase activity. Avoid lifting (for most adults) objects heavier than 20 lbs for the first five days. 2. Keep a drip pad (gauze) under your nose for comfort, if you would like. 3. Avoid straining significantly to have bowel movements. Use [id number] stool softeners if needed. 4. Sneeze with your mouth open. 5. Your nose may feel very congested post surgery (like a sinus infection). This is normal. You mayuse Afrin nasal spray as needed for the first 48 hours after surgery. And for significant bleeding. 6. Buy a Sitesimon sinus rinse kit or use nasal saline spray every few hours to keep your nose moist. You will notice blood-stained discharge initially which progressively clears. 7. Unless specifically told otherwise, start blowing your nose gently after saline rinses on postoperative day #5 . 8. Follow up with your surgeon as scheduled. 9. DO NOT USE ASPIRIN, MOTRIN, OR SIMILAR NSAIDS FOR PAIN for the first 72 hours. 10. If you are on Baby or regular Asprin therapy, you may resume it therapy three days after yoursurgery. If you are on Plavix, please wait for one week and confirm at your first post op check When to Call: 1. Fever greater than 101.5 degrees. 2. Unrelenting pain (especially on one side) not responsive to two or three doses of pain medicinesand saline rinses 3. Bleeding. A good way to measure significant bleeding from normal ???postoperative?? oozing is to tape a drip pad under your nose. If you are changing this more than once an hour and this does notimprove with afrin spray, you need to be evaluated. 4. Nausea or vomiting. 5. Blurry vision, eye pain or eye swelling Contact Information: ?? The Otolaryngology nurse can be reached at and can answer any ?? questions you may have during the day. ?? [facility] transcribing operators supervisor can be reached at and can connectyou with a resident general contractor if necessary after hours. If you need to reschedule your appointment please call the clinic at . documented in this encounter Medications at Time [...] needed. 06/14/2018 documented as of this encounter Progress Notes * Shellie Givens RN - 04/01/2017 11:16 AM EDT Images from the original note were not included. Patient Name: Erich Carreon Patient Age: 22 y.o. Birthdate: 1995 Admit date: 04/01/2017 Attending Physician: Erasmo Yao III, MD Skin: documented in this encounter H&P Notes * Erasmo Yao III, MD - 04/01/2017 10:53 AM EDT Patient Name: Erich Carreon Patient Age: 22 y.o. Birthdate: 1995 Admit date: 04/01/2017 Attending Physician: Erasmo Yao III, MD The pre-operative documentation is reviewed, and there is no change since the last physical examination was done. documented in this encounter Miscellaneous Notes * Op Note - Erasmo Yao III, MD - 04/01/2017 11:44 AM EDT [facility] Operative Note Patient Name: Erich Carreon : [id number] MR#: [id number] Case Date: 04/01/2017 Surgeon: Surgeon(s) and Role: * Erasmo Yao III, MD - Primary Preoperative diagnosis: turbinate hypertrophy Postoperative diagnosis: turbinate hypertrophy Procedure(s) (LRB): EXCISION, INFERIOR TURBINATE, PARTIAL OR COMPLETE (WRVU 3.47) (N/A) SEPTOPLASTY OR SMR, W/ OR W/O CARTILAGE SCORING, CONTOURING OR REPLACEMENT W/ GRAFT (WRVU 7.01) (N/A) Anesthesia: General Estimated Blood Loss: * No values recorded between 04/01/2017 12:00 AM and 04/01/2017 11:44 AM * Specimens removed during surgery: septal cartilage and bone fragments Drains: Surgical Closure: Primary Closure - closure of ALL tissue levels during the original surgery regardless of wires, wickes, drains, or other devices extruding through the incision Disposition: awakened from anesthesia, extubated and taken to the recovery room in a stable condition, having suffered no apparent untoward event. Condition: doing well without problems (Please see the Surgical Encounter Summary for any Implant and Specimen details pertinent to this patient.) HPI/Surgical Indications: deviated nasal septum, turbinate hypertrophy Procedure Description: The patient was brought to the operating room, and following the induction of satisfactory general anesthesia was positioned in standard fashion for nasal surgery. Bilateral decongestant/anesthetic packs were placed, and one ml of 2% lidocaide with epi was injected into the anterior septum on the right side. After sufficient time was allowed for the anesthetic to work the packs were removed. An anterior septal incision was made on the right side, and using a Phoenix elevator the perichondrium and periosteum were elevated as far posteriorly as needed. The cartilaginous septum was from the bony septum, and areas of bony or cartilaginous spurring were removed with Eyad forceps and/or double action rongeurs to straighten the septum. Scoring of the cartilaginous remnant in this case was accomplished with the 15 blade. The anterior incision was closed with a single 4-0 chromic suture. Attention was next turned to the inferior turbinates which were outfractured and reduced in size with the bipolar, greatly enlarging the airway. Joseph splints were placed,and the patient was returned to the recovery room in satisfactory condition. Infection Bundle used? No Attestation: Case Date: 04/01/2017 I performed this procedure without the involvement of a resident. Erasmo Yao III, MD 04/01/2017 * Brief Op Note - Erasmo Yao III, MD - 04/01/2017 10:54 AM EDT Brief Operative Note Patient Name: Erich Carreon : [id number] MR#: [id number] Case Date: 04/01/2017 Surgeon: Surgeon(s) and Role: * Erasmo Yao III, MD - Primary Preoperative diagnosis: turbinate hypertrophy , deviated nasal septum Postoperative diagnosis: *same Procedure(s) (LRB): EXCISION, INFERIOR TURBINATE, PARTIAL OR COMPLETE (WRVU 3.47) (N/A) SEPTOPLASTY OR SMR, W/ OR W/O CARTILAGE SCORING, CONTOURING OR REPLACEMENT W/ GRAFT (WRVU 7.01) (N/A) Anesthesia: General Findings: deviated nasal septum and turbinate hypertrophy Complications: none Fluids: Per anesthesia Intraprocedure Crystalloid Total None Estimated Blood Loss: * No values recorded between 04/01/2017 12:00 AM and 04/01/2017 10:54 AM * Drains: none Disposition: awakened from anesthesia, extubated and taken to the recovery room in a stable condition, having suffered no apparent untoward event. Condition: doing well without problems Infection Bundle used? No Attestation: Case Date: 04/01/2017 I performed this procedure without the involvement of a resident. (Please see the Surgical Encounter Summary for any Implant and Specimen details pertinent to this patient.) documented in this encounter Plan of Treatment Not on file documented as of this encounter Procedures Procedure Name Priority Date/Time Associated Diagnosis Comments ABLATION INFERIOR TURBINATE, SUPERFICIAL Routine 04/01/2017 12:23 PM EDT Deviated nasal septum ABLATION INFERIOR TURBINATE, SUPERFICIAL (WRVU 1.14) 04/01/2017 11:43 AM EDT Deviated nasal septum SEPTOPLASTY OR SMR, W/ OR W/O CARTILAGE SCORING, CONTOURING OR REPLACEMENT W/ GRAFT (WRVU 7.01) 04/01/2017 11:43 AM EDT Deviated nasal septum SEPTOPLASTY OR SMR W/ OR W/O CARTILAGE SCOR CONTOUR OR REPLACE W/ GRFT Routine 04/01/2017 10:48 AM EDT Deviated nasal septum documented in this encounter Visit Diagnoses Diagnosis Deviated nasal septum Deviated nasal septum documented in this encounter Administered Medications Inactive Administered Medications - up to 3 most recent administrations Medication Order MAR Action Action Date Dose Rate Site bacitracin ointment ONCE PRN, Starting on Tue04/01/17 at 1208, Until Tue04/01/17 at 1702, Intra-Operative (Intra-Procedure) Given 04/01/2017 12:08 PM EDT 1 Tube 19- Surgical Site cocaine 4 % external solution ONCE PRN, Starting on Tue04/01/17 at 1205, Until Tue04/01/17 at 1702, Intra-Operative (Intra-Procedure) Given 04/01/2017 12:05 PM EDT 4 mLs 19- Surgical Site lidocaine-EPINEPHrine 1 %-1:200,000 injection ONCE PRN, Starting on Tue04/01/17 at 1205, Until Tue04/01/17 at 1702, Intra-Operative (Intra-Procedure), Routine Given 04/01/2017 12:05 PM EDT 2 mLs 19- Surgical Site documented in this encounter Active and Recently Administered Medications Times are shown in EDT. Continuous Medication Order 03/30/2017 03/31/2017 04/01/2017 lactated Ringers infusion 1,000 mL (CANCELED) 1,000 mL, Intravenous, CONTINUOUS, Starting on Tue04/01/17 at 1130, Until Tue04/01/17 at 1441, Day of Surgery (Day of Procedure) 1130 (New Bag - Prov ider: Kristen Mills CRNA)1232 (Anesthesia Volume Adjustment - Provider: Kristen Mills CRNA) PRN Medication Order 03/30/2017 03/31/2017 04/01/2017 bacitracin ointment (CANCELED) ONCE PRN, Starting on Tue04/01/17 at 1208, Until Tue04/01/17 at 1702, Intra-Operative (Intra-Procedure) 1208 (Given - Provid er: Erasmo Yao III, MD - Comment: Small amt used) cocaine 4 % external solution (CANCELED) ONCE PRN, Starting on Tue04/01/17 at 1205, Until Tue04/01/17 at 1702, Intra-Operative (Intra-Procedure) 1205 (Given - Provid er: Erasmo Yao III, MD - Comment: Surgical patties soaked with 4 ml of topical cocaine) lidocaine-EPINEPHrine 1 %-1:200,000 injection (CANCELED) ONCE PRN, Starting on Tue04/01/17 at 1205, Until Tue04/01/17 at 1702, Intra-Operative (Intra-Procedure), Routine 1205 (Given - Provid er: Erasmo Yao III, MD) documented in this encounter Care Teams User Support Specialist Relationship Specialty Start Date End Date Ernesto Eisenberg MD [address] [address] PCP - General 07/21/10 documented as of this encounter
--- OUTSIDE RECORDS SUMMARY | 2024-06-18 16:41 | XMS_ITS | Encounter Summary ---
[place] [address] Care Team Providers Care Timber Management Technician Name Role Phone Ernesto Eisenberg MD Primary Care Provider [phone] Encounter Details Date Type Department Care Team (Latest Contact Info) Description 07/11/2012 3:16 PM EST - 07/11/2012 11:59 PM EST Hospital Encounter [place] [id number] CARDIO, ECHO SIXTY MIN APPT None Ernesto Eisenberg MD [address] [place] [address] Dyspnea on exertion Discharge Disposition: Home Social History Tobacco Use [...] Procedure Name Priority Date/Time Associated Diagnosis Comments ECHOCARDIOGRAM TRANSTHORACIC Routine 07/11/2012 4:26 PM EST Dyspnea on exertion documented in this encounter Results * Echo Transthoracic (Complete) (07/11/2012 4:26 PM EST) Anatomical Region Laterality Modality Other 07/28/2012 Narrative 07/28/2012 12:33 PM EST Procedure: ? Pediatric Echocardiogram Patient: ? JAGDEEP ERICH Mcfarlane ? (Age): 1995(17) Med Rec#: ?[id number] ? Sex: ?M ? Site Loc: ?[facility] [place] ? Ht / Wt: ??178(cm)/57(kg) Pt. Loc: ? Echo Lab ? BSA: ?1.68 Study Date: ?07/11/2012 ? Pt. Type: Study Quality: ?Tape: ? Referring: Ernesto Eisenberg Referring: SYDNEY Reading: Oleg Faith B. ([id number]) Shirt Finisher: Erasmo Brown MS, [facility] Diagnosis: ??Observation For Suspected Cardiovasc Disease (V71.7) CPT Code(s): Indication(s): ??Shortness of breath Rhythm: HR ?BP ?110/80 ?? SUMMARY: 1. Normal exam. 2. No anatomic abnormality was seen with complete standard exam. 3. Left and right ventricular chamber size, wall thickness and systolic performance appear normal. 4. There is no pathologic valvar insufficiency. 5. See remainder of report for additional findings. FINDINGS: Atria And Veins ?The SVC and IVC enter the right atrium with normal flow. ?The right atrium is normal sized. ?The left atrium is normal sized. Atrioventricular Valves ?The tricuspid valve appears normal. ?There is trace tricuspid regurgitation. ?TR jet estimates right ventricular pressure at 18 mmHg plus mean right atrial pressure. ?The mitral valve structure appears normal. ?There is trace mitral regurgitation. Ventricles ?Qualitatively normal right ventricular size and systolic function. ?There is no evidence of right ventricular hypertension. ?Qualitatively normal left ventricular size and systolic function. Semilunar Valves ?The pulmonic valve leaflets appear normal. ?There is no pulmonic valve stenosis. ?There is mild pulmonic regurgitation. ?There is no evidence of aortic valve stenosis. ?There is no aortic regurgitation. Great Vessels ?There is no evidence of a coarctation. Miscellaneous ?Congenital two-dimensional echo limited, limited spectral Doppler and color Doppler performed. M-mode ?Value ?Units (Range) ? Z Score ? IVSd ?7.8 ?mm (7 to 10.5) ?-1.2 ? LVIDd ? 51.5 ? mm (42.5 to 55) ? 0.9 ? LVPWd ? 7 ?mm (7 to 10.5) ?-2.1 ? LVIDs ? 31.8 ? mm ? LVFS ?38.25 ?% ? LV Mass ? 129.43 ? g ? Left Ventricle ?Value ?Units (Range) ? Z Score ? LVd area ?22 ? cm2 ? LVs area ?11 ? cm2 ? LV FAC ?50 ? % ? Tricuspid Valve ?Value ?Units (Range) ? Z Score ? TR pk beatrice ? 2.13 ? m/sec ? TR pk grad ?18 ? mmHg ? All Z scores are estimated This report has been electronically signed by: Oleg Faith MD ? 07/28/2012 12:33:00 Images reviewed and interpretation verified [facility] Cardiac Ultrasound Laboratory Procedure Note Oleg Faith MD - 07/28/2012 Procedure: Pediatric Echocardiogram Patient: JAGDEEP ERICH Mcfarlane (Age): 1995(17) Med Rec#: [id number] Sex: M [place] Loc: [facility] [place] Ht / Wt: 178(cm)/57(kg) Pt. Loc: Echo Lab BSA: 1.68 Study Date: 07/11/2012 Pt. Type: Study Quality: Tape: Referring: Ernesto Eisenberg Referring: SYDNEY Reading: Oleg Faith B. ([id number]) Shirt Finisher: Erasmo Brown MS, [facility] Diagnosis: Observation For Suspected Cardiovasc Disease (V71.7) CPT Code(s): Indication(s): Shortness of breath Rhythm: HR BP 110/80 SUMMARY: 1. Normal exam. 2. No anatomic abnormality was seen with complete standard exam. 3. Left and right ventricular chamber size, wall thickness and systolic performance appear normal. 4. There is no pathologic valvar insufficiency. 5. See remainder of report for additional findings. FINDINGS: Atria And Veins The SVC and IVC enter the right atrium with normal flow. The right atrium is normal sized. The left atrium is normal sized. Atrioventricular Valves The tricuspid valve appears normal. There is trace tricuspid regurgitation. TR jet estimates right ventricular pressure at 18 mmHg plus mean right atrial pressure. The mitral valve structure appears normal. There is trace mitral regurgitation. Ventricles Qualitatively normal right ventricular size and systolic function. There is no evidence of right ventricular hypertension. Qualitatively normal left ventricular size and systolic function. Semilunar Valves The pulmonic valve leaflets appear normal. There is no pulmonic valve stenosis. There is mild pulmonic regurgitation. There is no evidence of aortic valve stenosis. There is no aortic regurgitation. Great Vessels There is no evidence of a coarctation. Miscellaneous Congenital two-dimensional echo limited, limited spectral Doppler and color Doppler performed. M-mode Value Units (Range) Z Score IVSd 7.8 mm (7 to 10.5) -1.2 LVIDd 51.5 mm (42.5 to 55) 0.9 LVPWd 7 mm (7 to 10.5) -2.1 LVIDs 31.8 mm LVFS 38.25 % LV Mass 129.43 g Left Ventricle Value Units (Range) Z Score LVd area 22 cm2 LVs area 11 cm2 LV FAC 50 % Tricuspid Valve Value Units (Range) Z Score TR pk beatrice 2.13 m/sec TR pk grad 18 mmHg All Z scores are estimated This report has been electronically signed by: Oleg Faith MD 07/28/2012 12:33:00 Images reviewed and interpretation verified [facility] Cardiac Ultrasound Laboratory Ernesto Eisenberg MD ECHO ORDERABLES documented in this encounter Visit Diagnoses Diagnosis Dyspnea on exertion Other dyspnea and respiratory abnormality documented in this encounter Care Teams Timber Management Technician Relationship Specialty Start Date End Date Ernesto Eisenberg MD [address] [place] [id number] PCP - General 07/21/10 documented as of this encounter
--- OUTSIDE RECORDS SUMMARY | 2024-06-18 16:41 | XMS_ITS | Encounter Summary ---
Author Organization [facility] [place] [address] Care Team Providers Care Tool Setter Name Role Phone Ernesto Eisenberg MD Primary Care Provider [phone] Encounter Details Date Type Department Care Team (Late st Contact Info) Description 03/04/2017 Orders Only [place] [address] Erasmo Yao III, MD [facility] [place] [address] Deviated nasal septum Social History Tobacco Use [...] septum documented in this encounter Care Teams Tool Setter Relationship Specialty Start Date End Date Ernesto Eisenberg MD [address] [place] [address] PCP - General 07/21/10 documented as of this encounter
--- OUTSIDE RECORDS SUMMARY | 2024-06-18 16:41 | XMS_ITS | Encounter Summary ---
[place] [address] Care Team Providers Care Perianesthesia Manager Name Role Phone Ernesto Eisenberg MD Primary Care Provider [phone] Reason for Referral * Diagnostic Test (Routine) - Closed Specialty Diagnoses / Procedures Referred By Contac t Referred To Contact Cardiology Diagnoses Acute lymphoid leukemia in remission Procedures Echocardiogram Transthoracic(Leb) Ernesto Eisenberg MD [address] [address] [facility] [place] [address] Referral ID Status Reason Start Date Expiration Date V isits Requested Visits Authorized [id number] Closed Specialty Service Requested 01/09/2016 01/08/2017 1 1 Reason for Visit * Diagnostic Test (Routine) - Closed Specialty Diagnoses / Procedures Referred By Contac t Referred To Contact Cardiology Diagnoses Acute lymphoid leukemia in remission Procedures Echocardiogram Transthoracic(Leb) Ernesto Eisenberg MD [address] [address] [facility] [place] [address] Referral ID Status Reason Start Date Expiration Date V isits Requested Visits Authorized [id number] Closed Specialty Service Requested 01/09/2016 01/08/2017 1 1 Encounter Details Date Type Department Care Team (Latest Contact Info) Description 01/27/2016 8:29 AM EDT - 01/27/2016 11:59 PM EDT Hospital Encounter [place] [address] Acute lymphoid leukemia in remission Discharge Disposition: Home Social History Tobacco Use [...] Procedure Name Priority Date/Time Associated Diagnosis Comments ECHO COMPLETE Routine 01/27/2016 9:16 AM EDT Acute lymphoid leukemia in remission documented in this encounter Results * ECHO COMPLETE (01/27/2016 9:16 AM EDT) EF 66 HEARTLAB SYSTEM Anatomical Region Laterality Modality Other 01/27/2016 Narrative 01/27/2016 9:48 AM EDT Amended Report Procedure: ?Transthoracic Echocardiogram Patient: ?JAGDEEP ERICH P ?(Age): 1995(20y) Med Rec#: ? [id number] ?Sex: ?M ? Site Loc: ? [facility] ?Ht / Wt: ??182(cm)/64(kg) Pt. Loc: ?Echo Lab ?BSA: ?1.83 Study Date: ?? 01/27/2016 ?Pt. Type: Outpatient Tape: ? Referring: Ernesto Eisenberg Reading: Loyd Love ([id number]) Wet Roller: Suyapa Dillon [facility] Interpreting Fellow: Camden Vines ([id number]) Diagnosis: *ICD-10-PCS Neoplasm of unspecified behavior of unspecified site (D49.9) *Neoplasm of Uncertain Behavior of other Specified Sites (238.8) CPT Codes: *Echo Full (14599) *Spectral Doppler (61539) *Color Doppler (68853) Indication: ?? Leukemia in remission Rhythm: ? Sinus BP: ? 112/51 HR: ? 84 SUMMARY: 1. The left ventricular chamber size is normal. ??There is normal global left ventricular systolic function. ??The quantitative left ventricular ejection fraction by 3-D rendering is 66%. ??No regional wall motion abnormalities. ?? 2. Right ventricular chamber size, wall thickness, and systolic function are within normal limits. 3. The cardiac valves appear structurally and functionally normal. 4. See remainder of report for additional findings. Findings ? : Left Ventricle: ? The left ventricular chamber size is normal. ?Left ventricular wall thickness is normal. ?There is no evidence of LVOT obstruction. ?No ventricular septal defect is visualized. ?There is normal global left ventricular systolic function. ?The quantitative left ventricular ejection fraction by biplane Miller's method is 68%. ?The quantitative left ventricular ejection fraction by 3-D rendering is 66%. ?There are no left ventricular segmental wall motion abnormalities. ?Doppler assessment is consistent with normal left sided filling pressure. Left Atrium: ? The left atrium is normal in size. 23 ml/m2. ?No atrial septal defect is visualized. Right Ventricle: ? Right ventricular chamber size, wall thickness, and systolic function are within normal limits. ?The estimated pulmonary artery systolic pressure is 19 mmHg. ?The estimated right atrial pressure is 3 mmHg. Right Atrium: ? The right atrium appears normal. Aortic Valve: ? The aortic valve is trileaflet. The leaflets are thin with normal excursion. There is no aortic stenosis or regurgitation present. Mitral Valve: ? The mitral valve appears normal in structure and function. ?There is no evidence of mitral valve leaflet prolapse. ?There is trace mitral regurgitation present. Tricuspid Valve: ? The tricuspid valve appears normal in structure and function. ?There is trace tricuspid regurgitation present. Pulmonic Valve: ? The pulmonic valve appears normal in structure and function. Pericardium: ? The pericardium appears normal and there is no evidence of a pericardial effusion. Aorta: ? The aortic root is normal in size. ?The ascending aorta is normal in size. ?There is no evidence of coarctation of the aorta. Pulmonary Artery: ? The main pulmonary artery appears normal. Venous: ? The inferior vena cava appears normal in size. ?There is a greater than 50% respiratory change in the inferior vena cava dimension. Misc: ? Two-dimensional echo, spectral Doppler and color Doppler performed. ?Three-dimensional echocardiogram performed. ?MAGGIE performed Chambers 2D ?Value ?Units (Range) ? IVSd (2D) ? 0.7 ?cm ? LVPWd (2D) ?0.7 ?cm ? IVS:LVPW ratio (2D) 1 ?ratio ? LVIDd (2D) ?4.9 ?cm ? LVIDs (2D) ?3.4 ?cm ? LVIDd (2D) index ?2.7 ?cm/m2 ? LVIDs (2D) index ?1.8 ?cm/m2 ? LV FS (2D) ?32 ? % ? EF Teichholz (2D) ?? 59 ? % ? Ao root diameter (2D2.8 ?cm (2.1 - 3.6) ? Ascending Ao ?2.3 ?cm (2 - 3.5) ? Volumes/Mass ?Value ?Units (Range) ? LA Area 4 CH ?14 ? cm2 (<21) ? LA ESV BP (A/L) inde23.2 ? ml/m2 ? RA AREA 4CH ? 11 ? cm2 ? LA ESV SP 4CH (MOD) 28.3 ? ml ? LA ESV SP 2CH (MOD) 48.7 ? ml ? LA ESV BP (MOD) inde23 ? ml/m2 ? LV ESV SP 4CH (MOD) 48 ? ml ? LV ESV SP 2CH (MOD) 40.9 ? ml ? LV EDV BP ? 137.1 ?ml ? LV ESV BP ? 44.4 ? ml ? BP EF (MOD) ? 68 ? % ? 3D LVEF ? 66 ? % ? Global Longiitudinal-18 ?% (-30 - -10) ? LV mass (2D) ?118.2 ?g ? LV mass (2D) index ??64.6 ? g/m2 ? Diastolic/Systolic Function ?Value ?Units (Range) ? MV E-wave Vmax ?0.7 ?m/sec ? MV deceleration fcij547.7 ?msec ? MV A-wave Vmax ?0.4 ?m/sec ? MV E:A ratio ?1.7 ?ratio ? LV septal e' Vmax ?? 0.2 ?m/sec ? LV E:e' septal ratio4.6 ?ratio ? Aortic Valve ?Value ?Units (Range) ? AV Vmax ? 1.2 ?m/sec ? AV peak gradient ?5.3 ?mmHg ? LVOT Vmax ? 0.9 ?m/sec ? LVOT peak gradient ??3.4 ?mmHg ? DOI (Vmax) ?0.8 ?ratio ? Tricuspid Valve ?Value ?Units (Range) ? TR Vmax ? 2 ?m/sec ? TR peak gradient ?16.3 ? mmHg ? RAP ? 3 ?mmHg ? RVSP ?19 ? mmHg ? Pulmonic Valve/Qp:Qs ?Value ?Units (Range) ? SD end-diastolic Vma0.8 ?m/sec ? PA end-diastolic pre5.5 ?mmHg ? Measurement Trending Name ? 01/27/2016 ? LV EDV BP ?137.09 LVIDd (2D) ? 4.9 LV ESV BP ?44.37 LVIDs (2D) ? 3.36 Wall Motion: Segment Name ?Rest ? Base-Anteroseptal ?? Normal ? Base-Anterior ? Normal ? Base-Anterolateral ??Normal ? Base-Posterolateral Normal ? Base-Inferior ? Normal ? Base-Inferoseptal ?? Normal ? Mid-Anteroseptal ?Normal ? Mid-Anterior ?Normal ? Mid-Anterolateral ?? Normal ? Mid-Posterolateral ??Normal ? Mid-Inferior ?Normal ? Mid-Inferoseptal ?Normal ? [place]-Septal ? Normal ? [place]-Anterior ? Normal ? [place]-Lateral ?Normal ? [place]-Inferior ? Normal ? [place]-Tip ?Normal ? This report has been electronically signed by: Loyd Love MD ? 01/27/2016 09:47:56 Images reviewed and interpretation verified [facility] Cardiac Ultrasound Laboratory Procedure Note Loyd Love MD - 01/27/2016 Amended Report Procedure: Transthoracic Echocardiogram Patient: JAGDEEP ERICH Mcfarlane (Age): 1995(20y) Med Rec#: [id number] Sex: M Site Loc: [facility] Ht / Wt: 182(cm)/64(kg) Pt. Loc: Echo Lab BSA: 1.83 Study Date: 01/27/2016 Pt. Type: Outpatient Tape: Referring: Ernesto Eisenberg Reading: Loyd Love ([id number]) Wet Roller: Suyapa Dillon [facility] Interpreting Fellow: Camden Vines ([id number]) Diagnosis: *ICD-10-PCS Neoplasm of unspecified behavior of unspecified site (D49.9) *Neoplasm of Uncertain Behavior of other Specified Sites (238.8) CPT Codes: *Echo Full (17534) *Spectral Doppler (81629) *Color Doppler (65491) Indication: Leukemia in remission Rhythm: Sinus BP: 112/51 HR: 84 SUMMARY: 1. The left ventricular chamber size is normal. There is normal global left ventricular systolic function. The quantitative left ventricular ejection fraction by 3-D rendering is 66%. No regional wall motion abnormalities. 2. Right ventricular chamber size, wall thickness, and systolic function are within normal limits. 3. The cardiac valves appear structurally and functionally normal. 4. See remainder of report for additional findings. Findings : Left Ventricle: The left ventricular chamber size is normal. Left ventricular wall thickness is normal. There is no evidence of LVOT obstruction. No ventricular septal defect is visualized. There is normal global left ventricular systolic function. The quantitative left ventricular ejection fraction by biplane Miller's method is 68%. The quantitative left ventricular ejection fraction by 3-D rendering is 66%. There are no left ventricular segmental wall motion abnormalities. Doppler assessment is consistent with normal left sided filling pressure. Left Atrium: The left atrium is normal in size. 23 ml/m2. No atrial septal defect is visualized. Right Ventricle: Right ventricular chamber size, wall thickness, and systolic function are within normal limits. The estimated pulmonary artery systolic pressure is 19 mmHg. The estimated right atrial pressure is 3 mmHg. Right Atrium: The right atrium appears normal. Aortic Valve: The aortic valve is trileaflet. The leaflets are thin with normal excursion. There is no aortic stenosis or regurgitation present. Mitral Valve: The mitral valve appears normal in structure and function. There is no evidence of mitral valve leaflet prolapse. There is trace mitral regurgitation present. Tricuspid Valve: The tricuspid valve appears normal in structure and function. There is trace tricuspid regurgitation present. Pulmonic Valve: The pulmonic valve appears normal in structure and function. Pericardium: The pericardium appears normal and there is no evidence of a pericardial effusion. Aorta: The aortic root is normal in size. The ascending aorta is normal in size. There is no evidence of coarctation of the aorta. Pulmonary Artery: The main pulmonary artery appears normal. Venous: The inferior vena cava appears normal in size. There is a greater than 50% respiratory change in the inferior vena cava dimension. Misc: Two-dimensional echo, spectral Doppler and color Doppler performed. Three-dimensional echocardiogram performed. MAGGIE performed Chambers 2D Value Units (Range) IVSd (2D) 0.7 cm LVPWd (2D) 0.7 cm IVS:LVPW ratio (2D) 1 ratio LVIDd (2D) 4.9 cm LVIDs (2D) 3.4 cm LVIDd (2D) index 2.7 cm/m2 LVIDs (2D) index 1.8 cm/m2 LV FS (2D) 32 % EF Teichholz (2D) 59 % Ao root diameter (2D2.8 cm (2.1 - 3.6) Ascending Ao 2.3 cm (2 - 3.5) Volumes/Mass Value Units (Range) LA Area 4 CH 14 cm2 (<21) LA ESV BP (A/L) inde23.2 ml/m2 RA AREA 4CH 11 cm2 LA ESV SP 4CH (MOD) 28.3 ml LA ESV SP 2CH (MOD) 48.7 ml LA ESV BP (MOD) inde23 ml/m2 LV ESV SP 4CH (MOD) 48 ml LV ESV SP 2CH (MOD) 40.9 ml LV EDV BP 137.1 ml LV ESV BP 44.4 ml BP EF (MOD) 68 % 3D LVEF 66 % Global Longiitudinal-18 % (-30 - -10) LV mass (2D) 118.2 g LV mass (2D) index 64.6 g/m2 Diastolic/Systolic Function Value Units (Range) MV E-wave Vmax 0.7 m/sec MV deceleration sbgs127.7 msec MV A-wave Vmax 0.4 m/sec MV E:A ratio 1.7 ratio LV septal e' Vmax 0.2 m/sec LV E:e' septal ratio4.6 ratio Aortic Valve Value Units (Range) AV Vmax 1.2 m/sec AV peak gradient 5.3 mmHg LVOT Vmax 0.9 m/sec LVOT peak gradient 3.4 mmHg DOI (Vmax) 0.8 ratio Tricuspid Valve Value Units (Range) TR Vmax 2 m/sec TR peak gradient 16.3 mmHg RAP 3 mmHg RVSP 19 mmHg Pulmonic Valve/Qp:Qs Value Units (Range) SD end-diastolic Vma0.8 m/sec PA end-diastolic pre5.5 mmHg Measurement Trending Name 01/27/2016 LV EDV BP 137.09 LVIDd (2D) 4.9 LV ESV BP 44.37 LVIDs (2D) 3.36 Wall Motion: Segment Name Rest Base-Anteroseptal Normal Base-Anterior Normal Base-Anterolateral Normal Base-Posterolateral Normal Base-Inferior Normal Base-Inferoseptal Normal Mid-Anteroseptal Normal Mid-Anterior Normal Mid-Anterolateral Normal Mid-Posterolateral Normal Mid-Inferior Normal Mid-Inferoseptal Normal [place]-Septal Normal [place]-Anterior Normal [place]-Lateral Normal [place]-Inferior Normal [place]-Tip Normal This report has been electronically signed by: Loyd Love MD 01/27/2016 09:47:56 Images reviewed and interpretation verified [facility] Cardiac Ultrasound Laboratory Ernesto Eisenberg MD ECHO ORDERABLES documented in this encounter Visit Diagnoses Diagnosis Acute lymphoid leukemia in remission documented in this encounter Care Teams Perianesthesia Manager Relationship Specialty Start Date End Date Ernesto Eisenberg MD [address] [address] PCP - General 07/21/10 documented as of this encounter
--- OUTSIDE RECORDS SUMMARY | 2024-06-18 16:41 | XMS_ITS | Encounter Summary ---
[place] [address] Care Team Providers Care Transportation Associate Name Role Phone Ernesto Eisenberg MD Primary Care Provider [phone] Encounter Details Date Type Department Care Team (Late st Contact Info) Description 10/04/2011 Orders Only [place] [id number] Мария Mei MD [address] [place] [address] Leukemia in remission (Primary Dx) Social History Tobacco Use Types Packs/Day Years Used Date Smoking Tobacco: Never Assessed Sex and Gender Information Value Date Recorded Sex Assigned at Not on file Gender Identity Not on file Sexual Orientation Not on file documented as of this encounter Plan of Treatment Not on file documented as of this encounter Visit Diagnoses Diagnosis Leukemia in remission- Primary Unspecified leukemia in remission documented in this encounter Care Teams Transportation Associate Relationship Specialty Start Date End Date Ernesto Eisenberg MD [address] [place] [address] PCP - General 07/21/10 documented as of this encounter
--- OUTSIDE RECORDS SUMMARY | 2024-06-18 16:41 | XMS_ITS | Encounter Summary ---
[place] [address] Care Team Providers Care Gas Engine Operator Generators Name Role Phone Ernesto Eisenberg MD Primary Care Provider [phone] Reason for Visit * Reason Comments Follow-up Encounter Details Date Type Department Care Team (Late st Contact Info) Description 10/06/2011 1:00 PM EST Follow-[place] [address] Мария Mei MD [address] [place] [address] Leukemia in remission (Primary Dx) Discharge Disposition: Home Social History Tobacco Use Types Packs/Day Years Used Date Smoking Tobacco: Never Assessed Sex and Gender Information Value Date Recorded Sex Assigned at Not on file Gender Identity Not on file Sexual Orientation Not on file documented as of this encounter Last Filed Vital Signs Vital Sign Reading Time Taken Comments Blood Pressure 115/68 10/06/2011 1:01 PM EST Pulse 96 10/06/2011 1:01 PM EST Temperature 36.6 ??C (97.9 ??F) 10/06/2011 1:01 PM ES T Respiratory Rate 20 10/06/2011 1:01 PM EST Oxygen Saturation - - Inhaled Oxygen Concentration - - Weight 52.8 kg (116 lb 6.5 oz) 10/06/2011 1:01 P M EST Height 174.4 cm (5' 8.66) 10/06/2011 1:01 PM ES T Body Mass Index 17.36 10/06/2011 1:01 PM EST Body Mass Index Percentile 16.11% 10/06/2011 1:0 1 PM EST Growth Chart: CDC (Boys, 2-2 0 Years) documented in this encounter Progress Notes * Мария Mei MD - 10/06/2011 4:16 PM EST Pediatric Oncology Long-Term Follow-Up Clinic Subjective/Events: Erich is a 16 year old boy who is being 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 Erich was last seen on 03/11/10. He is accompanied by his mother. Erich has had a difficult time during the fall/winter. He was diagnosed with bacterial meningitis in May 2011 and was admitted to [facility] for 1 week. Erich and his mother were not sure which bacteria caused the meningitis. Since that time Erich has had regular headaches, dizziness and has felt generally weak. Mom thinks Erich may have some hearing deficits related to the bacterial meningitis. In addition, Erich has chronic low back pain/sensitivity (???feels like pin-pricks?? ) of his lower back near the LP site. In addition, Erich has had chronic right knee pain. He denies any associated trauma. The pain is constant, nagging and brought on by any movement. His knee never swells and it is not red. His PCP thinks he may have some problems with patella dislocation. Erich has chronic right ankle pain since spraining his ankle while playing basketball last October. He is seeing a physical therapy for his back, knee and ankle pain. Overall, both his knee and ankle pain seem to be improved. There is a family history of ???arthritis?? in older family members only. Two weeks ago Erich was seen for acute abdominal pain, chest pain and shortness of breath. He couldnot remember what he was doing at the time of onset. He was seen in the local ED where labs, CXR and ECG were reportedly normal. He was told his symptoms were caused by a ???stomach bubble?? . He hasdaily episodes of heart burn for which he takes Tums. Erich denies night-time symptoms. He does nothave the sensation of food sticking. He has not tried an OTC medication for his heart burn. Many family members have heart burn. Erich has not had any recent fevers, weight loss or easy bleeding/bruising. He thinks he is deconditioned since his diagnosis of bacterial meningitis. Erich is failing math and Lao. He failed science last semester. He is at risk for having to repeat 9th grade. He has an IEP and his casey saw operator is Cecilia Nunez ([phone]). His most recentneuropsych testing was performed last year through the school. Mom is frustrated with how the school has been treating Erich. ROS: No weight loss, fever, night sweats, +decreased energy. No changes in vision, ? changes in hearing, no ear pain, rhinorrhea, mouth sores, sore throat, changes in voice quality No chest pain or palpitations No wheezing, SOB, cough, or difficulty breathing. No N/V/C/D. +heartburn No dysuria, hematuria, frequency, or urgency. No change in gait or strength. + right ankle and right knee pain w/o swelling No significant bruising. No rash. No tingling of fingers or toes, changes in coordination, balance or gait. No anxiety, depression, change in sleep or appetite, Erich denies anhedonia and panic attacks Oncologic PMH: Diagnosis: Premature B-cell Acute Lymphoblastic Leukemia (ALL) Date: 09/24/98 Presentation: Erich presented at 18 months of age with a three to four week history of intermittentlimp and limited weight-bearing on the right leg. Five days prior to admission, Erich tripped and fell and was unable to walk. Complete blood count at this time revealed a white blood cell count of 10.4 with 2 percent blasts. Hemoglobin was 8.4, hematocrit 25, and platelets were 57. 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 No childhood malignancies. MGM had lymphoma soon after Erich was diagnosed. Arthritis in older adults. SH: Erich lives in [place], [place] with his mother his younger sister Cyndy. No smokers in the home. Erich wears his seatbelt. Physical Exam: General: Thin, cooperative, talkative, in NAD VS: T 36.6 P 96 RR 20 BP 115/68 Wt 52.8 kg (45%) Ht 174.4 cm (80%) BMI 17 HEENT: w/o oral lesions, w/o conjunctival or scleral lesions, w/o nasal discharge Neck: supple, no thyromegaly Nodes: w/o adenopathy Lungs: clear CV: RRR, no murmur Abd: soft, thin, no HSM or masses, well healed LLQ scar Back: no scars, bruising or palpable fluid collection on lower back M/S: FROM of knees and ankles but c/o mild pain with all movements, no swelling Neuro: grossly intact Derm: 2 nevi on back which appear darker in pigmentation than others and with questionably irregular borders. Labs/Studies: None- CBC was drawn 2 weeks ago at [facility] and was reportedly normal, will have results faxed to us. Assessment: Erich is a 16 year old boy with a history of pre B-cell ALL. He has been in complete clinical remission since September 1998 and off therapy since 03/28/01. Erich has no evidence for disease recurrenceby history or physical exam. CBC from 2 weeks ago was reportedly normal ([facility] [phone]). 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 Neuropsychiatric testing from 2011 showed Erich to have the following:???An overall level of intellectual functioningis in the low average range, with equally developed verbal skills and perceptual reasoning. Literacy screening found low average word reading, decoding, and spell skills and average sentence fluency.Math skills were impaired?? .?? Quantitative measures of executive function found intact cognitive flexibility, short term memory, working memory, and problem solving but variable inhibitory control.Sustained attention was weak. Processing speed measures found mixed results with weak motor abilities more complex task demands impacting performance. Verbal skills were mixed with average oral fluency and reasoning, low average vocabulary and naming, and weak awareness/knowledge of social norms. Memory was intact in verbal and nonverbal domains. On nonverbal or visual-perceptual measures Erich demonstrated average scanning and perception but mixed visual-motor output. Motor testing found better nondominant than dominant abilities on fine motor speed and dexterity measures.?? Cytarabine and methotrexate have been shown to cause functional and learning deficits, diminished IQ and behavioral changes. In particular, survivors are at risk for developing problems with executive function (planning and organizing), sustained attention, memory, processing speed and visual-motorintegration. Survivors may have problems in math and reading, particularly reading comprehension. Those at highest risk are patients, like Erich, who were younger than 3 years old at the time of treatment. Erich's past cancer therapy puts him at increased risk for the following late effects: Cardiac Toxicity: Daunomycin has been shown to cause cardiomyopathy, arrhythmias, and subclinical left ventricular dysfunction. Patients who were younger than 5 years of age at the time of treatment and those who received high doses of daunomycin are at highest risk. Erich received a relatively small dose of daunomycin at a young age. If he develops shortness of breath, orthopnea, chest pain, palpitations or new cardiac findings on exam, he should be referred to a dietitian therapeutic and have an echocardiogram and ECG obtained. According to the [facility]???s Long-Term Follow-Up Guidelines, which are not evidenced based, screening echocardiograms should be obtained every 5 years. Tisha weeks is due to have an echo in 2014. Acute Myeloid Leukemia: Past exposure to cyclophosphamide and daunomycin puts a survivor at small risk for developing AML. Survivors are at highest risk within the first 10 years after receiving thischemotherapeutic agent. Now that Erich is more than 10 years off-therapy, his risk of developing a secondary AML is essentially zero. He no longer needs to have screening CBCs as long as he remains asymptomatic. Gonadal Dysfunction: Cyclophosphamide puts a survivor at risk for developing delayed puberty, hypogonadism and infertility. If concerns about delayed puberty arise, LH, FSH and testosterone levels should be checked. Hepatic Dysfunction: Thioguanine, methotrexate and mercaptopurine (6-MP) may cause liver dysfunction as a late effect. Erich should be assessed for scleral icterus, jaundice and hepatomegaly. It is not necessary to obtain screening LFTs if Erich remains asymptomatic. Renal Toxicity: Methotrexate puts a survivor at risk for developing kidney dysfunction as a late effect. Children who received this chemotherapeutic agent when they were younger than 5 years old are at highest risk. Erich should have his blood pressure monitored at routine office visits. If he develops hematuria or any other problems with urination, a urinalysis should be obtained initially. Urinary Tract Toxicity: Cyclophosphamide puts a survivor at risk for developing hemorrhagic cystitis, bladder fibrosis, dysfunctional voiding, vesicoureteral reflux, and hydronephrosis as late effects. Again, if Erich develops hematuria, urinary urgency or retention, dysuria or an abnormal urinary stream, he should be evaluated. This is a rare side effect. Clinical Leukoencephalopathy: Past exposure to intrathecal cytarabine and methotrexate puts a childat very small risk for developing spasticity, ataxia, dysarthria, dysphagia, hemiparesis and rarelyseizures. These are unlikely late effects. Erich should receive a thorough neurologic exam yearly. Osteoporosis/AVN: Methotrexate and corticosteroids may cause thinning of the bones. Steroids may cause avascular necrosis as a late effect, but this is unusual. Erich should consume adequate amounts of calcium and vitamin D. He should be evaluated for persistent joint or bone pain. Screening DEXA scans are not indicated. Peripheral Sensory or Motor Neuropathy: Vincristine has been shown to cause areflexia, weakness, foot drop and paresthesias. These are rare late effects. Again, Erich should have a thorough neurologic exam at least yearly. Raynaud???s Phenomenon: Survivors who received vincristine in the past may develop vasospastic attacks of their hands, feet, nose, lips, cheeks or earlobes related to stress or cold temperatures. Erich should wear protective clothing in cold environments. Cataracts: Children who received corticosteroids in the past are at small risk for developing cataracts as a late effect. Erich should have routine eye exams, and if concerns arise, be referred to Ophthalmology. Dental Abnormalities: Any patient who received chemotherapy prior to the eruption of permanent teeth is at risk for having problems with their teeth. Patients, like Erich, who had cancer therapy before the age of 5 years are at greatest risk. Erich should have dental exams and cleanings twice per year. Mental Health Disorders/Risky Behavior: It has been shown that pediatric survivors of cancer are atrisk for developing anxiety, depression, post- traumatic stress, social withdrawal and risk-taking behaviors. If Erich is feeling unusually sad or anxious, has a change in his sleep patterns or appetite or is having problems with peers, a physician should evaluate him. Today's Plan: History and physical exam Will obtain CBC results from [facility] Given all of Erich???s recent illnesses and school issues, I did not give him a treatment summary in clinic today Will call Erich???s casey saw operator Cecilia Mayra per mom???s request Will mail the results of Erich???s 2009 neuropsych testing results to his mother to share with Erich???s school again If Erich is thought to have new neurocognitive deficits secondary to his bacterial meningitis, would recommend additional neuropsychiatric testing Will consider referring to Partha Zaidi, PhD, psychologist Recommended mom talk to PCP about doing a hearing screen if hearing deficit suspected Erich to follow-up with Pediatric Heme/Onc on a prn basis now that he???s 10 years off therapy Follow-Up Plan: Screening echocardiogram to be performed ~2013, then every 5 years as an adult Annual history and physical exam by PCP Now that Erich is >10 years off therapy, he no longer needs screening CBCs Well childcare aide by Ernesto Eisenberg MD Family to call with questions/concerns The following are recommendations from Erich???s 2009 neuropsychiatric evaluation 1. ???Full sleep study to evaluate the quality of his sleep and provide recommendations for improving the quality of sleep. His mother is encouraged to foster good sleep hygiene. 2. Due to motor difficulties, we also recommend an occupational therapy evaluation. 3. Teachers should provide a close-up model for Erich to copy rather than having him write from theboard. Furnace Process Plant Operator may be necessary at times and a computer for writing assignments will be helpful. 4. Behavior interventions. a. He will likely benefit from a highly structured and predictable environment, where expectations are clear to him and consequences are well-known and consistent. b. A living environment (home and school) with few choices making things easier to keep wig maker (e.g., room with minimal things, closet with few clothes, few books). c. Frequent breaks should be incorporated into the schedule, to help facilitate his ability to sustain attention while working. d. Parents and teachers are encouraged to ensure he is paying attention before providing information or instructions, and keep instructions brief and clear, with frequent repetitions and Erich paraphrasing if needed. e. Offer reminders when he is off task, giving him the opportunity to re-focus (e.g., ???What are you supposed to be doing right now??? ). Erich should be given an option of more time to complete tasks so he doesn???t feel rushed.?? CC: Ernesto Eisenberg MD [address] [address] documented in this encounter Plan of Treatment Not on file documented as of this encounter Visit Diagnoses Diagnosis Leukemia in remission- Primary Unspecified leukemia in remission documented in this encounter Care Teams Gas Engine Operator Generators Relationship Specialty Start Date End Date Ernesto Eisenberg MD [address] [address] PCP - General 07/21/10 documented as of this encounter
--- OUTSIDE RECORDS SUMMARY | 2024-06-18 16:41 | XMS_ITS | Encounter Summary ---
[place] [address] Care Team Providers Care Operations Processor Name Role Phone Ernesto Eisenberg MD Primary Care Provider [phone] Reason for Visit * Auth/Cert Specialty Diagnoses / Procedures Referred By Contac t Referred To Contact Diagnoses turbinate hypertrophy Procedures PRO EXCISION TURBINATE EXCISION, INFERIOR TURBINATE, PARTIAL OR COMPLETE (WRVU 3.47) Referral ID Status Reason Start Date Expiration Date Visits Re quested Visits Authorized [id number] 1 1 Encounter Details Date Type Department Care Team (Latest Contact Info) Description 04/01/2017 10:43 AM EDT - 04/01/2017 3:01 PM EDT Hospital En[place] [address] Erasmo Yao III, MD [facility] [place] [address] Deviated nasal septum Discharge Disposition: Home Social History Tobacco Use [...] Sign Reading Time Taken Comments Blood Pressure 112/82 04/01/2017 1:45 PM EDT Pulse 74 04/01/2017 10:59 AM EDT Temperature 36.3 ??C (97.3 ??F) 04/01/2017 12:55 PM E DT Respiratory Rate 18 04/01/2017 10:59 AM EDT Oxygen Saturation 99% 04/01/2017 2:40 PM EDT Inhaled Oxygen Concentration - - [...] straining significantly to have bowel movements. Use [id number] stool softeners if needed. 4. Sneeze with your mouth open. 5. Your nose may feel very congested post surgery (like a sinus infection). This is normal. You mayuse Afrin nasal spray as needed for the first 48 hours after surgery. And for significant bleeding. 6. Buy a [employer] sinus rinse kit or use nasal saline [...] may have during the day. ?? [facility] bore mill operator can be reached at and can connectyou with a resident funeral pre need consultant if necessary after hours. If you need [...] III, MD - 04/01/2017 11:44 AM EDT [facility] Operative Note Patient Name: Erich Carreon : [id number] MR#: [id number] Case Date: 04/01/2017 Surgeon: Surgeon(s) and Role: [...] on the right side, and using a [place] elevator the perichondrium and periosteum were elevated [...] Operative Note Patient Name: Erich Carreon : [id number] MR#: [id number] Case Date: 04/01/2017 Surgeon: Surgeon(s) and Role: [...] Deviated nasal septum documented in this encounter Active and Recently [...] MD) documented in this encounter Care Teams Operations Processor Relationship Specialty Start Date End Date Ernesto Eisenberg MD [address] [place] [id number] PCP - General 07/21/10 documented as of this encounter
--- OUTSIDE RECORDS SUMMARY | 2024-06-18 16:41 | XMS_ITS | Encounter Summary ---
[place] [address] Care Team Providers Care Doctor Of Podiatric Medicine Name Role Phone Ernesto Eisenberg MD Primary Care Provider + [phone] Reason for Visit * Auth/Cert Specialty Diagnoses / Procedures Referred By Contac t Referred To Contact Diagnoses turbinate hypertrophy Procedures PRO EXCISION TURBINATE EXCISION, INFERIOR TURBINATE, PARTIAL OR COMPLETE (WRVU 3.47) Referral ID Status Reason Start Date Expiration Date Visits Re quested Visits Authorized [id number] 1 1 Encounter Details Date Type Department Care Team (Late st Contact Info) Description 04/01/2017 11:40 AM EDT Anesthesia Event Main [place] [address] Sammy Lemos MD [facility] [place] [address] Anesthesia Record Procedure Summary Procedure Name Responsible Anesthesiologist Anesthesia Start Time Anesthesia Stop Time SEPTOPLASTY OR SMR, W/ OR W/O CARTILAGE SCORING, CONTOURING OR REPLACEMENT W/ GRAFT (WRVU 7.01) (Nose) Sammy Lemos MD 04/01/17 1140 04/01/17 1248 Events Date Time Event Comment 04/01/2017 1134 1140 AN Verify 1140 Start 1144 An Start Data 1147 An Induction 1150 An Intubation 1154 Anesthesia Ready 1243 Extubation/LMA Out 1243 an stop data 1248 Recovery or ICU Handoff Johanna ent care was transferred to the destination unit staff after review of the patient's medical history, current anesthetic/surgical status and plan, according to the Provider Handoff Checklist. 1248 Stop Meds Name Total Midazolam 2 mg fentaNYL 50 mcg IV Lidocaine 20 mg Propofol 250 mg Rocuronium 30 mg Ondansetron 8 mg Dexamethasone 4 mg Neostigmine 3 mg Glycopyrrolate 0.4 mg Albuterol Inhaler 6 puff Propofol INF 130.59 mg Lidocaine 4% LTA 2 mL Ketorolac 30 mg lactated Ringers infusion 1,000 mL 600 m L * Agents Name O2 Air N2O Sevoflurane (et) * Blood No blood administrations on file. Lines, Drains, and Airways Type Details Placement Removal Incision 04/01/17; nose (Sept um); 04/26/22 (LDA cleanup utility RA#[id number]); 1715 (LDA cleanup utility RA#[id number]) 04/01/17 0000 by Barbara Valente RN 04/26/22 1715 by Natalie Carvalho ETT Mask Ventilation: Ea sy (1); ETT Type: Cuffed, Oral, MARCI; ETT Size: 7.5 mm; Notes: Asleep, Pre-O2, Stylette; Attempts: 1; Laryngoscopy Grade: 1; ETT Placement Verified By: Auscultation, Capnometry, Visual; Secured at Teeth: 21 cm; Inserted by: yosef; Removal Date: 04/01/17; Removal Time: 1243 04/01/17 1155 by Kristen Mills CRNA 04/01/17 1243 by Kristen Mills CRNA (RETIRED) Peripheral IV Line - Single Lumen 04/01/17; 1202; metacarpal vein (top of hand), left; [id number] catheter system; 20 gauge; yosef; no longer indicated, removed per policy/procedure; 04/01/17; 1441 04/01/17 1202 by Kristen Mills CRNA 04/01/17 1441 by Andrés Garrett RN documented in this encounter Social History Tobacco Use Types Packs/Day Years [...] on file documented as of this encounter OR Notes * Anesthesia Postprocedure Evaluation - Sammy Lemos MD - 04/01/2017 1:45 PM EDT [facility] [place]iology Post-procedure Note Patient: Erich Carreon Procedure Summary Date Anesthesia Start Anesthesia Stop Room / Location 04/01/17 1140 1248 [facility] OR Procedure Diagnosis Surgeon Responsible Provider SEPTOPLASTY OR SMR, W/ OR W/O CARTILAGE SCORING, CONTOURING OR REPLACEMENT W/ GRAFT (WRVU 7.01) (N/A Nose); ABLATION INFERIOR TURBINATE, SUPERFICIAL (WRVU 1.14) (Nose) Deviated nasal septum (turbinate hypertrophy) Erasmo Yao III, MD Bertrand, Marc L, MD All Anesthesia Providers: Anesthesiologist: Sammy Lemos MD BIOLOGICS SPECIALIST: Kristen Mills CRNA Last (1hr) Vitals: BP 116/79 (04/01/17 1330) Temp 36.3 ??C (97.3 ??F) (04/01/17 1255) Pulse Resp SpO2 100 % (04/01/17 1330) Patient Location: PACU[facility] Level of Consciousness: Conscious but Sleepy Pain Management: Satisfactory Analgesia PONV: Ongoing PONV/Being Treated Cardiovascular Status: At Baseline Respiratory Status: At Baseline Postoperative Fluid Status: Intravascular EUvolemia Possible Anesthetic Complications: NONE apparent at time of evaluation Final Primary Anesthesia Type: General (The anesthetic type performed was the same as planned.) Comments: * Anesthesia Preprocedure Evaluation - Sammy Lemos MD - 04/01/2017 10:34 AM EDT Pre-Anesthesia Evaluation for: Erich Carreon a 22 y.o. male. Procedure(s): EXCISION, INFERIOR TURBINATE, PARTIAL OR COMPLETE (WRVU 3.47) SEPTOPLASTY OR SMR, W/ OR W/O CARTILAGE SCORING, CONTOURING OR REPLACEMENT W/ GRAFT (WRVU 7.01) Patient Active Problem List Diagnosis ??? Dorsalgia ??? Laryngeal spasm ??? Dyspnea on exertion ??? Sinusitis ??? Chest pain ??? Fatigue ??? ALL (acute lymphoblastic leukemia of infant) Past Medical History: Diagnosis Date ??? Leukemia ??? Sinusitis Past Surgical History: Procedure Laterality Date ??? APPENDECTOMY ??? TONSILLECTOMY AND ADENOIDECTOMY Social History Substance Use Topics ??? Smoking status: Never Smoker ??? Smokeless tobacco: Never Used Comment: no ETS exposure ??? Alcohol use No History Drug Use No Allergies Allergen Reactions ??? Asparaginase ??? Cis Free Text Allergy POSS E-COLI RXN W/L-ASPARIGINASE. ??? Keflex [Cephalexin] Medications: MAR and/or home medications have been reviewed. Physical Exam: There were no vitals filed for this visit. There is no height or weight on file to calculate BMI. Airway Assessment: Mallampati: II TM distance: >3 FB Neck ROM: full Cardiovascular Assessment: Rhythm: regular Pulmonary Assessment: breath sounds clear to auscultation Dental Assessment: - normal exam Misc Assessment: Anesthesia Plan: ASA 2 general, with a(n) intravenous induction 22 yro with chronic sinusitis presenting for septoplasy/excision inferior turbinates. PMHx notable for Hx ALL as child, exercise induced asthma and Hx mild CP of uncertain etiology. No recent change in health. Denies recent URI, GERD, cardiac issues, DM, Sz. No prior issues with anesthesia. No hx motion sickness. NPO status verified. Significant reaction to Keflex noted (airway closure). Plan: GA/ETT, standard monitors. Region - Other Informed Consent: Anesthetic plan and risks discussed with patient. PAT Staff Note documented in this encounter Plan of Treatment Not on file documented as of this encounter Visit Diagnoses Not on filedocumented in this encounter Administered Medications Inactive Administered Medications - up to 3 most recent administrations Medication Order MAR Action Action Date Dose Rate Site albuterol (PROVENTIL HFA;VENTOLIN HFA;PROAIR) 90 mcg/actuation inhaler PRN, Starting on Tue04/01/17 at 1147, Until Tue04/01/17 at 1248, Wheezing, Anesthesia Intra-op, Routine Given 04/01/2017 11:44 AM EDT 6 puffs dexamethasone (DECADRON) injection PRN, Starting on Tue04/01/17 at 1145, Until Tue04/01/17 at 1248, Anesthesia Intra-op, Routine Given 04/01/2017 11:45 AM EDT 4 mg fentaNYL 50 mcg/mL multi-dose injection PRN, Starting on Tue04/01/17 at 1147, Until Tue04/01/17 at 1248, Pain, Anesthesia Intra-op, Routine Given 04/01/2017 11:47 AM EDT 50 mcg glycopyrrolate (ROBINUL) multi-dose injection PRN, Starting on Tue04/01/17 at 1215, Until Tue04/01/17 at 1248, Anesthesia Intra-op, Routine Given 04/01/2017 12:15 PM EDT 0.4 mg ketorolac (TORADOL) injection PRN, Starting on Tue04/01/17 at 1212, Until Tue04/01/17 at 1248, Pain, Anesthesia Intra-op, Routine Given 04/01/2017 12:12 PM EDT 30 mg lactated Ringers infusion 1,000 mL 1,000 mL, Intravenous, CONTINUOUS, Starting on Tue04/01/17 at 1130, Until Tue04/01/17 at 1441, Day of Surgery (Day of Procedure) New Bag 04/01/2017 11:30 AM EDT lidocaine (PF) (XYLOCAINE) 100 mg/5 mL (2 %) injection PRN, Starting on Tue04/01/17 at 1147, Until Tue04/01/17 at 1248, Anesthesia Intra-op, Routine Given 04/01/2017 11:47 AM EDT 20 mg lidocaine (XYLOCAINE) 4 % external solution PRN, Starting on Tue04/01/17 at 1150, Until Tue04/01/17 at 1248, Anesthesia Intra-op Given 04/01/2017 11:50 AM EDT 2 mLs midazolam (PF) (VERSED) 1 mg/mL multi-dose injection PRN, Starting on Tue04/01/17 at 1140, Until Tue04/01/17 at 1248, Sleep, Anesthesia Intra-op, Routine Given 04/01/2017 11:45 AM EDT 1 mg Given 04/01/2017 11:40 AM EDT 1 mg neostigmine (BLOXIVERZ) injection PRN, Starting on Tue04/01/17 at 1215, Until Tue04/01/17 at 1248, Anesthesia Intra-op, Routine Given 04/01/2017 12:15 PM EDT 3 mg ondansetron (ZOFRAN) injection PRN, Starting on Tue04/01/17 at 1200, Until Tue04/01/17 at 1248, Nausea, Anesthesia Intra-op, Routine Given 04/01/2017 12:00 PM EDT 8 mg propofol (DIPRIVAN) 10 mg/mL bolus injection (Anesthesia) PRN, Starting on Tue04/01/17 at 1147, Until Tue04/01/17 at 1248, Anesthesia Intra-op Given 04/01/2017 11:47 AM EDT 250 mg propofol (DIPRIVAN) infusion CONTINUOUS PRN, Starting on Tue04/01/17 at 1147, Until Tue04/01/17 at 1248, Anesthesia Intra-op, Routine Rate/Dose Change 04/01/2017 12:00 PM EDT 50 mcg/kg/min 19.1 mL/hr New Bag 04/01/2017 11:47 AM EDT 100 mcg/kg/min 38.2 mL/ hr rocuronium (ZEMURON) multi-dose injection PRN, Starting on Tue04/01/17 at 1147, Until Tue04/01/17 at 1248, Anesthesia Intra-op, Routine Given 04/01/2017 11:47 AM EDT 30 mg documented in this encounter Care Teams Doctor Of Podiatric Medicine Relationship Specialty Start Date End Date Ernesto Eisenberg MD [address] [place] [id number] PCP - General 07/21/10 documented as of this encounter
--- OUTSIDE RECORDS SUMMARY | 2024-06-18 16:41 | XMS_ITS | Encounter Summary ---
Author Organization [facility] [place] [address] Care Team Providers Care Tripper Name Role Phone Ernesto Eisenberg MD Primary Care Provider + [phone] Reason for Visit * Reason Comments Follow-up deviasted nasal sept um Encounter Details Date Type Department Care Team (Late st Contact Info) Description 05/18/2017 8:30 AM EDT Office [place] [address] Erasmo Yao III, MD [facility] [place] [address] Deviated nasal septum Social History Tobacco Use [...] - Inhaled Oxygen Concentration - - Weight 65.5 kg (144 lb 4.8 oz) 05/18/2017 8:51 A M EDT Height 182.9 cm (6') 05/18/2017 8:51 AM EDT Body Mass Index 19.57 05/18/2017 8:51 AM EDT documented in this encounter Progress Notes * Erasmo Yao III, MD - 05/18/2017 8:30 AM EDT Erich Mcfarlane Lauri returns for recheck of the septum, and for evaluation of possible airway obstructionin the lower airway. He is breathing well through his nose and is very happyy with the result. In the past he had been told that there was narrowing of his airway at the level of the larynx. In 2012 he was found to have paradoxical vocal fold motion. He is currently asymptomatic. Review of Systems: A complete review of [...] ear bilaterally. NOSE: Normal external nasal exam. Septoplasty well healed with excellent airways. Septum midline. Turbinates are normal. SALIVARY: Parotid and submandibular glands are normal to inspection and palpation. ORAL CAVITY: Normal exam of oral tongue Normal mucosa without lesion Floor of mouth is soft. Dentition good repair OROPHARYNX: Normal tonsils. Normal soft palate and uvula. Posterior pharyngeal wall normal. LARYNX: Vocal cords normal. No evidence paradoxical motion today. Vocal mobility normal. No mucosal lesions noted. Upper trachea normal. NECK: No asymmetry on inspection No adenopathy. Normal thyroid. RESPIRATORY: Normal voice. No stridor. Normal respirations. CV: Normal carotid pulses. NEURO/PSYCH: Normal affect. Alert and oriented x 3. Responds appropriately to questions. CN II-XII grossly intact. PROCEDURES: Flexible Fiberoptic Laryngoscopy: Topical anesthetic and decongestant were applied to the nasal cavity. The flexible scope was passedto the level of the cords without difficulty. The patient tolerated the procedure well without any complications. Nasal Cavity: Normal Nasopharynx: Normal Oropharynx: Normal Larynx: Normal Hypopharynx: Normal IMPRESSION: Well healed septoplasty. No evidence airway obstruction or laryngeal abnormality. He will return only as needed. documented in this encounter Plan of Treatment Not on file documented as of this encounter Visit Diagnoses Diagnosis Deviated nasal septum documented in this encounter Care Teams Tripper Relationship Specialty Start Date End Date Ernesto Eisenberg MD [address] [id number] PCP - General 07/21/10 documented as of this encounter
--- OUTSIDE RECORDS SUMMARY | 2024-06-18 16:41 | XMS_ITS | Encounter Summary ---
[place] [address] Care Team Providers Care Door Repairer Bus Name Role Phone Ernesto Eisenberg MD Primary Care Provider + [phone] Reason for Visit * Reason Onset Date Comments Bumped Appointment 01/11/2017 Encounter Details Date Type Department Care Team (Late st Contact Info) Description 01/11/2017 Telephone [place] [id number] Estefani Ellison Bumped Appointment Social History Tobacco Use Types Packs/Day Years [...] encounter Miscellaneous Notes * Telephone Encounter - Estefani Ellison - 01/11/2017 8:55 AM EDT Called Patient to inform him that 01/19 appointment had to be cancelled due to the provider going into the OR that morning. Spoke with mom, offered to move appointment to afternoon of same day. She declined stating he had to be at work at 2pm, she requested another morning appointment. Offered Sunday 01/21 @ 10:00am. She accepted. documented in this encounter Plan of Treatment Not on file documented as of this encounter Visit Diagnoses Not on filedocumented in this encounter Care Teams Door Repairer Bus Relationship Specialty Start Date End Date Ernesto Eisenberg MD [address] [place] [id number] PCP - General 07/21/10 documented as of this encounter
[2024-06-18 19:59] LABS: HCT 37.8 % (40.0-50.0); HGB 13.1 g/dL (13.5-17.5); MCHC 34.7 % (32.0-36.0); MCV 84 fL (80-95); MPV 11.4 fL (8.0-11.0); Platelet Count 244 10^3/uL (130-400); RBC 4.51 10^6/uL (4.36-5.78); RDW 12.9 % (11.8-14.1); RDW-SD 39.5 fL; WBC 7.31 10^3/uL (4.4-10.8)
[2024-06-18 21:38] LABS: ALT 30 U/L (16-63); AST 31 U/L (15-37); Albumin 4.3 g/dL (3.4-5.0); Alkaline Phosphatase 60 U/L (46-116); Anion Gap 8.5 mmol/L (3-11); BUN 13 mg/dL (7-18); Bilirubin, Total 0.49 mg/dL (0.2-1.0); CO2 27.5 mmol/L (21.0-32.0); CREATININE 0.9 mg/dL (0.70-1.30); Calcium 9.2 mg/dL (8.5-10.1); Chloride 106 mmol/L (98-107); Estimated GFR 120.05 (mL/min/1.73m2); Glucose 98 mg/dL (74-106); Potassium 3.7 mmol/L (3.5-5.1); Sodium 142 mmol/L (136-145); TSH 1.26 uIU/mL (0.36-3.74)
== END 2024-06-18 16:39 | disposition home or self-care (01) ==
LOC: NCHCN 16:38
PROVIDERS: PCP Internal Medicine; Visit Provider Internal Medicine
DX: C91.01 Acute lymphoblastic leukemia, in remission (principal)
CPT/HCPCS: 80053; 85027; 84443

== ENCOUNTER 2024-12-12 16:37 | Outpatient (REF) | payer OTHER, SELFPAY ==
[2024-12-14 11:06] LABS: GC Result Negative (Negative)
[2024-12-14 11:12] LABS: Chlamydia Result Positive (Negative)
== END 2024-12-12 16:38 | disposition home or self-care (01) ==
LOC: NCHCN 16:37
PROVIDERS: PCP Internal Medicine; Visit Provider Nurse Practitioner Family
DX: Z11.3 Encounter for screening for infections with a predominantly sexual mode of transmission (principal)
CPT/HCPCS: 87491; 87591

== ENCOUNTER 2025-02-26 17:53 | Outpatient (REF) | payer MEDICAID, SELFPAY ==
[2025-02-28 12:14] LABS: Chlamydia Result Negative (Negative); GC Result Negative (Negative)
== END 2025-02-26 17:54 | disposition home or self-care (01) ==
LOC: NCHCN 17:53
PROVIDERS: PCP Internal Medicine; Visit Provider Nurse Practitioner Family
DX: Z86.19 Personal history of other infectious and parasitic diseases (principal)
CPT/HCPCS: 87491; 87591

== ENCOUNTER 2025-04-15 04:30 | Outpatient (CLI) | payer MEDICAID, SELFPAY ==
--- NOTE | 2025-04-21 21:09 | PDOC.EEG_ITS ---
Neurology EEG EEG: [facility] Department of Neurology LONG-TERM AMBULATORY EEG REPORT Date of Recordin04/15/25 at 08:55:49 to 04/18/25 at 14:23:28 Interpreting Physician: Dr. Ciera Power PCP/Referring Provider: Dr. Ernesto Eisenberg Reason for study: Mr. Carreon is a 30 year-old with childhood ALL, h/o meningitis, asthma, ETOH abuse - currently sober since 2023 with increasing seizure like spells. Current Medications: Home Medications ?Medication ?Instructions ?Recorded ?Confirmed ?Type albuterol sulfate 2.5 mg/0.5 mL 2.5 mg inhalation Q20M 10/09/19 04/09/25 History solution for nebulization ibuprofen 800 mg tablet 800 mg PO Q8H 10/09/19 04/09/25 History acetaminophen 325 mg tablet 650 mg PO ONCE PRN 01/31/25 04/09/25 His tory (Tylenol) cholecalciferol (vitamin D3) 25 25 mcg PO DAILY 01/31/25 04/09/25 Histor y mcg (1,000 unit) capsule METHODS: An 18-channel digitized electroencephalogram was recorded in the ambulatory setting with video. The 10/20 international system of electrode placement was used and bipolar and referential electrode montages were recorded. In addition to EEG the patient was monitored for EKG and by video. Activation procedures of photic stimulation and hyperventilation were performed if applicable. The duration of the recording was ~77 hours. DESCRIPTION OF EEG: Waking background activity: During maximal wakefulness a 10-Hz posterior background rhythm was present which was well-modulated, symmetrical, reactive to eye opening, and of moderate voltage. Faster frequencies were present in the bilateral anterior head regions. There was a normal anterior-posterior voltage gradient. Drowsy and sleeping background activity: During drowsiness, there was attenuation of the posterior dominant background rhythm and vertex waves. Normal stage II and III sleep was present with symmetrical sleep spindles, K- complexes, and vertex waves with slowing of the background rhythm to delta/theta frequencies. REM sleep manifested by rapid lateral eye movements and faster background rhythms was recorded. Arousal was unremarkable. Of note, the F1 lead was disconnected for the majority of the recording. The F2 lead was disconnected for the last ~quarter of the recording. Interictal abnormalities: none. Ictal findings: Event #1 on 04/15/25 at 20:32:22 to 20:37:49 -Clinical manifestations: Patient is laying in bed on right side when he starts to have semi-rhythmic head jerking to the right. He is able to push the event button during this time. The movements continue with varying frequency, with periods of disorganized rapider head shaking side to side, and periods of rest; tapering until end. -EEG findings: Motion and movement artifact with normal EEG awake background. Event #2 on 04/16/25 at 17:20:37 -Clinical manifestations: Patient reports typical seizure activity with generalized shaking and FERNIE. Patient was not in video at this time. -EEG findings: Motion and movement artifact with normal EEG awake background. Event #3 on 04/17/25 at 20:38:11 -Clinical manifestations: Patient reports typical seizure activity with generalized shaking and FERNIE. Patient was not in video at this time. -EEG findings: Motion and movement artifact with normal EEG awake background. Activating Procedures: Photic stimulation was performed which produced a subtle symmetrical posterior driving response at various flash frequencies. Hyperventilation was stopped early due to symptoms of dizziness and development of numbness in chest, face, eyes, top of head, and arms. There was mild physiological slowing of the background prior to cessation. EKG: EKG lead was not recording during this study. INTERPRETATION: This long-term EEG is normal during the awake and sleep states as well as during the activation procedures. 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 PRIOR EEG: none CLINICAL CORRELATION: No focal regions of cerebral dysfunction or epileptiform activity was present. 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 Ciera Power MD Date of service: 04/15/25
== END 2025-04-15 04:31 | disposition home or self-care (01) ==
LOC: RT 04:30
PROVIDERS: PCP Internal Medicine; Visit Provider Psychiatry & Neurology Neurology
DX: R40.4 Transient alteration of awareness (principal); R56.9 Unspecified convulsions
CPT/HCPCS: 95714; 95724

== ENCOUNTER 2025-06-03 15:48 | Outpatient (REF) | payer MEDICAID, SELFPAY ==
[2025-06-03 20:10] LABS: ALT 41 U/L (16-63); AST 16 U/L (15-37); Albumin 4.5 g/dL (3.4-5.0); Alkaline Phosphatase 62 U/L (46-116); Anion Gap 5.9 mmol/L (3-11); BUN 11 mg/dL (7-18); Bilirubin, Total 0.9 mg/dL (0.2-1.0); CO2 30.1 mmol/L (21.0-32.0); Calcium 9.5 mg/dL (8.5-10.1); Chloride 105 mmol/L (98-107); Estimated GFR 119.31 (mL/min/1.73m2); Glucose 91 mg/dL (74-106); Potassium 4.4 mmol/L (3.5-5.1); Sodium 141 mmol/L (136-145); TSH (W/Ref FT4) 0.78 uIU/mL (0.36-3.74); Total Protein 7.2 g/dL (6.4-8.2)
[2025-06-03 22:42] LABS: HCT 43.1 % (40.0-50.0); HGB 14.6 g/dL (13.5-17.5); MCH 28.2 pg (27.0-33.0); MCHC 33.9 % (32.0-36.0); MCV 83 fL (80-95); MPV 11.1 fL (8.0-11.0); Platelet Count 246 10^3/uL (130-400); RBC 5.17 10^6/uL (4.36-5.78); RDW 12.5 % (11.8-14.1); RDW-SD 37.8 fL; WBC 5.91 10^3/uL (4.4-10.8)
== END 2025-06-03 15:49 | disposition home or self-care (01) ==
LOC: NCHCN 15:48
PROVIDERS: PCP Internal Medicine; Visit Provider Nurse Practitioner Family
DX: Z85.6 Personal history of leukemia (principal)
CPT/HCPCS: 80053; 85027; 84443